=== PATIENT | male | born 1970 | race Caucasian/White ===

== ENCOUNTER 2019-06-04 05:04 | Emergency (ER) | payer BC ==
[2019-06-04] MEDS ORDERED: ONDANSETRON 4 MG/2 ML VIAL IVP STA (05:37)
[2019-06-04] MEDS ORDERED: KETOROLAC 30 MG/ML 1 ML VIAL IVP ONE (05:37)
[2019-06-04 05:50] LABS: Basophils # (A) 0.1 k/uL (0-0.2); Basophils % (A) 1 %; Eosinophils # (A) 0.2 k/uL (0-0.7); Eosinophils % (A) 3 %; HGB 16.4 gm/dL (13.0-17.5); Lymphocytes # (A) 1.3 k/uL (1.0-4.8); Lymphocytes % (A) 22 %; MCH 29.9 pg (25.0-35.0); MCHC 34.1 g/dL (31.0-37.0); MCV 87.7 fL (80.0-100.0); Mean Platelet Volume 7.3; Monocytes # (A) 0.3 k/uL (0-1.0); Monocytes % (A) 5 %; Neutrophils # (A) 4.1 k/uL (1.3-7.7); Neutrophils % (A) 67 %; Platelet Count 186 k/uL (150-450); RBC 5.47 m/uL (4.30-5.90); RDW 12.9 % (11.5-15.5); WBC 6.1 k/uL (3.8-10.6)
[2019-06-04 05:58] LABS: Albumin 4.4 g/dL (3.5-5.0); Calcium 9.3 mg/dL (8.4-10.2); Total Bilirubin 0.4 mg/dL (0.2-1.3); Total Protein 7.3 g/dL (6.3-8.2)
--- NOTE | 2019-06-04 06:06 | XR ---
EXAM: XR Abdomen, 2 Views CLINICAL HISTORY: ITS.REASON XR Reason: abdominal pain LLQ possible stone TECHNIQUE: Frontal view of the abdomen/pelvis with upright view of the abdomen. COMPARISON: None. FINDINGS: Intraperitoneal space: No free air. Gastrointestinal tract: Moderate colonic stool burden. No dilation. Bones/joints: Unremarkable. Other findings: No pathologic calcification identified. IMPRESSION: 1. No pathologic calcification identified. Consider evaluation with CT if there is clinical concern for renal or ureteral calculus. 2. Moderate colonic stool burden. Recommend correlation for constipation.
--- NOTE | 2019-06-04 06:37 | ED ---
Abdominal Pain HPI - General Chief Complaint: Abdominal Pain Stated Complaint: Abdominal Pain Time Seen by Provider: 06/04/19 05:37 Source: patient, family Mode of arrival: ambulatory Limitations: no limitations - History of Present Illness Initial Comments: Enrique is a 49-year-old gentleman with a history of kidney stones one time in the past who presents the emergency department today for evaluation of left- sided flank pain radiating to his groin since 1 AM. Patient was woken from the pain, reports is been persistent associated with nausea but no vomiting no change in bowel habits. Patient reports that since the pain began he's had an urge to urinate but is experiencing hesitancy he has not noted any gross hematuria. Patient reports he waited to come in because in the past when he had these symptoms they resolved upon arrival in the emergency department however today they persisted which prompted his arrival to the emergency department. - Related Data Previous Rx's Medication Instructions Recorded Ondansetron [Zofran ODT] 4 mg PO Q8HR #12 tab 06/04/19 Tamsulosin [Flomax] 0.4 mg PO DAILY #7 cap 06/04/19 Allergies Allergy/AdvReac Type Severity Reaction Status Date / Time No Known Allergies Allergy Verified 06/04/19 06:49 Review of Systems ROS Statement: Those systems with pertinent positive or pertinent negative responses have been documented in the HPI. ROS Other: All systems not noted in ROS Statement are negative. Past Medical History Additional Past Medical History / Comment(s): kidney stones History of Any Multi-Drug Resistant Organisms: None Reported Past Surgical History: No Surgical Hx Reported Past Psychological History: No Psychological Hx Reported Smoking Status: Current every day smoker Past Alcohol Use History: None Reported Past Drug Use History: None Reported General Exam - General Exam Comments Initial Comments: Physical Exam GENERAL: Patient is well-developed and well-nourished. Patient is nontoxic and well- hydrated and is in no distress. HENT: Normocephalic, Atraumatic. EYES: PERRL, EOMI PULMONARY: Unlabored respirations. No audible rales rhonchi or wheezing was noted. CARDIOVASCULAR: There is a regular rate and rhythm without any murmurs gallops or rubs. ABDOMEN: Soft and nontender with normal bowel sounds. No Pulsatile masses Tenderness to percussion to left flank SKIN: Skin is clear with no lesions or rashes and otherwise unremarkable. : Deferred NEUROLOGIC: Patient is alert and oriented x3. Moving all extremities spontaneously MUSCULOSKELETAL: Normal extremities with adequate strength and full range of motion. No lower extremity swelling or edema. No calf tenderness. PSYCHIATRIC: Normal psychiatric evaluation. Limitations: no limitations Course Vital Signs 06/04/19 06/04/19 06/04/19 05:17 06:46 07:45 Temperature 97.5 F L 98.0 F Pulse Rate 51 L 54 L 54 L Respiratory 20 16 16 Rate Blood Pressure 151/90 132/73 125/81 O2 Sat by Pulse 96 95 98 Oximetry Medical Decision Making - Medical Decision Making was seen and evaluated, history is obtained from the patient History and physical exam concerning for left-sided kidney stone as the patient has classic kidney stone pain which has resolved after Toradol CBC CMP unremarkable Urinalysis pending Urinalysis resulted with hematuria, we'll urinalysis was pending patient had worsening pain was given morphine. Upon reevaluation patient's pain has again resolved. At this time I do feel patient is likely suffering from a kidney stone too small to identify on KUB x-ray. Patient agreeable with plan for discharge home and outpatient management. - Lab Data Result diagrams: 06/04/19 05:30 06/04/19 05:30 Lab Results 06/04/19 06/04/19 06/04/19 Range/Units 05:30 05:30 07:17 WBC 6.1 (3.8-10.6) k/uL RBC 5.47 (4.30-5.90) m/uL Hgb 16.4 (13.0-17.5) gm/dL Hct 48.0 (39.0-53.0) % MCV 87.7 (80.0-100.0) fL MCH 29.9 (25.0-35.0) pg MCHC 34.1 (31.0-37.0) g/dL RDW 12.9 (11.5-15.5) % Plt Count 186 (150-450) k/uL Neutrophils % 67 % Lymphocytes % 22 % Monocytes % 5 % Eosinophils % 3 % Basophils % 1 % Neutrophils # 4.1 (1.3-7.7) k/uL Lymphocytes # 1.3 (1.0-4.8) k/uL Monocytes # 0.3 (0-1.0) k/uL Eosinophils # 0.2 (0-0.7) k/uL Basophils # 0.1 (0-0.2) k/uL Sodium 142 (137-145) mmol/L Potassium 4.0 (3.5-5.1) mmol/L Chloride 107 (98-107) mmol/L Carbon Dioxide 25 (22-30) mmol/L Anion Gap 10 mmol/L BUN 14 (9-20) mg/dL Creatinine 1.19 (0.66-1.25) mg/dL Est GFR (CKD-EPI)AfAm 84 (>60 ml/min/1.73 sqM) Est GFR (CKD-EPI)NonAf 72 (>60 ml/min/1.73 sqM) Glucose 146 H (74-99) mg/dL Calcium 9.3 (8.4-10.2) mg/dL Total Bilirubin 0.4 (0.2-1.3) mg/dL AST 22 (17-59) U/L ALT 34 (21-72) U/L Alkaline Phosphatase 114 (38-126) U/L Total Protein 7.3 (6.3-8.2) g/dL Albumin 4.4 (3.5-5.0) g/dL Urine Color Yellow Urine Appearance Turbid (Clear) Urine pH 5.0 (5.0-8.0) Ur Specific [place] 1.032 (1.001-1.035) Urine Protein 1+ H (Negative) Urine Glucose (UA) Negative (Negative) Urine Ketones Negative (Negative) Urine Blood Small H (Negative) Urine Nitrite Negative (Negative) Urine Bilirubin Negative (Negative) Urine Urobilinogen 2.0 (<2.0) mg/dL Ur Leukocyte Esterase Negative (Negative) Urine RBC 2 (0-5) /hpf Urine WBC 1 (0-5) /hpf Amorphous Sediment Moderate H (None) /hpf Urine Mucus Moderate H (None) /hpf Disposition Clinical Impression: Left flank pain Disposition: HOME SELF-CARE Condition: Stable Prescriptions: Tamsulosin [Flomax] 0.4 mg PO DAILY #7 cap Ondansetron [Zofran ODT] 4 mg PO Q8HR #12 tab Is patient prescribed a controlled substance at d/c from ED?: No Referrals: Yazan Mullen MD [Primary Care Provider] - 1-2 days
[2019-06-04 06:47] VITALS: PULSE 54; RESP 16
[2019-06-04] MEDS ORDERED: SODIUM CHLORIDE 0.9% 1,000 ML IV STA (06:47)
[2019-06-04] MEDS ORDERED: MORPHINE SULFATE 4 MG/ML SYRINGE IVP PRN (06:51)
[2019-06-04] MEDS ORDERED: ACET/COD 300 MG/30 MG STARTER PACK 6 TAB BTL PO STA (07:25)
[2019-06-04 07:31] LABS: Amorphous Sediment,Urine Moderate /hpf; Appearance,Urine Turbid (Clear); Bilirubin,Urine Negative (Negative); Blood,Urine Small (Negative); Color,Urine Yellow; Glucose,Urine (UA) Negative (Negative); Ketones,Urine Negative (Negative); Leukocyte Esterase,Urine Negative (Negative); Mucus,Urine Moderate /hpf; Nitrite,Urine Negative (Negative); Protein,Urine 1+ (Negative); RBC,Urine 2 /hpf (0-5); Specific Gravity,Urine 1.032 (1.001-1.035); WBC,Urine 1 /hpf (0-5)
[2019-06-04 07:47] VITALS: BP 125/81; TEMP 98
== END 2019-06-04 07:45 | disposition home or self-care (01) ==
LOC: EC 05:04
DX: R10.32 Left lower quadrant pain (principal); R31.9 Hematuria, unspecified; R11.0 Nausea; R39.11 Hesitancy of micturition; R39.15 Urgency of urination; F17.200 Nicotine dependence, unspecified, uncomplicated; Z87.442 Personal history of urinary calculi
CPT/HCPCS: 36415; 80053; 85025; 81001; 74018; 99284; 96374; 96375 ×2; 96361; J2270; J2405; J1885

== ENCOUNTER 2019-06-06 04:40 | Emergency (ER) | payer BC ==
[2019-06-06 04:44] VITALS: TEMP 98
[2019-06-06] MEDS ORDERED: KETOROLAC 30 MG/ML 1 ML VIAL IVP STA (04:46)
[2019-06-06] MEDS ORDERED: SODIUM CHLORIDE 0.9% 1,000 ML IV STA (04:46)
[2019-06-06 05:10] LABS: Basophils # (A) 0.1 k/uL (0-0.2); Basophils % (A) 1 %; Eosinophils # (A) 0.2 k/uL (0-0.7); Eosinophils % (A) 2 %; HCT 43.6 % (39.0-53.0); HGB 14.7 gm/dL (13.0-17.5); Lymphocytes # (A) 0.7 k/uL (1.0-4.8); Lymphocytes % (A) 9 %; MCHC 33.7 g/dL (31.0-37.0); MCV 86.2 fL (80.0-100.0); Mean Platelet Volume 7.4; Monocytes # (A) 0.9 k/uL (0-1.0); Monocytes % (A) 11 %; Neutrophils # (A) 6.5 k/uL (1.3-7.7); Neutrophils % (A) 78 %; Platelet Count 140 k/uL (150-450); RBC 5.06 m/uL (4.30-5.90); RDW 12.6 % (11.5-15.5); WBC 8.3 k/uL (3.8-10.6)
[2019-06-06 05:27] LABS: Albumin 4.2 g/dL (3.5-5.0); Potassium 4.1 mmol/L (3.5-5.1); Total Bilirubin 0.6 mg/dL (0.2-1.3)
[2019-06-06 05:39] LABS: Appearance,Urine Clear (Clear); Bilirubin,Urine Negative (Negative); Blood,Urine Moderate (Negative); Color,Urine Yellow; Glucose,Urine (UA) Negative (Negative); Hyaline Casts,Urine 110 /lpf (0-2); Ketones,Urine Negative (Negative); Leukocyte Esterase,Urine Negative (Negative); Mucus,Urine Rare /hpf; Nitrite,Urine Negative (Negative); PH, Urine 5.5 (5.0-8.0); Protein,Urine 1+ (Negative); RBC,Urine 8 /hpf (0-5); Specific Gravity,Urine 1.019 (1.001-1.035); Squamous Epithelial Cell,Urine <1 /hpf (0-4); Urobilinogen,Urine <2.0 mg/dL (<2.0); WBC,Urine 9 /hpf (0-5)
--- NOTE | 2019-06-06 05:49 | CT ---
EXAM: CT Abdomen and Pelvis Without Intravenous Contrast CLINICAL HISTORY: flank pain hx of stones TECHNIQUE: Axial computed tomography images of the abdomen and pelvis without intravenous contrast. CTDI is 17.0 mGy and DLP is 1065 mGy-cm. This CT exam was performed using one or more of the following dose reduction techniques: automated exposure control, adjustment of the mA and/or kV according to patient size, and/or use of iterative reconstruction technique. COMPARISON: No relevant prior studies available. FINDINGS: Lung bases: Unremarkable. No mass. No consolidation. ABDOMEN: Liver: Unremarkable. Gallbladder and bile ducts: Unremarkable. No calcified stones. No ductal dilation. Pancreas: Unremarkable. No ductal dilation. Spleen: Unremarkable. No splenomegaly. Adrenals: Unremarkable. No mass. Kidneys and ureters: Left-sided hydronephrosis and hydroureter with a 2. 8 mm ureterovesicular junction stone Stomach and bowel: Unremarkable. No obstruction. No mucosal thickening. PELVIS: Appendix: No findings to suggest acute appendicitis. Bladder: Unremarkable. No stones. Reproductive: Unremarkable as visualized. ABDOMEN and PELVIS: Intraperitoneal space: Unremarkable. No free air. No significant fluid collection. Bones/joints: No acute fracture. No dislocation. Soft tissues: Unremarkable. Vasculature: Unremarkable. No abdominal aortic aneurysm. Lymph nodes: Unremarkable. No enlarged lymph nodes. IMPRESSION: Left hydronephrosis and hydroureter with a 2.8 mm left ureterovesicular junction stone
--- NOTE | 2019-06-06 06:05 | ED ---
Abdominal Pain HPI - General Chief Complaint: Abdominal Pain Stated Complaint: Vomiting,kidney stones Time Seen by Provider: 06/06/19 04:46 Source: patient, family Mode of arrival: ambulatory Limitations: no limitations - History of Present Illness Initial Comments: Patient is a pleasant 49-year-old male who presents to the emergency department today for reevaluation of left-sided flank pain. Patient was seen and evaluated 2 days prior, x-ray revealed no acute findings labs are within normal limits he did have hematuria and it was presumed that he had a kidney stone. Patient reports he's had intermittent waxing and waning pain since that time. He reports when he has waves of pain he develops nausea and vomiting. This morning the pain again became unbearable so he came to ER for reevaluation. - Related Data Previous Rx's Medication Instructions Recorded Ondansetron [Zofran ODT] 4 mg PO Q8HR #12 tab 06/04/19 Tamsulosin [Flomax] 0.4 mg PO DAILY #7 cap 06/04/19 Allergies Allergy/AdvReac Type Severity Reaction Status Date / Time No Known Allergies Allergy Verified 06/06/19 04:43 Review of Systems ROS Statement: Those systems with pertinent positive or pertinent negative responses have been documented in the HPI. ROS Other: All systems not noted in ROS Statement are negative. Past Medical History Additional Past Medical History / Comment(s): kidney stones History of Any Multi-Drug Resistant Organisms: None Reported Past Surgical History: No Surgical Hx Reported Past Psychological History: No Psychological Hx Reported Smoking Status: Current every day smoker Past Alcohol Use History: None Reported Past Drug Use History: None Reported General Exam - General Exam Comments Initial Comments: Physical Exam GENERAL: Patient is well-developed and well-nourished. Patient is nontoxic and well- hydrated and is in no distress. HENT: Normocephalic, Atraumatic. EYES: PERRL, EOMI PULMONARY: Unlabored respirations. No audible rales rhonchi or wheezing was noted. CARDIOVASCULAR: There is a regular rate and rhythm without any murmurs gallops or rubs. ABDOMEN: Soft and nontender with normal bowel sounds. Obese SKIN: Skin is clear with no lesions or rashes and otherwise unremarkable. : Deferred NEUROLOGIC: Patient is alert and oriented x3. Moving all extremities spontaneously MUSCULOSKELETAL: Normal extremities with adequate strength and full range of motion. No lower extremity swelling or edema. No calf tenderness. PSYCHIATRIC: Normal psychiatric evaluation. Limitations: no limitations Course Vital Signs 06/06/19 06/06/19 04:41 06:07 Temperature 98 F 98 F Pulse Rate 71 62 Respiratory 20 18 Rate Blood Pressure 170/89 112/61 O2 Sat by Pulse 96 96 Oximetry Medical Decision Making - Medical Decision Making Patient was seen and evaluated, history is obtained from patient, review of medical record and recall of seen the patient 2 days prior Since patient is having recurrent pain we will now obtain a computed tomography scan since we did not do one prior and repeat labs Patient's pain was treated with Toradol and upon reevaluation he was pain-free Labs do reveal mildly worsening creatinine, computed tomography scan confirms a 2.8 mm stone at the UVJ with mild hydro- During the patient is now pain-free the stone is only 2.8 mm I do feel he is stable for discharge home and follow up with urology. Patient is agreeable to this plan. Again all questions pertaining care were answered return parameters were discussed patient was discharged home in stable condition - Lab Data Result diagrams: 06/06/19 05:02 06/06/19 05:02 Lab Results 06/06/19 06/06/19 06/06/19 Range/Units 05:02 05:02 05:04 WBC 8.3 (3.8-10.6) k/uL RBC 5.06 (4.30-5.90) m/uL Hgb 14.7 (13.0-17.5) gm/dL Hct 43.6 (39.0-53.0) % MCV 86.2 (80.0-100.0) fL MCH 29.0 (25.0-35.0) pg MCHC 33.7 (31.0-37.0) g/dL RDW 12.6 (11.5-15.5) % Plt Count 140 L (150-450) k/uL Neutrophils % 78 % Lymphocytes % 9 % Monocytes % 11 % Eosinophils % 2 % Basophils % 1 % Neutrophils # 6.5 (1.3-7.7) k/uL Lymphocytes # 0.7 L (1.0-4.8) k/uL Monocytes # 0.9 (0-1.0) k/uL Eosinophils # 0.2 (0-0.7) k/uL Basophils # 0.1 (0-0.2) k/uL Sodium 139 (137-145) mmol/L Potassium 4.1 (3.5-5.1) mmol/L Chloride 103 (98-107) mmol/L Carbon Dioxide 29 (22-30) mmol/L Anion Gap 7 mmol/L BUN 17 (9-20) mg/dL Creatinine 1.72 H (0.66-1.25) mg/dL Est GFR (CKD-EPI)AfAm 54 (>60 ml/min/1.73 sqM) Est GFR (CKD-EPI)NonAf 46 (>60 ml/min/1.73 sqM) Glucose 130 H (74-99) mg/dL Calcium 9.0 (8.4-10.2) mg/dL Total Bilirubin 0.6 (0.2-1.3) mg/dL AST 19 (17-59) U/L ALT 31 (21-72) U/L Alkaline Phosphatase 83 (38-126) U/L Total Protein 7.0 (6.3-8.2) g/dL Albumin 4.2 (3.5-5.0) g/dL Amylase 33 (30-110) U/L Lipase 16 L (23-300) U/L Urine Color Yellow Urine Appearance Clear (Clear) Urine pH 5.5 (5.0-8.0) Ur Specific [place] 1.019 (1.001-1.035) Urine Protein 1+ H (Negative) Urine Glucose (UA) Negative (Negative) Urine Ketones Negative (Negative) Urine Blood Moderate H (Negative) Urine Nitrite Negative (Negative) Urine Bilirubin Negative (Negative) Urine Urobilinogen <2.0 (<2.0) mg/dL Ur Leukocyte Esterase Negative (Negative) Urine RBC 8 H (0-5) /hpf Urine WBC 9 H (0-5) /hpf Ur Squamous Epith Cells <1 (0-4) /hpf Hyaline Casts 110 H (0-2) /lpf Urine Mucus Rare H (None) /hpf Disposition Clinical Impression: Left flank pain Disposition: HOME SELF-CARE Condition: Stable Instructions (If sedation given, give patient instructions): Kidney Stones (ED) Additional Instructions: You have a 2.8 mm kidney stone located at the junction between your ureter and your bladder. Is patient prescribed a controlled substance at d/c from ED?: No Referrals: Yazan Mullen MD [Primary Care Provider] - 1-2 days Shayan Alston MD [STAFF PHYSICIAN] - 1-2 days
[2019-06-06 06:08] VITALS: BP 112/61; PULSE 62; RESP 18
[2019-06-06] MEDS ORDERED: ACET/COD 300 MG/30 MG STARTER PACK 6 TAB BTL PO STA (06:21)
== END 2019-06-06 06:36 | disposition home or self-care (01) ==
LOC: EC 04:40
DX: R10.9 Unspecified abdominal pain (principal); N13.2 Hydronephrosis with renal and ureteral calculous obstruction; F17.200 Nicotine dependence, unspecified, uncomplicated
CPT/HCPCS: 36415; 80053; 82150; 83690; 85025; 81001; 74176; 99284; 96374; 96361; J1885

== ENCOUNTER → 2021-04-25 | Outpatient (CLI) | payer BC ==
--- NOTE | 2021-04-25 14:45 | ECHOS ---
STRESS ECHOCARDIOGRAM LUMASON: Vial INDICATIONS: Chest pain MEDICATIONS: BASELINE HEART RATE: 58 BASELINE BLOOD PRESSURE: 131/88 MAXIMUM HEART RATE: 151 MAXIMUM BLOOD PRESSURE: 253/76 85% MPHR: 145 100% MPHR: 172 METS: 12.1 MAXIMUM STAGE REACHED: 4 TOTAL EXERCISE TIME: 10:50 CLINICAL INFORMATION: Baseline EKG shows sinus rhythm, normal axis, normal intervals. Patient exercised on Jose protocol for a total of 10 minutes and 50 seconds achieving 12 METS, 88% of predicted maximal heart rate without chest pain or diagnostic ST-segment depression. Baseline echo shows normal left ventricular size wall motion systolic function. Post exercise there is normal hyperdynamic response of all segments of myocardium noted. Intravenous contrast was used to enhance endocardial visualization. CONCLUSION: 1. Excellent exercise tolerance. 2. Negative stress test by EKG criteria. 3. Negative stress echo. MMODL / IJN: [id number] /
== END | disposition home or self-care (01) ==
LOC: RADNMMAIN 09:44
PROVIDERS: ATTEND Family Medicine
DX: R07.89 Other chest pain (principal)
CPT/HCPCS: 93351

== ENCOUNTER → 2021-10-01 | Outpatient (CLI) | payer BC ==
--- NOTE | 2021-10-01 11:51 | CT ---
EXAMINATION TYPE: CT abdomen pelvis wo con DATE OF EXAM: 10/01/2021 COMPARISON: 06/06/2019 HISTORY: Right sided flank pain CT DLP: 1223 mGycm Examination of the solid and hollow viscera is limited given the lack of contrast. FINDINGS: LUNG BASES: No evidence for nodule. No evidence for infiltrate. LIVER/GB: The gallbladder is unremarkable. No space-occupying hepatic lesion. PANCREAS: No pancreatic mass identified. No inflammatory process seen. SPLEEN: No evidence for splenomegaly. No intrasplenic lesions seen. ADRENALS: No adrenal nodules identified. No evidence for thickening. KIDNEYS: No evidence for renal mass. Mild right sided hydronephrosis secondary to a 3 mm right UVJ ca lculus. BOWEL: Appendix has a normal appearance. No evidence of bowel obstruction. No inflammatory process. Lymph nodes: No evidence for adenopathy greater than 1 cm. Abdominal aorta: Atheromatous changes seen. No evidence for aneurysm. Genital organs: No significant abnormality. Other: No significant abnormality. IMPRESSION: Mild right sided hydronephrosis secondary to a 3 mm right UVJ calculus.
[2021-10-01 11:52] LABS: Basophils # (A) 0.1 k/uL (0-0.2); Basophils % (A) 1 %; Eosinophils # (A) 0.3 k/uL (0-0.7); Eosinophils % (A) 4 %; HCT 43.7 % (39.0-53.0); HGB 14.6 gm/dL (13.0-17.5); Lymphocytes # (A) 1.1 k/uL (1.0-4.8); Lymphocytes % (A) 16 %; MCH 29.6 pg (25.0-35.0); MCHC 33.4 g/dL (31.0-37.0); MCV 88.5 fL (80.0-100.0); Mean Platelet Volume 8.2; Monocytes # (A) 0.5 k/uL (0-1.0); Monocytes % (A) 8 %; Neutrophils # (A) 4.9 k/uL (1.3-7.7); Neutrophils % (A) 71 %; Platelet Count 170 k/uL (150-450); RBC 4.93 m/uL (4.30-5.90); RDW 12.5 % (11.5-15.5); WBC 6.9 k/uL (3.8-10.6)
[2021-10-01 12:12] LABS: Albumin 4.3 g/dL (3.5-5.0); Calcium 9.2 mg/dL (8.4-10.2); Total Bilirubin 0.6 mg/dL (0.2-1.3); Total Protein 7.4 g/dL (6.3-8.2)
== END | disposition home or self-care (01) ==
LOC: RADCTMAIN 11:16
PROVIDERS: ATTEND Nurse Practitioner Family
DX: N13.30 Unspecified hydronephrosis (principal)
CPT/HCPCS: 36415; 74176; 80053; 83970; 85025

== ENCOUNTER → 2022-01-03 | Outpatient (CLI) | payer BC ==
--- NOTE | 2022-01-03 13:00 | XR ---
KUB HISTORY: Bilateral kidney pain, posterior pain KUB submitted on 2 images and correlated to prior CT scan dated 10/01/2021 Distal right ureteral calcification seen on prior CT is not identified on current KUB. Bone mineraliz ation is normal. No evident bowel obstruction or pneumoperitoneum. IMPRESSION: No evident urinary calcification.
== END | disposition home or self-care (01) ==
LOC: RADXRMAIN 11:00
PROVIDERS: ATTEND Urology
DX: N20.1 Calculus of ureter (principal)
CPT/HCPCS: 74018

== ENCOUNTER 2022-07-11 11:17 | Inpatient (IN) | payer BC ==
[2022-07-11 13:28] LABS: ALT 21 U/L (4-49); AST 18 U/L (17-59); African American GFR (CKD) >90 (>60 ml/min/1.73 sqM); Albumin 3.8 g/dL (3.5-5.0); Alkaline Phosphatase 87 U/L (38-126); Amylase 39 U/L (30-110); Anion Gap 11 mmol/L; Blood Urea Nitrogen 15 mg/dL (9-20); Calcium 8.6 mg/dL (8.4-10.2); Carbon Dioxide 27 mmol/L (22-30); Chloride 98 mmol/L (98-107); Glucose 128 mg/dL (74-99); Lipase 43 U/L (23-300); Non-African American GFR(CKD) 80 (>60 ml/min/1.73 sqM); Potassium 4.1 mmol/L (3.5-5.1); Sodium 136 mmol/L (137-145); Total Bilirubin 0.8 mg/dL (0.2-1.3); Total Protein 6.3 g/dL (6.3-8.2)
[2022-07-11 13:31] LABS: Basophils % (A) 0 %; Eosinophils # (A) 0.2 k/uL (0-0.7); Eosinophils % (A) 2 %; HCT 38.1 % (39.0-53.0); HGB 13.2 gm/dL (13.0-17.5); Lymphocytes # (A) 0.5 k/uL (1.0-4.8); Lymphocytes % (A) 5 %; MCH 29.6 pg (25.0-35.0); MCHC 34.5 g/dL (31.0-37.0); MCV 85.7 fL (80.0-100.0); Mean Platelet Volume 8.2; Monocytes # (A) 0.5 k/uL (0-1.0); Monocytes % (A) 5 %; Neutrophils # (A) 8.1 k/uL (1.3-7.7); Neutrophils % (A) 87 %; Platelet Count 190 k/uL (150-450); RBC 4.45 m/uL (4.30-5.90); RDW 12.8 % (11.5-15.5); WBC 9.3 k/uL (3.8-10.6)
[2022-07-11] MEDS ORDERED: SODIUM CHLORIDE 0.9% 1,000 ML IV ONE (13:32)
[2022-07-11] MEDS ORDERED: MORPHINE SULFATE 4 MG/ML SYRINGE IVP STA (13:33)
[2022-07-11 14:00] LABS: RBC Morphology Normal; Toxic Granulation Present
--- NOTE | 2022-07-11 14:06 | ED ---
Abdominal Pain HPI - General Chief Complaint: Abdominal Pain Stated Complaint: Abd pain Time Seen by Provider: 07/11/22 12:41 Source: patient, RN notes reviewed Mode of arrival: ambulatory Limitations: no limitations - History of Present Illness Initial Comments: Patient is a 52-year-old male presents emergency room with complaints of abdominal pain nausea diarrhea and occasional blood in his stool. He reports that he has been battling these symptoms for approximately 6 weeks now with a course of tapered steroids over for one week which initially started to help her symptoms and the symptoms return and then he was placed on 40 mg of prednisone daily which again initially began to help his symptoms and then symptoms quickly surged. He reports that he contacted his GI provider but would not be able to be seen for several weeks. He states that the abdominal pain became too severe to tolerate at home despite his prednisone regimen. He does report some occasional chills but denies any fevers. He denies any chest pain, shortness of breath, altered mental status or lethargy. In addition to his history of ulcerative colitis he has a past medical history significant for kidney stones. - Related Data Home Medications Medication Instructions Recorded Confirmed predniSONE 40 mg PO DAILY 07/11/22 07/11/22 Allergies Allergy/AdvReac Type Severity Reaction Status Date / Time No Known Allergies Allergy Verified 07/11/22 13:27 Review of Systems ROS Statement: Those systems with pertinent positive or pertinent negative responses have been documented in the HPI. ROS Other: All systems not noted in ROS Statement are negative. Past Medical History Additional Past Medical History / Comment(s): kidney stones ULCERATIVE COLITIS History of Any Multi-Drug Resistant Organisms: None Reported Past Surgical History: No Surgical Hx Reported Past Psychological History: No Psychological Hx Reported Past Alcohol Use History: None Reported Past Drug Use History: None Reported General Exam Limitations: no limitations General appearance: alert, in no apparent distress Head exam: Present: atraumatic, normocephalic, normal inspection Eye exam: Present: normal appearance, PERRL, EOMI. Absent: scleral icterus, conjunctival injection, periorbital swelling ENT exam: Present: normal exam, mucous membranes moist Neck exam: Present: normal inspection, full ROM. Absent: lymphadenopathy Respiratory exam: Present: normal lung sounds bilaterally. Absent: respiratory distress, wheezes, rales, rhonchi, stridor Cardiovascular Exam: Present: regular rate, normal rhythm, normal heart sounds. Absent: systolic murmur, diastolic murmur, rubs, gallop, clicks GI/Abdominal exam: Present: soft, tenderness (Bilateral lower quadrant), normal bowel sounds. Absent: distended, guarding, rebound, rigid Rectal exam: Present: deferred Extremities exam: Present: normal inspection. Absent: pedal edema, joint swelling Back exam: Present: normal inspection Neurological exam: Present: alert, oriented X3, CN II-XII intact Psychiatric exam: Present: normal affect, normal mood Skin exam: Present: warm, dry, intact, normal color. Absent: rash Course Vital Signs 07/11/22 07/11/22 12:34 14:04 Temperature 100 F H Pulse Rate 90 71 Respiratory 16 18 Rate Blood Pressure 101/67 118/64 O2 Sat by Pulse 97 95 Oximetry Medical Decision Making - Medical Decision Making 52-year-old male presenting to the emergency room with abdominal pain being treated outpatient by his primary care provider for known ulcerative colitis exacerbation currently on 40 mg of prednisone. Will obtain laboratory studies including CBC, CMP, amylase and lipase along with CT of the abdomen. Will give IV fluids and pain medication. No nausea at this time. No indication for antibiotics. Pain improved with morphine and IV fluids. CBC stable, CMP without electrolyte derangement or elevated liver enzymes or pancreatic enzymes. CT of the abdomen reveals diffuse wall thickening and mild pericolonic inflammatory changes involving the rectum and sigmoid colon and extending into the distal left colon correlating for colitis ulcerative colitis cannot be excluded due to unable to identify mucosal lesions. Hepatic steatosis, splenomegaly along with intramuscular lipoma of the anterior right musculature noted. Lab stable however given CT findings and greater than 2 weeks of outpatient steroid treatment without improvement will plan for admission for IV treatment. Case discussed with Dr. Alberto SZYMANSKI who is covering for patient's provider Dr. Mullen who requested Solu-Medrol 60 mg IV along with a consult to GI. Admission orders placed. Will also continue IV pain medication and IV hydration. Case discussed with Dr. De Los Santos. - Lab Data Result diagrams: 07/11/22 13:08 07/11/22 13:08 Lab Results 07/11/22 07/11/22 07/11/22 Range/Units 13:08 13:08 13:08 WBC 9.3 (3.8-10.6) k/uL RBC 4.45 (4.30-5.90) m/uL Hgb 13.2 (13.0-17.5) gm/dL Hct 38.1 L (39.0-53.0) % MCV 85.7 (80.0-100.0) fL MCH 29.6 (25.0-35.0) pg MCHC 34.5 (31.0-37.0) g/dL RDW 12.8 (11.5-15.5) % Plt Count 190 (150-450) k/uL MPV 8.2 Neutrophils % 87 % Lymphocytes % 5 % Monocytes % 5 % Eosinophils % 2 % Basophils % 0 % Neutrophils # 8.1 H (1.3-7.7) k/uL Lymphocytes # 0.5 L (1.0-4.8) k/uL Monocytes # 0.5 (0-1.0) k/uL Eosinophils # 0.2 (0-0.7) k/uL Basophils # 0.0 (0-0.2) k/uL Manual Slide Review Performed Toxic Granulation Present RBC Morphology Normal Sodium 136 L (137-145) mmol/L Potassium 4.1 (3.5-5.1) mmol/L Chloride 98 (98-107) mmol/L Carbon Dioxide 27 (22-30) mmol/L Anion Gap 11 mmol/L BUN 15 (9-20) mg/dL Creatinine 1.08 (0.66-1.25) mg/dL Est GFR (CKD-EPI)AfAm >90 (>60 ml/min/1.73 sqM) Est GFR (CKD-EPI)NonAf 80 (>60 ml/min/1.73 sqM) Glucose 128 H (74-99) mg/dL Plasma Lactic Acid Andrés 0.8 (0.7-2.0) mmol/L Calcium 8.6 (8.4-10.2) mg/dL Total Bilirubin 0.8 (0.2-1.3) mg/dL AST 18 (17-59) U/L ALT 21 (4-49) U/L Alkaline Phosphatase 87 (38-126) U/L Total Protein 6.3 (6.3-8.2) g/dL Albumin 3.8 (3.5-5.0) g/dL Amylase 39 (30-110) U/L Lipase 43 (23-300) U/L - Radiology Data Radiology results: report reviewed, image reviewed CT abdomen pelvis with contrast shows 1. Diffuse wall thickening and mild pericolonic inflammatory changes involving the rectum and sigmoid colon extendin g into the distal left colon correlate for colitis. Ulcerative colitis as reported by the patient's history and within the cord of findings. A mucosal lesion is not excluded to correlate for hepatocellular disease or hepatic cyst DCIS 3. Splenomegaly. 4. 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 Disposition Clinical Impression: Colitis Disposition: ADMITTED IP TO THIS HOSP Condition: Stable Is patient prescribed a controlled substance at d/c from ED?: No Referrals: Yazan Mullen MD [Primary Care Provider] - 1-2 days Time of Disposition: 17:41
--- NOTE | 2022-07-11 15:07 | CT ---
EXAMINATION TYPE: CT abdomen pelvis w con DATE OF EXAM: 07/11/2022 COMPARISON: 10/01/2021 HISTORY: Abdominal pain. Hx ulcerative collitis CT DLP: 1132.9 mGycm Automated exposure control for dose reduction was used. CONTRAST: CT scan of the abdomen pelvis is performed with IV Contrast, patient injected with 100 mL of Isovue 3 70. FINDINGS- LUNG BASES-heart size is prominent. LIVER/GB-liver measures 20 cm and slightly heterogeneous correlate for hepatic steatosis or hepatocel lular disease.. PANCREAS- No gross abnormality is seen. SPLEEN-the spleen measures 16 cm compatible with splenomegaly.. ADRENALS- No gross abnormality is seen. KIDNEYS/BLADDER-there is no evidence of hydronephrosis or nephrolithiasis. BOWEL-there is diffuse colonic wall thickening extending from the rectum through the sigmoid colon an d pattern most typical of colitis. A mucosal lesion be difficult to exclude. No evidence of obstructi on.. LYMPH NODES- No greater than 1cm abdominal or pelvic lymph nodes areappreciated. OSSEOUS STRUCTURES-hypertrophic and degenerative changes. OTHER- within the anterior right hip musculature there is a 2.5 cm mass measuring of -100 Hounsfield units compatible with a intramuscular lipoma. IMPRESSION- 1. Diffuse wall thickening and mild pericolonic inflammatory change involving the rectum and sigmoid colon extending into the distal left colon correlate for colitis. Ulcerative colitis is reported by t he patient's history and within the cord findings. A mucosal lesion is not excluded. 2. Correlate for hepatocellular disease or hepatic steatosis. 3. Splenomegaly 4. 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
[2022-07-11] MEDS ORDERED: MORPHINE SULFATE 4 MG/ML SYRINGE IV PRN (17:17)
[2022-07-11] MEDS ORDERED: NALOXONE 0.4 MG/ML 1 ML VIAL IV PRN (17:17)
[2022-07-11] MEDS: methylPREDNISolone SOD SUCCI 125 MG/2 ML VIAL IV SCH (18:13)
[2022-07-11] MEDS: SODIUM CHLORIDE 0.9% 1,000 ML IV SCH (18:13)
[2022-07-12] MEDS: methylPREDNISolone SOD SUCCI 125 MG/2 ML VIAL IV SCH ×2 (01:52→07:26)
[2022-07-12] MEDS: SODIUM CHLORIDE 0.9% 1,000 ML IV SCH ×2 (07:26→20:44)
[2022-07-12 09:00] LABS: HCT 39.2 % (39.0-53.0); HGB 12.7 gm/dL (13.0-17.5); MCH 28.6 pg (25.0-35.0); MCHC 32.4 g/dL (31.0-37.0); MCV 88.3 fL (80.0-100.0); Mean Platelet Volume 8.1; Platelet Count 219 k/uL (150-450); RBC 4.44 m/uL (4.30-5.90); RDW 12.5 % (11.5-15.5); WBC 8.9 k/uL (3.8-10.6)
[2022-07-12 09:22] LABS: African American GFR (CKD) >90 (>60 ml/min/1.73 sqM); Anion Gap 12 mmol/L; Blood Urea Nitrogen 15 mg/dL (9-20); C Reactive Protein 8.6 mg/dL (<1.0); Calcium 8.9 mg/dL (8.4-10.2); Carbon Dioxide 27 mmol/L (22-30); Chloride 97 mmol/L (98-107); Glucose 204 mg/dL (74-99); Non-African American GFR(CKD) >90 (>60 ml/min/1.73 sqM); Potassium 4.3 mmol/L (3.5-5.1); Sodium 136 mmol/L (137-145)
[2022-07-12] MEDS ORDERED: HYDROcodone/APAP 5-325MG 1 EACH TAB PO PRN (10:28)
[2022-07-12 11:24] LABS: Erythrocyte Sedimentation Rate 63 mm/hr (0-15)
--- NOTE | 2022-07-12 12:41 | P.HPIM ---
History of Present Illness H&P Date: 07/12/22 Chief Complaint: Abdominal pain and diarrhea History of present illness; patient is a 52-year-old gentleman with past medical history significant for ulcerative who presented to the ER because of worsening abdominal pain and diarrhea. Patient had been having these symptom for the last 6 weeks. Patient was seen by his PCP and they started him on tapering dose of prednisone which initially worked but later on it continued to progress. Patient has been having generalized abdominal pain associated with diarrhea. Patient stated that there was blood mixed with stools. Patient tried to get into see his GI doctor but was unable to. Because his worsening abdominal pain and diarrhea patient came to the ER of [facility]. Patient was worked up in the ER, CT abdominal pelvis showed diffuse wall thickening and mild tisha-chronic inflammatory change involving the rectum and sigmoid colon extending into the distal left colon correlate for colitis. Initial lab work showed a white count of 9.3, hemoglobin of 13.2 sodium of 136, CRP was elevated at 8.6. Patient was started on IV steroids and was admitted to the medicine team with consult with GI REVIEW OF SYSTEMS: CONSTITUTIONAL: No fever, no malaise, no fatigue. HEENT: No recent visual problems or hearing problems. Denied any sore throat. CARDIOVASCULAR: No chest pain, orthopnea, PND, no palpitations, no syncope. PULMONARY: No shortness of breath, no cough, no hemoptysis. GASTROINTESTINAL: As mentioned in the HPI NEUROLOGICAL: No headaches, no weakness, no numbness. HEMATOLOGICAL: Denies any bleeding or petechiae. GENITOURINARY: Denies any burning micturition, frequency, or urgency. MUSCULOSKELETAL/RHEUMATOLOGICAL: Denies any joint pain, swelling, or any muscle pain. ENDOCRINE: Denies any polyuria or polydipsia. The rest of the 14-point review of systems is negative. PHYSICAL EXAMINATION: GENERAL: The patient is alert and oriented x3, not in any acute distress. Well developed, well nourished. HEENT: Pupils are round and equally reacting to light. EOMI. No scleral icterus. No conjunctival pallor. Normocephalic, atraumatic. No pharyngeal erythema. No thyromegaly. CARDIOVASCULAR: S1 and S2 present. No murmurs, rubs, or gallops. PULMONARY: Chest is clear to auscultation, no wheezing or crackles. ABDOMEN: Soft, nontender, nondistended, normoactive bowel sounds. No palpable organomegaly. MUSCULOSKELETAL: No joint swelling or deformity. EXTREMITIES: No cyanosis, clubbing, or pedal edema. NEUROLOGICAL: Gross neurological examination did not reveal any focal deficits. SKIN: No rashes. Assessment Abdominal pain Ulcerative colitis. Blood in stool Plan; Monitor CBC Monitor renal functions Blood cultures ordered Continue IV Zosyn Continue IV steroids Keep patient on clear liquid diet per GI Consult GI DVT prophylaxis: SCDs Past Medical History Additional Past Medical History / Comment(s): kidney stones ULCERATIVE COLITIS History of Any Multi-Drug Resistant Organisms: None Reported Past Surgical History: No Surgical Hx Reported Past Psychological History: No Psychological Hx Reported Smoking Status: Former smoker Past Alcohol Use History: None Reported Past Drug Use History: None Reported Medications and Allergies Home Medications Medication Instructions Recorded Confirmed Type predniSONE 40 mg PO DAILY 07/11/22 07/11/22 History Allergies Allergy/AdvReac Type Severity Reaction Status Date / Time No Known Allergies Allergy Verified 07/11/22 13:27 Physical Exam Vitals: Vital Signs Temp Pulse Pulse Resp BP BP Pulse Ox 07/12/22 07:00 98.3 F 70 18 112/70 95 07/12/22 01:53 97.9 F 62 16 127/75 98 07/11/22 19:11 98.8 F 75 16 106/63 93 L 07/11/22 19:08 18 07/11/22 17:41 75 18 105/77 98 07/11/22 14:04 71 18 118/64 95 07/11/22 12:34 100 F H 90 16 101/67 97 Intake and Output 07/11/22 07/12/22 07/12/22 22:59 06:59 14:59 Other: Voiding Method Toilet Toilet # Voids 1 2 Weight 104.326 kg Results CBC & Chem 7: 07/12/22 08:34 07/12/22 08:34 Labs: Abnormal Lab Results - Last 24 Hours (Table) 07/11/22 07/11/22 07/12/22 Range/Units 13:08 13:08 08:34 Hgb 12.7 L (13.0-17.5) gm/dL Hct 38.1 L (39.0-53.0) % Neutrophils # 8.1 H (1.3-7.7) k/uL Lymphocytes # 0.5 L (1.0-4.8) k/uL ESR 63 H (0-15) mm/hr Sodium 136 L (137-145) mmol/L Chloride (98-107) mmol/L Glucose 128 H (74-99) mg/dL C-Reactive Protein (<1.0) mg/dL 07/12/22 Range/Units 08:34 Hgb (13.0-17.5) gm/dL Hct (39.0-53.0) % Neutrophils # (1.3-7.7) k/uL Lymphocytes # (1.0-4.8) k/uL ESR (0-15) mm/hr Sodium 136 L (137-145) mmol/L Chloride 97 L (98-107) mmol/L Glucose 204 H (74-99) mg/dL C-Reactive Protein 8.6 H (<1.0) mg/dL
--- NOTE | 2022-07-12 12:55 | P.CONS ---
History of Present Illness - Reason for Consult Consult date: 07/12/22 colitis Requesting physician: Gena Rosales - Chief Complaint Abdominal pain, diarrhea - History of Present Illness This pleasant 52-year-old male who presented to the emergency department yesterday with complaints of abdominal pain and frequent bloody bowel movements. The patient denies any significant past medical history other than diagnosis of Ulcerative colitis which he states he was diagnosed about 2 years ago and had seen Dr. Aragon. He states he had colonoscopy about 2 years ago however no report is seen currently. Had seen Dr. Del Angel in the office and wanted to start him on Stelara but the patient states he read the side effects and decided not to start the medication and did not have any further follow-up. He states he's been feeling well for the last 2 years duration. However over the last month he has had increased abdominal pain and diarrhea. States diarrhea is every 1-2 hours, bloody. He states he has lost 30 pounds in the last 1 month's duration. He has seen his PCP who had started him on a Medrol dosepak for 1 week, when that was finished symptoms returned. He started him on a prednisone 40 mg daily and has been on that the last one week however states not much improvement. Came into the hospital for further evaluation. He states that Friday abdominal pain became very severe, had fever and chills, he called gastroenterology office and they told him to come to the emergency department. On admission he had a max temperature 100.0, he denies any nausea or vomiting. CT abdomen and pelvis with contrast reports diffuse wall thickening and mild. Colonic inflammatory change involving the rectum and sigmoid colon extending into the distal left colon correlate for colitis. Ulcerative colitis is reported by the patient's history and within the findings. Mucosal lesion not excluded. Correlate for hepatocellular disease or hepatic steatosis. Splenomegaly. 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 Labs: WBC 8.9 hemoglobin 12.7 hematocrit 39 platelet count 219,000 sed rate 63 sodium 136 potassium 4.3 BUN 15 creatinine 0.9 glucose 204 total bilirubin 0.8 AST 18 ALT 21 alkaline phosphatase 87 CRP 8.6 Review of Systems REVIEW OF SYSTEMS: CARDIOPULMONARY: No chest pain or shortness of breath. Gastrointestinal: Abdominal pain, bloody diarrhea. Weight loss 30 pounds in one month No nausea or vomiting. No hematemesis, coffee-ground emesis. No rectal bleeding, or melena. GENITOURINARY: No dysuria or hematuria. MUSCULOSKELETAL: Reports normal range of motion. SKIN: No rashes. No jaundice. ENDOCRINE: No chills, fevers. Weight loss. No polydipsia or polyuria. PSYCHIATRIC: Unremarkable. NEUROLOGY: No change in mental status. Denies dizziness, headache. ENT: Vision unremarkable. CONSTITUTIONAL: Weight loss 30 pounds in one month. Fever and chills 2 days. Past Medical History Additional Past Medical History / Comment(s): kidney stones ULCERATIVE COLITIS History of Any Multi-Drug Resistant Organisms: None Reported Past Surgical History: No Surgical Hx Reported Past Psychological History: No Psychological Hx Reported Smoking Status: Former smoker Past Alcohol Use History: None Reported Past Drug Use History: None Reported Medications and Allergies Home Medications Medication Instructions Recorded Confirmed Type predniSONE 40 mg PO DAILY 07/11/22 07/11/22 History Allergies Allergy/AdvReac Type Severity Reaction Status Date / Time No Known Allergies Allergy Verified 07/11/22 13:27 Physical Exam Vitals: Vital Signs Temp Pulse Pulse Resp BP BP Pulse Ox 07/12/22 07:00 98.3 F 70 18 112/70 95 07/12/22 01:53 97.9 F 62 16 127/75 98 07/11/22 19:11 98.8 F 75 16 106/63 93 L 07/11/22 19:08 18 07/11/22 17:41 75 18 105/77 98 07/11/22 14:04 71 18 118/64 95 07/11/22 12:34 100 F H 90 16 101/67 97 Intake and Output 07/11/22 07/12/22 07/12/22 22:59 06:59 14:59 Other: Voiding Method Toilet Toilet # Voids 1 2 Weight 104.326 kg General appearance: The patient is alert, oriented, appears in no acute distress. HET: Head is normocephalic and atraumatic. Conjunctiva pink. Sclera anicteric. Neck: Supple without lymphadenopathy. Trachea midline. Heart: S1 S2. Regular rate and rhythm. Lungs: Clear to auscultation. Abdomen: Soft, diffuse tenderness, nondistended with bowel sounds. No guarding or rigidity. Skin: No rashes. No jaundice. Extremities: Normal skin color and turgor. No pedal edema. Neurological: No focal deficits. Alert and oriented x3. Results CBC & Chem 7: 07/12/22 08:34 07/12/22 08:34 Labs: Abnormal Lab Results - Last 24 Hours (Table) 07/11/22 07/11/22 07/12/22 Range/Units 13:08 13:08 08:34 Hgb 12.7 L (13.0-17.5) gm/dL Hct 38.1 L (39.0-53.0) % Neutrophils # 8.1 H (1.3-7.7) k/uL Lymphocytes # 0.5 L (1.0-4.8) k/uL Sodium 136 L (137-145) mmol/L Chloride (98-107) mmol/L Glucose 128 H (74-99) mg/dL C-Reactive Protein (<1.0) mg/dL 07/12/22 Range/Units 08:34 Hgb (13.0-17.5) gm/dL Hct (39.0-53.0) % Neutrophils # (1.3-7.7) k/uL Lymphocytes # (1.0-4.8) k/uL Sodium 136 L (137-145) mmol/L Chloride 97 L (98-107) mmol/L Glucose 204 H (74-99) mg/dL C-Reactive Protein 8.6 H (<1.0) mg/dL CT scan - abdomen: report reviewed Assessment and Plan (1) Ulcerative colitis Narrative/Plan: a 52-year-old male came into the emergency department with complaints of abdominal pain and diarrhea over the last 1 month's duration with a 30 pound weight loss. Patient states on Friday femoral pain progressively gotten worse he had fevers and chills. He called gastroenterology's office and they directed him to come to the emergency department for further evaluation. Likely patient is having exacerbation of ulcerative colitis. Patient states he was diagnosed 2 years ago had seen Dr. Aragon in the past which he states he had a colonoscopy 2 years ago which is when he was diagnosed. He states they wanted to start him on stelara however the side effects that made him nervous and he had no further discomfort so he had not followed up with GI since. Patient had a temp of 100 on admission, with chills. Sed rate and CRP ordered and elevated. Patient had been on prednisone 40 mg which was started at the beginning of this week with little improvement in symptoms. Likely patient is having ulcerative colitis flare, we'll start him on Solu-Medrol 20 mg every 8 hours. IV antibiotics. C. diff ordered. Current Visit: Yes Status: Acute Code(s): K51.90 - ULCERATIVE COLITIS, UNSPECIFIED, WITHOUT COMPLICATIONS SNOMED Code(s): 51809554 (2) Abdominal pain Current Visit: Yes Status: Acute Code(s): R10.9 - UNSPECIFIED ABDOMINAL PAIN SNOMED Code(s): 85457160 Plan: 1. Continue symptomatic supportive care 2. Advance to low fiber diet 3. Start Solu-Medrol 20 mg IV every 8 hours and continue for 1-2 days 4. Start Balsalazide 2250 mg by mouth 3 times a day 5. Pain medication as needed 6. Will order a prednisone taper for discharge. Anticipate discharge in the next 24-48 hours. 7. Follow with Dr. Ocampo as scheduled on 07/15/2022 Thank you for allowing us to participate in the care of the patient, the GI service will sign off, gastroenterology will not be available at the hospital this weekend and through next week. If further evaluation by gastroenterology is required the patient will need transfer as per the primary team's discretion. Dr. Dragan Ocampo I agree with the dictator's note, documented as a scribe by Nancy Blake.
[2022-07-12] MEDS: methylPREDNISolone SOD SUCCI 40 MG/ML 1 ML VIAL IV SCH ×2 (15:23→23:21)
[2022-07-12] MEDS ORDERED: PIPERACILLIN-TAZOBACTAM 3.375 GM in SODIUM CHLORIDE 0.9% 100 ML IVPB SCH (16:00)
[2022-07-12] MEDS: BALSALAZIDE DISODIUM 750 MG CAPSULE PO SCH ×2 (17:27→20:43)
[2022-07-13] MEDS: SODIUM CHLORIDE 0.9% 1,000 ML IV SCH ×2 (07:01→21:17)
[2022-07-13] MEDS: BALSALAZIDE DISODIUM 750 MG CAPSULE PO SCH ×3 (07:01→21:17)
[2022-07-13] MEDS: methylPREDNISolone SOD SUCCI 40 MG/ML 1 ML VIAL IV SCH ×3 (07:01→23:59)
[2022-07-13 09:05] LABS: HCT 35.3 % (39.6-50.0); HGB 11.7 g/dL (13.0-17.0); MCHC 33.1 g/dL (32.0-37.0); MCV 87.4 fL (80.0-97.0); Mean Platelet Volume 10.1 fL (9.5-12.2); NRBC Per 100 WBC 0 /100 WBCS (0.0-0.0); Platelet Count 238 X 10*3/uL (140-440); RBC 4.04 X 10*6/uL (4.40-5.60); WBC 8.17 X 10*3/uL (4.50-10.00)
[2022-07-13] MEDS: PIPERACILLIN-TAZOBACTAM 3.375 GM in SODIUM CHLORIDE 0.9% 100 ML IVPB SCH ×2 (11:50→19:51)
[2022-07-13 11:57] LABS: African American GFR (CKD) 88.3 (60.0-200.0); Anion Gap 11.4 mmol/L (10.00-18.00); BUN/Creat Ratio 12.23 Ratio (12.00-20.00); Blood Urea Nitrogen 13.7 mg/dL (9.0-27.0); C Reactive Protein 7.3 mg/dL (0.00-0.80); Calcium 8.7 mg/dL (8.7-10.3); Carbon Dioxide 26.8 mmol/L (20.0-27.5); Non-African American GFR(CKD) 76.2 (60.0-200.0); Potassium 4.6 mmol/L (3.5-5.5)
--- NOTE | 2022-07-13 19:03 | P.PN ---
Subjective patient is a 52-year-old gentleman with past medical history significant for ulcerative who presented to the ER because of worsening abdominal pain and diarrhea. Patient had been having these symptom for the last 6 weeks. Patient was seen by his PCP and they started him on tapering dose of prednisone which initially worked but later on it continued to progress. Patient has been having generalized abdominal pain associated with diarrhea. Patient stated that there was blood mixed with stools. Patient tried to get into see his GI doctor but was unable to. Because his worsening abdominal pain and diarrhea patient came to the ER of [facility]. Patient was worked up in the ER, CT abdominal pelvis showed diffuse wall thickening and mild tisha-chronic inflammatory change involving the rectum and sigmoid colon extending into the distal left colon correlate for colitis. Initial lab work showed a white count of 9.3, hemoglobin of 13.2 sodium of 136, CRP was elevated at 8.6. Patient was started on IV steroids and was admitted to the medicine team with consult with GI Resume the care of the patient 07/13/2022 Patient does not look in distress but he looks anxious and concerned about his health. He is fully awake and oriented. The patient states that he has previously diagnosed with ulcerative colitis. And he says that he felt better when he was first placed on IV Solu-Medrol 60 mg every 6 hours, he felt so much better yesterday evening that they stopped his IV antibiotic after the first dose of Zosyn. However since then his IV Solu-Medrol dose lowered to 20 mg and patient reports continuous of loose diarrhea with some blood every 2-3 hours, however his blood pressure is stable and his hemoglobin 11.7. He had low-grade fever of 500 on admission, no more fever. Patient currently Solu-Medrol 20 Mg Every 8 Hours and Normal Saline 75 Mg. Also Going to Resume His Zosyn. C. diff Is Negative. CT of the Abdomen Showing Diffuse Wall Thickening and Mild Pericolonic Inflammation from the Rectum to the Distal Descending Colon with Some Splenomegaly. ProCalcitonin 0.12. Objective - Vital Signs Vital signs: Vital Signs Temp 98 F 07/13/22 07:00 Pulse 64 07/13/22 07:00 Resp 18 07/13/22 07:00 BP 128/82 07/13/22 07:00 Pulse Ox 94 L 07/13/22 07:00 FiO2 Intake & Output 07/12/22 07/13/22 07/13/22 18:59 06:59 18:59 Intake Total 120 240 Balance 120 240 Intake: Oral 120 240 Other: Voiding Method Toilet Toilet # Voids 1 2 # Bowel Movements 1 - Exam GENERAL: The patient is alert and oriented x3, not in any acute distress. Well d eveloped, well nourished. HEENT: Pupils are round and equally reacting to light. EOMI. No scleral icterus. No conjunctival pallor. Normocephalic, atraumatic. No pharyngeal erythema. No thyromegaly. CARDIOVASCULAR: S1 and S2 present. No murmurs, rubs, or gallops. PULMONARY: Chest is clear to auscultation, no wheezing or crackles. ABDOMEN: Soft, nontender, nondistended, normoactive bowel sounds. No palpable organomegaly. MUSCULOSKELETAL: No joint swelling or deformity. EXTREMITIES: No cyanosis, clubbing, or pedal edema. NEUROLOGICAL: Gross neurological examination did not reveal any focal deficits. SKIN: No rashes. no petechiae. - Labs CBC & Chem 7: 07/13/22 06:46 07/13/22 06:46 Labs: Abnormal Lab Results - Last 24 Hours (Table) 07/13/22 07/13/22 07/13/22 Range/Units 06:46 06:46 06:46 RBC 4.04 L (4.40-5.60) X 10*6/uL Hgb 11.7 L (13.0-17.0) g/dL Hct 35.3 L (39.6-50.0) % Glucose 121 H (70-110) mg/dL C-Reactive Protein 7.30 H (0.00-0.80) mg/dL Procalcitonin 0.12 H (0.02-0.09) ng/mL Microbiology - Last 24 Hours (Table) 07/11/22 13:08 Blood Culture - Preliminary Blood No Growth after 24 hours 07/11/22 13:08 Blood Culture - Preliminary Blood No Growth after 24 hours Assessment and Plan Assessment: Acute gastroenteritis, most likely exacerbation of ulcerative colitis, infectious colitis not entirely excluded Splenomegaly Increase inflammatory markers of ESR and CRP Obesity with BMI of 33 Plan: Continue with IV Solu-Medrol 20 mg Continue with gentle hydration And Zosyn Monitor bowel movements and clinically GI team evaluated the patient Labs and medication were reviewed.. Continue same treatment. Continue with symptomatic treatment. Resume home medication. Monitor lytes and vitals. DVT and GI prophylaxis. Further recommendations as per clinical course of the patient DVT prophylaxis: no heparin for positive blood per rectum GI Prophylaxis: Ppi Prognosis is guarded
[2022-07-13] MEDS: ONDANSETRON 4 MG/2 ML VIAL IVP PRN (19:55)
[2022-07-13] MEDS ORDERED: ALPRAZolam 0.5 MG TAB PO STA (20:17)
[2022-07-14] MEDS: PIPERACILLIN-TAZOBACTAM 3.375 GM in SODIUM CHLORIDE 0.9% 100 ML IVPB SCH ×3 (04:30→20:40)
[2022-07-14] MEDS: ONDANSETRON 4 MG/2 ML VIAL IVP PRN (07:37)
[2022-07-14] MEDS: BALSALAZIDE DISODIUM 750 MG CAPSULE PO SCH ×3 (07:37→20:40)
[2022-07-14] MEDS: methylPREDNISolone SOD SUCCI 40 MG/ML 1 ML VIAL IV SCH ×4 (07:37→23:09)
[2022-07-14 11:27] LABS: HCT 35.1 % (39.6-50.0); HGB 11.6 g/dL (13.0-17.0); RBC 3.94 X 10*6/uL (4.40-5.60); WBC 8.25 X 10*3/uL (4.50-10.00)
[2022-07-14 11:28] LABS: MCH 29.4 pg (27.0-32.0); MCV 89.1 fL (80.0-97.0); Mean Platelet Volume 10.3 fL (9.5-12.2); NRBC Per 100 WBC 0.2 /100 WBCS (0.0-0.0); Platelet Count 241 X 10*3/uL (140-440)
[2022-07-14 11:33] LABS: African American GFR (CKD) 82.9 (60.0-200.0); Anion Gap 10.2 mmol/L (10.00-18.00); BUN/Creat Ratio 13.05 Ratio (12.00-20.00); Blood Urea Nitrogen 15.4 mg/dL (9.0-27.0); Calcium 8.6 mg/dL (8.7-10.3); Carbon Dioxide 28.6 mmol/L (20.0-27.5); Non-African American GFR(CKD) 71.5 (60.0-200.0); Potassium 4.5 mmol/L (3.5-5.5)
[2022-07-14 11:34] LABS: Magnesium 2.4 mg/dL (1.5-2.4)
[2022-07-14] MEDS: SODIUM CHLORIDE 0.9% 1,000 ML IV SCH (11:44)
[2022-07-14 12:01] LABS: Basophils # (A) 0.04 X 10*3/uL (0.00-0.10); Basophils % (A) 0.5 %; Eosinophils # (A) 0.02 X 10*3/uL (0.04-0.35); Eosinophils % (A) 0.2 %; Immature Grans, Automated 1.5 %; Lymphocytes # (A) 0.74 X 10*3/uL (0.90-5.00); Monocytes # (A) 1.06 X 10*3/uL (0.20-1.00); Monocytes % (A) 12.8 %; Neutrophils # (A) 6.27 X 10*3/uL (1.80-7.70); RBC Morphology NORMAL
--- NOTE | 2022-07-14 15:23 | P.PN ---
Subjective patient is a 52-year-old gentleman with past medical history significant for ulcerative who presented to the ER because of worsening abdominal pain and diarrhea. Patient had been having these symptom for the last 6 weeks. Patient was seen by his PCP and they started him on tapering dose of prednisone which initially worked but later on it continued to progress. Patient has been having generalized abdominal pain associated with diarrhea. Patient stated that there was blood mixed with stools. Patient tried to get into see his GI doctor but was unable to. Because his worsening abdominal pain and diarrhea patient came to the ER of [facility]. Patient was worked up in the ER, CT abdominal pelvis showed diffuse wall thickening and mild tisha-chronic inflammatory change involving the rectum and sigmoid colon extending into the distal left colon correlate for colitis. Initial lab work showed a white count of 9.3, hemoglobin of 13.2 sodium of 136, CRP was elevated at 8.6. Patient was started on IV steroids and was admitted to the medicine team with consult with GI Resume the care of the patient 07/13/2022 Patient does not look in distress but he looks anxious and concerned about his health. He is fully awake and oriented. The patient states that he has previously diagnosed with ulcerative colitis. And he says that he felt better when he was first placed on IV Solu-Medrol 60 mg every 6 hours, he felt so much better yesterday evening that they stopped his IV antibiotic after the first dose of Zosyn. However since then his IV Solu-Medrol dose lowered to 20 mg and patient reports continuous of loose diarrhea with some blood every 2-3 hours, however his blood pressure is stable and his hemoglobin 11.7. He had low-grade fever of 500 on admission, no more fever. Patient currently Solu-Medrol 20 Mg Every 8 Hours and Normal Saline 75 Mg. Also Going to Resume His Zosyn. C. diff Is Negative. CT of the Abdomen Showing Diffuse Wall Thickening and Mild Pericolonic Inflammation from the Rectum to the Distal Descending Colon with Some Splenomegaly. ProCalcitonin 0.12. 07/24/2022 Patient feels his improving overall, last night he had formed bowel movement however this morning it is loose and bloody again started at the lipid concerned and he wants his used her some increased, patient is already improving partially on those of Solu-Medrol 20 mg every 8 hours, we going to increase the frequency to every 6 hours and patient is agreeable. Patient also continued on Zosyn. No more fever. Patient continued to improve. Also he is on normal saline 75 mL/h Patient is tolerating 100% of his diet. He remains on normal saline 40 mL per hour. Labs are stable. Repeat labs in the morning Objective - Vital Signs Vital signs: Vital Signs Temp 98.1 F 07/14/22 07:00 Pulse 62 07/14/22 07:00 Resp 18 07/14/22 07:00 BP 122/74 07/14/22 07:00 Pulse Ox 97 07/14/22 07:00 FiO2 Intake & Output 07/13/22 07/14/22 07/14/22 18:59 06:59 18:59 Intake Total 240 Output Total 860 Balance 240 -860 Intake: Oral 240 Output: Urine 860 Other: Voiding Method Toilet Toilet Toilet # Voids 2 # Bowel Movements 2 1 - Exam GENERAL: The patient is alert and oriented x3, not in any acute distress. Well developed, well nourished. HEENT: Pupils are round and equally reacting to light. EOMI. No scleral icterus. No conjunctival pallor. Normocephalic, atraumatic. No pharyngeal erythema. No thyromegaly. CARDIOVASCULAR: S1 and S2 present. No murmurs, rubs, or gallops. PULMONARY: Chest is clear to auscultation, no wheezing or crackles. ABDOMEN: Soft, nontender, nondistended, normoactive bowel sounds. No palpable organomegaly. MUSCULOSKELETAL: No joint swelling or deformity. EXTREMITIES: No cyanosis, clubbing, or pedal edema. NEUROLOGICAL: Gross neurological examination did not reveal any focal deficits. SKIN: No rashes. no petechiae. - Labs CBC & Chem 7: 07/14/22 07:52 07/14/22 07:52 Labs: Abnormal Lab Results - Last 24 Hours (Table) 07/13/22 07/13/22 Range/Units 06:46 06:46 Glucose 121 H (70-110) mg/dL C-Reactive Protein 7.30 H (0.00-0.80) mg/dL Procalcitonin 0.12 H (0.02-0.09) ng/mL Microbiology - Last 24 Hours (Table) 07/11/22 13:08 Blood Culture - Preliminary Blood No Growth after 48 hours 07/11/22 13:08 Blood Culture - Preliminary Blood No Growth after 48 hours Assessment and Plan Assessment: Acute gastroenteritis, most likely exacerbation of ulcerative colitis, infectious colitis not entirely excluded Splenomegaly Increase inflammatory markers of ESR and CRP Obesity with BMI of 33 Plan: Continue with IV Solu-Medrol 20 mg Continue with gentle hydration Continue with Zosyn Continue with encouraging oral intake Monitor bowel movements and clinically GI team evaluated the patient Labs and medication were reviewed.. Continue same treatment. Continue with symptomatic treatment. Resume home medication. Monitor lytes and vitals. DVT and GI prophylaxis. Further recommendations as per clinical course of the patient DVT prophylaxis: no heparin for positive blood per rectum GI Prophylaxis: Ppi Prognosis is guarded
[2022-07-15] MEDS: SODIUM CHLORIDE 0.9% 1,000 ML IV SCH ×2 (01:29→15:13)
[2022-07-15] MEDS: methylPREDNISolone SOD SUCCI 40 MG/ML 1 ML VIAL IV SCH ×3 (05:13→19:52)
[2022-07-15] MEDS: PIPERACILLIN-TAZOBACTAM 3.375 GM in SODIUM CHLORIDE 0.9% 100 ML IVPB SCH ×2 (05:13→14:08)
[2022-07-15] MEDS: ONDANSETRON 4 MG/2 ML VIAL IVP PRN (05:15)
[2022-07-15] MEDS: BALSALAZIDE DISODIUM 750 MG CAPSULE PO SCH ×3 (08:32→19:52)
[2022-07-15 09:02] LABS: African American GFR (CKD) 81.2 (60.0-200.0); Anion Gap 11.3 mmol/L (10.00-18.00); BUN/Creat Ratio 12.92 Ratio (12.00-20.00); Blood Urea Nitrogen 15.5 mg/dL (9.0-27.0); Calcium 8.9 mg/dL (8.7-10.3); Carbon Dioxide 27.7 mmol/L (20.0-27.5); Non-African American GFR(CKD) 70.1 (60.0-200.0); Potassium 4.6 mmol/L (3.5-5.5)
[2022-07-15 09:09] LABS: HCT 36.7 % (39.6-50.0); HGB 12.1 g/dL (13.0-17.0); MCH 28.9 pg (27.0-32.0); MCV 87.6 fL (80.0-97.0); Mean Platelet Volume 10.3 fL (9.5-12.2); NRBC Per 100 WBC 0.3 /100 WBCS (0.0-0.0); Platelet Count 267 X 10*3/uL (140-440); RBC 4.19 X 10*6/uL (4.40-5.60)
[2022-07-15 09:49] LABS: Basophils # (A) 0.05 X 10*3/uL (0.00-0.10); Basophils % (A) 0.5 %; Eosinophils # (A) 0.02 X 10*3/uL (0.04-0.35); Eosinophils % (A) 0.2 %; Immature Grans, Automated 2.2 %; Lymphocytes # (A) 0.87 X 10*3/uL (0.90-5.00); Lymphocytes % (A) 9.4 %; Monocytes # (A) 0.93 X 10*3/uL (0.20-1.00); Neutrophils # (A) 7.23 X 10*3/uL (1.80-7.70); Neutrophils % (A) 77.7 %
[2022-07-15] MEDS ORDERED: methylPREDNISolone SOD SUCCI 40 MG/ML 1 ML VIAL IV STA (10:56)
[2022-07-15] MEDS: metroNIDAZOLE-NS PMX 500 MG in SALINE 1 100ML.BAG IVPB SCH ×2 (16:37→23:23)
--- NOTE | 2022-07-15 17:21 | P.PN ---
Subjective Progress Note Date: 07/15/22 Patient 70-year-old male with a known history of atrial fibrillation on anticoagulation with Eliquis, hypertension, hyperlipidemia and history of metastatic esophageal cancer currently receiving systemic chemotherapy and recurrent magnet pleural effusion presents to ER with complaints of cough and worsening shortness of breath for the past 5 days. Patient had right-sided pleural effusion status postthoracentesis in November 2021. Patient otherwise denied any complaints of pruritus. No complaints of nausea vomiting abdominal pain or diarrhea. Denied any dysuria or hematuria. CT angiogram of the chest showed no evidence of PE. Predominantly left upper lobe new groundglass opacities correlate for infectious/inflammatory process. Right pleural effusion with associated atelectasis. Chest x-ray showed large chronic right pleural effusion without much change. EKG showed atrial flutter/tachycardia Laboratory data showed WBC 15.4 hemoglobin 13.6 and platelets 323 D-dimer level is 9.0 Sodium 137 potassium 4.0 chloride 100 bicarb is 25 BUN 13 and creatinine 0.73 proBNP 2230 procalcitonin level is 0.06 07/07/2022 Patient is currently lying in bed. Awake alert but seems to be lethargic and weak. No complaints of chest pain. No nausea vomiting or abdominal pain or diarrhea. Still having exertional dyspnea. Patient is being continued on antibiotics empirically for possible left lower lobe pneumonia. Pulmonary complaining pigtail catheter placement due to recurrent malignant pleural effusion. Patient is being continued on DuoNeb's and laboratory data showed WBC 12.4 hemoglobin 12.0 and platelets 307 Sodium 137 potassium 4.2 chloride 103 bicarb is 21.5 BUN 12.4 and creatinine 0.7 07/08/2022 Patient is currently lying in the bed. Awake alert and oriented. Currently on oxygen at 2 L via nasal cannula. Patient underwent right-sided pigtail chest tube placement today by interventional etiology. Approximate 1 mL of bloody fluid return., Likely migraine pleural effusion. Otherwise patient denies any complaints of chest pain. No nausea vomiting abdominal pain or diarrhea. Patient is being current on antibiotics and off Zosyn. Continued on DuoNebs and Pulmicort inhalation. Laboratory test showed WBC 7.3 hemoglobin 9.4 and platelets 244 Sodium 141 potassium 4.2 chloride 105 bicarb is 26.2 BUN 11.1 and creatinine 0.8 07/09/22. Patient seen and examined. Still has chest tubes in place. Currently on tube feeding. Denies any acute issues overnight. Vital signs stable 07/10/22. Patient seen and examined. Vitals and continue stable. Patient has been afebrile. Labs reviewed. Last chest x-ray showed small right-sided pleural effusion 07/11/22. Patient seen and examined. Patient laying comfortably in the bed. Labs reviewed hemoglobin this morning is 11.4, white count is 7.24. Still has chest tube in place. Case discussed with nursing staff 07/12/22. Seen and examined. Patient continues to be on tube feeding. Patient still has chest tube in. Family requested oncology to evaluate the patient. No acute issues overnight. Case discussed with nursing staff 07/13/2022 Patient remains very lethargic lying in bed, no respiratory distress. Pigtail catheter is in place with reported less drainage IR evaluated the pt and pulmonary team on the case oncology team are also involved per request of family pt continues on normal saline at 40 ml per hr 07/14/2022 Patient is clinically stable and improving. Patient is not easing but using his PEG tube as a bolus. He had it for the last 2 years. His oncologist is Dr. Jaquez as an outpatient and patient was instructed the need to follow up with him as an outpatient and he is agreeable Patient informed about the postoperative results of malignant cells in his pleural fluid. Patient's feels little depressed but no overt signs and symptoms of hopelessness and hopelessness, he denies any suicidal or homicidal ideation. Patient does not think he needs treatment for his sadness. Continue on normal saline 40 mm/h. 07/15/2022 Patient is seen and evaluated in follow-up this morning reporting significant nausea unable to tolerate diet and reports he noticed this when steroids have been titrated down. Patient is maintained on IV Zosyn and is afebrile and we'll transition to ceftriaxone along with Flagyl. Patient did have an appointment with GI in the outpatient setting this morning although given his symptoms and continued loose stools with blood we'll monitor the patient overnight on IV ster oids and transitioned antibiotics with gentle IV hydration and repeat labs. MARKO globin is stable at 12.1 white blood count remains normal at 9.3 and platelets are slightly decreased at 267. BMP within normal limits and creatinine slightly elevated at 1.2. Patient is afebrile and vital signs are stable. Physical Exam: GENERAL: The patient is alert and oriented x3,. Well developed, well nourished. HEENT: Pupils are round and equally reacting to light. EOMI. No scleral icterus. No conjunctival pallor. Normocephalic, atraumatic. No pharyngeal erythema. No thyromegaly. CARDIOVASCULAR: S1 and S2 present. No murmurs, rubs, or gallops. -PULMONARY: Chest is clear to auscultation, no wheezing or crackles. Pigtail tube in place. Mildly tachypneic ABDOMEN: Soft, tender, nondistended, normoactive bowel sounds. No palpable organomegaly. MUSCULOSKELETAL: No joint swelling or deformity. EXTREMITIES: No cyanosis, clubbing, or pedal edema. NEUROLOGICAL: Gross neurological examination did not reveal any focal deficits. SKIN: No rashes. no petechiae. Assessment: Acute gastroenteritis, most likely exacerbation of ulcerative colitis, infectious colitis not entirely excluded Splenomegaly Increase inflammatory markers of ESR and CRP Obesity with BMI of 33 GI prophylaxis DVT prophylaxis Full code Plan: Continue with IV Solu-Medrol 40 mg we'll transition to oral in a.m. Continue with gentle hydration Patient continues with loose stools which is mostly blood and nausea with increased abdominal distention and pain and we'll transition to ceftriaxone and Flagyl and discontinue Zosyn Continue with encouraging oral intake, patient reports nausea and significant abdominal pain and suggest titrating the diet back to clear liquids if not tolerating Monitor bowel movements closely and will reevaluate CBC in the a.m. as patient reports continues to have over 10 bowel movements daily that are all blood and no stool noted GI team has evaluated the patient and did have follow-up appointment today although not discharged and encouraged the at the bedside to call GI office to reschedule for as soon as possible Given patient's continued symptoms of nausea, abdominal pain and distention, and continued loose bloody stools recommend hospitalization more than 2 nights and close observation overnight with repeat labs in the a.m. and after transitioning steroids and antibiotics with follow-up in the a.m. and possible discharge in the next 24-48 hours. The impression and plan of care has been dictated by Mariana Turner, nurse practitioner as directed. Dr. Oliverio MD I have performed a history and examination and MDM of this patient, discussed the same with the dictator, and agree with the dictator's assessment and plan as written ,documented as a scribe. Based on total visit time, I have performed more than 50% of the visit. Any additional findings or plans will be noted. Objective - Vital Signs Vital signs: Vital Signs Temp 98.2 F 07/15/22 07:50 Pulse 72 07/15/22 07:50 Resp 18 07/15/22 07:50 BP 117/72 07/15/22 07:50 Pulse Ox 98 07/15/22 07:50 FiO2 Intake & Output 07/14/22 07/15/22 07/15/22 18:59 06:59 18:59 Intake Total 240 Balance 240 Intake: Oral 240 Other: Voiding Method Toilet Toilet # Voids 2 # Bowel Movements 3 1 - Labs CBC & Chem 7: 07/15/22 06:02 07/15/22 06:02 Labs: Abnormal Lab Results - Last 24 Hours (Table) 07/14/22 07/14/22 07/15/22 Range/Units 07:52 07:52 06:02 RBC 3.94 L 4.19 L (4.40-5.60) X 10*6/uL Hgb 11.6 L 12.1 L (13.0-17.0) g/dL Hct 35.1 L 36.7 L (39.6-50.0) % Plt Count Comment DECREASED A Absolute Nucleated RBC 0.02 H 0.03 H (0.00-0.00) X 10*3/uL Immature Gran # 0.12 H 0.20 H (0.00-0.04) X 10*3/uL Lymphocytes # 0.74 L 0.87 L (0.90-5.00) X 10*3/uL Monocytes # 1.06 H (0.20-1.00) X 10*3/uL Eosinophils # 0.02 L 0.02 L (0.04-0.35) X 10*3/uL NRBC/100 WBC Diff 0.2 H 0.3 H (0.0-0.0) /100 WBCS Carbon Dioxide 28.6 H (20.0-27.5) mmol/L Glucose 131 H (70-110) mg/dL Calcium 8.6 L (8.7-10.3) mg/dL 07/15/22 Range/Units 06:02 RBC (4.40-5.60) X 10*6/uL Hgb (13.0-17.0) g/dL Hct (39.6-50.0) % Plt Count Comment Absolute Nucleated RBC (0.00-0.00) X 10*3/uL Immature Gran # (0.00-0.04) X 10*3/uL Lymphocytes # (0.90-5.00) X 10*3/uL Monocytes # (0.20-1.00) X 10*3/uL Eosinophils # (0.04-0.35) X 10*3/uL NRBC/100 WBC Diff (0.0-0.0) /100 WBCS Carbon Dioxide 27.7 H (20.0-27.5) mmol/L Glucose 140 H (70-110) mg/dL Calcium (8.7-10.3) mg/dL Microbiology - Last 24 Hours (Table) 07/11/22 13:08 Blood Culture - Preliminary Blood No Growth after 72 hours 07/11/22 13:08 Blood Culture - Preliminary Blood No Growth after 72 hours
[2022-07-15] MEDS ORDERED: methylPREDNISolone SOD SUCCI 40 MG/ML 1 ML VIAL IV SCH (18:00)
[2022-07-15 22:30] VITALS: RESP 16
[2022-07-16] MEDS: methylPREDNISolone SOD SUCCI 40 MG/ML 1 ML VIAL IV SCH ×2 (03:40→08:47)
[2022-07-16] MEDS: SODIUM CHLORIDE 0.9% 1,000 ML IV SCH (04:18)
[2022-07-16 07:46] LABS: African American GFR (CKD) >90 (>60 ml/min/1.73 sqM); Anion Gap 9 mmol/L; Blood Urea Nitrogen 18 mg/dL (9-20); Calcium 8.4 mg/dL (8.4-10.2); Carbon Dioxide 29 mmol/L (22-30); Chloride 99 mmol/L (98-107); Glucose 116 mg/dL (74-99); Non-African American GFR(CKD) 87 (>60 ml/min/1.73 sqM); Potassium 4.3 mmol/L (3.5-5.1); Sodium 137 mmol/L (137-145)
[2022-07-16 07:47] LABS: HCT 35.4 % (39.0-53.0); HGB 11.9 gm/dL (13.0-17.5); MCH 29.8 pg (25.0-35.0); MCHC 33.5 g/dL (31.0-37.0); MCV 88.9 fL (80.0-100.0); Mean Platelet Volume 8.1; Platelet Count 222 k/uL (150-450); RBC 3.99 m/uL (4.30-5.90); RDW 12.7 % (11.5-15.5); WBC 6.7 k/uL (3.8-10.6)
[2022-07-16 08:42] LABS: Band Neutrophils % 4 %; Lymphocytes # (M) 0.94 k/uL (1.0-4.8); Monocytes # (M) 0.47 k/uL (0-1.0); Neutrophils % (M) 75 %; Nucleated Red Blood Cells 0 /100 WBC (0-0); Total Cells Counted 100
[2022-07-16] MEDS: metroNIDAZOLE-NS PMX 500 MG in SALINE 1 100ML.BAG IVPB SCH (08:48)
[2022-07-16] MEDS: ONDANSETRON 4 MG/2 ML VIAL IVP PRN (08:48)
[2022-07-16] MEDS: BALSALAZIDE DISODIUM 750 MG CAPSULE PO SCH (09:51)
[2022-07-16 12:28] VITALS: BMI 33.0
[2022-07-16 13:18] VITALS: BP 120/70; PULSE 58; TEMP 97.9
--- NOTE | 2022-07-17 16:35 | PN ---
07/15/2022 Patient is seen and evaluated in follow-up this morning reporting significant nausea unable to tolerate diet and reports he noticed this when steroids have been titrated down. Patient is maintained on IV Zosyn and is afebrile and we'll transition to ceftriaxone along with Flagyl. Patient did have an appointment with GI in the outpatient setting this morning although given his symptoms and continued loose stools with blood we'll monitor the patient overnight on IV steroids and transitioned antibiotics with gentle IV hydration and repeat labs. MARKO globin is stable at 12.1 white blood count remains normal at 9.3 and platelets are slightly decreased at 267. BMP within normal limits and creatinine slightly elevated at 1.2. Patient is afebrile and vital signs are stable. Physical Exam: GENERAL: The patient is alert and oriented x3,. Well developed, well nourished. HEENT: Pupils are round and equally reacting to light. EOMI. No scleral icterus. No conjunctival pallor. Normocephalic, atraumatic. No pharyngeal erythema. No thyromegaly. CARDIOVASCULAR: S1 and S2 present. No murmurs, rubs, or gallops. -PULMONARY: Chest is clear to auscultation, no wheezing or crackles. Pigtail tube in place. Mildly tachypneic ABDOMEN: Soft, tender, nondistended, normoactive bowel sounds. No palpable organomegaly. MUSCULOSKELETAL: No joint swelling or deformity. EXTREMITIES: No cyanosis, clubbing, or pedal edema. NEUROLOGICAL: Gross neurological examination did not reveal any focal deficits. SKIN: No rashes. no petechiae. Assessment: Acute gastroenteritis, most likely exacerbation of ulcerative colitis, infectious colitis not entirely excluded Splenomegaly Increase inflammatory markers of ESR and CRP Obesity with BMI of 33 GI prophylaxis DVT prophylaxis Full code Plan: Continue with IV Solu-Medrol 40 mg we'll transition to oral in a.m. Continue with gentle hydration Patient continues with loose stools which is mostly blood and nausea with increased abdominal distention and pain and we'll transition to ceftriaxone and Flagyl and discontinue Zosyn Continue with encouraging oral intake, patient reports nausea and significant abdominal pain and suggest titrating the diet back to clear liquids if not tolerating Monitor bowel movements closely and will reevaluate CBC in the a.m. as patient reports continues to have over 10 bowel movements daily that are all blood and no stool noted GI team has evaluated the patient and did have follow-up appointment today although not discharged and encouraged the at the bedside to call GI office to reschedule for as soon as possible Given patient's continued symptoms of nausea, abdominal pain and distention, and continued loose bloody stools recommend hospitalization more than 2 nights and close observation overnight with repeat labs in the a.m. and after transitioning steroids and antibiotics with follow-up in the a.m. and possible discharge in the next 24-48 hours. The impression and plan of care has been dictated by Mariana Turner, nurse practitioner as directed. Dr. Oliverio MD I have performed a history and examination and MDM of this patient, discussed the same with the dictator, and agree with the dictator's assessment and plan as written ,documented as a scribe. Based on total visit time, I have performed more than 50% of the visit. Any additional findings or plans will be noted. Objective - Vital Signs Vital signs: Vital Signs Temp 98.2 F 07/15/22 07:50 Pulse 72 07/15/22 07:50 Resp 18 07/15/22 07:50 BP 117/72 07/15/22 07:50 Pulse Ox 98 07/15/22 07:50 FiO2 Intake & Output 07/14/22 07/15/22 07/15/22 18:59 06:59 18:59 Intake Total 240 Balance 240 Intake: Oral 240 Other: Voiding Method Toilet Toilet # Voids 2 # Bowel Movements 3 1 - Labs CBC & Chem 7: 07/15/22 06:02 07/15/22 06:02 Labs: Abnormal Lab Results - Last 24 Hours (Table) 07/14/22 07/14/22 07/15/22 Range/Units 07:52 07:52 06:02 RBC 3.94 L 4.19 L (4.40-5.60) X 10*6/uL Hgb 11.6 L 12.1 L (13.0-17.0) g/dL Hct 35.1 L 36.7 L (39.6-50.0) % Plt Count Comment DECREASED A Absolute Nucleated RBC 0.02 H 0.03 H (0.00-0.00) X 10*3/uL Immature Gran # 0.12 H 0.20 H (0.00-0.04) X 10*3/uL Lymphocytes # 0.74 L 0.87 L (0.90-5.00) X 10*3/uL Monocytes # 1.06 H (0.20-1.00) X 10*3/uL Eosinophils # 0.02 L 0.02 L (0.04-0.35) X 10*3/uL NRBC/100 WBC Diff 0.2 H 0.3 H (0.0-0.0) /100 WBCS Carbon Dioxide 28.6 H (20.0-27.5) mmol/L Glucose 131 H (70-110) mg/dL Calcium 8.6 L (8.7-10.3) mg/dL 07/15/22 Range/Units 06:02 RBC (4.40-5.60) X 10*6/uL Hgb (13.0-17.0) g/dL Hct (39.6-50.0) % Plt Count Comment Absolute Nucleated RBC (0.00-0.00) X 10*3/uL Immature Gran # (0.00-0.04) X 10*3/uL Lymphocytes # (0.90-5.00) X 10*3/uL Monocytes # (0.20-1.00) X 10*3/uL Eosinophils # (0.04-0.35) X 10*3/uL NRBC/100 WBC Diff (0.0-0.0) /100 WBCS Carbon Dioxide 27.7 H (20.0-27.5) mmol/L Glucose 140 H (70-110) mg/dL Calcium (8.7-10.3) mg/dL Microbiology - Last 24 Hours (Table) 07/11/22 13:08 Blood Culture - Preliminary Blood No Growth after 72 hours 07/11/22 13:08 Blood Culture - Preliminary Blood No Growth after 72 hours MTDD
--- NOTE | 2022-07-19 10:40 | P.DS ---
Providers Date of admission: 07/15/22 16:09 Expected date of discharge: 07/16/22 Attending physician: Flavia Veloz Consults: 07/11/22 17:17 Consult Physician Routine Consulting Provider: Tanika Ocampo Consult Reason/Comments: colitis Do you want consulting provider notified?: Yes Primary care physician: Yazan Mullen Hospital Course: Final diagnosis Acute gastroenteritis, most likely exacerbation of ulcerative colitis, infectious colitis not entirely excluded Splenomegaly Increase inflammatory markers of ESR and CRP Obesity with BMI of 33 GI prophylaxis DVT prophylaxis Full code Discharge disposition Patient is being discharged in a stable condition with guarded prognosis to home. Patient will follow-up with Dr. Mullen in the outpatient setting upon discharge. Patient is to continue with prednisone taper and close outpatient follow-up with GI Dr. Ocampo. Total time taken is greater than 35 minutes. Hospital course This is a 52-year-old male who was recently admitted with and was being closely monitored. Currently no reports of chest pain, shortness of breath, or palpitations. Patient is afebrile. No reports of nausea or vomiting and patient is tolerating diet. Patient will be going to [facility] today. Physical exam: Gen: This is a 52-year-old male awake, alert and oriented 3, well-developed, well-nourished, obese HEENT: Head is atraumatic, normocephalic. Pupils equal, round. Sclerae is anicteric. NECK: Supple. No JVD. No lymphadenopathy. No thyromegaly. LUNGS: Clear to auscultation. No wheezes or rhonchi. No intercostal retractions. HEART: Regular rate and rhythm. No murmur. ABDOMEN: Soft. Mildly tender on palpation. Bowel sounds are present. No masses. No tenderness. EXTREMITIES: No pedal edema. No calf tenderness. NEUROLOGICAL: Patient is awake, alert and oriented x3. Cranial nerves 2 through 12 are grossly intact. Please refer to medication reconciliation sheet for a list of medications. The impression and plan of care has been dictated by Mariana Turner, Nurse Practitioner as directed. Dr. Oliverio MD I have performed a history and examination and MDM of this patient, discussed the same with the dictator, and agree with the dictator's assessment and plan as written ,documented as a scribe. Based on total visit time, I have performed more than 50% of the visit. Patient Condition at Discharge: Stable Plan - Discharge Summary New Discharge Prescriptions: New Balsalazide Disodium [Colazal] 2,250 mg PO TID 30 Days #270 cap metroNIDAZOLE [Flagyl] 500 mg PO TID 5 Days #15 tab Ondansetron Odt [Zofran Odt] 4 mg PO Q8HR PRN #30 tab PRN Reason: Nausea cefUROXime axetiL [Cefuroxime] 500 mg PO BID 5 Days #10 tab predniSONE 40 mg PO DAILY #56 tab Discontinued predniSONE 40 mg PO DAILY Discharge Medication List Balsalazide Disodium [Colazal] 2,250 mg PO TID 30 Days #270 cap 07/16/22 [Rx] Ondansetron Odt [Zofran Odt] 4 mg PO Q8HR PRN #30 tab 07/16/22 [Rx] cefUROXime axetiL [Cefuroxime] 500 mg PO BID 5 Days #10 tab 07/16/22 [Rx] metroNIDAZOLE [Flagyl] 500 mg PO TID 5 Days #15 tab 07/16/22 [Rx] predniSONE 40 mg PO DAILY #56 tab 07/16/22 [Rx] Follow up Appointment(s)/Referral(s): Yazan Mullen MD [Primary Care Provider] - 1-2 days Tanika Ocampo MD [STAFF PHYSICIAN] - 07/15/22 (Patient to call office tomorrow to get rescheduled) Ambulatory/Diagnostic Orders: Complete Blood Count w/diff [LAB.AMB] Time Frame: 3 Days, Location: None Selected Patient Instructions/Handouts: Ulcerative Colitis (DC), Colitis (ED) Activity/Diet/Wound Care/Special Instructions: Activity is limited until follow-up Follow-up with GI as discussed Continue current diet and slowly advanced and continue with low fiber as tolerated May use Zofran as needed for nausea Continue antibiotics until finished Recommend repeat labs today 3 days prior to follow-up appointments Discharge Disposition: HOME SELF-CARE
== END 2022-07-16 15:39 | disposition home or self-care (01) | DRG 386 ==
LOC: EC 11:17 → 6NMEDSUR 17:03 → OBSVTOIN 07-15 16:09
PROVIDERS: ADMIT Hospitalist; ATTEND Hospitalist
DX: K51.90 Ulcerative colitis, unspecified, without complications (principal); A09 Infectious gastroenteritis and colitis, unspecified; E66.9 Obesity, unspecified; E78.5 Hyperlipidemia, unspecified; R16.1 Splenomegaly, not elsewhere classified; Z28.310 Unvaccinated for COVID-19
CPT/HCPCS: 36415; 74177; 80048; 80053; 82150; 83605; 83690; 83735; 84145; 85025; 85027; 85652; 86140; 87040; 87324; 96361; 96374; 96375; 99285

== ENCOUNTER 2022-07-22 16:49 | Inpatient (IN) | payer BC ==
[2022-07-22 18:37] LABS: Basophils % (A) 0 %; Eosinophils % (A) 0 %; HCT 37.1 % (39.0-53.0); HGB 12.6 gm/dL (13.0-17.5); Lymphocytes # (A) 0.5 k/uL (1.0-4.8); Lymphocytes % (A) 6 %; MCH 29.4 pg (25.0-35.0); MCHC 34.1 g/dL (31.0-37.0); MCV 86.2 fL (80.0-100.0); Mean Platelet Volume 8.2; Monocytes # (A) 0.7 k/uL (0-1.0); Monocytes % (A) 8 %; Neutrophils % (A) 85 %; Platelet Count 333 k/uL (150-450); RDW 13.2 % (11.5-15.5); WBC 8.3 k/uL (3.8-10.6)
[2022-07-22 18:47] LABS: Erythrocyte Sedimentation Rate QNS mm/hr (0-15)
[2022-07-22 18:48] LABS: Albumin 3.4 g/dL (3.5-5.0); C Reactive Protein 5.6 mg/dL (<1.0); Calcium 8.3 mg/dL (8.4-10.2); Potassium 3.2 mmol/L (3.5-5.1); Total Bilirubin 0.6 mg/dL (0.2-1.3)
[2022-07-22] MEDS ORDERED: PANTOPRAZOLE 40 MG/10 ML VIAL IVP STA (20:54)
[2022-07-22] MEDS ORDERED: ONDANSETRON 4 MG/2 ML VIAL IVP STA (20:54)
[2022-07-22] MEDS ORDERED: SODIUM CHLORIDE 0.9% 1,000 ML IV STA ×2 (20:54→20:59)
[2022-07-22] MEDS ORDERED: MORPHINE SULFATE 4 MG/ML SYRINGE IVP STA (20:55)
[2022-07-22] MEDS ORDERED: POTASSIUM CHLORIDE ER 20 MEQ TAB.ER PO STA (20:55)
[2022-07-22] MEDS ORDERED: methylPREDNISolone SOD SUCCI 40 MG/ML 1 ML VIAL IV STA (20:57)
--- NOTE | 2022-07-22 21:11 | ED ---
General Adult HPI - General Chief complaint: GI Bleed Stated complaint: Ulcerative Colitis Time Seen by Provider: 07/22/22 21:20 Source: patient, RN notes reviewed, old records reviewed Mode of arrival: ambulatory Limitations: no limitations - History of Present Illness Initial comments: Patient is a 52-year-old male with past medical history remarkable for ulcerative colitis who presents emergency Department with ulcerative colitis flare. Was recently admitted last week for similar complaints and discharged home on Friday. However states that since is having continued symptoms. CT imaging on the last admission showed ulcerative colitis flare. States his symptoms never really improved, however Dr. Ocampo his GI doctor was not in house last week and therefore plan was for him to follow palpation. Patient saw Dr. Ocampo today, and I discussed that his symptoms are not improving is still having huber blood and diarrhea. States it is bright red blood. Therefore patient was sent to be admitted by Dr. Ocampo. Denies nausea. Denies vomiting. Nurse's lower abdominal pain which has not changed since last admission. Denies chest pain, shortness of breath. States he is able to tolerate some oral intake but is not feeling well and is mostly liquids. Denies any other acute complaints at this time. Is not on blood thinners. - Related Data Previous Rx's Medication Instructions Recorded Balsalazide Disodium [Colazal] 2,250 mg PO TID 30 Days #270 cap 07/16/22 Ondansetron Odt [Zofran Odt] 4 mg PO Q8HR PRN #30 tab 07/16/22 predniSONE 40 mg PO DAILY #56 tab 07/16/22 Allergies Allergy/AdvReac Type Severity Reaction Status Date / Time No Known Allergies Allergy Verified 07/11/22 13:27 Review of Systems ROS Statement: Those systems with pertinent positive or pertinent negative responses have been documented in the HPI. Review of Systems: CONST: Denies fever EYES: Denies blurry vision ENT: Denies nasal congestion C/V: Denies Chest pain RESP: Denies shortness of breath GI: Endorses abdominal pain, generalized and lower. : Denies dysuria SKIN: Denies rash. MSK: Denies joint pain. NEURO: Denies headache ROS Other: All systems not noted in ROS Statement are negative. Past Medical History Additional Past Medical History / Comment(s): kidney stones ULCERATIVE COLITIS History of Any Multi-Drug Resistant Organisms: None Reported Past Surgical History: No Surgical Hx Reported Past Psychological History: No Psychological Hx Reported Smoking Status: Former smoker Past Alcohol Use History: None Reported Past Drug Use History: None Reported General Exam - General Exam Comments Initial Comments: General: Appears in mild distress secondary to abdominal pain. HEAD: Normal with no signs of head trauma. EYES: EOMI. ENT: Hearing grossly intact, normal oropharynx. Mildly dry mucous membranes. RESPIRATORY: Clear breath sounds bilaterally. No wheezes, rales, or rhonchi. C/V: Regular rate and rhythm. S1 and S2 auscultated, no edema, peripheral pulses 2+ and intact throughout ABD: Abdomen is soft, nondistended. Tender to palpation generally, primarily in the lower quadrants. Unchanged per patient since discharge. No guarding. No rebound tenderness. No peritoneal signs. EXT: Normal range of motion, no obvious deformity SKIN: No rashes or lesions observed on exposed skin. NEURO: Alert and oriented 4. Limitations: no limitations Course Vital Signs 07/22/22 07/22/22 17:19 21:36 Temperature 97.8 F Pulse Rate 99 61 Respiratory 20 18 Rate Blood Pressure 101/67 111/73 O2 Sat by Pulse 95 93 L Oximetry Medical Decision Making - Medical Decision Making Based on the patient's presentation and physical exam, he is likely having another ulcerative colitis flare, and likely continuation from his prior flare. Was sent here to be admitted by his GI doctor Dr. Ocampo. She is precision crop manager this week. I evaluated the patient when he was placed in a room. Vital signs are within acceptable limits. Laboratory studies were obtained in triage showed a stable hemoglobin of 12.6. Patient is hypokalemic at 3.2. He has an acutely elevated creatinine of 1.31 which is likely secondary to dehydration. Remainder of the labs are relatively unremarkable except for a slightly elevated CRP which is likely secondary to his ulcerative colitis. I discussed results with the patient. We will add on coags as well as a repeat CBC at this time. He will be admitted. I did contact Dr. Ocampo over the phone and we discussed his labs as well as his recent imaging. She was in agreement to admit the patient. She'll be consulted. Recommended clear liquid diet as well as 20 mg Solu-Medrol every 8 hours. We will hold antibiotics at this time as the patient does not have a white blood cell count. Patient was in agreement this plan. Dr. Ocampo was in agreement this plan.Patient was symptomatically treated with IV fluids, IV analgesia. Was started on IV steroids. I spoke with the admitting team, PADMINI Lewis of [facility] who accepted the patient. They're admitting for Dr. Mullen. Patient was admitted in stable condition. Patient's repeat labs are remarkable for coags within normal limits, positive stool occult blood. Patient's hemoglobin is slightly decreased at 12.3, however patient has received IV fluids since earlier. We'll continue to monitor with morning labs. - Lab Data Result diagrams: 07/22/22 21:23 07/22/22 18:20 Lab Results 07/22/22 07/22/22 07/22/22 Range/Units 18:10 18:20 18:20 WBC 8.3 (3.8-10.6) k/uL RBC 4.30 (4.30-5.90) m/uL Hgb 12.6 L (13.0-17.5) gm/dL Hct 37.1 L (39.0-53.0) % MCV 86.2 (80.0-100.0) fL MCH 29.4 (25.0-35.0) pg MCHC 34.1 (31.0-37.0) g/dL RDW 13.2 (11.5-15.5) % Plt Count 333 (150-450) k/uL MPV 8.2 Neutrophils % 85 % Lymphocytes % 6 % Monocytes % 8 % Eosinophils % 0 % Basophils % 0 % Neutrophils # 7.0 (1.3-7.7) k/uL Lymphocytes # 0.5 L (1.0-4.8) k/uL Monocytes # 0.7 (0-1.0) k/uL Eosinophils # 0.0 (0-0.7) k/uL Basophils # 0.0 (0-0.2) k/uL ESR QNS PT (9.0-12.0) sec INR (<1.2) APTT (22.0-30.0) sec Sodium 135 L (137-145) mmol/L Potassium 3.2 L (3.5-5.1) mmol/L Chloride 91 L (98-107) mmol/L Carbon Dioxide 33 H (22-30) mmol/L Anion Gap 11 mmol/L BUN 11 (9-20) mg/dL Creatinine 1.31 H (0.66-1.25) mg/dL Est GFR (CKD-EPI)AfAm 73 (>60 ml/min/1.73 sqM) Est GFR (CKD-EPI)NonAf 63 (>60 ml/min/1.73 sqM) Glucose 141 H (74-99) mg/dL Calcium 8.3 L (8.4-10.2) mg/dL Total Bilirubin 0.6 (0.2-1.3) mg/dL AST 14 L (17-59) U/L ALT 16 (4-49) U/L Alkaline Phosphatase 69 (38-126) U/L C-Reactive Protein 5.6 H (<1.0) mg/dL Total Protein 6.0 L (6.3-8.2) g/dL Albumin 3.4 L (3.5-5.0) g/dL Stool Occult Blood (Negative) Blood Type O Positive Blood Type Confirm Blood Type Recheck No Previous Record Bld Type Recheck Status CABO Indicated Antibody Screen NEGATIVE Spec Expiration Date 07/25/2022 - 230907/22/22 07/22/22 07/22/22 Range/Units 18:43 21:23 21:23 WBC (3.8-10.6) k/uL RBC (4.30-5.90) m/uL Hgb (13.0-17.5) gm/dL Hct (39.0-53.0) % MCV (80.0-100.0) fL MCH (25.0-35.0) pg MCHC (31.0-37.0) g/dL RDW (11.5-15.5) % Plt Count (150-450) k/uL MPV Neutrophils % % Lymphocytes % % Monocytes % % Eosinophils % % Basophils % % Neutrophils # (1.3-7.7) k/uL Lymphocytes # (1.0-4.8) k/uL Monocytes # (0-1.0) k/uL Eosinophils # (0-0.7) k/uL Basophils # (0-0.2) k/uL ESR 92 H PT (9.0-12.0) sec INR (<1.2) APTT (22.0-30.0) sec Sodium (137-145) mmol/L Potassium (3.5-5.1) mmol/L Chloride (98-107) mmol/L Carbon Dioxide (22-30) mmol/L Anion Gap mmol/L BUN (9-20) mg/dL Creatinine (0.66-1.25) mg/dL Est GFR (CKD-EPI)AfAm (>60 ml/min/1.73 sqM) Est GFR (CKD-EPI)NonAf (>60 ml/min/1.73 sqM) Glucose (74-99) mg/dL Calcium (8.4-10.2) mg/dL Total Bilirubin (0.2-1.3) mg/dL AST (17-59) U/L ALT (4-49) U/L Alkaline Phosphatase (38-126) U/L C-Reactive Protein (<1.0) mg/dL Total Protein (6.3-8.2) g/dL Albumin (3.5-5.0) g/dL Stool Occult Blood Positive (Negative) Blood Type Blood Type Confirm O Positive Blood Type Recheck Bld Type Recheck Status Antibody Screen Spec Expiration Date 07/22/22 07/22/22 Range/Units 21:23 21:23 WBC 9.0 (3.8-10.6) k/uL RBC 4.19 L (4.30-5.90) m/uL Hgb 12.3 L (13.0-17.5) gm/dL Hct 36.9 L (39.0-53.0) % MCV 88.1 (80.0-100.0) fL MCH 29.3 (25.0-35.0) pg MCHC 33.2 (31.0-37.0) g/dL RDW 12.9 (11.5-15.5) % Plt Count 322 (150-450) k/uL MPV 8.5 Neutrophils % 82 % Lymphocytes % 7 % Monocytes % 9 % Eosinophils % 0 % Basophils % 0 % Neutrophils # 7.4 (1.3-7.7) k/uL Lymphocytes # 0.7 L (1.0-4.8) k/uL Monocytes # 0.8 (0-1.0) k/uL Eosinophils # 0.0 (0-0.7) k/uL Basophils # 0.0 (0-0.2) k/uL ESR PT 10.7 (9.0-12.0) sec INR 1.0 (<1.2) APTT 18.6 L (22.0-30.0) sec Sodium (137-145) mmol/L Potassium (3.5-5.1) mmol/L Chloride (98-107) mmol/L Carbon Dioxide (22-30) mmol/L Anion Gap mmol/L BUN (9-20) mg/dL Creatinine (0.66-1.25) mg/dL Est GFR (CKD-EPI)AfAm (>60 ml/min/1.73 sqM) Est GFR (CKD-EPI)NonAf (>60 ml/min/1.73 sqM) Glucose (74-99) mg/dL Calcium (8.4-10.2) mg/dL Total Bilirubin (0.2-1.3) mg/dL AST (17-59) U/L ALT (4-49) U/L Alkaline Phosphatase (38-126) U/L C-Reactive Protein (<1.0) mg/dL Total Protein (6.3-8.2) g/dL Albumin (3.5-5.0) g/dL Stool Occult Blood (Negative) Blood Type Blood Type Confirm Blood Type Recheck Bld Type Recheck Status Antibody Screen Spec Expiration Date Disposition Clinical Impression: Hematochezia, Ulcerative colitis Disposition: ADMITTED IP TO THIS [facility] Condition: Stable Time of Disposition: 22:00
[2022-07-22] MEDS ORDERED: NALOXONE 0.4 MG/ML 1 ML VIAL IV PRN (22:13)
[2022-07-22 23:09] LABS: Basophils % (A) 0 %; Eosinophils % (A) 0 %; HCT 36.9 % (39.0-53.0); HGB 12.3 gm/dL (13.0-17.5); Lymphocytes # (A) 0.7 k/uL (1.0-4.8); Lymphocytes % (A) 7 %; MCH 29.3 pg (25.0-35.0); MCHC 33.2 g/dL (31.0-37.0); MCV 88.1 fL (80.0-100.0); Mean Platelet Volume 8.5; Monocytes # (A) 0.8 k/uL (0-1.0); Monocytes % (A) 9 %; Neutrophils # (A) 7.4 k/uL (1.3-7.7); Neutrophils % (A) 82 %; Platelet Count 322 k/uL (150-450); RBC 4.19 m/uL (4.30-5.90); RDW 12.9 % (11.5-15.5)
[2022-07-22 23:38] LABS: Prothrombin Time 10.7 sec (9.0-12.0)
[2022-07-22 23:48] LABS: Partial Thromboplastin Time 18.6 sec (22.0-30.0)
[2022-07-23] MEDS: MORPHINE SULFATE 4 MG/ML SYRINGE IV PRN ×5 (01:21→20:24)
[2022-07-23 02:05] LABS: Hepatitis B Surface Antigen Nonreactive (Nonreactive); Hepatitis C IgG Antibody Nonreactive (Nonreactive)
[2022-07-23] MEDS: methylPREDNISolone SOD SUCCI 40 MG/ML 1 ML VIAL IV SCH ×3 (05:23→20:22)
[2022-07-23 05:38] LABS: Basophils % (A) 0 %; Eosinophils % (A) 0 %; HCT 27.5 % (39.0-53.0); Hypochromasia Slight; Lymphocytes # (A) 0.5 k/uL (1.0-4.8); Lymphocytes % (A) 11 %; MCH 30.6 pg (25.0-35.0); MCHC 34.4 g/dL (31.0-37.0); MCV 89.1 fL (80.0-100.0); Monocytes # (A) 0.4 k/uL (0-1.0); Monocytes % (A) 8 %; Neutrophils # (A) 3.8 k/uL (1.3-7.7); Neutrophils % (A) 79 %; Platelet Count 230 k/uL (150-450); RBC 3.09 m/uL (4.30-5.90); WBC 4.8 k/uL (3.8-10.6)
[2022-07-23 05:53] LABS: HGB 9.4 gm/dL (13.0-17.5)
[2022-07-23 05:59] LABS: African American GFR (CKD) >90 (>60 ml/min/1.73 sqM); Anion Gap 8 mmol/L; Blood Urea Nitrogen 12 mg/dL (9-20); Calcium 7.5 mg/dL (8.4-10.2); Carbon Dioxide 31 mmol/L (22-30); Chloride 94 mmol/L (98-107); Glucose 125 mg/dL (74-99); Non-African American GFR(CKD) 79 (>60 ml/min/1.73 sqM); Potassium 3.7 mmol/L (3.5-5.1); Sodium 133 mmol/L (137-145)
[2022-07-23] MEDS: SODIUM CHLORIDE 0.9% 1,000 ML IV SCH (13:49)
--- NOTE | 2022-07-23 14:55 | P.CONS ---
History of Present Illness - Reason for Consult Consult date: 07/23/22 Crohn's disease Requesting physician: Gaetano Maddox - Chief Complaint Bloody diarrhea - History of Present Illness This pleasant 52-year-old male who presented to the emergency department yesterday as directed by Dr. Ocampo. He was seen in her office yesterday with continued complaints of bloody diarrhea and abdominal pain. The patient was recently admitted and hospitalized for Crohn's exacerbation. He was diagnosed with ulcerative colitis about [address] Aragon. He states he had colonoscopy about 2 years ago and followed with Dr. Aragon in the office who wanted to start him on Stelara but the patient states he read the side effects and decided not to start the medication and did not have any further follow-up. He states he's been feeling well for the last 2 years duration. However over the last month he has had increased abdominal pain and diarrhea. During his last hospitalization he was started on IV steroids and sent home on a taper dose of 40 mg daily, with a taper by 5 mg weekly. Again he continued to have symptoms with no improvement. He was sent back to the emergency department for admission for IV steroids. He was started on IV Solu-Medrol 20 mg every 8 hours suggests a evening. Today he states abdominal pain somewhat improved with medication, diarrhea is improved. He states he only had one bloody of loose diarrhea yesterday and one today. 5.6. Dr. Ocampo is currently working on getting authorization to begin Remicade outpatient. Review of Systems REVIEW OF SYSTEMS: CARDIOPULMONARY: No chest pain or shortness of breath. Gastrointestinal: Abdominal pain and bloating. No nausea, no vomiting, decreased appetite.. No hematemesis, coffee-ground emesis. Multiple episodes of bloody diarrhea. GENITOURINARY: No dysuria or hematuria. MUSCULOSKELETAL: Reports normal range of motion. SKIN: No rashes. No jaundice. ENDOCRINE: No chills, fevers. No excessive weight gain or loss. No polydipsia or polyuria. PSYCHIATRIC: Unremarkable. NEUROLOGY: No change in mental status. Denies dizziness, headache. ENT: Vision unremarkable. CONSTITUTIONAL: 10-20 pound weight loss over last 1-2 months duration. No fever, chills, night sweats. Past Medical History Additional Past Medical History / Comment(s): kidney stones ULCERATIVE COLITIS History of Any Multi-Drug Resistant Organisms: None Reported Past Surgical History: No Surgical Hx Reported Past Psychological History: No Psychological Hx Reported Smoking Status: Former smoker Past Alcohol Use History: None Reported Past Drug Use History: None Reported Medications and Allergies Home Medications Medication Instructions Recorded Confirmed Type Balsalazide Disodium [Colazal] 2,250 mg PO TID 30 Days #270 cap 07/16/22 07/22/22 Rx Ondansetron Odt [Zofran Odt] 4 mg PO Q8HR PRN #30 tab 07/16/22 07/22/22 Rx predniSONE 40 mg PO DAILY #56 tab 07/16/22 07/22/22 Rx Allergies Allergy/AdvReac Type Severity Reaction Status Date / Time No Known Allergies Allergy Verified 07/11/22 13:27 Physical Exam Vitals: Vital Signs Temp Pulse Pulse Resp BP BP Pulse Ox 07/23/22 12:14 97.9 F 47 L 18 108/55 95 07/23/22 05:21 98 F 55 L 18 98/63 97 07/23/22 01:24 97.9 F 63 18 109/62 97 07/22/22 21:36 61 18 111/73 93 L 07/22/22 17:19 97.8 F 99 20 101/67 95 Intake and Output 07/22/22 07/23/22 07/23/22 22:59 06:59 14:59 Other: Weight 99.79 kg 99.79 kg General appearance: The patient is alert, oriented, appears in no acute distress. HET: Head is normocephalic and atraumatic. Conjunctiva pink. Sclera anicteric. Neck: Supple without lymphadenopathy. Trachea midline. Heart: S1 S2. Regular rate and rhythm. Lungs: Clear to auscultation. Abdomen: Soft, diffuse tenderness, nondistended with bowel sounds. No guarding or rigidity. Skin: No rashes. No jaundice. Extremities: Normal skin color and turgor. No pedal edema. Neurological: No focal deficits. Alert and oriented x3. Results CBC & Chem 7: 07/23/22 04:54 07/23/22 04:54 Labs: Abnormal Lab Results - Last 24 Hours (Table) 07/22/22 07/22/22 07/22/22 Range/Units 18:20 18:20 21:23 RBC (4.30-5.90) m/uL Hgb 12.6 L (13.0-17.5) gm/dL Hct 37.1 L (39.0-53.0) % Lymphocytes # 0.5 L (1.0-4.8) k/uL ESR 92 H (0-15) mm/hr APTT (22.0-30.0) sec Sodium 135 L (137-145) mmol/L Potassium 3.2 L (3.5-5.1) mmol/L Chloride 91 L (98-107) mmol/L Carbon Dioxide 33 H (22-30) mmol/L Creatinine 1.31 H (0.66-1.25) mg/dL Glucose 141 H (74-99) mg/dL Calcium 8.3 L (8.4-10.2) mg/dL AST 14 L (17-59) U/L C-Reactive Protein 5.6 H (<1.0) mg/dL Total Protein 6.0 L (6.3-8.2) g/dL Albumin 3.4 L (3.5-5.0) g/dL 07/22/22 07/22/22 07/23/22 Range/Units 21:23 21:23 04:54 RBC 4.19 L 3.09 L (4.30-5.90) m/uL Hgb 12.3 L 9.4 L D (13.0-17.5) gm/dL Hct 36.9 L 27.5 L (39.0-53.0) % Lymphocytes # 0.7 L 0.5 L (1.0-4.8) k/uL ESR (0-15) mm/hr APTT 18.6 L (22.0-30.0) sec Sodium (137-145) mmol/L Potassium (3.5-5.1) mmol/L Chloride (98-107) mmol/L Carbon Dioxide (22-30) mmol/L Creatinine (0.66-1.25) mg/dL Glucose (74-99) mg/dL Calcium (8.4-10.2) mg/dL AST (17-59) U/L C-Reactive Protein (<1.0) mg/dL Total Protein (6.3-8.2) g/dL Albumin (3.5-5.0) g/dL 07/23/22 Range/Units 04:54 RBC (4.30-5.90) m/uL Hgb (13.0-17.5) gm/dL Hct (39.0-53.0) % Lymphocytes # (1.0-4.8) k/uL ESR (0-15) mm/hr APTT (22.0-30.0) sec Sodium 133 L (137-145) mmol/L Potassium (3.5-5.1) mmol/L Chloride 94 L (98-107) mmol/L Carbon Dioxide 31 H (22-30) mmol/L Creatinine (0.66-1.25) mg/dL Glucose 125 H (74-99) mg/dL Calcium 7.5 L (8.4-10.2) mg/dL AST (17-59) U/L C-Reactive Protein (<1.0) mg/dL Total Protein (6.3-8.2) g/dL Albumin (3.5-5.0) g/dL Assessment and Plan (1) Ulcerative colitis Narrative/Plan: 52-year-old male with a known history of ulcerative colitis diagnosed approximately 2 years ago had a follow-up appointment with Dr. Ocampo following a recent admission for colitis flare. Patient was initially diagnosed about 2 years ago after seeing Dr. Aragon and have a colonoscopy. At that time he was recommended to start Biologics however declined. Over the last 2 years duration he's been asymptomatic up until the last 1-2 months. He was here for recent admission with multiple episodes of bloody diarrhea, abdominal pain. He was started on IV steroids and sent home on oral prednisone taper dose. However during his follow-up he continued to have abdominal pain and bloody diarrhea. He was recommended to come back to the hospital for readmission for IV steroids. He continues to have elevated CRP and sed rate. IV steroids will be initiated. In the meantime we are waiting [facility] testing, [facility] Current Visit: Yes Status: Acute Code(s): K51.90 - ULCERATIVE COLITIS, UNSPECIFIED, WITHOUT COMPLICATIONS SNOMED Code(s): 45314809 (2) Hematochezia Current Visit: Yes Status: Acute Code(s): K92.1 - MELENA SNOMED Code(s): 008059402 Plan: 1. Continue symptomatic supportive care 2. Continue pain medication as needed 3. Anti-emetics 4. Continue Solu-Medrol 20 mg IV every 8 hours 5. Clear liquid diet 6. Daily CBC, transfuse for hemoglobin less than 7 7. No plans at this time for endoscopic evaluation Thank you for this consultation, we will continue to follow. Dr. Dragan Ocampo I agree with the dictator's note, documented as a scribe by Nancy Blake.
--- NOTE | 2022-07-23 23:47 | HP ---
HISTORY AND PHYSICAL CHIEF COMPLAINT: GI bleed and dehydration. HISTORY OF PRESENT ILLNESS: This 52-year-old gentleman with a past medical history of ulcerative colitis and GI bleed, was recently admitted outpatient. The patient is trying to obtain for continued treatment, but however, the patient had significant bleeding 2 days ago, feeling extremely weak and tired. The patient came to [facility] and was admitted for further evaluation and treatment. His hemoglobin is 9.4. There is no history of any fever, rigors, or chills at this time. PAST MEDICAL HISTORY: History of ulcerative colitis. Other history reviewed. HOME MEDICATIONS: Again, reviewed and include prednisone, dose and rest of the medication noted. ALLERGIES: None. FAMILY HISTORY: No history of heart disease or strokes in the family. SOCIAL HISTORY: Previous history of smoking. REVIEW OF SYSTEMS: A 14-point review of systems is negative except as mentioned earlier. PHYSICAL EXAMINATION: VITAL SIGNS: Pulse is 55, blood pressure ntd_, respirations 18. HEENT: Conjunctivae pale. Oral mucosa dry. NECK: No JVD. CARDIOVASCULAR: S1, S2. RESPIRATION: Breath sounds diminished in the bases. No rhonchi. No crackles. ABDOMEN: Soft, obese. Mild diffuse discomfort. LEGS: No edema. NERVOUS SYSTEM: Nonfocal. LABORATORY DATA: Hemoglobin 9.4. Other labs are noted. ASSESSMENT: 1. Acute ulcerative colitis exacerbation with lower gastrointestinal bleeding. 2. Acute blood loss anemia. 3. History of nephrolithiasis. RECOMMENDATIONS: This 52-year-old gentleman, who presented with multiple complex medical issues. We will monitor the patient closely. We will hydrate the patient. Repeat hemoglobin. IV steroids. Gastroenterology consultation. Proton pump inhibitors. DVT prophylaxis. Prognosis guarded because of multiple complex medical issues. Further recommendations to follow. See orders for further details. Discussed with the patient, who understands and agrees. MMODL / IJN: [id number] / MTDMoses
[2022-07-24] MEDS: SODIUM CHLORIDE 0.9% 1,000 ML IV SCH ×3 (02:42→23:13)
[2022-07-24] MEDS: methylPREDNISolone SOD SUCCI 40 MG/ML 1 ML VIAL IV SCH ×3 (05:51→20:00)
[2022-07-24] MEDS: ONDANSETRON 4 MG/2 ML VIAL IVP PRN ×2 (05:56→20:00)
[2022-07-24] MEDS: MORPHINE SULFATE 4 MG/ML SYRINGE IV PRN ×3 (05:56→20:00)
--- NOTE | 2022-07-24 09:54 | P.PN ---
Subjective Progress Note Date: 07/24/22 Principal diagnosis: Ulcerative colitis This pleasant 52-year-old male who presented to the emergency department yesterday as directed by Dr. Ocampo. He was seen in her office yesterday with continued complaints of bloody diarrhea and abdominal pain. The patient was recently admitted and hospitalized for Crohn's exacerbation. He was diagnosed with ulcerative colitis about 2 years [address] had seen Dr[address] Aragon. He states he had colonoscopy about 2 years ago and followed with Dr. Aragon in the office who wanted to start him on Stelara but the patient states he read the side effects and decided not to start the medication and did not have any further follow-up. He states he's been feeling well for the last 2 years duration. However over the last month he has had increased abdominal pain and diarrhea. During his last hospitalization he was started on IV steroids and sent home on a taper dose of 40 mg daily, with a taper by 5 mg weekly. Again he continued to have symptoms with no improvement. He was sent back to the emergency department for admission for IV steroids. He was started on IV Solu-Medrol 20 mg every 8 hours suggests a evening. Today he states abdominal pain somewhat improved with medication, diarrhea is improved. He states he only had one bloody of loose diarrhea yesterday and one today. 5.6. Dr. Ocampo is currently working on getting authorization to begin Remicade outpatient. 07/24/2022: Patient is seen and reevaluated as a follow-up for bloody diarrhea. Patient has a history of ulcerative colitis, he failed outpatient treatment with oral prednisone. He is currently on Solu-Medrol 20 mg IV every 8 hours with some improvement in his symptoms. He states last night he spell. Nauseated, having abdominal pain. States though bowel movements have improved, he states he had 5 bowel movements between yesterday and this morning. Patient is currently being worked up for authorization for Remicade. Awaiting his tuberculosis screening. He is afebrile. He is tolerating a clear liquid diet. Objective - Vital Signs Vital signs: Vital Signs Temp 98.4 F 07/24/22 06:51 Pulse 54 L 07/24/22 06:51 Resp 16 07/24/22 06:51 BP 116/66 07/24/22 06:51 Pulse Ox 98 07/24/22 06:51 FiO2 Intake & Output 07/23/22 07/24/22 07/24/22 18:59 06:59 18:59 Intake Total 120 Balance 120 Weight 99.79 kg Intake: Oral 120 Other: # Voids 1 1 # Bowel Movements 1 - Exam General appearance: The patient is alert, oriented, appears in no acute distress. HET: Head is normocephalic and atraumatic. Conjunctiva pink. Sclera anicteric. Neck: Supple without lymphadenopathy. Abdomen: Soft, diffuse tenderness, nondistended with bowel sounds. No guarding or rigidity. Extremities: Normal skin color and turgor. No pedal edema Skin: No rashes, no jaundice Neurological: No focal deficits. Alert and oriented. - Labs CBC & Chem 7: 07/23/22 04:54 07/23/22 04:54 Assessment and Plan (1) Ulcerative colitis Narrative/Plan: 52-year-old male with a known history of ulcerative colitis diagnosed approximately 2 years ago had a follow-up appointment with Dr. Ocampo following a recent admission for colitis flare. Patient was initially diagnosed about 2 years ago after seeing Dr. Aragon and have a colonoscopy. At that time he was recommended to start Biologics however declined. Over the last 2 years duration he's been asymptomatic up until the last 1-2 months. He was here for recent admission with multiple episodes of bloody diarrhea, abdominal pain. He was started on IV steroids and sent home on oral prednisone taper dose. However during his follow-up he continued to have abdominal pain and bloody diarrhea. He was recommended to come back to the hospital for readmission for IV steroids. He continues to have elevated CRP and sed rate. IV steroids will be initiated. In the meantime we are waiting TB testing, for initiation of Remicade in the outpatient setting. Current Visit: Yes Status: Acute Code(s): K51.90 - ULCERATIVE COLITIS, UNSPECIFIED, WITHOUT COMPLICATIONS SNOMED Code(s): 03001929 (2) Hematochezia Current Visit: Yes Status: Acute Code(s): K92.1 - MELENA SNOMED Code(s): 646725933 Plan: 1. Continue symptomatic supportive care 2. Continue pain medication as needed 3. Anti-emetics as needed 4. Continue Solu-Medrol 20 mg IV every 8 hours 5. Clear liquid diet, advance as tolerated 6. Daily CBC, transfuse for hemoglobin less than 7 7. No plans at this time for endoscopic evaluation 8. Requesting and awaiting response from inpatient pharmacy for emergency authorization for inpatient Remicade Thank you for this consultation, we will continue to follow. Dr. Dragan Ocampo I agree with the dictator's note, documented as a scribe by Nancy Blake.
[2022-07-24 10:47] LABS: Basophils % (A) 0 %; Eosinophils % (A) 1 %; HCT 27.8 % (39.0-53.0); HGB 9.3 gm/dL (13.0-17.5); Hypochromasia Slight; Lymphocytes # (A) 0.3 k/uL (1.0-4.8); Lymphocytes % (A) 6 %; MCH 29.8 pg (25.0-35.0); MCHC 33.3 g/dL (31.0-37.0); MCV 89.5 fL (80.0-100.0); Mean Platelet Volume 8.6; Monocytes # (A) 0.4 k/uL (0-1.0); Monocytes % (A) 8 %; Neutrophils # (A) 3.9 k/uL (1.3-7.7); Neutrophils % (A) 84 %; Platelet Count 219 k/uL (150-450); RBC 3.11 m/uL (4.30-5.90); WBC 4.6 k/uL (3.8-10.6)
[2022-07-25] MEDS: MORPHINE SULFATE 4 MG/ML SYRINGE IV PRN ×3 (04:41→20:25)
[2022-07-25] MEDS: methylPREDNISolone SOD SUCCI 40 MG/ML 1 ML VIAL IV SCH ×3 (04:41→20:25)
[2022-07-25 09:08] LABS: HCT 26.9 % (39.6-50.0); HGB 8.5 g/dL (13.0-17.0); MCH 28.8 pg (27.0-32.0); MCHC 31.6 g/dL (32.0-37.0); MCV 91.2 fL (80.0-97.0); Mean Platelet Volume 10.2 fL (9.5-12.2); NRBC Per 100 WBC 0 /100 WBCS (0.0-0.0); Platelet Count 246 X 10*3/uL (140-440); RBC 2.95 X 10*6/uL (4.40-5.60); RDW 12.7 % (11.5-14.5); WBC 4.62 X 10*3/uL (4.50-10.00)
[2022-07-25 09:19] LABS: African American GFR (CKD) 101.3 (60.0-200.0); Anion Gap 8.1 mmol/L (10.00-18.00); BUN/Creat Ratio 12.1 Ratio (12.00-20.00); Blood Urea Nitrogen 12.1 mg/dL (9.0-27.0); Calcium 7.8 mg/dL (8.7-10.3); Carbon Dioxide 30.9 mmol/L (20.0-27.5); Non-African American GFR(CKD) 87.4 (60.0-200.0); Potassium 4.8 mmol/L (3.5-5.5)
[2022-07-25] MEDS ORDERED: ALPRAZolam 0.25 MG TAB PO STA (10:44)
[2022-07-25] MEDS: SODIUM CHLORIDE 0.9% 1,000 ML IV SCH ×2 (11:02→20:30)
[2022-07-25] MEDS ORDERED: ALPRAZolam 0.25 MG TAB PO PRN (11:35)
[2022-07-25 11:44] LABS: Basophils # (A) 0.01 X 10*3/uL (0.00-0.10); Basophils % (A) 0.2 %; Eosinophils # (A) 0.02 X 10*3/uL (0.04-0.35); Eosinophils % (A) 0.4 %; Immature Grans, Automated 0.6 %; Lymphocytes # (A) 0.58 X 10*3/uL (0.90-5.00); Lymphocytes % (A) 12.6 %; Monocytes # (A) 0.54 X 10*3/uL (0.20-1.00); Monocytes % (A) 11.7 %; Neutrophils # (A) 3.44 X 10*3/uL (1.80-7.70); Neutrophils % (A) 74.5 %; RBC Morphology NORMAL
--- NOTE | 2022-07-25 12:17 | P.PN ---
Subjective Progress Note Date: 07/25/22 Principal diagnosis: Ulcerative colitis This pleasant 52-year-old male who presented to the emergency department yesterday as directed by Dr. Ocampo. He was seen in her office yesterday with continued complaints of bloody diarrhea and abdominal pain. The patient was recently admitted and hospitalized for Crohn's exacerbation. He was diagnosed with ulcerative colitis about 2 [address] Aragon. He states he had colonoscopy about 2 years ago and followed with Dr. Aragon in the office who wanted to start him on Stelara but the patient states he read the side effects and decided not to start the medication and did not have any further follow-up. He states he's been feeling well for the last 2 years duration. However over the last month he has had increased abdominal pain and diarrhea. During his last hospitalization he was started on IV steroids and sent home on a taper dose of 40 mg daily, with a taper by 5 mg weekly. Again he continued to have symptoms with no improvement. He was sent back to the emergency department for admission for IV steroids. He was started on IV Solu-Medrol 20 mg every 8 hours suggests a evening. Today he states abdominal pain somewhat improved with medication, diarrhea is improved. He states he only had one bloody of loose diarrhea yesterday and one today. 5.6. Dr. Ocampo is currently working on getting authorization to begin Remicade outpatient. 07/24/2022: Patient is seen and reevaluated as a follow-up for bloody diarrhea. Patient has a history of ulcerative colitis, he failed outpatient treatment with oral prednisone. He is currently on Solu-Medrol 20 mg IV every 8 hours with some improvement in his symptoms. He states last night he spell. Nauseated, having abdominal pain. States though bowel movements have improved, he states he had 5 bowel movements between yesterday and this morning. Patient is currently being worked up for authorization for Remicade. Awaiting his tuberculosis screening. He is afebrile. He is tolerating a clear liquid diet. 07/25/2022: Patient seen and examined as a follow-up for ulcerative colitis exacerbation. Patient continues to have diarrhea however it's improving. He had 5 bowel movements between yesterday and today, still have blood. He states his abdominal pain has improved, he does have some cramping but overall it is better. Denies any nausea or vomiting. He has been afebrile. Repeat hemoglobin today 8.5. Objective - Vital Signs Vital signs: Vital Signs Temp 98.4 F 07/25/22 03:04 Pulse 55 L 07/25/22 03:04 Resp 18 07/25/22 03:04 BP 130/78 07/25/22 03:04 Pulse Ox 97 07/25/22 03:04 FiO2 Intake & Output 07/24/22 07/25/22 07/25/22 18:59 06:59 18:59 Intake Total 318 Balance 318 Intake: Oral 318 Other: # Voids 3 1 # Bowel Movements 2 1 - Exam General appearance: The patient is alert, oriented, appears in no acute distress. HET: Head is normocephalic and atraumatic. Conjunctiva pink. Sclera anicteric. Neck: Supple without lymphadenopathy. Abdomen: Soft, diffuse tenderness, but improving, nondistended with bowel sounds. No guarding or rigidity. Extremities: Normal skin color and turgor. No pedal edema Skin: No rashes, no jaundice Neurological: No focal deficits. Alert and oriented. - Labs CBC & Chem 7: 07/25/22 05:09 07/25/22 05:09 Labs: Abnormal Lab Results - Last 24 Hours (Table) 07/24/22 Range/Units 10:31 RBC 3.11 L (4.30-5.90) m/uL Hgb 9.3 L (13.0-17.5) gm/dL Hct 27.8 L (39.0-53.0) % Lymphocytes # 0.3 L (1.0-4.8) k/uL Assessment and Plan (1) Ulcerative colitis Narrative/Plan: 52-year-old male with a known history of ulcerative colitis diagnosed approximately 2 years ago had a follow-up appointment with Dr. Ocampo following a recent admission for colitis flare. Patient was initially diagnosed about 2 years ago after seeing Dr. Aragon and have a colonoscopy. At that time he was recommended to start Biologics however declined. Over the last 2 years duration he's been asymptomatic up until the last 1-2 months. He was here for recent admission with multiple episodes of bloody diarrhea, abdominal pain. He was started on IV steroids and sent home on oral prednisone taper dose. However during his follow-up he continued to have abdominal pain and bloody diarrhea. He was recommended to come back to the hospital for readmission for IV steroids. He continues to have elevated CRP and sed rate. IV steroids will be initiated. In the meantime we are waiting TB testing, for initiation of Remicade in the outpatient setting. Current Visit: Yes Status: Acute Code(s): K51.90 - ULCERATIVE COLITIS, UNSPECIFIED, WITHOUT COMPLICATIONS SNOMED Code(s): 09804902 (2) Hematochezia Current Visit: Yes Status: Acute Code(s): K92.1 - MELENA SNOMED Code(s): 518706521 Plan: 1. Continue symptomatic supportive care 2. Continue pain medication as needed 3. Anti-emetics as needed 4. Continue Solu-Medrol 20 mg IV every 8 hours 5. Advance to full liquid diet, advance as tolerated 6. Daily CBC, transfuse for hemoglobin less than 7 7. No plans at this time for endoscopic evaluation 8. Repeat sed rate and CRP ordered 9. Authorization in process for Remicade as outpatient, unfortunately pharmacy did not approve emergency inpatient use of Remicade. Thank you for this consultation, we will continue to follow. Dr. Dragan Ocampo I agree with the dictator's note, documented as a scribe by Nancy Blake.
--- NOTE | 2022-07-25 14:34 | PN ---
PROGRESS NOTE DATE OF SERVICE: 07/24/2022 SUBJECTIVE: This is a 52-year-old gentleman who was admitted with acute ulcerative colitis, also had some abdominal cramping, patient on intravenous steroids. No chest pain, no palpitation. Hemoglobin is 9.3 today. PHYSICAL EXAMINATION: VITAL SIGNS: Pulse is 62, blood pressure 120/67, respirations 18. CHEST: Clear to auscultation. CARDIOVASCULAR: S1, S2 muffled. ABDOMEN: Soft, mild diffuse tenderness. No guarding, no rigidity. Bowel sounds diminished. LABS: Reviewed. ASSESSMENT: 1. Acute ulcerative colitis exacerbation with acute lower gastrointestinal bleeding. 2. Acute blood loss anemia. 3. History of nephrolithiasis. RECOMMENDATIONS: Continue current medications, symptomatic treatment, otherwise continue steroids. Repeat labs. Closely follow with Gastroenterology. Prognosis guarded. Further recommendations to follow. MMVANDANAL / MARGARETN: [id number] /
[2022-07-26] MEDS: methylPREDNISolone SOD SUCCI 40 MG/ML 1 ML VIAL IV SCH ×3 (05:33→20:22)
[2022-07-26] MEDS: SODIUM CHLORIDE 0.9% 1,000 ML IV SCH ×2 (05:34→17:54)
[2022-07-26 09:22] LABS: HGB 8.6 g/dL (13.0-17.0); MCH 28.7 pg (27.0-32.0); MCHC 31.9 g/dL (32.0-37.0); Mean Platelet Volume 9.7 fL (9.5-12.2); NRBC Per 100 WBC 0 /100 WBCS (0.0-0.0); Platelet Count 238 X 10*3/uL (140-440); RDW 12.6 % (11.5-14.5); WBC 4.32 X 10*3/uL (4.50-10.00)
[2022-07-26 09:46] LABS: Albumin 2.9 g/dL (3.8-4.9); Albumin/Globulin Ratio 1.38 (1.60-3.17); Anion Gap 7.6 mmol/L (10.00-18.00); BUN/Creat Ratio 12.44 Ratio (12.00-20.00); Blood Urea Nitrogen 11.2 mg/dL (9.0-27.0); Calcium 8.1 mg/dL (8.7-10.3); Carbon Dioxide 29.4 mmol/L (20.0-27.5); Globulin 2.1 g/dL (1.6-3.3); Non-African American GFR(CKD) 99.2 (60.0-200.0); Potassium 4.4 mmol/L (3.5-5.5); Total Bilirubin 0.3 mg/dL (0.30-1.20)
[2022-07-26] MEDS: HYDROcodone/APAP 5-325MG 1 EACH TAB PO PRN (10:10)
[2022-07-26 10:22] LABS: Basophils # (A) 0 X 10*3/uL (0.00-0.10); Basophils % (A) 0 %; Eosinophils # (A) 0.01 X 10*3/uL (0.04-0.35); Eosinophils % (A) 0.2 %; Immature Grans, Automated 0.9 %; Lymphocytes # (A) 0.48 X 10*3/uL (0.90-5.00); Lymphocytes % (A) 11.1 %; Monocytes # (A) 0.43 X 10*3/uL (0.20-1.00); Neutrophils # (A) 3.36 X 10*3/uL (1.80-7.70); Neutrophils % (A) 77.8 %
--- NOTE | 2022-07-26 13:17 | P.PN ---
Subjective Progress Note Date: 07/26/22 Principal diagnosis: Ulcerative colitis This pleasant 52-year-old male who presented to the emergency department yesterday as directed by Dr. Ocampo. He was seen in her office yesterday with continued complaints of bloody diarrhea and abdominal pain. The patient was recently admitted and hospitalized for Crohn's exacerbation. He was diagnosed with ulcerative colitis about 2 years [address] had [address] Aragon. He states he had colonoscopy about 2 years ago and followed with Dr. Aragon in the office who wanted to start him on Stelara but the patient states he read the side effects and decided not to start the medication and did not have any further follow-up. He states he's been feeling well for the last 2 years duration. However over the last month he has had increased abdominal pain and diarrhea. During his last hospitalization he was started on IV steroids and sent home on a taper dose of 40 mg daily, with a taper by 5 mg weekly. Again he continued to have symptoms with no improvement. He was sent back to the emergency department for admission for IV steroids. He was started on IV Solu-Medrol 20 mg every 8 hours suggests a evening. Today he states abdominal pain somewhat improved with medication, diarrhea is improved. He states he only had one bloody of loose diarrhea yesterday and one today. 5.6. Dr. Ocampo is currently working on getting authorization to begin Remicade outpatient. 07/24/2022: Patient is seen and reevaluated as a follow-up for bloody diarrhea. Patient has a history of ulcerative colitis, he failed outpatient treatment with oral prednisone. He is currently on Solu-Medrol 20 mg IV every 8 hours with some improvement in his symptoms. He states last night he spell. Nauseated, having abdominal pain. States though bowel movements have improved, he states he had 5 bowel movements between yesterday and this morning. Patient is currently being worked up for authorization for Remicade. Awaiting his tuberculosis screening. He is afebrile. He is tolerating a clear liquid diet. 07/25/2022: Patient seen and examined as a follow-up for ulcerative colitis exacerbation. Patient continues to have diarrhea however it's improving. He had 5 bowel movements between yesterday and today, still have blood. He states his abdominal pain has improved, he does have some cramping but overall it is better. Denies any nausea or vomiting. He has been afebrile. Repeat hemoglobin today 8.5. 07/26/2022: Patient seen and examined in his follow-up. He states abdominal pain is much better today. He did have 3 bowel movements through the night. Last time he took any morphine was around midnight. Tuberculosis testing is b ack and is negative. Office has started authorization process in order in process for Remicade. Sed rate improving from 92 on admission to 29. C reactive protein 3.6 down from 5.6 on admission. Objective - Vital Signs Vital signs: Vital Signs Temp 98.2 F 07/26/22 03:15 Pulse 58 L 07/26/22 03:15 Resp 18 07/26/22 03:15 BP 102/58 07/26/22 03:15 Pulse Ox 96 07/26/22 03:15 FiO2 Intake & Output 07/25/22 07/25/22 07/26/22 06:59 18:59 06:59 Other: Voiding Method Toilet # Voids 1 1 2 # Bowel Movements 1 4 - Exam General appearance: The patient is alert, oriented, appears in no acute distress. HET: Head is normocephalic and atraumatic. Conjunctiva pink. Sclera anicteric. Neck: Supple without lymphadenopathy. Abdomen: Soft, nontender, nondistended with bowel sounds. No guarding or rigidity. Extremities: Normal skin color and turgor. No pedal edema Skin: No rashes, no jaundice Neurological: No focal deficits. Alert and oriented. - Labs CBC & Chem 7: 07/26/22 05:50 07/26/22 05:50 Labs: Abnormal Lab Results - Last 24 Hours (Table) 07/25/22 07/25/22 07/25/22 Range/Units 05:09 05:09 05:09 RBC 2.95 L (4.40-5.60) X 10*6/uL Hgb 8.5 L (13.0-17.0) g/dL Hct 26.9 L (39.6-50.0) % MCHC 31.6 L (32.0-37.0) g/dL Lymphocytes # 0.58 L (0.90-5.00) X 10*3/uL Eosinophils # 0.02 L (0.04-0.35) X 10*3/uL ESR 29 H (0-15) mm/Hr Carbon Dioxide 30.9 H (20.0-27.5) mmol/L Anion Gap 8.10 L (10.00-18.00) mmol/L Calcium 7.8 L (8.7-10.3) mg/dL C-Reactive Protein (0.00-0.80) mg/dL 07/25/22 Range/Units 05:09 RBC (4.40-5.60) X 10*6/uL Hgb (13.0-17.0) g/dL Hct (39.6-50.0) % MCHC (32.0-37.0) g/dL Lymphocytes # (0.90-5.00) X 10*3/uL Eosinophils # (0.04-0.35) X 10*3/uL ESR (0-15) mm/Hr Carbon Dioxide (20.0-27.5) mmol/L Anion Gap (10.00-18.00) mmol/L Calcium (8.7-10.3) mg/dL C-Reactive Protein 3.60 H (0.00-0.80) mg/dL Assessment and Plan (1) Ulcerative colitis Narrative/Plan: 52-year-old male with a known history of ulcerative colitis diagnosed approximately 2 years ago had a follow-up appointment with Dr. Ocampo following a recent admission for colitis flare. Patient was initially diagnosed about 2 years ago after seeing Dr. Aragon and have a colonoscopy. At that time he was recommended to start Biologics however declined. Over the last 2 years duration he's been asymptomatic up until the last 1-2 months. He was here for recent admission with multiple episodes of bloody diarrhea, abdominal pain. He was started on IV steroids and sent home on oral prednisone taper dose. However during his follow-up he continued to have abdominal pain and bloody diarrhea. He was recommended to come back to the hospital for readmission for IV steroids. He continues to have elevated CRP and sed rate. IV steroids will be initiated. In the meantime we are waiting TB testing, for initiation of Remicade in the outpatient setting. TB testing completed, negative. Gastroenterology office has started authorization and ordering of Remicade. Likely will be ready next week Current Visit: Yes Status: Acute Code(s): K51.90 - ULCERATIVE COLITIS, UNSPECIFIED, WITHOUT COMPLICATIONS SNOMED Code(s): 35496039 (2) Hematochezia Narrative/Plan: Discussed both with patient and his who was at the bedside that rectal ble eding and bloody stools is normal during a flare and continue for several weeks until Remicade is started and begins to work. Current Visit: Yes Status: Acute Code(s): K92.1 - MELENA SNOMED Code(s): 485179120 Plan: 1. Continue symptomatic supportive care 2. Continue pain medication as needed 3. Anti-emetics as needed 4. Continue Solu-Medrol 20 mg IV every 8 hours through the weekend 5. Advance to low fiber diet 6. Daily CBC, transfuse for hemoglobin less than 7 7. No plans at this time for endoscopic evaluation 8. Authorization in process for Remicade as outpatient 9. Recommend continued hospitalization inpatient at least through the weekend for IV steroids 10. Recommend discharge on prednisone 60 mg daily taper by 5 mg weekly 11. Patient to follow-up with Dr. Ocampo next week Thank you for this consultation, we will sign off at this time as gastroenterology will not be available in house through the next week. Dr. Dragan Ocampo I agree with the dictator's note, documented as a scribe by Nancy Blake.
--- NOTE | 2022-07-26 14:56 | P.PN ---
Subjective Progress Note Date: 07/26/22 This is a pleasant 52-year-old male who was recently admitted with acute ulcerative colitis also with some abdominal cramping and being closely followed by GI. Patient is maintained on IV steroids and will continue GI recommends to continue throughout the weekend with possible discharge Friday on high-dose oral steroids. Patient's hemoglobin has dropped although stable at 8.6 and other labs reviewed and within normal limits. Patient continues with some abdominal pain although reports her [place] is are helping. Diet being advanced to low fiber per GI and recommend continue to slowly advance as tolerated. If abdominal pain increases recommend decreasing the diet back to clear liquids for some bowel rest. Patient continues to report bloody bowel movements multiple times throughout the day. Will follow-up with repeat labs in the a.m. to monitor hemoglobin closely. Vital signs are stable and patient is afebrile. Patient denies nausea or vomiting and tolerating diet. Patient denies any s hortness of breath or chest pains. Review of systems: Constitutional: No reports of fatigue, fever, or chills Cardiovascular: No reports of chest pain or palpitations Respiratory: No reports of shortness of breath or cough GI: No reports of nausea, no reports of of vomiting, reports continued bloody bowel movements multiple times daily with some abdominal discomfort although improved from admission : No reports of dysuria or retention Neurovascular: No reports of generalized weakness All medications have been reviewed PHYSICAL EXAMINATION: GENERAL: The patient is alert and oriented x4, Well developed, well nourished. Obese. HEENT: Pupils are round and equally reacting to light. EOMI. no scleral icterus. No conjunctival pallor. Normocephalic, atraumatic. No pharyngeal erythema. No thyromegaly. CARDIOVASCULAR: S1 and S2 muffled PULMONARY: diminished breath sounds bilaterally with no wheezing or rhonchi noted. ABDOMEN: soft. Mildly tender of the lower left and right quadrant on exam. obese. non-distended, normoactive bowel sounds. No palpable organomegaly. MUSCULOSKELETAL: No joint swelling or deformity. EXTREMITIES: No cyanosis, clubbing, or pedal edema. NEUROLOGICAL: Gross neurological examination did not reveal any focal deficits. SKIN: No rashes. Assessment: Acute ulcerative colitis exacerbation with acute lower gastrointestinal bleeding Acute blood loss anemia secondary to above History of nephrolithiasis Obesity Anxiety GI prophylaxis DVT prophylaxis, early ambulation Full code Plan: Recommend to continue with current medications and management with GI services following. GI will no longer be available after today and recommends to hold the patient over the weekend on IV steroids and monitor hemoglobin closely and continue with low fiber diet with possible discharge on Friday on high-dose oral steroids. Patient is being closely followed in the outpatient setting by Dr. Ocampo and has ongoing testing done with pending labs. Encouraged increased activity as tolerated and limiting the use of IV pain medications. Patient reports [place] is helping and also using as needed Xanax. Will follow-up with repeat labs in the a.m. and continue to monitor closely. Prognosis is guarded. The impression and plan of care has been dictated by Mariana Turner, nurse practitioner as directed. Dr. Magdiel MD I have performed a history and examination and MDM of this patient, discussed the same with the dictator, and agree with the dictator's assessment and plan as written ,documented as a scribe. Based on total visit time, I have performed more than 50% of the visit. Any additional findings or plans will be noted. Objective - Vital Signs Vital signs: Vital Signs Temp 98.1 F 07/26/22 07:38 Pulse 65 07/26/22 07:38 Resp 18 07/26/22 07:38 BP 132/76 07/26/22 07:38 Pulse Ox 99 07/26/22 07:38 FiO2 Intake & Output 07/25/22 07/26/22 07/26/22 18:59 06:59 18:59 Intake Total 591 Balance 591 Intake: Oral 591 Other: Voiding Method Toilet Toilet # Voids 1 2 # Bowel Movements 4 - Labs CBC & Chem 7: 07/26/22 05:50 07/26/22 05:50 Labs: Abnormal Lab Results - Last 24 Hours (Table) 07/25/22 07/25/22 07/26/22 Range/Units 05:09 05:09 05:50 WBC 4.32 L (4.50-10.00) X 10*3/uL RBC 3.00 L (4.40-5.60) X 10*6/uL Hgb 8.6 L (13.0-17.0) g/dL Hct 27.0 L (39.6-50.0) % MCHC 31.9 L (32.0-37.0) g/dL Lymphocytes # 0.48 L (0.90-5.00) X 10*3/uL Eosinophils # 0.01 L (0.04-0.35) X 10*3/uL ESR 29 H (0-15) mm/Hr Carbon Dioxide (20.0-27.5) mmol/L Anion Gap (10.00-18.00) mmol/L Glucose (70-110) mg/dL Calcium (8.7-10.3) mg/dL C-Reactive Protein 3.60 H (0.00-0.80) mg/dL Total Protein (6.2-8.2) g/dL Albumin (3.8-4.9) g/dL Albumin/Globulin Ratio (1.60-3.17) g/dL 07/26/22 Range/Units 05:50 WBC (4.50-10.00) X 10*3/uL RBC (4.40-5.60) X 10*6/uL Hgb (13.0-17.0) g/dL Hct (39.6-50.0) % MCHC (32.0-37.0) g/dL Lymphocytes # (0.90-5.00) X 10*3/uL Eosinophils # (0.04-0.35) X 10*3/uL ESR (0-15) mm/Hr Carbon Dioxide 29.4 H (20.0-27.5) mmol/L Anion Gap 7.60 L (10.00-18.00) mmol/L Glucose 114 H (70-110) mg/dL Calcium 8.1 L (8.7-10.3) mg/dL C-Reactive Protein (0.00-0.80) mg/dL Total Protein 5.0 L (6.2-8.2) g/dL Albumin 2.9 L (3.8-4.9) g/dL Albumin/Globulin Ratio 1.38 L (1.60-3.17) g/dL
[2022-07-26] MEDS: MORPHINE SULFATE 4 MG/ML SYRINGE IV PRN ×2 (15:00→20:23)
--- NOTE | 2022-07-26 20:59 | PN ---
PROGRESS NOTE DATE OF SERVICE: 07/25/2022 SUBJECTIVE: This is a 52-year-old gentleman who was admitted with acute ulcerative colitis acute exacerbation as well as some GI bleed. Hemoglobin is rather stable. No chest pain. No palpitations. No fever. The patient is on IV steroids. OBJECTIVE: VITAL SIGNS: Pulse is 62, blood pressure 130/67, respirations 16. CHEST: Clear to auscultation. CARDIOVASCULAR: S1, S2. ABDOMEN: Soft. Mild diffuse discomfort. No guarding. No rigidity. LABS: Hemoglobin 8.5. The rest of the labs reviewed. TB test QuantiFERON Gold Plus is negative. ASSESSMENT: 1. Acute ulcerative colitis exacerbation with acute lower gastrointestinal bleeding. 2. Acute blood loss anemia. 3. History of nephrolithiasis. RECOMMENDATIONS: Recommend to continue current management and symptomatic treatment. Continue with IV steroids. Repeat labs in the morning. Closely follow. Further recommendations to follow. MMODL / IJN: [id number] /
[2022-07-27] MEDS: SODIUM CHLORIDE 0.9% 1,000 ML IV SCH ×2 (02:16→13:01)
[2022-07-27] MEDS: methylPREDNISolone SOD SUCCI 40 MG/ML 1 ML VIAL IV SCH ×3 (05:22→19:40)
[2022-07-27] MEDS: MORPHINE SULFATE 4 MG/ML SYRINGE IV PRN ×3 (05:24→19:40)
[2022-07-27 09:25] LABS: Basophils % (A) 0 %; Eosinophils % (A) 1 %; HGB 9.5 gm/dL (13.0-17.5); Hypochromasia Slight; Lymphocytes # (A) 0.4 k/uL (1.0-4.8); Lymphocytes % (A) 9 %; MCH 29.1 pg (25.0-35.0); MCHC 32.8 g/dL (31.0-37.0); MCV 88.7 fL (80.0-100.0); Mean Platelet Volume 7.9; Monocytes # (A) 0.2 k/uL (0-1.0); Monocytes % (A) 5 %; Neutrophils # (A) 3.6 k/uL (1.3-7.7); Neutrophils % (A) 84 %; Platelet Count 235 k/uL (150-450); Poikilocytosis Slight; RBC 3.27 m/uL (4.30-5.90); RDW 13.3 % (11.5-15.5); WBC 4.3 k/uL (3.8-10.6)
[2022-07-27 09:39] LABS: African American GFR (CKD) >90 (>60 ml/min/1.73 sqM); Anion Gap 8 mmol/L; Blood Urea Nitrogen 11 mg/dL (9-20); Calcium 7.8 mg/dL (8.4-10.2); Carbon Dioxide 28 mmol/L (22-30); Chloride 99 mmol/L (98-107); Glucose 148 mg/dL (74-99); Non-African American GFR(CKD) >90 (>60 ml/min/1.73 sqM); Potassium 3.8 mmol/L (3.5-5.1); Sodium 135 mmol/L (137-145)
[2022-07-27] MEDS: HYDROcodone/APAP 5-325MG 1 EACH TAB PO PRN ×2 (16:12→22:46)
--- NOTE | 2022-07-27 17:44 | P.PN ---
Subjective Progress Note Date: 07/27/22 This is a pleasant 52-year-old male who was recently admitted with acute ulcerative colitis also with some abdominal cramping and being closely followed by GI. Patient is maintained on IV steroids and will continue GI recommends to continue throughout the weekend with possible discharge Friday on high-dose oral steroids. Patient's hemoglobin has dropped although stable at 8.6 and other labs reviewed and within normal limits. Patient continues with some abdominal pain although reports her [place] is are helping. Diet being advanced to low fiber per GI and recommend continue to slowly advance as tolerated. If abdominal pain increases recommend decreasing the diet back to clear liquids for some bowel rest. Patient continues to report bloody bowel movements multiple times throughout the day. Will follow-up with repeat labs in the a.m. to monitor hemoglobin closely. Vital signs are stable and patient is afebrile. Patient denies nausea or vomiting and tolerating diet. Patient denies any s hortness of breath or chest pains. 07/27/2022 Patient is seen today and hemoglobin is stable at 9.5. Less frequent bowel movements. Tolerating low fiber diet. Continues on IV steroids for ulcerative colitis. Encouraged limiting the use of IV pain medications and encouraged increased activity as tolerated. Afebrile and denies chest pain or shortness of breath. Recommend repeat labs to monitor hemoglobin. Review of systems: Constitutional: No reports of fatigue, fever, or chills Cardiovascular: No reports of chest pain or palpitations Respiratory: No reports of shortness of breath or cough GI: No reports of nausea, no reports of of vomiting, reports continued bloody bowel movements multiple times daily with some abdominal discomfort although improved from admission : No reports of dysuria or retention Neurovascular: No reports of generalized weakness All medications have been reviewed PHYSICAL EXAMINATION: GENERAL: The patient is alert and oriented x4, Well developed, well nourished. Obese. HEENT: Pupils are round and equally reacting to light. EOMI. no scleral icterus. No conjunctival pallor. Normocephalic, atraumatic. No pharyngeal erythema. No thyromegaly. CARDIOVASCULAR: S1 and S2 muffled PULMONARY: diminished breath sounds bilaterally with no wheezing or rhonchi noted. ABDOMEN: soft. Mildly tender on exam. obese. non-distended, normoactive bowel sounds. No palpable organomegaly. MUSCULOSKELETAL: No joint swelling or deformity. EXTREMITIES: No cyanosis, clubbing, or pedal edema. NEUROLOGICAL: Gross neurological examination did not reveal any focal deficits. SKIN: No rashes. Assessment: Acute ulcerative colitis exacerbation with acute lower gastrointestinal bleeding Acute blood loss anemia secondary to above History of nephrolithiasis Obesity Anxiety GI prophylaxis DVT prophylaxis, early ambulation Full code Plan: Recommend to continue with current medications and management. GI will no longer be available and recommends to hold the patient over the weekend on IV steroids and monitor hemoglobin closely and continue with low fiber diet with possible discharge on Friday on high-dose oral steroids. Patient is being closely followed in the outpatient setting by Dr. Ocampo and has ongoing testing done with pending labs. Encouraged increased activity as tolerated. Continue pain management. Hemoglobin is stable today at 9.5. Will follow-up with repeat labs in the a.m. and continue to monitor closely. Prognosis is guarded. The impression and plan of care has been dictated as a scribe by Mariana Turner, nurse practitioner as directed. Dr. Magdiel MD I have performed a history and examination and MDM of this patient, discussed the same with the dictator, and has been documented as a scribe. Based on total visit time, I have performed more than 50% of the visit. Any additional findings or plans will be noted. Objective - Vital Signs Vital signs: Vital Signs Temp 98.1 F 07/27/22 02:43 Pulse 58 L 07/27/22 02:43 Resp 16 07/27/22 02:43 BP 106/50 07/27/22 02:43 Pulse Ox 95 07/27/22 02:43 FiO2 Intake & Output 07/26/22 07/26/22 07/27/22 06:59 18:59 06:59 Intake Total 591 Balance 591 Intake: Oral 591 Other: Voiding Method Toilet Toilet Toilet # Voids 2 3 3 # Bowel Movements 1 - Labs CBC & Chem 7: 07/27/22 08:58 07/27/22 08:58 Labs: Abnormal Lab Results - Last 24 Hours (Table) 07/26/22 07/26/22 Range/Units 05:50 05:50 WBC 4.32 L (4.50-10.00) X 10*3/uL RBC 3.00 L (4.40-5.60) X 10*6/uL Hgb 8.6 L (13.0-17.0) g/dL Hct 27.0 L (39.6-50.0) % MCHC 31.9 L (32.0-37.0) g/dL Lymphocytes # 0.48 L (0.90-5.00) X 10*3/uL Eosinophils # 0.01 L (0.04-0.35) X 10*3/uL Carbon Dioxide 29.4 H (20.0-27.5) mmol/L Anion Gap 7.60 L (10.00-18.00) mmol/L Glucose 114 H (70-110) mg/dL Calcium 8.1 L (8.7-10.3) mg/dL Total Protein 5.0 L (6.2-8.2) g/dL Albumin 2.9 L (3.8-4.9) g/dL Albumin/Globulin Ratio 1.38 L (1.60-3.17) g/dL
[2022-07-28] MEDS: methylPREDNISolone SOD SUCCI 40 MG/ML 1 ML VIAL IV SCH ×3 (05:29→20:29)
[2022-07-28] MEDS: MORPHINE SULFATE 4 MG/ML SYRINGE IV PRN ×3 (05:30→20:29)
[2022-07-28] MEDS: SODIUM CHLORIDE 0.9% 1,000 ML IV SCH ×2 (05:32→11:44)
[2022-07-28] MEDS: HYDROcodone/APAP 5-325MG 1 EACH TAB PO PRN ×3 (08:03→23:47)
[2022-07-28 09:56] LABS: HCT 26.1 % (39.6-50.0); HGB 8.2 g/dL (13.0-17.0); MCH 28.9 pg (27.0-32.0); MCHC 31.4 g/dL (32.0-37.0); MCV 91.9 fL (80.0-97.0); NRBC Per 100 WBC 0.4 /100 WBCS (0.0-0.0); Platelet Count 221 X 10*3/uL (140-440); RBC 2.84 X 10*6/uL (4.40-5.60); RDW 12.8 % (11.5-14.5); WBC 4.47 X 10*3/uL (4.50-10.00)
[2022-07-28 10:58] LABS: Basophils # (A) 0.01 X 10*3/uL (0.00-0.10); Basophils % (A) 0.2 %; Eosinophils # (A) 0.06 X 10*3/uL (0.04-0.35); Eosinophils % (A) 1.3 %; Immature Grans, Automated 1.1 %; Lymphocytes # (A) 0.72 X 10*3/uL (0.90-5.00); Lymphocytes % (A) 16.1 %; Monocytes # (A) 0.47 X 10*3/uL (0.20-1.00); Monocytes % (A) 10.5 %; Neutrophils # (A) 3.16 X 10*3/uL (1.80-7.70); Neutrophils % (A) 70.8 %
--- NOTE | 2022-07-29 03:15 | P.PN ---
Subjective Progress Note Date: 07/28/22 This is a pleasant 52-year-old male who was recently admitted with acute ulcerative colitis also with some abdominal cramping and being closely followed by GI. Patient is maintained on IV steroids and will continue GI recommends to continue throughout the weekend with possible discharge Friday on high-dose oral steroids. Patient's hemoglobin has dropped although stable at 8.6 and other labs reviewed and within normal limits. Patient continues with some abdominal pain although reports her [place] is are helping. Diet being advanced to low fiber per GI and recommend continue to slowly advance as tolerated. If abdominal pain increases recommend decreasing the diet back to clear liquids for some bowel rest. Patient continues to report bloody bowel movements multiple times throughout the day. Will follow-up with repeat labs in the a.m. to monitor hemoglobin closely. Vital signs are stable and patient is afebrile. Patient denies nausea or vomiting and tolerating diet. Patient denies any s hortness of breath or chest pains. 07/27/2022 Patient is seen today and hemoglobin is stable at 9.5. Less frequent bowel movements. Tolerating low fiber diet. Continues on IV steroids for ulcerative colitis. Encouraged limiting the use of IV pain medications and encouraged increased activity as tolerated. Afebrile and denies chest pain or shortness of breath. Recommend repeat labs to monitor hemoglobin. 07/28/2022 Patient is seen this morning and reports to having bloody bowel movements alt sly have slightly decreased. Hemoglobin dropped to 8.2 today and will follow closely. Continue IV steroids for now and low fiber diet. Encouraged increased activity as tolerated. Vital signs stable and reports pain is currently controlled on pain medications. Oral intake is fair. Review of systems: Constitutional: No reports of fatigue, fever, or chills Cardiovascular: No reports of chest pain or palpitations Respiratory: No reports of shortness of breath or cough GI: No reports of nausea, no reports of of vomiting, reports continued bloody bowel movements although less frequent : No reports of dysuria or retention Neurovascular: No reports of generalized weakness All medications have been reviewed PHYSICAL EXAMINATION: GENERAL: The patient is alert and oriented x4, Well developed, well nourished. Obese. HEENT: Pupils are round and equally reacting to light. EOMI. no scleral icterus. No conjunctival pallor. Normocephalic, atraumatic. No pharyngeal erythema. No thyromegaly. CARDIOVASCULAR: S1 and S2 muffled PULMONARY: diminished breath sounds bilaterally with no wheezing or rhonchi noted. ABDOMEN: soft. Mildly tender on exam. obese. non-distended, normoactive bowel sounds. No palpable organomegaly. MUSCULOSKELETAL: No joint swelling or deformity. EXTREMITIES: No cyanosis, clubbing, or pedal edema. NEUROLOGICAL: Gross neurological examination did not reveal any focal deficits. SKIN: No rashes. Assessment: Acute ulcerative colitis exacerbation with acute lower gastrointestinal bleeding Acute blood loss anemia secondary to above History of nephrolithiasis Obesity Anxiety GI prophylaxis DVT prophylaxis, early ambulation Full code Plan: Recommend to continue with current medications and management. GI will no longer be available. Continue IV steroids and monitor hemoglobin closely and continue with low fiber diet with possible discharge on Friday on high-dose oral steroids. Hemoglobin dropped to 8.2. Patient is being closely followed in the outpatient setting by Dr. Ocampo and has ongoing testing done with pending labs. Encouraged increased activity as tolerated. Continue pain management. Will follow-up with repeat labs in the a.m. and continue to monitor closely. Prognosis is guarded. Possible discharge in 24-48 hours The impression and plan of care has been dictated as a scribe by Mariana Turner, nurse practitioner as directed. Dr. Magdiel MD I have performed a history and examination and MDM of this patient, discussed the same with the dictator, and has been documented as a scribe. Based on total visit time, I have performed more than 50% of the visit. Any additional findings or plans will be noted. Objective - Vital Signs Vital signs: Vital Signs Temp 98.3 F 07/28/22 08:00 Pulse 67 07/28/22 08:00 Resp 14 07/28/22 08:00 BP 116/75 07/28/22 08:00 Pulse Ox 97 07/28/22 08:00 FiO2 Intake & Output 07/27/22 07/28/22 07/28/22 18:59 06:59 18:59 Intake Total 354 Balance 354 Intake: Oral 354 Other: Voiding Method Toilet Toilet # Voids 3 2 - Labs CBC & Chem 7: 07/28/22 05:16 07/27/22 08:58 Labs: Abnormal Lab Results - Last 24 Hours (Table) 10/22/22 10/22/22 Range/Units 08:58 08:58 RBC 3.27 L (4.30-5.90) m/uL Hgb 9.5 L (13.0-17.5) gm/dL Hct 29.0 L (39.0-53.0) % Lymphocytes # 0.4 L (1.0-4.8) k/uL Sodium 135 L (137-145) mmol/L Glucose 148 H (74-99) mg/dL Calcium 7.8 L (8.4-10.2) mg/dL
[2022-07-29] MEDS: SODIUM CHLORIDE 0.9% 1,000 ML IV SCH ×2 (04:35→12:34)
[2022-07-29] MEDS: MORPHINE SULFATE 4 MG/ML SYRINGE IV PRN ×2 (05:38→17:31)
[2022-07-29] MEDS: methylPREDNISolone SOD SUCCI 40 MG/ML 1 ML VIAL IV SCH (05:39)
[2022-07-29] MEDS: HYDROcodone/APAP 5-325MG 1 EACH TAB PO PRN (09:01)
[2022-07-29 09:16] LABS: HCT 29.5 % (39.6-50.0); HGB 9.2 g/dL (13.0-17.0); MCH 28.4 pg (27.0-32.0); MCHC 31.2 g/dL (32.0-37.0); Mean Platelet Volume 9.7 fL (9.5-12.2); NRBC Per 100 WBC 0.3 /100 WBCS (0.0-0.0); Platelet Count 265 X 10*3/uL (140-440); RBC 3.24 X 10*6/uL (4.40-5.60); RDW 12.8 % (11.5-14.5)
[2022-07-29 10:36] LABS: Basophils # (A) 0.02 X 10*3/uL (0.00-0.10); Basophils % (A) 0.3 %; Eosinophils # (A) 0.03 X 10*3/uL (0.04-0.35); Eosinophils % (A) 0.5 %; Immature Grans, Automated 1.2 %; Lymphocytes # (A) 0.81 X 10*3/uL (0.90-5.00); Lymphocytes % (A) 13.7 %; Monocytes # (A) 0.45 X 10*3/uL (0.20-1.00); Monocytes % (A) 7.6 %; Neutrophils # (A) 4.52 X 10*3/uL (1.80-7.70); Neutrophils % (A) 76.7 %
[2022-07-29 10:37] LABS: Rouleaux PRESENT
[2022-07-29] MEDS: methylPREDNISolone SOD SUCCI 125 MG/2 ML VIAL IV SCH ×2 (11:17→17:25)
[2022-07-29 13:27] VITALS: BMI 31.5
[2022-07-30] MEDS: methylPREDNISolone SOD SUCCI 125 MG/2 ML VIAL IV SCH ×3 (00:38→12:46)
[2022-07-30] MEDS: MORPHINE SULFATE 4 MG/ML SYRINGE IV PRN ×2 (00:48→08:44)
[2022-07-30] MEDS: HYDROcodone/APAP 5-325MG 1 EACH TAB PO PRN ×2 (04:11→13:57)
[2022-07-30] MEDS: SODIUM CHLORIDE 0.9% 1,000 ML IV SCH (06:02)
--- NOTE | 2022-07-30 06:44 | P.PN ---
Subjective Progress Note Date: 07/29/22 This is a pleasant 52-year-old male who was recently admitted with acute ulcerative colitis also with some abdominal cramping and being closely followed by GI. Patient is maintained on IV steroids and will continue GI recommends to continue throughout the weekend with possible discharge Friday on high-dose oral steroids. Patient's hemoglobin has dropped although stable at 8.6 and other labs reviewed and within normal limits. Patient continues with some abdominal pain although reports her [place] is are helping. Diet being advanced to low fiber per GI and recommend continue to slowly advance as tolerated. If abdominal pain increases recommend decreasing the diet back to clear liquids for some bowel rest. Patient continues to report bloody bowel movements multiple times throughout the day. Will follow-up with repeat labs in the a.m. to monitor hemoglobin closely. Vital signs are stable and patient is afebrile. Patient denies nausea or vomiting and tolerating diet. Patient denies any s hortness of breath or chest pains. 07/27/2022 Patient is seen today and hemoglobin is stable at 9.5. Less frequent bowel movements. Tolerating low fiber diet. Continues on IV steroids for ulcerative colitis. Encouraged limiting the use of IV pain medications and encouraged increased activity as tolerated. Afebrile and denies chest pain or shortness of breath. Recommend repeat labs to monitor hemoglobin. 07/28/2022 Patient is seen this morning and reports to having bloody bowel movements alt sly have slightly decreased. Hemoglobin dropped to 8.2 today and will follow closely. Continue IV steroids for now and low fiber diet. Encouraged increased activity as tolerated. Vital signs stable and reports pain is currently controlled on pain medications. Oral intake is fair. 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 Maintained on protonix and iv steroids which are being increased. Encouraged oral intake and will continue with pain management. Avoid iv narcotics if possible to wean off to oral pain medications. Repeat hemoglobin in am. Review of systems: Constitutional: No reports of fatigue, fever, or chills Cardiovascular: No reports of chest pain or palpitations Respiratory: No reports of shortness of breath or cough GI: No reports of nausea, no reports of of vomiting, reports continued bloody bowel movements although less frequent, but continued cramping at times : No reports of dysuria or retention Neurovascular: No reports of generalized weakness All medications have been reviewed PHYSICAL EXAMINATION: GENERAL: The patient is alert and oriented x4, Well developed, well nourished. Obese. HEENT: Pupils are round and equally reacting to light. EOMI. no scleral icterus. No conjunctival pallor. Normocephalic, atraumatic. No pharyngeal erythema. No thyromegaly. CARDIOVASCULAR: S1 and S2 muffled PULMONARY: diminished breath sounds bilaterally with no wheezing or rhonchi noted. ABDOMEN: soft. Mildly tender on exam. obese. non-distended, normoactive bowel sounds. No palpable organomegaly. MUSCULOSKELETAL: No joint swelling or deformity. EXTREMITIES: No cyanosis, clubbing, or pedal edema. NEUROLOGICAL: Gross neurological examination did not reveal any focal deficits. SKIN: No rashes. Assessment: Acute ulcerative colitis exacerbation with acute lower gastrointestinal bleeding Acute blood loss anemia secondary to above History of nephrolithiasis Obesity Anxiety GI prophylaxis DVT prophylaxis, early ambulation Full code Plan: Recommend to continue with current medications and management. Continue IV steroids and monitor hemoglobin closely and continue with low fiber diet with possible discharge in 24 hours on high-dose oral steroids. Hemoglobin 9.2. Patient is being closely followed in the outpatient setting by Dr. Ocampo and has ongoing testing done with pending labs. Encouraged increased activity as tolerated. Continue pain management. Will follow-up with repeat labs in the a.m. and continue to monitor closely. Prognosis is guarded. Possible discharge in 24-48 hours The impression and plan of care has been dictated as a scribe by Mariana Turner, nurse practitioner as directed. Dr. Magdiel MD I have performed a history and examination and MDM of this patient, discussed the same with the dictator, and has been documented as a scribe. Based on total visit time, I have performed more than 50% of the visit. Any additional findings or plans will be noted. Objective - Vital Signs Vital signs: Vital Signs Temp 98.0 F 07/30/22 01:35 Pulse 53 L 07/30/22 01:35 Resp 16 07/30/22 01:35 BP 117/74 07/30/22 01:35 Pulse Ox 97 07/30/22 01:35 FiO2 Intake & Output 07/29/22 07/29/22 07/30/22 06:59 18:59 06:59 Intake Total 118 Balance 118 Weight 99.79 kg Intake: Oral 118 Other: Voiding Method Toilet Toilet # Voids 1 1 3 - Labs CBC & Chem 7: 07/29/22 05:39 07/27/22 08:58 Labs: Abnormal Lab Results - Last 24 Hours (Table) 07/29/22 Range/Units 05:39 RBC 3.24 L (4.40-5.60) X 10*6/uL Hgb 9.2 L (13.0-17.0) g/dL Hct 29.5 L (39.6-50.0) % MCHC 31.2 L (32.0-37.0) g/dL Absolute Nucleated RBC 0.02 H (0.00-0.00) X 10*3/uL Immature Gran # 0.07 H (0.00-0.04) X 10*3/uL Lymphocytes # 0.81 L (0.90-5.00) X 10*3/uL Eosinophils # 0.03 L (0.04-0.35) X 10*3/uL NRBC/100 WBC Diff 0.3 H (0.0-0.0) /100 WBCS
[2022-07-30 08:30] VITALS: BP 122/68; PULSE 57; RESP 18; TEMP 98.1
[2022-07-30 09:15] LABS: Basophils % (A) 0 %; Eosinophils % (A) 0 %; HCT 29.3 % (39.0-53.0); HGB 9.6 gm/dL (13.0-17.5); Hypochromasia Moderate; Lymphocytes # (A) 0.3 k/uL (1.0-4.8); Lymphocytes % (A) 6 %; MCH 29.5 pg (25.0-35.0); MCHC 32.7 g/dL (31.0-37.0); MCV 90.2 fL (80.0-100.0); Mean Platelet Volume 8.1; Monocytes # (A) 0.2 k/uL (0-1.0); Monocytes % (A) 3 %; Neutrophils # (A) 5.1 k/uL (1.3-7.7); Neutrophils % (A) 91 %; Platelet Count 249 k/uL (150-450); RBC 3.25 m/uL (4.30-5.90); WBC 5.6 k/uL (3.8-10.6)
--- NOTE | 2022-07-31 15:40 | P.DS ---
Providers Date of admission: 07/24/22 10:00 Expected date of discharge: 07/30/22 Attending physician: Flavia Veloz Consults: 07/22/22 22:13 Consult Physician Routine Consulting Provider: Tanika Ocampo Consult Reason/Comments: ulcerative colitis Do you want consulting provider notified?: Already Contacted Primary care physician: Yazan Mullen Hospital Course: Final diagnosis cute ulcerative colitis exacerbation with acute lower gastrointestinal bleeding Acute blood loss anemia secondary to above History of nephrolithiasis Obesity Anxiety GI prophylaxis DVT prophylaxis, early ambulation Full code Discharge disposition Patient is being discharged in a stable condition with guarded prognosis to home. Patient will follow-up with Dr. Mullen in the outpatient setting upon discharge. Patient is to follow-up with GI as scheduled. Patient is to continue on a long prednisone taper starting at 60 mg for the next one week. Patient is to follow with Dr. Ocampo patient for possible initiation of Remicade. Total time taken is greater than 35 minutes. Hospital course This is a 52-year-old male who was recently admitted with increased abdominal pain ulcerative colitis flareup along with acute GI bleed and was being closely monitored. Patient was initially evaluated by GI and started on IV steroids along with pain medication and instructed to continue with a prolonged taper starting at 60 mg of prednisone and close outpatient follow-up to initiate the treatment of Remicade. Patient continued with bloody stools and pain in the abdomen and maintained on low fiber diet. Recommend continue low fiber diet and patient does have a scheduled appointment next week Friday with GI. Hemoglobin is stable at 9.6\. Currently no reports of chest pain, shortness of breath, or palpitations. Patient is afebrile. No reports of nausea or vomiting and patient is tolerating diet. Patient will be discharged home today. Guarded prognosis. Physical exam: Gen: This is a 52-year-old male awake, alert and oriented 3, well-developed, well-nourished, obese HEENT: Head is atraumatic, normocephalic. Pupils equal, round. Sclerae is anicteric. NECK: Supple. No JVD. No lymphadenopathy. No thyromegaly. LUNGS: Clear to auscultation. No wheezes or rhonchi. No intercostal retractions. HEART: Regular rate and rhythm. No murmur. ABDOMEN: Soft. Bowel sounds are present. No masses. No tenderness. EXTREMITIES: No pedal edema. No calf tenderness. NEUROLOGICAL: Patient is awake, alert and oriented x3. Cranial nerves 2 through 12 are grossly intact. Please refer to medication reconciliation sheet for a list of medications. The impression and plan of care has been dictated by Mariana Turner, Nurse Practitioner as directed. Dr. Oliverio MD I have performed a history and examination and MDM of this patient, discussed the same with the dictator, and agree with the dictator's assessment and plan as written ,documented as a scribe. Based on total visit time, I have performed more than 50% of the visit. Patient Condition at Discharge: Stable Plan - Discharge Summary Discharge Rx Participant: No New Discharge Prescriptions: New Dicyclomine [Bentyl] 10 mg PO TID PRN #30 capsule PRN Reason: Pain HYDROcodone/APAP 5-325MG [[place] 5-325] 1 each PO Q6HR PRN #12 tab PRN Reason: Pain Continue Balsalazide Disodium [Colazal] 2,250 mg PO TID 30 Days #270 cap Ondansetron Odt [Zofran ODT] 4 mg PO Q8HR PRN #30 tab PRN Reason: Nausea Changed predniSONE 60 mg PO DAILY #77 tab Discharge Medication List Balsalazide Disodium [Colazal] 2,250 mg PO TID 30 Days #270 cap 07/16/22 [Rx] Dicyclomine [Bentyl] 10 mg PO TID PRN #30 capsule 07/30/22 [Rx] HYDROcodone/APAP 5-325MG [[place] 5-325] 1 each PO Q6HR PRN #12 tab 07/30/22 [Rx] Ondansetron Odt [Zofran ODT] 4 mg PO Q8HR PRN #30 tab 07/30/22 [Rx] predniSONE 60 mg PO DAILY #77 tab 07/30/22 [Rx] Follow up Appointment(s)/Referral(s): Yazan Mullen MD [Primary Care Provider] - 1-2 days Tanika Ocampo MD [STAFF PHYSICIAN] - 08/05/22 2:00 pm Activity/Diet/Wound Care/Special Instructions: Activity Limited until follow-up Follow-up with primary care provider on discharge Continue taking medications as prescribed Continue with prednisone 60 mg daily for the next 1 week and then titrate down 5 mg each week thereafter Continue low fiber diet Follow-up with Dr. Ocampo at scheduled appointment 08/05/2022 at [address] Ocampo patient to discuss Remicade treatment at follow-up appointment and continue on high-dose steroids Discharge Disposition: HOME SELF-CARE Care Plan Goals (MU): Activity Limited until follow-up Follow-up with primary care provider discharge Continue taking medications as prescribed Continue prednisone steroids 60 mg daily for the next 1 week and then titrate down 5 mg each week thereafter Follow-up with Dr. cOampo's office 08/05/2022 at 2 PM and discuss Remicade Per Dr. Ocampo patient is to continue on prednisone until follow-up Continue current diet
== END 2022-07-30 14:18 | disposition home or self-care (01) | DRG 386 ==
LOC: EC 16:49 → 6NMEDSUR 22:15 → OBSVTOIN 07-24 10:00
PROVIDERS: ADMIT Hospitalist; ATTEND Hospitalist
DX: K51.911 Ulcerative colitis, unspecified with rectal bleeding (principal); D62 Acute posthemorrhagic anemia; E66.9 Obesity, unspecified; E86.0 Dehydration; E87.6 Hypokalemia; F41.9 Anxiety disorder, unspecified; Z79.52 Long term (current) use of systemic steroids; Z87.442 Personal history of urinary calculi; Z87.891 Personal history of nicotine dependence; Z68.31 Body mass index [BMI] 31.0-31.9, adult; Z28.21 Immunization not carried out because of patient refusal; Z79.899 Other long term (current) drug therapy
CPT/HCPCS: 36415; 80048; 80053; 82272; 85025; 85610; 85652; 85730; 86140; 86480; 86803; 86850; 86900; 86901; 87324; 87340

== ENCOUNTER 2022-08-08 12:26 | Inpatient (IN) | payer BC ==
[2022-08-08] MEDS ORDERED: SODIUM CHLORIDE 0.9% 500 ML 500 ML IV STA ×2 (12:37→13:45)
[2022-08-08] MEDS ORDERED: SODIUM CHLORIDE 0.9% 1,000 ML IV STA (12:37)
--- NOTE | 2022-08-08 12:47 | ED ---
Abdominal Pain HPI - General Stated Complaint: Abd Pain Time Seen by Provider: 08/08/22 12:26 Source: patient, EMS, RN notes reviewed, old records reviewed Mode of arrival: EMS - History of Present Illness Initial Comments: 52-year-old male with a history of ulcerative colitis who is had 2 recent hospitalizations for the same who started developing sharp and later crampy abdominal pain with nausea some dizziness. He's also had bright red blood per rectum which she has had before he does state he is getting somewhat better than previous times he also had a fever this morning however of 103 at home. He was brought in by EMS. He was given Zofran as well as IV Toradol his pain went from 04/14-01/13. He currently does not require or want any further medication at this time. He states that today he's been eating and drinking well. He states it does feel similar to his previous 2 episodes which again was this previous week. He also states he had an IV antibiotic at the infusion center 7 days ago. The current complains modifying factors MD Complaint: abdominal pain - Related Data Previous Rx's Medication Instructions Recorded Balsalazide Disodium [Colazal] 2,250 mg PO TID 30 Days #270 cap 07/16/22 Dicyclomine [Bentyl] 10 mg PO TID PRN #30 capsule 07/30/22 HYDROcodone/APAP 5-325MG [[place] 1 each PO Q6HR PRN #12 tab 07/30/22 5-325] Ondansetron Odt [Zofran ODT] 4 mg PO Q8HR PRN #30 tab 07/30/22 predniSONE 60 mg PO DAILY #77 tab 07/30/22 Allergies Allergy/AdvReac Type Severity Reaction Status Date / Time No Known Allergies Allergy Verified 07/11/22 13:27 Review of Systems ROS Statement: Those systems with pertinent positive or pertinent negative responses have been documented in the HPI. ROS Other: All systems not noted in ROS Statement are negative. Past Medical History Additional Past Medical History / Comment(s): kidney stones ULCERATIVE COLITIS History of Any Multi-Drug Resistant Organisms: None Reported Past Surgical History: No Surgical Hx Reported Past Psychological History: No Psychological Hx Reported Smoking Status: Former smoker Past Alcohol Use History: None Reported Past Drug Use History: None Reported General Exam - General Exam Comments Initial Comments: This is a well-developed well-nourished awake alert oriented 4 male General appearance: alert, anxious Head exam: Present: atraumatic, normocephalic, normal inspection Eye exam: Present: normal appearance, PERRL, EOMI. Absent: scleral icterus, conjunctival injection, periorbital swelling ENT exam: Present: normal exam, mucous membranes moist Neck exam: Present: normal inspection, full ROM, other (Stridor JVD or bruits). Absent: tenderness, meningismus, lymphadenopathy Respiratory exam: Present: normal lung sounds bilaterally. Absent: respiratory distress, wheezes, rales, rhonchi, stridor Cardiovascular Exam: Present: regular rate, normal rhythm, normal heart sounds. Absent: systolic murmur, diastolic murmur, rubs, gallop, clicks GI/Abdominal exam: Present: soft, tenderness (Mild nonspecific pain to palpation no guarding rebound masses or bruits), normal bowel sounds. Absent: distended, guarding, rebound, rigid Rectal exam: Present: deferred Extremities exam: Present: normal inspection, full ROM, normal capillary refill. Absent: tenderness, pedal edema, joint swelling, calf tenderness Back exam: Present: normal inspection Neurological exam: Present: alert, oriented X3, CN II-XII intact Psychiatric exam: Present: normal affect, normal mood Skin exam: Present: warm, dry, intact, normal color. Absent: rash Course Vital Signs 08/08/22 12:37 Temperature 102.3 F H Pulse Rate 100 Respiratory 18 Rate Blood Pressure 91/55 O2 Sat by Pulse 97 Oximetry - Reevaluation(s) Reevaluation #1: 08/08/22 12:50 I did review the admissions for the through 16 of July as well as through 30 of July. Patient the first admission was discharged on Flagyl. He did demonstrate anemia both admissions. Additionally second admission and discharge she was placed on oral steroids. Reevaluation #2: 08/08/22 15:09 Reevaluation patient finds it he is having increased abdominal pain with some nausea pain is about 6/10 severity more pain medication will be given as well as antinausea medication Medical Decision Making - Medical Decision Making I did discuss findings with the patient and his as well as with Dr. Duron. Patient will be admitted with consultation by Dr. Ocampo - Lab Data Result diagrams: 08/08/22 12:44 08/08/22 12:44 Lab Results 08/08/22 08/08/22 08/08/22 Range/Units 12:44 12:44 12:44 WBC 6.2 (3.8-10.6) k/uL RBC 3.08 L (4.30-5.90) m/uL Hgb 8.9 L (13.0-17.5) gm/dL Hct 27.0 L (39.0-53.0) % MCV 87.7 (80.0-100.0) fL MCH 28.9 (25.0-35.0) pg MCHC 32.9 (31.0-37.0) g/dL RDW 12.4 (11.5-15.5) % Plt Count 244 (150-450) k/uL MPV 7.3 Neutrophils % (Manual) 74 % Band Neuts % (Manual) 10 % Lymphocytes % (Manual) 6 % Monocytes % (Manual) 10 % Myelocytes % 1 % Neutrophils # (Manual) 5.20 (1.3-7.7) k/uL Lymphocytes # (Manual) 0.37 L (1.0-4.8) k/uL Monocytes # (Manual) 0.62 (0-1.0) k/uL Myelocytes # (Manual) 0.06 H (0) k/uL Nucleated RBCs 0 (0-0) /100 WBC Manual Slide Review Performed Hypochromasia Slight Sodium 129 L (137-145) mmol/L Potassium 3.8 (3.5-5.1) mmol/L Chloride 95 L (98-107) mmol/L Carbon Dioxide 24 (22-30) mmol/L Anion Gap 10 mmol/L BUN 14 (9-20) mg/dL Creatinine 0.91 (0.66-1.25) mg/dL Est GFR (CKD-EPI)AfAm >90 (>60 ml/min/1.73 sqM) Est GFR (CKD-EPI)NonAf >90 (>60 ml/min/1.73 sqM) Glucose 126 H (74-99) mg/dL Lactic Ac Sepsis Rflx Plasma Lactic Acid Andrés 2.4 H* (0.7-2.0) mmol/L Calcium 7.3 L (8.4-10.2) mg/dL Total Bilirubin 0.7 (0.2-1.3) mg/dL AST 47 (17-59) U/L ALT 167 H (4-49) U/L Alkaline Phosphatase 122 (38-126) U/L Troponin I (0.000-0.034) ng/mL Total Protein 4.8 L (6.3-8.2) g/dL Albumin 2.5 L (3.5-5.0) g/dL Amylase <30 L (30-110) U/L Lipase <10 L (23-300) U/L Stool Occult Blood (Negative) C. difficile (EIA) Intrp (Negative) Blood Type Blood Type Recheck Bld Type Recheck Status Antibody Screen Spec Expiration Date 08/08/22 08/08/22 08/08/22 Range/Units 12:44 12:44 12:44 WBC (3.8-10.6) k/uL RBC (4.30-5.90) m/uL Hgb (13.0-17.5) gm/dL Hct (39.0-53.0) % MCV (80.0-100.0) fL MCH (25.0-35.0) pg MCHC (31.0-37.0) g/dL RDW (11.5-15.5) % Plt Count (150-450) k/uL MPV Neutrophils % (Manual) % Band Neuts % (Manual) % Lymphocytes % (Manual) % Monocytes % (Manual) % Myelocytes % % Neutrophils # (Manual) (1.3-7.7) k/uL Lymphocytes # (Manual) (1.0-4.8) k/uL Monocytes # (Manual) (0-1.0) k/uL Myelocytes # (Manual) (0) k/uL Nucleated RBCs (0-0) /100 WBC Manual Slide Review Hypochromasia Sodium (137-145) mmol/L Potassium (3.5-5.1) mmol/L Chloride (98-107) mmol/L Carbon Dioxide (22-30) mmol/L Anion Gap mmol/L BUN (9-20) mg/dL Creatinine (0.66-1.25) mg/dL Est GFR (CKD-EPI)AfAm (>60 ml/min/1.73 sqM) Est GFR (CKD-EPI)NonAf (>60 ml/min/1.73 sqM) Glucose (74-99) mg/dL Lactic Ac Sepsis Rflx Plasma Lactic Acid Andrés (0.7-2.0) mmol/L Calcium (8.4-10.2) mg/dL Total Bilirubin (0.2-1.3) mg/dL AST (17-59) U/L ALT (4-49) U/L Alkaline Phosphatase (38-126) U/L Troponin I <0.012 (0.000-0.034) ng/mL Total Protein (6.3-8.2) g/dL Albumin (3.5-5.0) g/dL Amylase (30-110) U/L Lipase (23-300) U/L Stool Occult Blood (Negative) C. difficile (EIA) Intrp Negative (Negative) Blood Type O Positive Blood Type Recheck O Pos Bld Type Recheck Status No Antibody Screen NEGATIVE Spec Expiration Date 08/11/2022 - 234308/08/22 08/08/22 Range/Units 13:20 14:25 WBC (3.8-10.6) k/uL RBC (4.30-5.90) m/uL Hgb (13.0-17.5) gm/dL Hct (39.0-53.0) % MCV (80.0-100.0) fL MCH (25.0-35.0) pg MCHC (31.0-37.0) g/dL RDW (11.5-15.5) % Plt Count (150-450) k/uL MPV Neutrophils % (Manual) % Band Neuts % (Manual) % Lymphocytes % (Manual) % Monocytes % (Manual) % Myelocytes % % Neutrophils # (Manual) (1.3-7.7) k/uL Lymphocytes # (Manual) (1.0-4.8) k/uL Monocytes # (Manual) (0-1.0) k/uL Myelocytes # (Manual) (0) k/uL Nucleated RBCs (0-0) /100 WBC Manual Slide Review Hypochromasia Sodium (137-145) mmol/L Potassium (3.5-5.1) mmol/L Chloride (98-107) mmol/L Carbon Dioxide (22-30) mmol/L Anion Gap mmol/L BUN (9-20) mg/dL Creatinine (0.66-1.25) mg/dL Est GFR (CKD-EPI)AfAm (>60 ml/min/1.73 sqM) Est GFR (CKD-EPI)NonAf (>60 ml/min/1.73 sqM) Glucose (74-99) mg/dL Lactic Ac Sepsis Rflx Y Plasma Lactic Acid Andrés (0.7-2.0) mmol/L Calcium (8.4-10.2) mg/dL Total Bilirubin (0.2-1.3) mg/dL AST (17-59) U/L ALT (4-49) U/L Alkaline Phosphatase (38-126) U/L Troponin I (0.000-0.034) ng/mL Total Protein (6.3-8.2) g/dL Albumin (3.5-5.0) g/dL Amylase (30-110) U/L Lipase (23-300) U/L Stool Occult Blood Positive (Negative) C. difficile (EIA) Intrp (Negative) Blood Type Blood Type Recheck Bld Type Recheck Status Antibody Screen Spec Expiration Date - Radiology Data Radiology results: report reviewed (By me as well as report patient does have evidence of a large stool burden nonspecific bowel gas pattern I did review the x-ray.q), image reviewed Disposition Clinical Impression: Ulcerative colitis, Abdominal pain, Anemia, Lactic acidosis, Febrile illness, acute, Dehydration, Failure of outpatient treatment Disposition: ADMITTED IP TO THIS [facility] Condition: Fair Referrals: Yazan Mullen MD [Primary Care Provider] - 1-2 days Decision Date: 08/08/22 Decision Time: 15:00
[2022-08-08 13:06] LABS: HGB 8.9 gm/dL (13.0-17.5); Hypochromasia Slight; MCH 28.9 pg (25.0-35.0); MCHC 32.9 g/dL (31.0-37.0); MCV 87.7 fL (80.0-100.0); Mean Platelet Volume 7.3; Platelet Count 244 k/uL (150-450); RBC 3.08 m/uL (4.30-5.90); RDW 12.4 % (11.5-15.5); WBC 6.2 k/uL (3.8-10.6)
--- NOTE | 2022-08-08 13:09 | XR ---
EXAMINATION TYPE: XR abdomen 2V DATE OF EXAM: 08/08/2022 CLINICAL HISTORY: Lower abdominal pain, history of ulcerative colitis TECHNIQUE: Supine and upright views of the abdomen are obtained. COMPARISON: CT abdomen and pelvis July 11, 2022 FINDINGS: Gas seen in nondistended stomach. Gas seen and slightly prominent small bowel loops with f ew air-fluid levels in the left upper to midabdomen. Gas and fecal material is seen in non-distended colon. Moderate fecal prominence in the right colon noted on current study. There is loss of haustr ation involving left colon appears more prominent from prior. No free air or suspicious calcification s. The lung bases are clear and the osseous structures are intact. IMPRESSION: Overall nonspecific strongly favor nonobstructive bowel gas pattern. Wall thickening lef t colon suspected, correlate for acute colitis at this level.
[2022-08-08 13:17] LABS: ALT 167 U/L (4-49); AST 47 U/L (17-59); African American GFR (CKD) >90 (>60 ml/min/1.73 sqM); Albumin 2.5 g/dL (3.5-5.0); Alkaline Phosphatase 122 U/L (38-126); Amylase <30 U/L (30-110); Anion Gap 10 mmol/L; Blood Urea Nitrogen 14 mg/dL (9-20); Calcium 7.3 mg/dL (8.4-10.2); Carbon Dioxide 24 mmol/L (22-30); Chloride 95 mmol/L (98-107); Glucose 126 mg/dL (74-99); Lipase <10 U/L (23-300); Non-African American GFR(CKD) >90 (>60 ml/min/1.73 sqM); Potassium 3.8 mmol/L (3.5-5.1); Sodium 129 mmol/L (137-145); Total Bilirubin 0.7 mg/dL (0.2-1.3); Total Protein 4.8 g/dL (6.3-8.2)
[2022-08-08 13:50] LABS: Nucleated Red Blood Cells 0 /100 WBC (0-0)
[2022-08-08 13:55] LABS: Band Neutrophils % 10 %; Lymphocytes # (M) 0.37 k/uL (1.0-4.8); Monocytes # (M) 0.62 k/uL (0-1.0); Myelocytes # (M) 0.06 k/uL (0); Myelocytes % 1 %; Neutrophils % (M) 74 %; Total Cells Counted 200
[2022-08-08] MEDS ORDERED: HYDROmorphone 1 MG/ML 1 ML SYRINGE IVP STA (15:02)
[2022-08-08] MEDS ORDERED: PROCHLORPERAZINE INJ 10 MG/2 ML VIAL IVP STA (15:02)
[2022-08-08] MEDS ORDERED: NALOXONE 0.4 MG/ML 1 ML VIAL IV PRN (15:33)
[2022-08-08] MEDS ORDERED: ONDANSETRON 4 MG/2 ML VIAL IVP PRN (15:33)
[2022-08-08] MEDS ORDERED: ACETAMINOPHEN TAB 325 MG TAB PO PRN (15:35)
[2022-08-08] MEDS ORDERED: metroNIDAZOLE-NS PMX 500 MG in SALINE 1 100ML.BAG IVPB STA (15:36)
[2022-08-08] MEDS: SODIUM CHLORIDE 0.9% 1,000 ML IV SCH (16:23)
[2022-08-08 20:24] LABS: Appearance,Urine Cloudy (Clear); Bilirubin,Urine Negative (Negative); Blood,Urine Negative (Negative); Color,Urine Yellow; Glucose,Urine (UA) Negative (Negative); Ketones,Urine Negative (Negative); Leukocyte Esterase,Urine Negative (Negative); Mucus,Urine Many /hpf; Nitrite,Urine Negative (Negative); PH, Urine 5.5 (5.0-8.0); Protein,Urine 1+ (Negative); Specific Gravity,Urine 1.018 (1.001-1.035); Squamous Epithelial Cell,Urine 1 /hpf (0-4); Urobilinogen,Urine <2.0 mg/dL (<2.0); WBC,Urine 33 /hpf (0-5)
[2022-08-08] MEDS: HYDROmorphone 0.5 MG/0.5 ML SYRINGE IVP PRN (21:14)
--- NOTE | 2022-08-08 21:59 | P.HPIM ---
History of Present Illness H&P Date: 08/08/22 Chief Complaint: Abdominal pain and fever Patient is a 52-year-old male with a known history of ulcerative colitis and recent admissions due to exacerbation, patient was initiated on immunotherapy on 08/01/2022, history of renal stones, prior history of smoking and history of Covid 19 infection presents to ER with the complaints of abdominal pain. Patient states that he started having abdominal pain sharp diffuse and cramping pain is with nausea and dizziness. Patient also noticed to have bright red red per rectum this morning also became febrile with T-max of 10 3F at home. Patient was brought to the ER by EMS. On admission T-max was 102.3F, heart rate 100 and pulse ox 97% on room air. [place] B x-ray showed overall nonspecific strongly favored nonobstructive bowel gas pattern. Wall thickening left quadrant but did correlate for acute colitis. Laboratory data showed WBC 6.2 hemoglobin 8.9 and platelets 244 Sodium 129 potassium 3.8 chloride 95 bicarb is 24 BUN 14 and creatinine 0.91 and a sugar is 126, albumin 2.5 Urinalysis is negative for infection Stool for occult blood is positive. C. diff negative. Review of Systems Constitutional: Patient denies any fever or chills . No generalized weakness or weight loss. Abdomen: Patient does have cramping abdominal pain associated with nausea and no vomiting and also 1 episode of bright red blood per rectum.. Cardiovascular: Patient denies any chest pain or short of breath no palpitations. Respiratory: patient denied any cough is from production. No shortness of breath Neurologic: Patient denied any numbness or tingling headache. Musculoskeletal: Patient denies any complaints of joint swelling or deformity. Skin: Negative Psychiatric: Negative Endocrine: No heat or cold intolerance. No recent weight gain. Genitourinary: No dysuria or hematuria. All other 14 point ROS negative except the above Past Medical History Additional Past Medical History / Comment(s): kidney stones ULCERATIVE COLITIS History of Any Multi-Drug Resistant Organisms: None Reported Past Surgical History: No Surgical Hx Reported Past Psychological History: No Psychological Hx Reported Smoking Status: Former smoker Past Alcohol Use History: None Reported Past Drug Use History: None Reported Medications and Allergies Home Medications Medication Instructions Recorded Confirmed Type Balsalazide Disodium [Colazal] 2,250 mg PO TID 30 Days #270 cap 07/16/22 08/08/22 Rx Ondansetron Odt [Zofran ODT] 4 mg PO Q8HR PRN #30 tab 07/30/22 08/08/22 Rx Dicyclomine [Bentyl] 10 mg PO TID PRN 08/08/22 08/08/22 History HYDROcodone/APAP 5-325MG [[place] 1 tab PO Q6HR PRN 08/08/22 08/08/22 History 5-325] predniSONE See Taper PO DIRECTED 08/08/22 08/08/22 History Allergies Allergy/AdvReac Type Severity Reaction Status Date / Time No Known Allergies Allergy Verified 08/08/22 16:07 Physical Exam Vitals: Vital Signs Temp Pulse Resp BP Pulse Ox 08/08/22 18:00 62 18 86/54 98 08/08/22 17:00 88 18 88/54 96 08/08/22 15:15 99.5 F 71 20 85/58 93 L 08/08/22 12:37 102.3 F H 100 18 91/55 97 Intake and Output 08/08/22 08/08/22 08/08/22 06:59 14:59 22:59 Other: Weight 90.718 kg PHYSICAL EXAMINATION: Patient is lying in the bed comfortably, no acute distress, awake alert and oriented.. HEENT: Normocephalic. Neck is supple. Pupils reactive. Nostrils clear. Oral cavity is moist. Neck reveals no JVD, carotid bruits, or thyromegaly. CHEST EXAMINATION: Trachea is central. Symmetrical expansion. Lung rao clear to auscultation and percussion. CARDIAC: Normal S1, S2 with no gallops. No murmurs ABDOMEN: Soft. Bowel sounds normal. Lower abdominal tenderness mild. No guarding or rigidity. No organomegaly. No abdominal bruits. Extremities: reveal no edema. No clubbing or cyanosis Neurologically awake, alert, oriented x3 with well-coordinated movements. No focal deficits noted Skin: No rash or skin lesions. Psychiatric: Coperative. Nonsuicidal Musculoskeletal: No joint swelling or deformity. Normal range of motion. Results CBC & Chem 7: 08/09/22 05:47 08/09/22 05:47 Labs: Abnormal Lab Results - Last 24 Hours (Table) 08/08/22 08/08/22 08/08/22 Range/Units 12:44 12:44 12:44 RBC 3.08 L (4.30-5.90) m/uL Hgb 8.9 L (13.0-17.5) gm/dL Hct 27.0 L (39.0-53.0) % Lymphocytes # (Manual) 0.37 L (1.0-4.8) k/uL Myelocytes # (Manual) 0.06 H (0) k/uL Sodium 129 L (137-145) mmol/L Chloride 95 L (98-107) mmol/L Glucose 126 H (74-99) mg/dL Plasma Lactic Acid Andrés 2.4 H* (0.7-2.0) mmol/L Calcium 7.3 L (8.4-10.2) mg/dL ALT 167 H (4-49) U/L Total Protein 4.8 L (6.3-8.2) g/dL Albumin 2.5 L (3.5-5.0) g/dL Amylase <30 L (30-110) U/L Lipase <10 L (23-300) U/L Urine Protein (Negative) Urine WBC (0-5) /hpf Urine Mucus (None) /hpf 08/08/22 Range/Units 18:00 RBC (4.30-5.90) m/uL Hgb (13.0-17.5) gm/dL Hct (39.0-53.0) % Lymphocytes # (Manual) (1.0-4.8) k/uL Myelocytes # (Manual) (0) k/uL Sodium (137-145) mmol/L Chloride (98-107) mmol/L Glucose (74-99) mg/dL Plasma Lactic Acid Andrés (0.7-2.0) mmol/L Calcium (8.4-10.2) mg/dL ALT (4-49) U/L Total Protein (6.3-8.2) g/dL Albumin (3.5-5.0) g/dL Amylase (30-110) U/L Lipase (23-300) U/L Urine Protein 1+ H (Negative) Urine WBC 33 H (0-5) /hpf Urine Mucus Many H (None) /hpf Thrombosis Risk Factor Assmnt - DVT/VTE Prophylaxis DVT/VTE Prophylaxis: Mechanical Prophylaxis ordered Assessment and Plan Assessment: Acute abdominal pain likely secondary to colitis. No hematemesis infectious. Patient was febrile and tachycardic on admission. X-ray showed bowel wall thickening possible colitis Bright red blood per rectum. Hypovolemic hyponatremia History of ulcerative colitis. Initiated on chemotherapy on 08/01/2022 History of renal stones GI and DVT prophylaxis Plan: Patient be continued on IV hydration with normal saline and continue with antibiotics as an Flagyl. monitor H&H. Symptomatic management for pain and antibiotics. . Gastrology service was consulted. Continue to follow closely. Follow-up CBC and BMP tomorrow. Time with Patient: Greater than 30
[2022-08-09] MEDS: SODIUM CHLORIDE 0.9% 1,000 ML IV SCH ×4 (00:11→21:49)
[2022-08-09] MEDS: HYDROmorphone 0.5 MG/0.5 ML SYRINGE IVP PRN ×2 (01:01→06:49)
[2022-08-09] MEDS: metroNIDAZOLE-NS PMX 500 MG in SALINE 1 100ML.BAG IVPB SCH ×4 (01:02→23:34)
[2022-08-09] MEDS: IOPAMIDOL CONTRAST (ORAL USE) VIAL PO PRN ×2 (08:25→09:17)
[2022-08-09] MEDS: methylPREDNISolone SOD SUCCI 40 MG/ML 1 ML VIAL IV SCH ×3 (08:26→23:34)
[2022-08-09] MEDS: PANTOPRAZOLE 40 MG/10 ML VIAL IV SCH (08:26)
[2022-08-09 09:14] LABS: HCT 24.4 % (39.6-50.0); HGB 7.5 g/dL (13.0-17.0); MCH 27.4 pg (27.0-32.0); MCHC 30.7 g/dL (32.0-37.0); MCV 89.1 fL (80.0-97.0); Mean Platelet Volume 9.3 fL (9.5-12.2); NRBC Per 100 WBC 0 /100 WBCS (0.0-0.0); Platelet Count 202 X 10*3/uL (140-440); RBC 2.74 X 10*6/uL (4.40-5.60); RDW 12.8 % (11.5-14.5); WBC 4.86 X 10*3/uL (4.50-10.00)
[2022-08-09 09:22] LABS: African American GFR (CKD) 120.7 (60.0-200.0); Albumin 2.5 g/dL (3.8-4.9); Albumin/Globulin Ratio 1.25 (1.60-3.17); BUN/Creat Ratio 16.25 Ratio (12.00-20.00); Calcium 7.9 mg/dL (8.7-10.3); Non-African American GFR(CKD) 104.2 (60.0-200.0); Potassium 4.1 mmol/L (3.5-5.5); Total Bilirubin 0.2 mg/dL (0.30-1.20); Total Protein 4.5 g/dL (6.2-8.2)
[2022-08-09 10:21] LABS: Basophils # (A) 0.01 X 10*3/uL (0.00-0.10); Basophils % (A) 0.2 %; Eosinophils # (A) 0.01 X 10*3/uL (0.04-0.35); Eosinophils % (A) 0.2 %; Immature Grans, Automated 0.8 %; Lymphocytes # (A) 0.59 X 10*3/uL (0.90-5.00); Lymphocytes % (A) 12.1 %; Monocytes # (A) 0.58 X 10*3/uL (0.20-1.00); Monocytes % (A) 11.9 %; Neutrophils # (A) 3.63 X 10*3/uL (1.80-7.70); Neutrophils % (A) 74.8 %
--- NOTE | 2022-08-09 10:21 | CT ---
EXAMINATION TYPE: CT abdomen pelvis w con DATE OF EXAM: 08/09/2022 COMPARISON: 07/11/22 HISTORY: Abdominal pain and fever. CT DLP: 1451.7 mGycm CONTRAST: CT scan of the abdomen and pelvis is performed with Oral Contrast and with IV Contrast, patient injec elizabeth with 100ml mL of Isovue 300. FINDINGS: LUNG BASES-: No visible nodule. No infiltrate. LIVER/GB: No calcified gallstones. Mild hepatic steatosis noted. No space occupying hepatic lesion . Biliary tree is of normal caliber. PANCREAS: No inflammation. No distinct mass. SPLEEN: Mild splenomegaly measuring 14.2 cm craniocaudal dimension. No lesion seen. ADRENALS: No nodule. No thickening. KIDNEYS/BLADDER: No hydronephrosis. No nephrolithiasis. No distinct renal mass. Urinary bladder g rossly unremarkable. BOWEL: Normal appendix. Persistent rectosigmoid wall thickening extending to the descending colonic/s igmoid colonic junction. No evidence of perforation or abscess. The remainder of the colon and small bowel appear to be of normal caliber. There is a reported history of ulcerative colitis. GENITAL ORGANS: No gross abnormality. LYMPH NODES: No greater than 1cm abdominal or pelvic lymph nodes are appreciated. AORTA: No significant abnormality. OSSEOUS STRUCTURES: No significant abnormality is seen. OTHER: Lipoma anterior right thigh musculature. IMPRESSION: 1. Essentially stable and nonspecific rectosigmoid colitis. Correlate for ulcerative colitis. 2. Hepatic steatosis versus underlying hepatocellular disease. 3. Splenomegaly.
--- NOTE | 2022-08-09 10:35 | P.CONS ---
History of Present Illness - Reason for Consult Consult date: 08/09/22 Ulcerative colitis exacerbation, blood per rectum Requesting physician: Zack Núñez - Chief Complaint Abdominal pain - History of Present Illness This pleasant 52-year-old male who presented to the emergency department yesterday afternoon for abdominal pain and cramping. The patient was recently admitted and hospitalized for ulcerative colitis exacerbation. He was di scharged on 07/30/2022. He was diagnosed with ulcerative colitis about 2 years ago had [address] Dr[address] Aragon. He states he had colonoscopy about 2 years ago and followed with Dr. Aragon. During his last 2 hospitalizations he was started on IV Solu-Medrol with some improvement in his symptoms. He was discharged and had followed up with Dr. Ocampo was started on Remicade. Currently on oral prednisone 60 mg in the outpatient setting. He also complains of temporal 103 at home. On admission he had a temp of 102.3. He was started on Flagyl and Rocephin. And a lactic acid of 2.4. Continues to have abdominal pain and cramping with bloody stools. However he does state that the diarrhea and not bloody stools are improving some. Denies any nausea or vomiting. Patient had an abdominal x-ray on admission reported overall nonspecific strongly favor nonobstructive bowel gas pattern. Wall thickening left colon suspected. Correlate for acute colitis at this level. Labs WBC 4.8 hemoglobin 7.5 hematocrit 24 platelet count 202,000 sodium 136 potassium 4.1 BUN 13 creatinine 0.8 total bilirubin 0.2 AST 11 ALT 125 alk phos 97 Review of Systems REVIEW OF SYSTEMS: CARDIOPULMONARY: No chest pain or shortness of breath. Gastrointestinal: Abdominal pain and cramping. No nausea or vomiting. No hematemesis, coffee-ground emesis. Diarrhea with bloody stools. GENITOURINARY: No dysuria or hematuria. MUSCULOSKELETAL: Reports normal range of motion. SKIN: No rashes. No jaundice. ENDOCRINE: No chills, fevers. No excessive weight gain or loss. No polydipsia or polyuria. PSYCHIATRIC: Unremarkable. NEUROLOGY: No change in mental status. Denies dizziness, headache. ENT: Vision unremarkable. CONSTITUTIONAL: No recent weight loss. No fever, chills, night sweats. Past Medical History Additional Past Medical History / Comment(s): kidney stones ULCERATIVE COLITIS History of Any Multi-Drug Resistant Organisms: None Reported Past Surgical History: No Surgical Hx Reported Past Psychological History: No Psychological Hx Reported Smoking Status: Former smoker Past Alcohol Use History: None Reported Past Drug Use History: None Reported Medications and Allergies Home Medications Medication Instructions Recorded Confirmed Type Balsalazide Disodium [Colazal] 2,250 mg PO TID 30 Days #270 cap 07/16/22 08/08/22 Rx Ondansetron Odt [Zofran ODT] 4 mg PO Q8HR PRN #30 tab 07/30/22 08/08/22 Rx Dicyclomine [Bentyl] 10 mg PO TID PRN 08/08/22 08/08/22 History HYDROcodone/APAP 5-325MG [Zapata 1 tab PO Q6HR PRN 08/08/22 08/08/22 History 5-325] predniSONE See Taper PO DIRECTED 08/08/22 08/08/22 History Allergies Allergy/AdvReac Type Severity Reaction Status Date / Time No Known Allergies Allergy Verified 08/08/22 16:07 Physical Exam Vitals: Vital Signs Temp Pulse Pulse Resp BP BP Pulse Ox 08/09/22 05:16 99.4 F 71 16 111/65 98 08/08/22 21:00 98.1 F 59 L 16 98/52 98 08/08/22 18:00 62 18 86/54 98 08/08/22 17:00 88 18 88/54 96 08/08/22 15:15 99.5 F 71 20 85/58 93 L 08/08/22 12:37 102.3 F H 100 18 91/55 97 Intake and Output 08/08/22 08/08/22 08/09/22 14:59 22:59 06:59 Other: Weight 90.718 kg 90.718 kg General appearance: The patient is alert, oriented, appears in no acute distress. HET: Head is normocephalic and atraumatic. Conjunctiva pink. Sclera anicteric. Neck: Supple without lymphadenopathy. Trachea midline. Heart: S1 S2. Regular rate and rhythm. Lungs: Clear to auscultation. Abdomen: Soft, lower abdominal tenderness, nondistended with bowel sounds. No guarding or rigidity. Skin: No rashes. No jaundice. Extremities: Normal skin color and turgor. No pedal edema. Neurological: No focal deficits. Alert and oriented x3. Results CBC & Chem 7: 08/09/22 05:47 08/09/22 05:47 Labs: Abnormal Lab Results - Last 24 Hours (Table) 08/08/22 08/08/22 08/08/22 Range/Units 12:44 12:44 12:44 RBC 3.08 L (4.30-5.90) m/uL Hgb 8.9 L (13.0-17.5) gm/dL Hct 27.0 L (39.0-53.0) % Lymphocytes # (Manual) 0.37 L (1.0-4.8) k/uL Myelocytes # (Manual) 0.06 H (0) k/uL Sodium 129 L (137-145) mmol/L Chloride 95 L (98-107) mmol/L Glucose 126 H (74-99) mg/dL Plasma Lactic Acid Andrés 2.4 H* (0.7-2.0) mmol/L Calcium 7.3 L (8.4-10.2) mg/dL ALT 167 H (4-49) U/L Total Protein 4.8 L (6.3-8.2) g/dL Albumin 2.5 L (3.5-5.0) g/dL Amylase <30 L (30-110) U/L Lipase <10 L (23-300) U/L Urine Protein (Negative) Urine WBC (0-5) /hpf Urine Mucus (None) /hpf 08/08/22 Range/Units 18:00 RBC (4.30-5.90) m/uL Hgb (13.0-17.5) gm/dL Hct (39.0-53.0) % Lymphocytes # (Manual) (1.0-4.8) k/uL Myelocytes # (Manual) (0) k/uL Sodium (137-145) mmol/L Chloride (98-107) mmol/L Glucose (74-99) mg/dL Plasma Lactic Acid Andrés (0.7-2.0) mmol/L Calcium (8.4-10.2) mg/dL ALT (4-49) U/L Total Protein (6.3-8.2) g/dL Albumin (3.5-5.0) g/dL Amylase (30-110) U/L Lipase (23-300) U/L Urine Protein 1+ H (Negative) Urine WBC 33 H (0-5) /hpf Urine Mucus Many H (None) /hpf Abdominal x-ray: report reviewed (Overall nonspecific strongly favor nonobstructive bowel gas pattern. Wall thickening left colon suspected, correlate for acute colitis at this level.) Assessment and Plan (1) Abdominal pain Narrative/Plan: 52-year-old with ulcerative colitis recently hospitalized twice over the last couple months return to the hospital for increased abdominal pain and fever as high as 103 at home. Patient diagnosed approximately 2 years ago with ulcerative colitis however was not treated as patient states he was not symptomatic and concern for side effects related to medications. Patient was discharged to week ago and started on Remicade and continues on prednisone 60 mg daily. He states of amount of diarrhea and bleeding has improved however still does have bloody bowel movements. X-ray showed nonobstructive bowel gas pattern with inflammation. We will proceed with abdominal pelvis CT with contrast. 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 Current Visit: Yes Status: Acute Code(s): R10.9 - UNSPECIFIED ABDOMINAL PAIN SNOMED Code(s): 62854990 (2) Ulcerative colitis Current Visit: Yes Status: Acute Code(s): K51.90 - ULCERATIVE COLITIS, UNSPECIFIED, WITHOUT COMPLICATIONS SNOMED Code(s): 00063622 Plan: 1. Continue symptomatic and supportive care 2. Continue with pain medication as needed 3. Solu-Medrol 40 mg IV every 8 hours ordered 4. Daily CBC, transfuse for hemoglobin less than 7 5. Agree with IV antibiotics 6. CRP, sed rate ordered 7. CT abdomen and pelvis ordered continue with treatment with IV steroids at this time and recommend he be watched over the weekend. If any acute changes would recommend possible transfer to [facility] for further management by gastroenterology and general surgical services. Thank you for allowing us to participate in the care of the patient, the GI service will sign off, gastroenterology will not be available at the hospital th is weekend and through next week. If further evaluation by gastroenterology is required the patient will need transfer as per the primary team's discretion. Dr. Dragan Ocampo I agree with the dictator's note, documented as a scribe by Nancy Blake.
[2022-08-09] MEDS: MORPHINE SULFATE 4 MG/ML SYRINGE IVP PRN ×2 (14:23→19:36)
[2022-08-10] MEDS: MORPHINE SULFATE 4 MG/ML SYRINGE IVP PRN ×3 (01:37→23:58)
[2022-08-10] MEDS: methylPREDNISolone SOD SUCCI 40 MG/ML 1 ML VIAL IV SCH ×3 (10:21→23:54)
[2022-08-10] MEDS: SODIUM CHLORIDE 0.9% 1,000 ML IV SCH ×3 (10:21→23:59)
[2022-08-10] MEDS: metroNIDAZOLE-NS PMX 500 MG in SALINE 1 100ML.BAG IVPB SCH ×3 (10:21→23:55)
[2022-08-10] MEDS: PANTOPRAZOLE 40 MG/10 ML VIAL IV SCH (10:22)
[2022-08-10 12:26] LABS: Basophils % (A) 0 %; Eosinophils % (A) 0 %; HCT 24.9 % (39.0-53.0); HGB 8.1 gm/dL (13.0-17.5); Hypochromasia Marked; Lymphocytes # (A) 0.3 k/uL (1.0-4.8); Lymphocytes % (A) 7 %; MCH 28.7 pg (25.0-35.0); MCHC 32.4 g/dL (31.0-37.0); MCV 88.6 fL (80.0-100.0); Mean Platelet Volume 7.8; Monocytes # (A) 0.3 k/uL (0-1.0); Monocytes % (A) 6 %; Neutrophils # (A) 3.7 k/uL (1.3-7.7); Neutrophils % (A) 85 %; Platelet Count 201 k/uL (150-450); RBC 2.81 m/uL (4.30-5.90); RDW 12.7 % (11.5-15.5); WBC 4.3 k/uL (3.8-10.6)
--- NOTE | 2022-08-10 18:39 | P.PN ---
Subjective Progress Note Date: 08/09/22 Patient is a 52-year-old male with a known history of ulcerative colitis and recent admissions due to exacerbation, patient was initiated on immunotherapy on 08/01/2022, history of renal stones, prior history of smoking and history of Covid 19 infection presents to ER with the complaints of abdominal pain. Patient states that he started having abdominal pain sharp diffuse and cramping pain is with nausea and dizziness. Patient also noticed to have bright red red per rectum this morning also became febrile with T-max of 10 3F at home. Patient was brought to the ER by EMS. On admission T-max was 102.3F, heart rate 100 and pulse ox 97% on room air. [place] [facility] x-ray showed overall nonspecific strongly favored nonobstructive bowel gas pattern. Wall thickening left quadrant but did correlate for acute colitis. Laboratory data showed WBC 6.2 hemoglobin 8.9 and platelets 244 Sodium 129 potassium 3.8 chloride 95 bicarb is 24 BUN 14 and creatinine 0.91 and a sugar is 126, albumin 2.5 Urinalysis is negative for infection Stool for occult blood is positive. C. diff negative. 08/09/2022 Patient is seen and evaluated and follow-up with GI following. Patient is currently on clear liquids requesting an advancing diet although continues with abdominal pain and cramping recommend to continue with current diet for now. GI also recommending increase in steroids and continued pain management over the weekend. Patient's hemoglobin today is 7.5 and recommend to closely monitor. Afebrile and denies chest pain or shortness of breath. Continues to report bloody stools. Review of systems: Constitutional: No reports of fatigue, fever, or chills Cardiovascular: No reports of chest pain or palpitations Respiratory: No reports of shortness of breath or cough GI: No reports of nausea, vomiting, reports loose bloody stools : No reports of dysuria or retention Neurovascular: No reports of weakness or numbness All medications have been reviewed PHYSICAL EXAMINATION: Patient is lying in the bed comfortably, no acute distress, awake alert and oriented.. HEENT: Normocephalic. Neck is supple. Pupils reactive. Nostrils clear. Oral cavity is moist. Neck reveals no JVD, carotid bruits, or thyromegaly. CHEST EXAMINATION: Trachea is central. Symmetrical expansion. Lung rao clear to auscultation and percussion. CARDIAC: Normal S1, S2 with no gallops. No murmurs ABDOMEN: Soft. Bowel sounds normal. Lower abdominal tenderness mild. No guarding or rigidity. No organomegaly. No abdominal bruits. Extremities: reveal no edema. No clubbing or cyanosis Neurologically awake, alert, oriented x3 with well-coordinated movements. No focal deficits noted Skin: No rash or skin lesions. Psychiatric: Cooperative. Non-suicidal Musculoskeletal: No joint swelling or deformity. Normal range of motion. Assessment: Acute abdominal pain likely secondary to colitis. Patient was febrile and tachycardic on admission. X-ray showed bowel wall thickening possible colitis Bright red blood per rectum. Started on IV antibiotics along with IV steroids per GI. Recommend increased dose over the weekend and to monitor for improvement in abdominal pain. Hemoglobin is 7.5 and will follow closely Patient did receive first infusion of remicaid and next dose is this upcoming . Hypovolemic hyponatremia, improved History of ulcerative colitis. Initiated on remicaid on 08/01/2022 History of renal stones GI and DVT prophylaxis Plan: Patient be continued on IV hydration with normal saline and continue with antibiotics and clear liquid diet . monitor H&H as hemoglobin is 7.5. Symptomatic management for pain and antibiotics. Gastrology evaluated and has started patient on high dose IV steroids and recommend close monitoring inpatient due to patient being symptomatic and febrile and concern for infectious process. Follow-up CBC tomorrow. Transfuse if less than 7. The impression and plan of care has been dictated by Mariana Turner, Nurse Practitioner as directed. Dr. Oliverio MD I have performed a history and examination and MDM of this patient, discussed the same with the dictator, and agree with the dictator's assessment and plan as written ,documented as a scribe. Based on total visit time, I have performed more than 50% of the visit. Objective - Vital Signs Vital signs: Vital Signs Temp 99.4 F 08/09/22 05:16 Pulse 71 08/09/22 05:16 Resp 16 08/09/22 05:16 BP 111/65 08/09/22 05:16 Pulse Ox 98 08/09/22 05:16 FiO2 Intake & Output 08/08/22 08/09/22 08/09/22 18:59 06:59 18:59 Weight 90.718 kg Other: # Voids 2 - Labs CBC & Chem 7: 08/10/22 11:49 08/09/22 05:47 Labs: Abnormal Lab Results - Last 24 Hours (Table) 08/08/22 08/08/22 08/08/22 Range/Units 12:44 12:44 12:44 RBC 3.08 L (4.30-5.90) m/uL Hgb 8.9 L (13.0-17.5) gm/dL Hct 27.0 L (39.0-53.0) % Lymphocytes # (Manual) 0.37 L (1.0-4.8) k/uL Myelocytes # (Manual) 0.06 H (0) k/uL Sodium 129 L (137-145) mmol/L Chloride 95 L (98-107) mmol/L Glucose 126 H (74-99) mg/dL Plasma Lactic Acid Andrés 2.4 H* (0.7-2.0) mmol/L Calcium 7.3 L (8.4-10.2) mg/dL ALT 167 H (4-49) U/L Total Protein 4.8 L (6.3-8.2) g/dL Albumin 2.5 L (3.5-5.0) g/dL Amylase <30 L (30-110) U/L Lipase <10 L (23-300) U/L Urine Protein (Negative) Urine WBC (0-5) /hpf Urine Mucus (None) /hpf 08/08/22 Range/Units 18:00 RBC (4.30-5.90) m/uL Hgb (13.0-17.5) gm/dL Hct (39.0-53.0) % Lymphocytes # (Manual) (1.0-4.8) k/uL Myelocytes # (Manual) (0) k/uL Sodium (137-145) mmol/L Chloride (98-107) mmol/L Glucose (74-99) mg/dL Plasma Lactic Acid Andrés (0.7-2.0) mmol/L Calcium (8.4-10.2) mg/dL ALT (4-49) U/L Total Protein (6.3-8.2) g/dL Albumin (3.5-5.0) g/dL Amylase (30-110) U/L Lipase (23-300) U/L Urine Protein 1+ H (Negative) Urine WBC 33 H (0-5) /hpf Urine Mucus Many H (None) /hpf
[2022-08-11] MEDS: MORPHINE SULFATE 4 MG/ML SYRINGE IVP PRN ×4 (04:56→23:29)
[2022-08-11] MEDS: methylPREDNISolone SOD SUCCI 40 MG/ML 1 ML VIAL IV SCH ×3 (08:34→23:29)
[2022-08-11] MEDS: metroNIDAZOLE-NS PMX 500 MG in SALINE 1 100ML.BAG IVPB SCH ×3 (08:34→23:30)
[2022-08-11] MEDS: PANTOPRAZOLE 40 MG/10 ML VIAL IV SCH (08:34)
[2022-08-11] MEDS: SODIUM CHLORIDE 0.9% 1,000 ML IV SCH ×2 (10:40→21:09)
--- NOTE | 2022-08-11 23:43 | P.PN ---
Subjective Progress Note Date: 08/10/22 Patient is a 52-year-old male with a known history of ulcerative colitis and recent admissions due to exacerbation, patient was initiated on immunotherapy on 08/01/2022, history of renal stones, prior history of smoking and history of Covid 19 infection presents to ER with the complaints of abdominal pain. Patient states that he started having abdominal pain sharp diffuse and cramping pain is with nausea and dizziness. Patient also noticed to have bright red red per rectum this morning also became febrile with T-max of 10 3F at home. Patient was brought to the ER by EMS. On admission T-max was 102.3F, heart rate 100 and pulse ox 97% on room air. [place] B x-ray showed overall nonspecific strongly favored nonobstructive bowel gas pattern. Wall thickening left quadrant but did correlate for acute colitis. Laboratory data showed WBC 6.2 hemoglobin 8.9 and platelets 244 Sodium 129 potassium 3.8 chloride 95 bicarb is 24 BUN 14 and creatinine 0.91 and a sugar is 126, albumin 2.5 Urinalysis is negative for infection Stool for occult blood is positive. C. diff negative. 08/09/2022 Patient is seen and evaluated and follow-up with GI following. Patient is currently on clear liquids requesting an advancing diet although continues with abdominal pain and cramping recommend to continue with current diet for now. GI also recommending increase in steroids and continued pain management over the weekend. Patient's hemoglobin today is 7.5 and recommend to closely monitor. Afebrile and denies chest pain or shortness of breath. Continues to report bloody stools. 08/10/2022 Patient is currently resting in bed. Awake alert and oriented to himself. Still having cramping abdominal pain and occasional blood in the stool. Patient is on IV steroids. Afebrile. No nausea or vomiting. No diarrhea. No cough or sputum production. No chest pain or shortness of breath. Laboratory showed WBC 4.3 hemoglobin 8.1 and platelets 201 AST 70 ALT 125 and alk phos 97. CRP 17.4. Current medications reviewed. Review of systems: Constitutional: No reports of fatigue, fever, or chills Cardiovascular: No reports of chest pain or palpitations Respiratory: No reports of shortness of breath or cough GI: No reports of nausea, vomiting, reports loose bloody stools : No reports of dysuria or retention Neurovascular: No reports of weakness or numbness All medications have been reviewed PHYSICAL EXAMINATION: Patient is lying in the bed comfortably, no acute distress, awake alert and oriented.. HEENT: Normocephalic. Neck is supple. Pupils reactive. Nostrils clear. Oral cavity is moist. Neck reveals no JVD, carotid bruits, or thyromegaly. CHEST EXAMINATION: Trachea is central. Symmetrical expansion. Lung rao clear to auscultation and percussion. CARDIAC: Normal S1, S2 with no gallops. No murmurs ABDOMEN: Soft. Bowel sounds normal. Lower abdominal tenderness mild. No guarding or rigidity. No organomegaly. No abdominal bruits. Extremities: reveal no edema. No clubbing or cyanosis Neurologically awake, alert, oriented x3 with well-coordinated movements. No focal deficits noted Skin: No rash or skin lesions. Psychiatric: Cooperative. Non-suicidal Musculoskeletal: No joint swelling or deformity. Normal range of motion. Assessment: Acute abdominal pain likely secondary to colitis. Patient was febrile and tachycardic on admission. X-ray showed bowel wall thickening possible colitis Bright red blood per rectum. Started on IV antibiotics along with IV steroids p er GI. Recommend increased dose over the weekend and to monitor for improvement in abdominal pain. Hemoglobin is 7.5 and will follow closely Patient did receive first infusion of remicaid and next dose is this upcoming . Hypovolemic hyponatremia, improved History of ulcerative colitis. Initiated on remicaid on 08/01/2022 History of renal stones GI and DVT prophylaxis Plan: Patient be continued on IV hydration with normal saline and continue with antibiotics and clear liquid diet . monitor H&H as hemoglobin is 7.5. Symptomatic management for pain and antibiotics. Gastrology evaluated and has started patient on high dose IV steroids and recommend close monitoring inpatient due to patient being symptomatic and febrile and concern for infectious process. Follow-up CBC tomorrow. Transfuse if less than 7. Objective - Vital Signs Vital signs: Vital Signs Temp 98.2 F 08/10/22 11:00 Pulse 82 08/10/22 11:00 Resp 16 08/10/22 11:00 BP 109/67 08/10/22 11:00 Pulse Ox 92 L 08/09/22 21:00 FiO2 Intake & Output 08/10/22 08/10/22 08/11/22 06:59 18:59 05:59 Other: Voiding Method Toilet Urinal # Voids 2 - Labs CBC & Chem 7: 08/10/22 11:49 08/09/22 05:47 Labs: Abnormal Lab Results - Last 24 Hours (Table) 08/10/22 Range/Units 11:49 RBC 2.81 L (4.30-5.90) m/uL Hgb 8.1 L (13.0-17.5) gm/dL Hct 24.9 L (39.0-53.0) % Lymphocytes # 0.3 L (1.0-4.8) k/uL Microbiology - Last 24 Hours (Table) 08/08/22 12:44 Blood Culture - Preliminary Blood No Growth after 48 hours 08/08/22 12:44 Blood Culture - Preliminary Blood No Growth after 48 hours
--- NOTE | 2022-08-11 23:44 | P.PN ---
Subjective Progress Note Date: 08/11/22 Patient is a 52-year-old male with a known history of ulcerative colitis and recent admissions due to exacerbation, patient was initiated on immunotherapy on 08/01/2022, history of renal stones, prior history of smoking and history of Covid 19 infection presents to ER with the complaints of abdominal pain. Patient states that he started having abdominal pain sharp diffuse and cramping pain is with nausea and dizziness. Patient also noticed to have bright red red per rectum this morning also became febrile with T-max of 10 3F at home. Patient was brought to the ER by EMS. On admission T-max was 102.3F, heart rate 100 and pulse ox 97% on room air. [place] [facility] x-ray showed overall nonspecific strongly favored nonobstructive bowel gas pattern. Wall thickening left quadrant but did correlate for acute colitis. Laboratory data showed WBC 6.2 hemoglobin 8.9 and platelets 244 Sodium 129 potassium 3.8 chloride 95 bicarb is 24 BUN 14 and creatinine 0.91 and a sugar is 126, albumin 2.5 Urinalysis is negative for infection Stool for occult blood is positive. C. diff negative. 08/09/2022 Patient is seen and evaluated and follow-up with GI following. Patient is currently on clear liquids requesting an advancing diet although continues with abdominal pain and cramping recommend to continue with current diet for now. GI also recommending increase in steroids and continued pain management over the weekend. Patient's hemoglobin today is 7.5 and recommend to closely monitor. Afebrile and denies chest pain or shortness of breath. Continues to report bloody stools. 08/10/2022 Patient is currently resting in bed. Awake alert and oriented to himself. Still having cramping abdominal pain and occasional blood in the stool. Patient is on IV steroids. Afebrile. No nausea or vomiting. No diarrhea. No cough or sputum production. No chest pain or shortness of breath. Laboratory showed WBC 4.3 hemoglobin 8.1 and platelets 201 AST 70 ALT 125 and alk phos 97. CRP 17.4. 08/11/2022 Patient is awake alert and oriented. No complaints of chest pain or shortness of breath. Patient states that he noticed blood in the stool again this morning. Also complains of cramping abdominal pain and tenesmus. No fever no chills. Feels better compared to yesterday. No nausea or vomiting. Tolerating low-fat diet. Taking only minimal amount. Patient is being current on IV antibiotics and IV steroids. Current medications reviewed. Review of systems: Constitutional: No reports of fatigue, fever, or chills Cardiovascular: No reports of chest pain or palpitations Respiratory: No reports of shortness of breath or cough GI: No reports of nausea, vomiting, reports loose bloody stools : No reports of dysuria or retention Neurovascular: No reports of weakness or numbness All medications have been reviewed PHYSICAL EXAMINATION: Patient is lying in the bed comfortably, no acute distress, awake alert and oriented.. HEENT: Normocephalic. Neck is supple. Pupils reactive. Nostrils clear. Oral cavity is moist. Neck reveals no JVD, carotid bruits, or thyromegaly. CHEST EXAMINATION: Trachea is central. Symmetrical expansion. Lung rao clear to auscultation and percussion. CARDIAC: Normal S1, S2 with no gallops. No murmurs ABDOMEN: Soft. Bowel sounds normal. Lower abdominal tenderness mild. No guarding or rigidity. No organomegaly. No abdominal bruits. Extremities: reveal no edema. No clubbing or cyanosis Neurologically awake, alert, oriented x3 with well-coordinated movements. No focal deficits noted Skin: No rash or skin lesions. Psychiatric: Cooperative. Non-suicidal Musculoskeletal: No joint swelling or deformity. Normal range of motion. Assessment: Acute abdominal pain likely secondary to colitis. Patient was febrile and tachycardic on admission. X-ray showed bowel wall thickening possible colitis Bright red blood per rectum. Started on IV antibiotics along with IV steroids per GI. Recommend increased dose over the weekend and to monitor for improvement in abdominal pain. Hemoglobin is 7.5 and will follow closely Patient did receive first infusion of remicaid and next dose is this upcoming . Hypovolemic hyponatremia, improved History of ulcerative colitis. Initiated on remicaid on 08/01/2022 History of renal stones GI and DVT prophylaxis Plan: Patient be continued on IV hydration with normal saline and continue with antibiotics and clear liquid diet . monitor H&H as hemoglobin is 7.5. Symptomatic management for pain and antibiotics. Gastrology evaluated and has started patient on high dose IV steroids and recommend close monitoring inpatient due to patient being symptomatic and febrile and concern for infectious process. Follow-up CBC tomorrow. Transfuse if less than 7. Objective - Vital Signs Vital signs: Vital Signs Temp 98 F 08/11/22 11:55 Pulse 57 L 08/11/22 11:55 Resp 20 08/11/22 11:55 BP 106/65 08/11/22 11:55 Pulse Ox 94 L 08/11/22 11:55 FiO2 Intake & Output 08/10/22 08/11/22 08/11/22 19:59 06:59 18:59 Intake Total Balance Intake: Intake, IV Titration Amount Sodium Chloride 0.9% 1, 000 ml @ 100 mls/hr IV . Q10H [facility] Rx#:[id number] cefTRIAXone 1 gm In Sodium Chloride 0.9% 50 ml @ 100 mls/hr IVPB Q24H [facility] Rx#:[id number] metroNIDAZOLE-NS PMX 500 mg In Saline 1 100ml.bag @ 100 mls/hr IVPB Q8HR [facility] Rx#:[id number] Oral Other: Voiding Method # Voids 2 # Bowel Movements - Labs CBC & Chem 7: 08/10/22 11:49 08/09/22 05:47 Labs: Microbiology - Last 24 Hours (Table) 08/08/22 12:44 Blood Culture - Preliminary Blood No Growth after 72 hours 08/08/22 12:44 Blood Culture - Preliminary Blood No Growth after 72 hours
[2022-08-12] MEDS: MORPHINE SULFATE 4 MG/ML SYRINGE IVP PRN (04:33)
[2022-08-12] MEDS: SODIUM CHLORIDE 0.9% 1,000 ML IV SCH ×2 (06:12→16:57)
[2022-08-12] MEDS ORDERED: ALPRAZolam 0.25 MG TAB PO PRN (08:58)
[2022-08-12] MEDS: methylPREDNISolone SOD SUCCI 40 MG/ML 1 ML VIAL IV SCH ×3 (09:07→23:32)
[2022-08-12] MEDS: PANTOPRAZOLE 40 MG/10 ML VIAL IV SCH (09:07)
[2022-08-12] MEDS: metroNIDAZOLE-NS PMX 500 MG in SALINE 1 100ML.BAG IVPB SCH ×3 (09:07→23:32)
[2022-08-12 10:36] LABS: Basophils # (A) 0 X 10*3/uL (0.00-0.10); Basophils % (A) 0 %; Eosinophils # (A) 0 X 10*3/uL (0.04-0.35); Eosinophils % (A) 0 %; HCT 24.6 % (39.6-50.0); HGB 7.6 g/dL (13.0-17.0); Immature Grans, Automated 1.8 %; Lymphocytes # (A) 0.34 X 10*3/uL (0.90-5.00); Lymphocytes % (A) 8.7 %; MCH 27.6 pg (27.0-32.0); MCHC 30.9 g/dL (32.0-37.0); MCV 89.5 fL (80.0-97.0); Mean Platelet Volume 9.6 fL (9.5-12.2); Monocytes # (A) 0.27 X 10*3/uL (0.20-1.00); Monocytes % (A) 6.9 %; NRBC Per 100 WBC 0.5 /100 WBCS (0.0-0.0); Neutrophils # (A) 3.21 X 10*3/uL (1.80-7.70); Neutrophils % (A) 82.6 %; Platelet Count 176 X 10*3/uL (140-440); RBC 2.75 X 10*6/uL (4.40-5.60); RDW 12.8 % (11.5-14.5); WBC 3.89 X 10*3/uL (4.50-10.00)
[2022-08-12 10:50] LABS: African American GFR (CKD) 120.7 (60.0-200.0); Anion Gap 6.1 mmol/L (10.00-18.00); BUN/Creat Ratio 19.63 Ratio (12.00-20.00); Blood Urea Nitrogen 15.7 mg/dL (9.0-27.0); Calcium 7.8 mg/dL (8.7-10.3); Carbon Dioxide 27.9 mmol/L (20.0-27.5); Non-African American GFR(CKD) 104.2 (60.0-200.0); Potassium 4.2 mmol/L (3.5-5.5)
[2022-08-12] MEDS: HYDROcodone/APAP 5-325MG 1 EACH TAB PO PRN ×2 (14:43→21:25)
--- NOTE | 2022-08-12 14:51 | P.PN ---
Subjective Progress Note Date: 08/12/22 Patient is a 52-year-old male with a known history of ulcerative colitis and recent admissions due to exacerbation, patient was initiated on immunotherapy on 08/01/2022, history of renal stones, prior history of smoking and history of Covid 19 infection presents to ER with the complaints of abdominal pain. Patient states that he started having abdominal pain sharp diffuse and cramping pain is with nausea and dizziness. Patient also noticed to have bright red red per rectum this morning also became febrile with T-max of 10 3F at home. Patient was brought to the ER by EMS. On admission T-max was 102.3F, heart rate 100 and pulse ox 97% on room air. [place] [facility] x-ray showed overall nonspecific strongly favored nonobstructive bowel gas pattern. Wall thickening left quadrant but did correlate for acute colitis. Laboratory data showed WBC 6.2 hemoglobin 8.9 and platelets 244 Sodium 129 potassium 3.8 chloride 95 bicarb is 24 BUN 14 and creatinine 0.91 and a sugar is 126, albumin 2.5 Urinalysis is negative for infection Stool for occult blood is positive. C. diff negative. 08/09/2022 Patient is seen and evaluated and follow-up with GI following. Patient is currently on clear liquids requesting an advancing diet although continues with abdominal pain and cramping recommend to continue with current diet for now. GI also recommending increase in steroids and continued pain management over the weekend. Patient's hemoglobin today is 7.5 and recommend to closely monitor. Afebrile and denies chest pain or shortness of breath. Continues to report bloody stools. 08/10/2022 Patient is currently resting in bed. Awake alert and oriented to himself. Still having cramping abdominal pain and occasional blood in the stool. Patient is on IV steroids. Afebrile. No nausea or vomiting. No diarrhea. No cough or sputum production. No chest pain or shortness of breath. Laboratory showed WBC 4.3 hemoglobin 8.1 and platelets 201 AST 70 ALT 125 and alk phos 97. CRP 17.4. 08/11/2022 Patient is awake alert and oriented. No complaints of chest pain or shortness of breath. Patient states that he noticed blood in the stool again this morning. Also complains of cramping abdominal pain and tenesmus. No fever no chills. Feels better compared to yesterday. No nausea or vomiting. Tolerating low-fat diet. Taking only minimal amount. Patient is being current on IV antibiotics and IV steroids. 08/12/2022 Patient is seen in follow-up today continues on IV Solu-Medrol and dose being titrated down. Patient also reports he has not had a bloody bowel movement or bowel movement for that matter since last night at 10 PM and has slowed down. Patient reports some abdominal cramping and discussed with the patient about avoiding IV pain medications and resuming [place]. Plan is to have Remicade treatment this and current CBC is pending for today. Patient denies chest pain or shortness of breath and is tolerating a low fiber diet with no reports of nausea or vomiting noted. Encouraged increase activity as tolerated and will await lab reports. Patient will have close outpatient follow-up with GI Dr. Ocampo early next week. Patient will be continued on antibiotics and will have discharge oral antibiotics per GI recommendations once stabilized and discharged. Review of systems: Constitutional: No reports of fatigue, fever, or chills Cardiovascular: No reports of chest pain or palpitations Respiratory: No reports of shortness of breath or cough GI: No reports of nausea, vomiting, reports loose bloody stools although none since last night at 10 PM : No reports of dysuria or retention Neurovascular: No reports of weakness or numbness All medications have been reviewed PHYSICAL EXAMINATION: Patient is lying in the bed comfortably, no acute distress, awake alert and oriented.. HEENT: Normocephalic. Neck is supple. Pupils reactive. Nostrils clear. Oral cavity is moist. Neck reveals no JVD, carotid bruits, or thyromegaly. CHEST EXAMINATION: Trachea is central. Symmetrical expansion. Lung rao clear to auscultation and percussion. CARDIAC: Normal S1, S2 with no gallops. No murmurs ABDOMEN: Soft. Bowel sounds normal. Lower abdominal tenderness mild. No guarding or rigidity. No organomegaly. No abdominal bruits. Extremities: reveal no edema. No clubbing or cyanosis Neurologically awake, alert, oriented x3 with well-coordinated movements. No focal deficits noted Skin: No rash or skin lesions. Psychiatric: Cooperative. Non-suicidal Musculoskeletal: No joint swelling or deformity. Normal range of motion. Assessment: Acute abdominal pain likely secondary to colitis. Patient was febrile and tachycardic on admission. X-ray showed bowel wall thickening possible colitis Bright red blood per rectum. Secondary to colitis post Remicade treatment and next dose is this upcoming . Hypovolemic hyponatremia, improved History of ulcerative colitis. Initiated on remicaid on 08/01/2022 History of renal stones GI and DVT prophylaxis Full code Plan: Patient be continued on IV hydration with normal saline and continue with antibiotics an low fiber diet monitor H&H as hemoglobin is 7.6. Will follow- up with a.m. labs and transfuse if less than 7. Symptomatic management for pain and antibiotics. Patient will go home on oral antibiotics per GI recommendations and follow-up with GI early next week along with Remicade infusion this . Gastrology evaluated the patient last week andis continued on high dose IV steroids and recommend close monitoring inpatient due to patient being symptomatic and febrile and concern for infectious process. Will titrate down the steroid dose and continue current taper of oral prednisone once discharged possible discharge in the next 24 hours The impression and plan of care has been dictated by Mariana Turner, Nurse Practitioner as directed. Dr. Oliverio MD I have performed a history and examination and MDM of this patient, discussed the same with the dictator, and agree with the dictator's assessment and plan as written ,documented as a scribe. Based on total visit time, I have performed more than 50% of the visit. Objective - Vital Signs Vital signs: Vital Signs Temp 98.5 F 08/12/22 12:39 Pulse 55 L 08/12/22 12:39 Resp 20 08/12/22 12:39 BP 113/70 08/12/22 12:39 Pulse Ox 95 08/12/22 12:39 FiO2 Intake & Output 08/11/22 08/12/22 08/12/22 18:59 06:59 18:59 Intake Total 1600 Balance 1600 Intake: Intake, IV Titration 1200 Amount Sodium Chloride 0.9% 1, 1200 000 ml @ 100 mls/hr IV . Q10H [facility] Rx#:[id number] Oral 400 Other: Voiding Method Toilet Urinal # Voids 2 2 # Bowel Movements 1 - Labs CBC & Chem 7: 08/12/22 07:04 08/12/22 07:04 Labs: Abnormal Lab Results - Last 24 Hours (Table) 08/12/22 08/12/22 Range/Units 07:04 07:04 WBC 3.89 L (4.50-10.00) X 10*3/uL RBC 2.75 L (4.40-5.60) X 10*6/uL Hgb 7.6 L (13.0-17.0) g/dL Hct 24.6 L (39.6-50.0) % MCHC 30.9 L (32.0-37.0) g/dL Absolute Nucleated RBC 0.02 H (0.00-0.00) X 10*3/uL Immature Gran # 0.07 H (0.00-0.04) X 10*3/uL Lymphocytes # 0.34 L (0.90-5.00) X 10*3/uL Eosinophils # 0 L (0.04-0.35) X 10*3/uL NRBC/100 WBC Diff 0.5 H (0.0-0.0) /100 WBCS Sodium 134 L (135-145) mmol/L Carbon Dioxide 27.9 H (20.0-27.5) mmol/L Anion Gap 6.10 L (10.00-18.00) mmol/L Glucose 133 H (70-110) mg/dL Calcium 7.8 L (8.7-10.3) mg/dL Microbiology - Last 24 Hours (Table) 08/08/22 12:44 Blood Culture - Preliminary Blood No Growth after 72 hours 08/08/22 12:44 Blood Culture - Preliminary Blood No Growth after 72 hours
[2022-08-13] MEDS: HYDROcodone/APAP 5-325MG 1 EACH TAB PO PRN ×2 (04:10→09:51)
[2022-08-13] MEDS: SODIUM CHLORIDE 0.9% 1,000 ML IV SCH ×2 (04:11→14:58)
[2022-08-13] MEDS: metroNIDAZOLE-NS PMX 500 MG in SALINE 1 100ML.BAG IVPB SCH ×2 (09:46→16:54)
[2022-08-13] MEDS: methylPREDNISolone SOD SUCCI 40 MG/ML 1 ML VIAL IV SCH ×2 (09:47→16:54)
[2022-08-13] MEDS: PANTOPRAZOLE 40 MG/10 ML VIAL IV SCH (09:47)
[2022-08-13 10:59] LABS: Basophils # (A) 0.01 X 10*3/uL (0.00-0.10); Basophils % (A) 0.2 %; Eosinophils # (A) 0 X 10*3/uL (0.04-0.35); Eosinophils % (A) 0 %; HGB 8.3 g/dL (13.0-17.0); Immature Grans, Automated 4.2 %; Lymphocytes # (A) 0.47 X 10*3/uL (0.90-5.00); Lymphocytes % (A) 10.4 %; MCH 27.3 pg (27.0-32.0); MCHC 30.7 g/dL (32.0-37.0); MCV 88.8 fL (80.0-97.0); Mean Platelet Volume 9.8 fL (9.5-12.2); Monocytes # (A) 0.33 X 10*3/uL (0.20-1.00); Monocytes % (A) 7.3 %; NRBC Per 100 WBC 0.7 /100 WBCS (0.0-0.0); Neutrophils # (A) 3.53 X 10*3/uL (1.80-7.70); Neutrophils % (A) 77.9 %; Platelet Count 189 X 10*3/uL (140-440); RBC 3.04 X 10*6/uL (4.40-5.60); RDW 12.8 % (11.5-14.5); WBC 4.53 X 10*3/uL (4.50-10.00)
[2022-08-13] MEDS: MORPHINE SULFATE 4 MG/ML SYRINGE IVP PRN (14:01)
[2022-08-13] MEDS ORDERED: DICYCLOMINE 10 MG CAP PO PRN (14:37)
--- NOTE | 2022-08-13 19:53 | P.PN ---
Subjective Progress Note Date: 08/13/22 Patient is a 52-year-old male with a known history of ulcerative colitis and recent admissions due to exacerbation, patient was initiated on immunotherapy on 08/01/2022, history of renal stones, prior history of smoking and history of Covid 19 infection presents to ER with the complaints of abdominal pain. Patient states that he started having abdominal pain sharp diffuse and cramping pain is with nausea and dizziness. Patient also noticed to have bright red red per rectum this morning also became febrile with T-max of 10 3F at home. Patient was brought to the ER by EMS. On admission T-max was 102.3F, heart rate 100 and pulse ox 97% on room air. [place] [facility] x-ray showed overall nonspecific strongly favored nonobstructive bowel gas pattern. Wall thickening left quadrant but did correlate for acute colitis. Laboratory data showed WBC 6.2 hemoglobin 8.9 and platelets 244 Sodium 129 potassium 3.8 chloride 95 bicarb is 24 BUN 14 and creatinine 0.91 and a sugar is 126, albumin 2.5 Urinalysis is negative for infection Stool for occult blood is positive. C. diff negative. 08/09/2022 Patient is seen and evaluated and follow-up with GI following. Patient is currently on clear liquids requesting an advancing diet although continues with abdominal pain and cramping recommend to continue with current diet for now. GI also recommending increase in steroids and continued pain management over the weekend. Patient's hemoglobin today is 7.5 and recommend to closely monitor. Afebrile and denies chest pain or shortness of breath. Continues to report bloody stools. 08/10/2022 Patient is currently resting in bed. Awake alert and oriented to himself. Still having cramping abdominal pain and occasional blood in the stool. Patient is on IV steroids. Afebrile. No nausea or vomiting. No diarrhea. No cough or sputum production. No chest pain or shortness of breath. Laboratory showed WBC 4.3 hemoglobin 8.1 and platelets 201 AST 70 ALT 125 and alk phos 97. CRP 17.4. 08/11/2022 Patient is awake alert and oriented. No complaints of chest pain or shortness of breath. Patient states that he noticed blood in the stool again this morning. Also complains of cramping abdominal pain and tenesmus. No fever no chills. Feels better compared to yesterday. No nausea or vomiting. Tolerating low-fat diet. Taking only minimal amount. Patient is being current on IV antibiotics and IV steroids. 08/12/2022 Patient is seen in follow-up today continues on IV Solu-Medrol and dose being titrated down. Patient also reports he has not had a bloody bowel movement or bowel movement for that matter since last night at 10 PM and has slowed down. Patient reports some abdominal cramping and discussed with the patient about avoiding IV pain medications and resuming [place]. Plan is to have Remicade treatment this and current CBC is pending for today. Patient denies chest pain or shortness of breath and is tolerating a low fiber diet with no reports of nausea or vomiting noted. Encouraged increase activity as tolerated and will await lab reports. Patient will have close outpatient follow-up with GI Dr. Ocampo early next week. Patient will be continued on antibiotics and will have discharge oral antibiotics per GI recommendations once stabilized and discharged. 08/13/2022 Patient is seen this morning and having severe cramping and pain and has been having increased loose stools mixed with blood and reports he is not tolerating diet nor eating today. Patient is continued on IV hydration along with IV steroids and antibiotics. IV steroids titrated down and patient reports he feels the difference of worsening abdominal pain. Patient is to receive his remicaid infusion this and will continue to monitor closely and attempt to control the pain. Patient is afebrile and appears pale and lethargic. Becoming more weak each day. Hemoglobin is improved and above 8 today. Will repeat am labs. Patient denies chest pain or shortness of breath. Review of systems: Constitutional: reports of fatigue, no fever, or chills Cardiovascular: No reports of chest pain or palpitations Respiratory: No reports of shortness of breath or cough GI: No reports of nausea, vomiting, reports loose bloody stools that have worsened today and more frequent : No reports of dysuria or retention Neurovascular: No reports of weakness or numbness All medications have been reviewed PHYSICAL EXAMINATION: Patient is lying in the bed with abdominal cramping, awake alert and oriented.. HEENT: Normocephalic. Neck is supple. Pupils reactive. Nostrils clear. Oral cavity is moist. Neck reveals no JVD, carotid bruits, or thyromegaly. CHEST EXAMINATION: Trachea is central. Symmetrical expansion. Lung rao clear to auscultation and percussion. CARDIAC: Normal S1, S2 with no gallops. No murmurs ABDOMEN: Soft. Bowel sounds normal. Lower abdominal tenderness worsened today. No guarding or rigidity. No organomegaly. No abdominal bruits. Extremities: reveal no edema. No clubbing or cyanosis Neurologically awake, alert, oriented x3 with well-coordinated movements. No focal deficits noted Skin: No rash or skin lesions. Psychiatric: Cooperative. Non-suicidal Musculoskeletal: No joint swelling or deformity. Normal range of motion. Assessment: Acute abdominal pain likely secondary to colitis. Patient was febrile and tachycardic on admission. X-ray showed bowel wall thickening possible colitis Bright red blood per rectum. Secondary to colitis post Remicade treatment and next dose is this upcoming . Hypovolemic hyponatremia, improved History of ulcerative colitis. Initiated on remicaid on 08/01/2022 History of renal stones GI and DVT prophylaxis Full code Plan: Patient be continued on IV hydration with normal saline and continue with antibiotics and low fiber diet monitor H&H as hemoglobin is above 8 today. Patient reports to having increased stools with abdominal cramping today and not tolerating any oral diet. . Will follow-up with a.m. labs and transfuse if less than 7. Symptomatic management for pain and antibiotics. Patient will go home on oral antibiotics per GI recommendations and follow-up with GI early next week along with Remicade infusion this . Steroids have been titrated down and patient reports to worsening symptoms since. GI is aware. Will follow up with repeat labs Continue with pain management and have added bentyl. possible discharge in the next 24-48 hours if symptoms are managed. The impression and plan of care has been dictated by Mariana Turner, Nurse Practitioner as directed. Dr. Oliverio MD I have performed a history and examination and MDM of this patient, discussed the same with the dictator, and agree with the dictator's assessment and plan as written ,documented as a scribe. Based on total visit time, I have performed more than 50% of the visit. Objective - Vital Signs Vital signs: Vital Signs Temp 98.4 F 08/13/22 04:06 Pulse 54 L 08/13/22 04:06 Resp 18 11/08/22 04:06 BP 116/68 08/13/22 04:06 Pulse Ox 99 08/13/22 04:06 FiO2 Intake & Output 08/12/22 08/13/22 08/13/22 18:59 06:59 18:59 Intake Total 1950 Balance 1949 Intake: Intake, IV Titration 1350 Amount Sodium Chloride 0.9% 1, 1200 000 ml @ 100 mls/hr IV . Q10H [facility] Rx#:[id number] cefTRIAXone 1 gm In 50 Sodium Chloride 0.9% 50 ml @ 100 mls/hr IVPB Q24H [facility] Rx#:[id number] metroNIDAZOLE-NS PMX 500 100 mg In Saline 1 100ml.bag @ 100 mls/hr IVPB Q8HR [facility] Rx#:[id number] Oral 600 Other: Voiding Method Toilet Urinal # Voids 2 5 # Bowel Movements 2 - Labs CBC & Chem 7: 08/13/22 06:23 08/12/22 07:04 Labs: Abnormal Lab Results - Last 24 Hours (Table) 08/12/22 08/12/22 Range/Units 07:04 07:04 WBC 3.89 L (4.50-10.00) X 10*3/uL RBC 2.75 L (4.40-5.60) X 10*6/uL Hgb 7.6 L (13.0-17.0) g/dL Hct 24.6 L (39.6-50.0) % MCHC 30.9 L (32.0-37.0) g/dL Absolute Nucleated RBC 0.02 H (0.00-0.00) X 10*3/uL Immature Gran # 0.07 H (0.00-0.04) X 10*3/uL Lymphocytes # 0.34 L (0.90-5.00) X 10*3/uL Eosinophils # 0 L (0.04-0.35) X 10*3/uL NRBC/100 WBC Diff 0.5 H (0.0-0.0) /100 WBCS Sodium 134 L (135-145) mmol/L Carbon Dioxide 27.9 H (20.0-27.5) mmol/L Anion Gap 6.10 L (10.00-18.00) mmol/L Glucose 133 H (70-110) mg/dL Calcium 7.8 L (8.7-10.3) mg/dL Microbiology - Last 24 Hours (Table) 08/08/22 12:44 Blood Culture - Preliminary Blood No Growth after 96 hours 08/08/22 12:44 Blood Culture - Preliminary Blood No Growth after 96 hours
[2022-08-14] MEDS: MORPHINE SULFATE 4 MG/ML SYRINGE IVP PRN ×3 (00:44→18:10)
[2022-08-14] MEDS: methylPREDNISolone SOD SUCCI 40 MG/ML 1 ML VIAL IV SCH ×2 (00:46→09:03)
[2022-08-14] MEDS: metroNIDAZOLE-NS PMX 500 MG in SALINE 1 100ML.BAG IVPB SCH ×2 (00:48→09:02)
[2022-08-14] MEDS: HYDROcodone/APAP 5-325MG 1 EACH TAB PO PRN (06:03)
[2022-08-14] MEDS: SODIUM CHLORIDE 0.9% 1,000 ML IV SCH (06:39)
[2022-08-14] MEDS: PANTOPRAZOLE 40 MG/10 ML VIAL IV SCH (09:03)
[2022-08-14 11:30] LABS: HGB 8.4 g/dL (13.0-17.0); MCH 27.6 pg (27.0-32.0); MCHC 31.1 g/dL (32.0-37.0); MCV 88.8 fL (80.0-97.0); Mean Platelet Volume 9.7 fL (9.5-12.2); NRBC Per 100 WBC 0.5 /100 WBCS (0.0-0.0); Platelet Count 185 X 10*3/uL (140-440); RBC 3.04 X 10*6/uL (4.40-5.60); RDW 13.1 % (11.5-14.5); WBC 3.91 X 10*3/uL (4.50-10.00)
[2022-08-14 11:31] LABS: Acanthocytes 2+; Basophils # (A) 0.01 X 10*3/uL (0.00-0.10); Basophils % (A) 0.3 %; Eosinophils # (A) 0 X 10*3/uL (0.04-0.35); Eosinophils % (A) 0 %; Immature Grans, Automated 3.8 %; Lymphocytes # (A) 0.28 X 10*3/uL (0.90-5.00); Lymphocytes % (A) 7.2 %; Monocytes # (A) 0.22 X 10*3/uL (0.20-1.00); Monocytes % (A) 5.6 %; Neutrophils # (A) 3.25 X 10*3/uL (1.80-7.70); Neutrophils % (A) 83.1 %
[2022-08-14 12:08] VITALS: BP 105/69; PULSE 91; RESP 16; TEMP 98.3
--- NOTE | 2022-08-15 09:57 | P.DS ---
Providers Date of admission: 08/08/22 15:37 Expected date of discharge: 08/14/22 Attending physician: Aditi Duron Consults: 08/08/22 15:33 Consult Physician Urgent Consulting Provider: Tanika Ocampo Consult Reason/Comments: Ulcerative colitis exacerbation, blood per rectum Do you want consulting provider notified?: Yes Primary care physician: Yazan Mullen Hospital Course: Final diagnosis Acute abdominal pain likely secondary to colitis. Patient was febrile and tachycardic on admission. X-ray showed bowel wall thickening possible colitis Bright red blood per rectum. Secondary to colitis post Remicade treatment and next dose is this upcoming . Hypovolemic hyponatremia, improved History of ulcerative colitis. Initiated on remicaid on 08/01/2022 History of renal stones GI and DVT prophylaxis Full code Discharge disposition Patient is being discharged in a stable condition with guarded prognosis to home. Patient will follow-up with Dr. Mullen in the outpatient setting upon discharge. Patient is to follow-up with GI Dr. Ocampo as scheduled next week. Patient is to continue on his prednisone taper 50 mg and titrating down along with antibiotics per GI recommendations and patient is also to go to his Remicade infusion tomorrow. Total time taken is greater than 35 minutes. Hospital course This is a 52-year-old male who was recently admitted with bleeding per rectum and ulcerative colitis and was being closely monitored. Patient was evaluated by GI initially started on IV steroids and also with fevers and tachycardia on admission started on antibiotics. GI recommending to continue with antibiotics along with steroid taper and currently is on 50 mg daily. Patient also currently receiving Remicade infusions and is scheduled for his second dose tomorrow at the infusion center. Patient does have an early next week appointment with JOSE sanchez scheduled. Patient continues with some abdominal discomfort and cramping and have resumed his Bentyl. Encouraged increased activity as tolerated and hemoglobin is stable. Patient is being discharged home today. Currently no reports of chest pain, shortness of breath, or palpitations. Patient is afebrile. No reports of nausea or vomiting and patient is tolerating diet. Guarded prognosis. Physical exam: Gen: This is a 52-year-old male awake, alert and oriented 3, well-developed, well-nourished HEENT: Head is atraumatic, normocephalic. Pupils equal, round. Sclerae is anicteric. NECK: Supple. No JVD. No lymphadenopathy. No thyromegaly. LUNGS: Clear to auscultation. No wheezes or rhonchi. No intercostal retractions. HEART: Regular rate and rhythm. No murmur. ABDOMEN: Soft. Somewhat tender to palpation. Bowel sounds are present. No masses. EXTREMITIES: No pedal edema. No calf tenderness. NEUROLOGICAL: Patient is awake, alert and oriented x3. Cranial nerves 2 through 12 are grossly intact. Please refer to medication reconciliation sheet for a list of medications. The impression and plan of care has been dictated by Mariana Turner, Nurse Practitioner as directed. Dr. Oliverio MD I have performed a history and examination and MDM of this patient, discussed the same with the dictator, and agree with the dictator's assessment and plan as written ,documented as a scribe. Based on total visit time, I have performed more than 50% of the visit. Patient Condition at Discharge: Fair Plan - Discharge Summary New Discharge Prescriptions: New metroNIDAZOLE [Flagyl] 500 mg PO TID 5 Days #15 tab Levofloxacin [Levaquin] 500 mg PO DAILY 5 Days #5 tab Acetaminophen Tab [Tylenol] 650 mg PO Q6HR PRN tab PRN Reason: Fever Continue Balsalazide Disodium [Colazal] 2,250 mg PO TID 30 Days #270 cap predniSONE See Taper PO DIRECTED Ondansetron Odt [Zofran ODT] 4 mg PO Q8HR PRN #30 tab PRN Reason: Nausea Dicyclomine [Bentyl] 10 mg PO TID PRN #30 tab PRN Reason: Pain HYDROcodone/APAP 5-325MG [[place] 5-325] 1 tab PO Q6HR PRN #9 tab PRN Reason: Pain Discharge Medication List Balsalazide Disodium [Colazal] 2,250 mg PO TID 30 Days #270 cap 07/16/22 [Rx] Ondansetron Odt [Zofran ODT] 4 mg PO Q8HR PRN #30 tab 07/30/22 [Rx] predniSONE See Taper PO DIRECTED 08/08/22 [History] Acetaminophen Tab [Tylenol] 650 mg PO Q6HR PRN tab 08/14/22 [Rx] Dicyclomine [Bentyl] 10 mg PO TID PRN #30 tab 08/14/22 [Rx] HYDROcodone/APAP 5-325MG [[place] 5-325] 1 tab PO Q6HR PRN #9 tab 08/14/22 [Rx] Levofloxacin [Levaquin] 500 mg PO DAILY 5 Days #5 tab 08/14/22 [Rx] metroNIDAZOLE [Flagyl] 500 mg PO TID 5 Days #15 tab 08/14/22 [Rx] Follow up Appointment(s)/Referral(s): Yazan Mullen MD [Primary Care Provider] - 1-2 days Tanika Ocampo MD [STAFF PHYSICIAN] - 08/19/22 2:00 pm () Patient Instructions/Handouts: Dicyclomine (By mouth), Hydrocodone/Ac etaminophen (By mouth), Metronidazole (By mouth), Levofloxacin (By mouth) Activity/Diet/Wound Care/Special Instructions: Activity limited until follow up follow up tomorrow with Remicaid infusion follow up GI as scheduled continue low fiber diet continue with prednisone 50 mg and continue to taper per GI continue antibiotics until finished Discharge Disposition: HOME SELF-CARE
== END 2022-08-14 18:35 | disposition home or self-care (01) | DRG 386 ==
LOC: EC 12:26 → 5NMEDONC 15:37
PROVIDERS: ADMIT Internal Medicine; ATTEND Internal Medicine
DX: K51.90 Ulcerative colitis, unspecified, without complications (principal); E87.1 Hypo-osmolality and hyponatremia; E87.20 Acidosis, unspecified; D64.9 Anemia, unspecified; E86.1 Hypovolemia; E86.0 Dehydration; R00.0 Tachycardia, unspecified; Z87.891 Personal history of nicotine dependence; Z87.442 Personal history of urinary calculi; Z79.899 Other long term (current) drug therapy; Z86.16 Personal history of COVID-19
CPT/HCPCS: 36415; 74019; 74177; 80048; 80053; 81001; 82150; 82272; 83605; 83690; 84484; 85025; 85652; 86140; 86850; 86900; 86901; 87040; 87324; 96361; 96365; 96374; 96375; 99285

== ENCOUNTER 2022-08-27 14:05 | Observation (INO) | payer BC ==
[2022-08-27] MEDS ORDERED: HYDROmorphone 1 MG/ML 1 ML SYRINGE IVP STA (14:37)
[2022-08-27] MEDS ORDERED: SODIUM CHLORIDE 0.9% 1,000 ML IV STA (14:38)
[2022-08-27] MEDS ORDERED: METOCLOPRAMIDE 5 MG/ML 2 ML VIAL IVP STA (14:38)
[2022-08-27 14:58] LABS: Basophils % (A) 0 %; Eosinophils % (A) 0 %; HCT 34.3 % (39.0-53.0); Hypochromasia Moderate; Lymphocytes # (A) 0.2 k/uL (1.0-4.8); Lymphocytes % (A) 5 %; MCH 27.3 pg (25.0-35.0); MCHC 32.1 g/dL (31.0-37.0); Monocytes # (A) 0.3 k/uL (0-1.0); Monocytes % (A) 5 %; Neutrophils # (A) 4.2 k/uL (1.3-7.7); Neutrophils % (A) 89 %; Platelet Count 234 k/uL (150-450); RBC 4.04 m/uL (4.30-5.90); RDW 13.5 % (11.5-15.5); WBC 4.8 k/uL (3.8-10.6)
--- NOTE | 2022-08-27 15:22 | ED ---
Abdominal Pain HPI - General Chief Complaint: Abdominal Pain Stated Complaint: Abd Pain Time Seen by Provider: 08/27/22 14:32 Source: patient, family, RN notes reviewed Mode of arrival: ambulatory Limitations: no limitations - History of Present Illness Initial Comments: This is a 52-year-old male who presents to the emergency department for abdominal pain. States that this is located in the LLQ and occurred suddenly earlier today and he took his [place] and Zofran without any relief. He is currently being treated for ulcerative colitis and is a patient of Dr. Ocampo. States that this feels much worse than a typical flareup. He does have associated nausea. Also reports both diarrhea and constipation. Believes that he did have a fever earlier today. Concerned about bowel rupture, which he states is a risk for him. He was admitted here earlier this month and last month for ulcerative colitis flareups. He responded well to IV steroids and opiates. Denies any fevers, chills, sore throat, cough, dyspnea, chest pain, palpitations , vomiting, back pain, or headaches. MD Complaint: abdominal pain Location: LLQ Associated Symptoms: nausea, diarrhea, constipation - Related Data Home Medications Medication Instructions Recorded Confirmed predniSONE 50 mg PO DAILY 08/08/22 08/27/22 Simethicone [Gas-X] 125 mg PO QID PRN 08/27/22 08/27/22 Tamsulosin [Flomax] 0.4 mg PO DAILY 08/27/22 08/27/22 Previous Rx's Medication Instructions Recorded Ondansetron Odt [Zofran ODT] 4 mg PO Q8HR PRN #30 tab 07/30/22 Acetaminophen Tab [Tylenol] 650 mg PO Q6HR PRN tab 08/14/22 Dicyclomine [Bentyl] 10 mg PO TID PRN #30 tab 08/14/22 HYDROcodone/APAP 5-325MG [[place] 1 tab PO Q6HR PRN #9 tab 08/14/22 5-325] Allergies Allergy/AdvReac Type Severity Reaction Status Date / Time No Known Allergies Allergy Verified 08/27/22 14:11 Review of Systems ROS Statement: Those systems with pertinent positive or pertinent negative responses have been documented in the HPI. ROS Other: All systems not noted in ROS Statement are negative. Past Medical History Additional Past Medical History / Comment(s): kidney stones ULCERATIVE COLITIS History of Any Multi-Drug Resistant Organisms: None Reported Past Surgical History: No Surgical Hx Reported Past Psychological History: No Psychological Hx Reported Smoking Status: Former smoker Past Alcohol Use History: None Reported Past Drug Use History: None Reported General Exam Limitations: no limitations General appearance: alert, in no apparent distress Head exam: Present: atraumatic, normocephalic, normal inspection Respiratory exam: Present: normal lung sounds bilaterally. Absent: respiratory distress, wheezes, rales, rhonchi, stridor Cardiovascular Exam: Present: regular rate, normal rhythm, normal heart sounds. Absent: systolic murmur, diastolic murmur, rubs, gallop, clicks GI/Abdominal exam: Present: soft, tenderness (LLQ), hypoactive bowel sounds. Absent: distended, guarding, rebound, rigid Neurological exam: Present: alert, oriented X3, CN II-XII intact Psychiatric exam: Present: normal affect, normal mood Skin exam: Present: warm, dry, intact, normal color. Absent: rash Course Vital Signs 08/27/22 08/27/22 08/27/22 14:08 16:00 17:00 Temperature 98.1 F Pulse Rate 92 73 Respiratory 18 16 16 Rate Blood Pressure 103/85 96/68 102/67 O2 Sat by Pulse 95 95 96 Oximetry 08/27/22 19:43 Temperature Pulse Rate 63 Respiratory 16 Rate Blood Pressure 102/67 O2 Sat by Pulse 95 Oximetry Medical Decision Making - Medical Decision Making This is a 52 year old male who presents to the emergency department for abdominal pain. Lab work reveals a slightly decreased hemoglobin, however it is much improved from prior values. ESR and CRP continue to be elevated, similar to prior values. Computed tomography scan of the abdomen and pelvis obtained, and on my interpretation I'm able to identify wall thickening of the rectosigmoid region, there is also noted be gas and dilation of the transverse colon. The radiologist makes note that this may be related to an ileus. I spoke with [facility], who is willing to admit the patient. We discussed that there is not GI available this week, however in the past the patient has been treated with IV steroids and opiates with good response. His hemoglobin is also much better than prior visits and there are no acute complications on his computed tomography scan that warrant emergent intervention. Patient admitted to medicine and started on IV Solu-Medrol 20 mg every 6 hours, as similar to prior regimens. This case was discussed in detail with the attending ED physician. Presentation, findings, and treatment plan discussed in detail as well. - Lab Data Result diagrams: 08/27/22 14:33 08/27/22 14:33 Lab Results 08/27/22 08/27/22 Range/Units 14:33 14:33 WBC 4.8 (3.8-10.6) k/uL RBC 4.04 L (4.30-5.90) m/uL Hgb 11.0 L (13.0-17.5) gm/dL Hct 34.3 L (39.0-53.0) % MCV 85.0 (80.0-100.0) fL MCH 27.3 (25.0-35.0) pg MCHC 32.1 (31.0-37.0) g/dL RDW 13.5 (11.5-15.5) % Plt Count 234 (150-450) k/uL MPV 8.0 Neutrophils % 89 % Lymphocytes % 5 % Monocytes % 5 % Eosinophils % 0 % Basophils % 0 % Neutrophils # 4.2 (1.3-7.7) k/uL Lymphocytes # 0.2 L (1.0-4.8) k/uL Monocytes # 0.3 (0-1.0) k/uL Eosinophils # 0.0 (0-0.7) k/uL Basophils # 0.0 (0-0.2) k/uL Hypochromasia Moderate ESR 82 H (0-15) mm/hr Sodium 130 L (137-145) mmol/L Potassium 4.3 (3.5-5.1) mmol/L Chloride 94 L (98-107) mmol/L Carbon Dioxide 30 (22-30) mmol/L Anion Gap 6 mmol/L BUN 15 (9-20) mg/dL Creatinine 0.87 (0.66-1.25) mg/dL Est GFR (CKD-EPI)AfAm >90 (>60 ml/min/1.73 sqM) Est GFR (CKD-EPI)NonAf >90 (>60 ml/min/1.73 sqM) Glucose 146 H (74-99) mg/dL Calcium 8.3 L (8.4-10.2) mg/dL Total Bilirubin 0.4 (0.2-1.3) mg/dL AST 36 (17-59) U/L ALT 84 H (4-49) U/L Alkaline Phosphatase 129 H (38-126) U/L C-Reactive Protein 7.3 H (<1.0) mg/dL Total Protein 5.7 L (6.3-8.2) g/dL Albumin 3.0 L (3.5-5.0) g/dL Amylase <30 L (30-110) U/L Lipase 14 L (23-300) U/L - Radiology Data Radiology results: report reviewed, image reviewed Disposition Clinical Impression: Acute left-sided ulcerative colitis, Ileus Disposition: ADMITTED IP TO THIS HOSP
[2022-08-27 15:30] LABS: ALT 84 U/L (4-49); AST 36 U/L (17-59); African American GFR (CKD) >90 (>60 ml/min/1.73 sqM); Alkaline Phosphatase 129 U/L (38-126); Anion Gap 6 mmol/L; Blood Urea Nitrogen 15 mg/dL (9-20); C Reactive Protein 7.3 mg/dL (<1.0); Calcium 8.3 mg/dL (8.4-10.2); Carbon Dioxide 30 mmol/L (22-30); Chloride 94 mmol/L (98-107); Glucose 146 mg/dL (74-99); Lipase 14 U/L (23-300); Non-African American GFR(CKD) >90 (>60 ml/min/1.73 sqM); Potassium 4.3 mmol/L (3.5-5.1); Sodium 130 mmol/L (137-145); Total Bilirubin 0.4 mg/dL (0.2-1.3); Total Protein 5.7 g/dL (6.3-8.2)
[2022-08-27 15:56] LABS: Amylase <30 U/L (30-110)
--- NOTE | 2022-08-27 16:00 | CT ---
EXAMINATION TYPE: CT abdomen pelvis w con CT DLP: 969.2 mGycm, Automated exposure control for dose reduction was used. DATE OF EXAM: 08/27/2022 3:50 PM COMPARISON: CT abdomen pelvis most recent from 08/09/2022. CLINICAL INDICATION:Male, 52 years old with history of LLQ pain, hx of ulcerative colitis; LLQ pain, hx of ulcerative colitis and kidney stones. TECHNIQUE: Standard CT of the abdomen and pelvis following the administration of 100 cc of Isovue 3 00 IV contrast material. Coronal and sagittal reformats were performed. FINDINGS: LOWER CHEST: Posterior dependent subsegmental atelectasis is noted. ABDOMEN LIVER: Unremarkable GALLBLADDER AND BILE DUCTS: Unremarkable. PANCREAS: Unremarkable. SPLEEN: Mild splenomegaly measuring 14.6 cm significant caudal dimension. ADRENAL GLANDS: Unremarkable. KIDNEYS AND URETERS: No evidence of hydronephrosis or renal calculus. The kidneys enhance symmetrical ly without suspicious focal lesion. Contrast is demonstrated within both collecting systems on the de layed phase. PELVIS BLADDER: Incompletely distended but grossly unremarkable. REPRODUCTIVE: Unremarkable. ABDOMEN & PELVIS STOMACH AND BOWEL: Stomach and duodenum are unremarkable. Moderate amount of stool is present within the ascending colon. Persistent circumferential rectosigmoid wall thickening extending to the descend ing colon. There is gas-filled mild dilation of the transverse colon. No focal transition point. No e vidence for perforation or pneumatosis. No surrounding inflammatory changes. The appendix is within n ormal limits. PERITONEUM: No evidence of pneumoperitoneum or free fluid. VASCULATURE: No evidence of aortic aneurysm. MUSCULOSKELETAL: No acute osseous abnormalities. Lipoma anterior right thigh musculature. LYMPH NODES: No gross evidence for lymphadenopathy. SOFT TISSUE/ABDOMINAL WALL: Unremarkable IMPRESSION: 1. Similar wall thickening of the rectosigmoid colon related to known ulcerative colitis with increa sed gaseous distention of the transverse colon likely related to an ileus. No focal transition point. Moderate amount of stool is present within the ascending colon. 2. Mild splenomegaly redemonstrated.
[2022-08-27 16:17] LABS: Erythrocyte Sedimentation Rate 82 mm/hr (0-15)
[2022-08-27] MEDS ORDERED: IBUPROFEN 400 MG TAB PO PRN (17:25)
[2022-08-27] MEDS ORDERED: NALOXONE 0.4 MG/ML 1 ML VIAL IV PRN (17:25)
[2022-08-27] MEDS ORDERED: ONDANSETRON 4 MG/2 ML VIAL IVP PRN (17:25)
[2022-08-27] MEDS ORDERED: KETOROLAC 15 MG/ML 1 ML VIAL IVP PRN (17:25)
[2022-08-27] MEDS ORDERED: ACETAMINOPHEN TAB 325 MG TAB PO PRN (17:25)
[2022-08-27] MEDS ORDERED: MORPHINE SULFATE 2 MG/ML SYRINGE IVP PRN (17:27)
[2022-08-27] MEDS: methylPREDNISolone SOD SUCCI 40 MG/ML 1 ML VIAL IV SCH ×2 (18:35→23:14)
[2022-08-27] MEDS: MORPHINE SULFATE 4 MG/ML SYRINGE IV PRN (19:42)
[2022-08-27] MEDS ORDERED: SIMETHICONE 80 MG CHEWABLE PO PRN (19:57)
[2022-08-27] MEDS ORDERED: DICYCLOMINE 20 MG TAB PO PRN (19:57)
[2022-08-28] MEDS: methylPREDNISolone SOD SUCCI 40 MG/ML 1 ML VIAL IV SCH ×3 (05:57→17:55)
[2022-08-28 07:05] LABS: Appearance,Urine Clear (Clear); Bilirubin,Urine Negative (Negative); Blood,Urine Negative (Negative); Color,Urine Yellow; Glucose,Urine (UA) Negative (Negative); Ketones,Urine 1+ (Negative); Leukocyte Esterase,Urine Negative (Negative); Mucus,Urine Many /hpf; Nitrite,Urine Negative (Negative); Protein,Urine 1+ (Negative); RBC,Urine 3 /hpf (0-5); Urobilinogen,Urine <2.0 mg/dL (<2.0); WBC,Urine 1 /hpf (0-5)
[2022-08-28 07:26] LABS: Specific Gravity,Urine >1.050 (1.001-1.035)
[2022-08-28] MEDS: TAMSULOSIN 0.4 MG CAP.ER.24H PO SCH (08:31)
[2022-08-28] MEDS: SODIUM CHLORIDE 0.9% 1,000 ML IV SCH (09:57)
[2022-08-28 11:25] LABS: Basophils % (A) 0 %; Eosinophils % (A) 0 %; HCT 30.5 % (39.0-53.0); Hypochromasia Marked; Lymphocytes # (A) 0.3 k/uL (1.0-4.8); Lymphocytes % (A) 7 %; MCH 26.9 pg (25.0-35.0); MCHC 31.2 g/dL (31.0-37.0); MCV 86.2 fL (80.0-100.0); Mean Platelet Volume 7.8; Monocytes # (A) 0.2 k/uL (0-1.0); Monocytes % (A) 6 %; Neutrophils # (A) 3.7 k/uL (1.3-7.7); Neutrophils % (A) 86 %; Platelet Count 249 k/uL (150-450); RBC 3.54 m/uL (4.30-5.90); RDW 13.4 % (11.5-15.5); WBC 4.3 k/uL (3.8-10.6)
[2022-08-28 11:33] LABS: HGB 9.5 gm/dL (13.0-17.5)
--- NOTE | 2022-08-28 11:34 | P.HPIM ---
History of Present Illness H&P Date: 08/28/22 History of present illness; Patient is a 52-year-old male with past medical history significant for ulcerative colitis , patient was initiated on immunotherapy on 08/01/2022, history of renal stones, prior history of smoking and history of Covid 19 infection present to the ER because of abdominal pain . Pain was located in the left lower quadrant, was sharp in nature, 10 x 10 in intensity, nonradiating. This pain was very similar to his previous episodes of ulcerative colitis flareup. Patient was worked up in the ER, CT abdomen and pelvis showed similar wall thickening of the rectosigmoid colon related to known ulcerative colitis with increased gaseous distention of the transverse colon likely related to Ileus. No focal transition point. Moderate amount of stool present within the ascending colon. Initial blood work showed white count of 4.8, hemoglobin of 11, platelet count of 234, sodium of 130, potassium 4.3,. Patient was started on IV steroids and was admitted to hospitalist service REVIEW OF SYSTEMS: CONSTITUTIONAL: No fever, no malaise, no fatigue. HEENT: No recent visual problems or hearing problems. Denied any sore throat. CARDIOVASCULAR: No chest pain, orthopnea, PND, no palpitations, no syncope. PULMONARY: No shortness of breath, no cough, no hemoptysis. GASTROINTESTINAL: Complaining of some blood in the stools. Currently having 3-4 bowel movements NEUROLOGICAL: No headaches, no weakness, no numbness. HEMATOLOGICAL: Denies any bleeding or petechiae. GENITOURINARY: Denies any burning micturition, frequency, or urgency. MUSCULOSKELETAL/RHEUMATOLOGICAL: Denies any joint pain, swelling, or any muscle pain. ENDOCRINE: Denies any polyuria or polydipsia. The rest of the 14-point review of systems is negative. PHYSICAL EXAMINATION: GENERAL: The patient is alert and oriented x3, not in any acute distress. Well developed, well nourished. HEENT: Pupils are round and equally reacting to light. EOMI. No scleral icterus. No conjunctival pallor. Normocephalic, atraumatic. No pharyngeal erythema. No thyromegaly. CARDIOVASCULAR: S1 and S2 present. No murmurs, rubs, or gallops. PULMONARY: Chest is clear to auscultation, no wheezing or crackles. ABDOMEN: Soft, nontender, nondistended, normoactive bowel sounds. No palpable organomegaly. MUSCULOSKELETAL: No joint swelling or deformity. EXTREMITIES: No cyanosis, clubbing, or pedal edema. NEUROLOGICAL: Gross neurological examination did not reveal any focal deficits. SKIN: No rashes. Assessment and plan Acute abdominal pain Acute exacerbation of ulcerative colitis Hyponatremia History of renal stones Plan: Monitor vital signs Monitor CBC Patient currently on clear liquid diet, advance as tolerated Continue pain management continue IV steroids. Resume home meds Continue IV fluids CODE STATUS discussed with patient, he wants to be full code Past Medical History Additional Past Medical History / Comment(s): kidney stones ULCERATIVE COLITIS History of Any Multi-Drug Resistant Organisms: None Reported Past Surgical History: No Surgical Hx Reported Past Anesthesia/Blood Transfusion Reactions: No Reported Reaction Past Psychological History: No Psychological Hx Reported Smoking Status: Former smoker Past Alcohol Use History: None Reported Past Drug Use History: None Reported - Past Family History Mother Family Medical History: No Reported History Medications and Allergies Home Medications Medication Instructions Recorded Confirmed Type Ondansetron Odt [Zofran ODT] 4 mg PO Q8HR PRN #30 tab 07/30/22 08/27/22 Rx predniSONE 50 mg PO DAILY 08/08/22 08/27/22 History Acetaminophen Tab [Tylenol] 650 mg PO Q6HR PRN tab 08/14/22 08/27/22 Rx Dicyclomine [Bentyl] 10 mg PO TID PRN #30 tab 08/14/22 08/27/22 Rx HYDROcodone/APAP 5-325MG [[place] 1 tab PO Q6HR PRN #9 tab 08/14/22 08/27/22 Rx 5-325] Simethicone [Gas-X] 125 mg PO QID PRN 08/27/22 08/27/22 History Tamsulosin [Flomax] 0.4 mg PO DAILY 08/27/22 08/27/22 History Allergies Allergy/AdvReac Type Severity Reaction Status Date / Time No Known Allergies Allergy Verified 08/27/22 14:11 Physical Exam Vitals: Vital Signs Temp Pulse Pulse Resp BP BP Pulse Ox 08/28/22 07:00 98.1 F 74 16 110/77 99 08/28/22 02:21 98.1 F 108 H 17 108/71 100 08/27/22 21:09 98.4 F 93 18 107/73 95 08/27/22 19:43 63 16 102/67 95 08/27/22 17:00 73 16 102/67 96 08/27/22 16:00 16 96/68 95 08/27/22 14:08 98.1 F 92 18 103/85 95 Intake and Output 08/27/22 08/28/22 08/28/22 22:59 06:59 14:59 Intake Total 540 Balance 540 Intake: Oral 540 Other: Voiding Method Toilet Toilet # Voids 1 # Bowel Movements 1 Weight 83.915 kg Results CBC & Chem 7: 08/27/22 14:33 08/27/22 14:33 Labs: Abnormal Lab Results - Last 24 Hours (Table) 08/27/22 08/27/22 08/28/22 Range/Units 14:33 14:33 06:30 RBC 4.04 L (4.30-5.90) m/uL Hgb 11.0 L (13.0-17.5) gm/dL Hct 34.3 L (39.0-53.0) % Lymphocytes # 0.2 L (1.0-4.8) k/uL ESR 82 H (0-15) mm/hr Sodium 130 L (137-145) mmol/L Chloride 94 L (98-107) mmol/L Glucose 146 H (74-99) mg/dL Calcium 8.3 L (8.4-10.2) mg/dL ALT 84 H (4-49) U/L Alkaline Phosphatase 129 H (38-126) U/L C-Reactive Protein 7.3 H (<1.0) mg/dL Total Protein 5.7 L (6.3-8.2) g/dL Albumin 3.0 L (3.5-5.0) g/dL Amylase <30 L (30-110) U/L Lipase 14 L (23-300) U/L Ur Specific [place] >1.050 H (1.001-1.035) Urine Protein 1+ H (Negative) Urine Ketones 1+ H (Negative) Urine Mucus Many H (None) /hpf Thrombosis Risk Factor Assmnt - Choose All That Apply Any of the Below Risk Factors Present?: Yes Each Factor Represents 1 point: Age 41-60 years, Obesity (BMI >25) Other Risk Factors: No Other congenital or acquired thrombophilia - If yes, enter type in comment: No Thrombosis Risk Factor Assessment Total Risk Factor Score: 2 Thrombosis Risk Factor Assessment Level: Low Risk
[2022-08-28 12:01] LABS: ALT 59 U/L (4-49); AST 13 U/L (17-59); African American GFR (CKD) >90 (>60 ml/min/1.73 sqM); Albumin 2.6 g/dL (3.5-5.0); Alkaline Phosphatase 94 U/L (38-126); Anion Gap 3 mmol/L; Blood Urea Nitrogen 18 mg/dL (9-20); Carbon Dioxide 31 mmol/L (22-30); Chloride 96 mmol/L (98-107); Globulin 2.5 g/dL; Glucose 154 mg/dL (74-99); Non-African American GFR(CKD) >90 (>60 ml/min/1.73 sqM); Potassium 4.5 mmol/L (3.5-5.1); Sodium 130 mmol/L (137-145); Total Bilirubin 0.5 mg/dL (0.2-1.3); Total Protein 5.1 g/dL (6.3-8.2)
[2022-08-28 13:25] VITALS: BMI 26.5
[2022-08-28 16:46] LABS: Glucose,Whole Blood 143 mg/dL (70-110)
[2022-08-28] MEDS: HYDROcodone/APAP 5-325MG 1 EACH TAB PO PRN (20:53)
[2022-08-29] MEDS: methylPREDNISolone SOD SUCCI 40 MG/ML 1 ML VIAL IV SCH ×2 (00:57→06:37)
[2022-08-29] MEDS: SODIUM CHLORIDE 0.9% 1,000 ML IV SCH ×2 (01:00→06:38)
[2022-08-29] MEDS: HYDROcodone/APAP 5-325MG 1 EACH TAB PO PRN ×2 (03:36→11:17)
[2022-08-29] MEDS: MORPHINE SULFATE 4 MG/ML SYRINGE IV PRN (06:43)
[2022-08-29 07:20] LABS: Basophils % (A) 0 %; Eosinophils % (A) 0 %; HCT 30.9 % (39.0-53.0); HGB 9.9 gm/dL (13.0-17.5); Hypochromasia Marked; Lymphocytes # (A) 0.3 k/uL (1.0-4.8); Lymphocytes % (A) 7 %; MCH 27.8 pg (25.0-35.0); Mean Platelet Volume 7.4; Monocytes # (A) 0.2 k/uL (0-1.0); Monocytes % (A) 6 %; Neutrophils # (A) 3.3 k/uL (1.3-7.7); Neutrophils % (A) 85 %; Platelet Count 198 k/uL (150-450); RBC 3.55 m/uL (4.30-5.90); RDW 13.2 % (11.5-15.5); WBC 3.9 k/uL (3.8-10.6)
[2022-08-29 08:04] LABS: African American GFR (CKD) >90 (>60 ml/min/1.73 sqM); Anion Gap 3 mmol/L; Blood Urea Nitrogen 17 mg/dL (9-20); Calcium 7.9 mg/dL (8.4-10.2); Carbon Dioxide 29 mmol/L (22-30); Chloride 100 mmol/L (98-107); Glucose 127 mg/dL (74-99); Non-African American GFR(CKD) >90 (>60 ml/min/1.73 sqM); Potassium 4.5 mmol/L (3.5-5.1); Sodium 132 mmol/L (137-145)
[2022-08-29] MEDS: TAMSULOSIN 0.4 MG CAP.ER.24H PO SCH (08:38)
[2022-08-29 08:40] VITALS: BP 119/73; PULSE 58; RESP 16; TEMP 98.2
--- NOTE | 2022-08-29 11:50 | P.DS ---
Providers Date of admission: 08/27/22 17:26 Expected date of discharge: 08/29/22 Attending physician: Flavia Veloz Primary care physician: Yazan Mullen Hospital Course: Discharge diagnoses; Acute abdominal pain resolved Hyponatremia Acute exacerbation of ulcerative colitis Hyponatremia History of renal stones Hospital course; Patient is a 52-year-old male with past medical history significant for ulcerative colitis , patient was initiated on immunotherapy on 08/01/2022, history of renal stones, prior history of smoking and history of Covid 19 infection present to the ER because of abdominal pain . Pain was located in the left lower quadrant, was sharp in nature, 10 x 10 in intensity, nonradiating. This pain was very similar to his previous episodes of ulcerative colitis flareup. Patient was worked up in the ER, CT abdomen and pelvis showed similar wall thickening of the rectosigmoid colon related to known ulcerative colitis with increased gaseous distention of the transverse colon likely related to [place]. No focal transition point. Moderate amount of stool present within the ascending colon. Initial blood work showed white count of 4.8, hemoglobin of 11, platelet count of 234, sodium of 130, potassium 4.3,. Patient was started on IV steroids and was admitted to hospitalist service 08/29/22. Patient seen and examined. States abdominal pain has resolved. No further episodes of blood in the stools. Diarrhea is also improving. Since hemoglobin is stable and patient has an outpatient follow-up with his own GI doctor. Counseled patient to keep taking his home dose of prednisone and pain medications and to follow up with his GI doctor. PHYSICAL EXAMINATION: GENERAL: The patient is alert and oriented x3, not in any acute distress. Well developed, well nourished. HEENT: Pupils are round and equally reacting to light. EOMI. No scleral icterus. No conjunctival pallor. Normocephalic, atraumatic. No pharyngeal erythema. No thyromegaly. CARDIOVASCULAR: S1 and S2 present. No murmurs, rubs, or gallops. PULMONARY: Chest is clear to auscultation, no wheezing or crackles. ABDOMEN: Soft, nontender, nondistended, normoactive bowel sounds. No palpable organomegaly. MUSCULOSKELETAL: No joint swelling or deformity. EXTREMITIES: No cyanosis, clubbing, or pedal edema. NEUROLOGICAL: Gross neurological examination did not reveal any focal deficits. SKIN: No rashes. Patient Condition at Discharge: Good Plan - Discharge Summary New Discharge Prescriptions: Continue predniSONE 50 mg PO DAILY Simethicone [Gas-X] 125 mg PO QID PRN PRN Reason: gas Ondansetron Odt [Zofran ODT] 4 mg PO Q8HR PRN #30 tab PRN Reason: Nausea Acetaminophen Tab [Tylenol] 650 mg PO Q6HR PRN tab PRN Reason: Fever Dicyclomine [Bentyl] 10 mg PO TID PRN #30 tab PRN Reason: Pain HYDROcodone/APAP 5-325MG [[place] 5-325] 1 tab PO Q6HR PRN #9 tab PRN Reason: Pain Tamsulosin [Flomax] 0.4 mg PO DAILY Discharge Medication List Ondansetron Odt [Zofran ODT] 4 mg PO Q8HR PRN #30 tab 07/30/22 [Rx] predniSONE 50 mg PO DAILY 08/08/22 [History] Acetaminophen Tab [Tylenol] 650 mg PO Q6HR PRN tab 08/14/22 [Rx] Dicyclomine [Bentyl] 10 mg PO TID PRN #30 tab 08/14/22 [Rx] HYDROcodone/APAP 5-325MG [[place] 5-325] 1 tab PO Q6HR PRN #9 tab 08/14/22 [Rx] Simethicone [Gas-X] 125 mg PO QID PRN 08/27/22 [History] Tamsulosin [Flomax] 0.4 mg PO DAILY 08/27/22 [History] Follow up Appointment(s)/Referral(s): Yazan Mlulen MD [Primary Care Provider] - 1-2 days Tanika Ocampo MD [STAFF PHYSICIAN] - 1 Week Discharge Disposition: HOME SELF-CARE
== END 2022-08-29 12:22 | disposition home or self-care (01) ==
LOC: EC 14:05 → INTOOBSV 17:26 → 6NMEDSUR 17:26 → UNDODISIN 08-29 12:22
PROVIDERS: ADMIT Hospitalist; ATTEND Hospitalist
DX: K51.50 Left sided colitis without complications (principal); K56.7 Ileus, unspecified; E87.1 Hypo-osmolality and hyponatremia; E66.9 Obesity, unspecified; Z68.26 Body mass index [BMI] 26.0-26.9, adult; Z79.52 Long term (current) use of systemic steroids; Z79.899 Other long term (current) drug therapy; Z87.442 Personal history of urinary calculi; Z87.891 Personal history of nicotine dependence; Z86.16 Personal history of COVID-19
CPT/HCPCS: 96376 ×3; 96374; 96375; 99285; 36415; 80053 ×2; 80048; 85652; 82150; 83690; 85025 ×3; 86140; 81001; 74177; G0378 ×3; J2270 ×2; J2765; J2920 ×3; J1170; J1885; Q9967; 96361

== ENCOUNTER 2022-09-03 15:15 | Inpatient (IN) | payer BC ==
--- NOTE | 2022-09-03 16:21 | ED ---
Abdominal Pain HPI - General Chief Complaint: Abdominal Pain Stated Complaint: Terrence CROW sent Time Seen by Provider: 09/03/22 16:11 Source: patient Mode of arrival: ambulatory Limitations: no limitations - History of Present Illness Initial Comments: This patient is a 52-year-old man with history of ulcerative colitis who presents here with complaint that he is continued to have a flare of his symptoms. The patient states he has been having flareups going back about a month give or take. He is been admitted in the hospital a couple of times, being discharged 5 days ago. Patient had gone to his last model department supervisor's clinic today and she sent him here with the goal of having him transferred to [facility] but they did not think that he would be able to get there by private vehicle as he was very lightheaded and feeling like he would pass out. Patient states he has not had fevers associated with this since about 2 weeks ago. He is continuing to have intermittent diarrhea sometimes with some blood associated. Currently no vomiting. MD Complaint: abdominal pain -: week(s) Location: diffuse Radiation: none Migration to: no migration Severity: severe Quality: cramping, aching Consistency: constant Improves With: nothing Worsens With: nothing Associated Symptoms: nausea, diarrhea - Related Data Home Medications Medication Instructions Recorded Confirmed predniSONE 40 mg PO DAILY 08/08/22 09/03/22 Simethicone [Gas-X] 125 mg PO QID PRN 08/27/22 09/03/22 Tamsulosin [Flomax] 0.4 mg PO DAILY 08/27/22 09/03/22 Previous Rx's Medication Instructions Recorded Ondansetron Odt [Zofran ODT] 4 mg PO Q8HR PRN #30 tab 07/30/22 Acetaminophen Tab [Tylenol] 650 mg PO Q6HR PRN tab 08/14/22 Dicyclomine [Bentyl] 10 mg PO TID PRN #30 tab 08/14/22 HYDROcodone/APAP 5-325MG [[place] 1 tab PO Q6HR PRN #9 tab 08/14/22 5-325] Allergies Allergy/AdvReac Type Severity Reaction Status Date / Time No Known Allergies Allergy Verified 09/03/22 17:24 Review of Systems ROS Statement: Those systems with pertinent positive or pertinent negative responses have been documented in the HPI. ROS Other: All systems not noted in ROS Statement are negative. Constitutional: Denies: fever, chills Respiratory: Denies: cough, dyspnea Cardiovascular: Reports: palpitations, syncope (Near syncope). Denies: chest pain, edema Gastrointestinal: Reports: abdominal pain, nausea, diarrhea, hematochezia. Denies: vomiting, constipation, hematemesis, melena Genitourinary: Denies: dysuria, frequency, hematuria Musculoskeletal: Denies: back pain Skin: Denies: rash Neurological: Denies: headache, weakness Past Medical History Additional Past Medical History / Comment(s): kidney stones ULCERATIVE COLITIS History of Any Multi-Drug Resistant Organisms: None Reported Past Surgical History: No Surgical Hx Reported Past Anesthesia/Blood Transfusion Reactions: No Reported Reaction Past Psychological History: No Psychological Hx Reported Smoking Status: Former smoker Past Alcohol Use History: None Reported Past Drug Use History: None Reported - Past Family History Mother Family Medical History: No Reported History General Exam Limitations: no limitations General appearance: alert, in no apparent distress Head exam: Present: atraumatic, normocephalic Eye exam: Present: normal appearance. Absent: scleral icterus, conjunctival injection ENT exam: Present: mucous membranes dry Neck exam: Present: normal inspection Respiratory exam: Present: normal lung sounds bilaterally. Absent: respiratory distress, wheezes, rales, rhonchi, stridor Cardiovascular Exam: Present: normal rhythm, tachycardia, normal heart sounds. Absent: systolic murmur, diastolic murmur, rubs, gallop GI/Abdominal exam: Present: soft, tenderness (Mild diffuse tenderness no rebound or guarding). Absent: distended, guarding, rebound, rigid, mass Extremities exam: Present: normal inspection, normal capillary refill. Absent: pedal edema, calf tenderness Back exam: Present: normal inspection. Absent: CVA tenderness (R), CVA tenderness (L) Neurological exam: Present: alert Skin exam: Present: warm, dry, intact, normal color. Absent: rash Course Vital Signs 09/03/22 09/03/22 09/03/22 16:00 17:16 18:10 Temperature 97 F L Pulse Rate 130 H 82 74 Respiratory 20 18 18 Rate Blood Pressure 65/58 114/72 111/76 O2 Sat by Pulse 98 94 L 95 Oximetry Medical Decision Making - Medical Decision Making Patient is 52-year-old man with abdominal pain and ulcerative colitis flare. The patient is also markedly dehydrated leading to his tachycardia and hypotension. The patient did respond immediately to fluid bolus. Computed tomography scan and labs are not showing anything else acute. Case is discussed with Dr. Ocampo who does recommend that the patient be transferred to [facility] and that is also the patient's request. Discussed the case with the transfer team at [facility], will accept the patient for transfer there but they do anticipate a weight of 4- 10 days for bed availability. This is discussed with the patient who understands. I discussed the case with Dr. rivera who will accept admission pending the transfer and also discussed with Dr. Ocampo. - Lab Data Result diagrams: 09/03/22 16:23 09/03/22 16:23 Lab Results 09/03/22 09/03/22 09/03/22 Range/Units 16:23 16:23 16:23 WBC 7.1 (3.8-10.6) k/uL RBC 4.16 L (4.30-5.90) m/uL Hgb 11.2 L (13.0-17.5) gm/dL Hct 35.6 L (39.0-53.0) % MCV 85.5 (80.0-100.0) fL MCH 27.0 (25.0-35.0) pg MCHC 31.5 (31.0-37.0) g/dL RDW 13.2 (11.5-15.5) % Plt Count 359 (150-450) k/uL MPV 7.3 Neutrophils % 87 % Lymphocytes % 7 % Monocytes % 5 % Eosinophils % 1 % Basophils % 0 % Neutrophils # 6.1 (1.3-7.7) k/uL Lymphocytes # 0.5 L (1.0-4.8) k/uL Monocytes # 0.4 (0-1.0) k/uL Eosinophils # 0.0 (0-0.7) k/uL Basophils # 0.0 (0-0.2) k/uL Hypochromasia Marked ESR 72 H (0-15) mm/hr Sodium 129 L (137-145) mmol/L Potassium 4.4 (3.5-5.1) mmol/L Chloride 94 L (98-107) mmol/L Carbon Dioxide 25 (22-30) mmol/L Anion Gap 10 mmol/L BUN 19 (9-20) mg/dL Creatinine 1.13 (0.66-1.25) mg/dL Est GFR (CKD-EPI)AfAm 88 (>60 ml/min/1.73 sqM) Est GFR (CKD-EPI)NonAf 76 (>60 ml/min/1.73 sqM) Glucose 159 H (74-99) mg/dL Lactic Ac Sepsis Rflx Plasma Lactic Acid Andrés 3.1 H* (0.7-2.0) mmol/L Calcium 8.3 L (8.4-10.2) mg/dL Total Bilirubin 0.5 (0.2-1.3) mg/dL AST 14 L (17-59) U/L ALT 27 (4-49) U/L Alkaline Phosphatase 118 (38-126) U/L C-Reactive Protein 13.2 H (<1.0) mg/dL Total Protein 5.8 L (6.3-8.2) g/dL Albumin 3.1 L (3.5-5.0) g/dL Amylase <30 L (30-110) U/L Lipase <10 L (23-300) U/L 09/03/22 Range/Units 17:00 WBC (3.8-10.6) k/uL RBC (4.30-5.90) m/uL Hgb (13.0-17.5) gm/dL Hct (39.0-53.0) % MCV (80.0-100.0) fL MCH (25.0-35.0) pg MCHC (31.0-37.0) g/dL RDW (11.5-15.5) % Plt Count (150-450) k/uL MPV Neutrophils % % Lymphocytes % % Monocytes % % Eosinophils % % Basophils % % Neutrophils # (1.3-7.7) k/uL Lymphocytes # (1.0-4.8) k/uL Monocytes # (0-1.0) k/uL Eosinophils # (0-0.7) k/uL Basophils # (0-0.2) k/uL Hypochromasia ESR (0-15) mm/hr Sodium (137-145) mmol/L Potassium (3.5-5.1) mmol/L Chloride (98-107) mmol/L Carbon Dioxide (22-30) mmol/L Anion Gap mmol/L BUN (9-20) mg/dL Creatinine (0.66-1.25) mg/dL Est GFR (CKD-EPI)AfAm (>60 ml/min/1.73 sqM) Est GFR (CKD-EPI)NonAf (>60 ml/min/1.73 sqM) Glucose (74-99) mg/dL Lactic Ac Sepsis Rflx Y Plasma Lactic Acid Andrés (0.7-2.0) mmol/L Calcium (8.4-10.2) mg/dL Total Bilirubin (0.2-1.3) mg/dL AST (17-59) U/L ALT (4-49) U/L Alkaline Phosphatase (38-126) U/L C-Reactive Protein (<1.0) mg/dL Total Protein (6.3-8.2) g/dL Albumin (3.5-5.0) g/dL Amylase (30-110) U/L Lipase (23-300) U/L - EKG Data -: EKG Interpreted by Ak EKG shows normal: sinus rhythm, intervals (Normal), QRS complexes (Possible LVH) Rate: tachycardia (Rate 106 bpm) Interpretation: LVH (Voltage criteria) Disposition Clinical Impression: Abdominal pain, Dehydration, Ileus, Failure of outpatient treatment, Anemia, Lactic acidosis Disposition: ADMITTED IP TO THIS HOSP Condition: Fair Is patient prescribed a controlled substance at d/c from ED?: No Referrals: Yazan Mullen MD [Primary Care Provider] - 1-2 days
[2022-09-03] MEDS ORDERED: SODIUM CHLORIDE 0.9% 1,000 ML IV ONE (16:27)
[2022-09-03] MEDS ORDERED: SODIUM CHLORIDE 0.9% 1,000 ML IV STA (16:27)
[2022-09-03] MEDS ORDERED: MORPHINE SULFATE 4 MG/ML SYRINGE IV STA (16:27)
[2022-09-03 16:40] LABS: Basophils % (A) 0 %; Eosinophils % (A) 1 %; HCT 35.6 % (39.0-53.0); HGB 11.2 gm/dL (13.0-17.5); Hypochromasia Marked; Lymphocytes # (A) 0.5 k/uL (1.0-4.8); Lymphocytes % (A) 7 %; MCHC 31.5 g/dL (31.0-37.0); MCV 85.5 fL (80.0-100.0); Mean Platelet Volume 7.3; Monocytes # (A) 0.4 k/uL (0-1.0); Monocytes % (A) 5 %; Neutrophils # (A) 6.1 k/uL (1.3-7.7); Neutrophils % (A) 87 %; Platelet Count 359 k/uL (150-450); RBC 4.16 m/uL (4.30-5.90); RDW 13.2 % (11.5-15.5); WBC 7.1 k/uL (3.8-10.6)
[2022-09-03 16:51] LABS: ALT 27 U/L (4-49); AST 14 U/L (17-59); African American GFR (CKD) 88 (>60 ml/min/1.73 sqM); Albumin 3.1 g/dL (3.5-5.0); Alkaline Phosphatase 118 U/L (38-126); Anion Gap 10 mmol/L; Blood Urea Nitrogen 19 mg/dL (9-20); Calcium 8.3 mg/dL (8.4-10.2); Carbon Dioxide 25 mmol/L (22-30); Chloride 94 mmol/L (98-107); Glucose 159 mg/dL (74-99); Lipase <10 U/L (23-300); Non-African American GFR(CKD) 76 (>60 ml/min/1.73 sqM); Potassium 4.4 mmol/L (3.5-5.1); Sodium 129 mmol/L (137-145); Total Bilirubin 0.5 mg/dL (0.2-1.3); Total Protein 5.8 g/dL (6.3-8.2)
[2022-09-03 17:15] LABS: Amylase <30 U/L (30-110); C Reactive Protein 13.2 mg/dL (<1.0)
[2022-09-03 18:12] LABS: Erythrocyte Sedimentation Rate 72 mm/hr (0-15)
--- NOTE | 2022-09-03 18:25 | CT ---
EXAMINATION TYPE: CT abdomen pelvis w con CT DLP: 1038.3 mGycm, Automated exposure control for dose reduction was used. DATE OF EXAM: 09/03/2022 5:46 PM COMPARISON: CT abdomen pelvis most recent from 08/25/2022. CLINICAL INDICATION:Male, 52 years old with history of diffuse abdominal pain; abdominal pain, hx of ulcerative colitis. TECHNIQUE: Axial CT of the abdomen and pelvis. Sagittal and coronal reformats were created on a [employer] workstation. Contrast used:100 mL of Isovue 300 with IV Contrast, Oral contrast used: without Oral Contrast FINDINGS: LOWER CHEST: Unremarkable ABDOMEN LIVER: Unremarkable GALLBLADDER AND BILE DUCTS: Unremarkable. PANCREAS: Unremarkable. SPLEEN: Spleen measures up to 13 cm in greatest dimension slightly decreased in size from prior. ADRENAL GLANDS: Unremarkable. KIDNEYS AND URETERS: No evidence of hydronephrosis or renal calculus. The ureters are unremarkable. Subcentimeter probable right renal cyst. PELVIS BLADDER: Unremarkable REPRODUCTIVE: Unremarkable. ABDOMEN & PELVIS STOMACH AND BOWEL: No evidence of bowel obstruction. There is somewhat nodular mucosa of the rectum a nd sigmoid colon mata. Interval development of gaseous dilation throughout the colon and somewhat sm all bowel.. Appendix is normal. PERITONEUM: No evidence of pneumoperitoneum or free fluid. VASCULATURE: No evidence of aortic aneurysm. MUSCULOSKELETAL: No acute osseous abnormalities. 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 LYMPH NODES: No gross evidence for lymphadenopathy. SOFT TISSUE/ABDOMINAL WALL: Unremarkable IMPRESSION: 1. Interval development of gaseous dilation of the colon and small bowel with similar nodular appear ance of the mucosa in the sigmoid colon and rectum. Findings likely represent ileus. 2. Interval decrease in size of the spleen, now within normal limits.
[2022-09-03] MEDS ORDERED: NALOXONE 0.4 MG/ML 1 ML VIAL IV PRN (21:11)
[2022-09-03] MEDS ORDERED: ONDANSETRON 4 MG/2 ML VIAL IVP PRN (21:17)
[2022-09-03] MEDS ORDERED: ACETAMINOPHEN TAB 325 MG TAB PO PRN (21:17)
[2022-09-03] MEDS ORDERED: SIMETHICONE 80 MG CHEWABLE PO PRN (21:19)
[2022-09-03] MEDS ORDERED: DICYCLOMINE 10 MG CAP PO PRN (21:19)
[2022-09-03] MEDS: SODIUM CHLORIDE 0.9% 1,000 ML IV SCH (22:00)
[2022-09-04] MEDS: HYDROmorphone 0.5 MG/0.5 ML SYRINGE IVP PRN ×3 (00:43→09:38)
[2022-09-04] MEDS ORDERED: predniSONE 20 MG TAB PO SCH (09:00)
[2022-09-04] MEDS ORDERED: methylPREDNISolone SOD SUCCI 40 MG/ML 1 ML VIAL IV SCH (09:15)
[2022-09-04] MEDS: FAMOTIDINE 20 MG TAB PO SCH ×2 (09:32→20:26)
[2022-09-04] MEDS: TAMSULOSIN 0.4 MG CAP.ER.24H PO SCH (09:32)
--- NOTE | 2022-09-04 13:19 | P.CONS ---
History of Present Illness - Reason for Consult Consult date: 09/04/22 abdominal pain, ulcerative colitis Requesting physician: Last De Los Santos - Chief Complaint Ulcerative colitis - History of Present Illness This pleasant 52-year-old male who presented to the emergency department yesterday afternoon as directed by Dr. Ocampo for abdominal pain, diarrhea and dizziness. The patient is but admitted to the hospital several times for ulcerative colitis exacerbation. He was discharged on 08/29/2022. At that time he was on steroids, he is discharged home and currently on 40 mg of prednisone daily. He has been started on Inflectra last dose was about 3 weeks ago he is due next week. He was diagnosed with ulcerative colitis about 2 years ago had seen Dr. Aragon. He states he had colonoscopy about 2 years ago and followed with Dr. Aragon. On admission patient was noted to be dehydrated and hypotensive. He has been fluid resuscitated. States his last bowel movement was yesterday 1 which was bloody. He complaints of abdominal bloating and cramping. He has no nausea or vomiting. Recommendation is for transfer to a [facility] which has been initiated and patient has been accepted however it will likely be several days before admission due to a full capacity at their hospital. He currently is lying in bed, does not look like he's in any acute distress. He states his pain is manageable with medication. He's been afebrile. No fevers or chills. He had a CT of the abdomen and pelvis with contrast reporting interval development of gaseous dilation of the colon and small bowel with similar nodular appearance of the mucosa in the sigmoid colon and rectum. Findings likely represent ileus. Interval decrease in size of the spleen, now within normal limits. Labs WBC is 7 hemoglobin 11 hematocrit 35 platelet count 359,000 sed rate 72 sodium 129 potassium 4.4 BUN 19 creatinine 1.13 glucose 159 total bilirubin 0.5 AST 14 ALT 27 alkaline phosphatase 118 C-reactive protein 13.2 small lactic acid 3.1 now 0.8 Review of Systems REVIEW OF SYSTEMS: CARDIOPULMONARY: No chest pain or shortness of breath. Gastrointestinal: Aston cramping, bloating. No nausea or vomiting. No hem atemesis, coffee-ground emesis. For blood per rectum. GENITOURINARY: No dysuria or hematuria. MUSCULOSKELETAL: Reports normal range of motion. SKIN: No rashes. No jaundice. ENDOCRINE: No chills, fevers. No excessive weight gain or loss. No polydipsia or polyuria. PSYCHIATRIC: Unremarkable. NEUROLOGY: No change in mental status. Denies dizziness, headache. ENT: Vision unremarkable. CONSTITUTIONAL: Weight loss over the last couple months. Decreased appetite and oral intake. No fever, chills, night sweats. Past Medical History Additional Past Medical History / Comment(s): kidney stones ULCERATIVE COLITIS History of Any Multi-Drug Resistant Organisms: None Reported Past Surgical History: No Surgical Hx Reported Past Anesthesia/Blood Transfusion Reactions: No Reported Reaction Past Psychological History: No Psychological Hx Reported Smoking Status: Former smoker Past Alcohol Use History: None Reported Past Drug Use History: None Reported - Past Family History Mother Family Medical History: No Reported History Medications and Allergies Home Medications Medication Instructions Recorded Confirmed Type Ondansetron Odt [Zofran ODT] 4 mg PO Q8HR PRN #30 tab 07/30/22 09/03/22 Rx predniSONE 40 mg PO DAILY 08/08/22 09/03/22 History Acetaminophen Tab [Tylenol] 650 mg PO Q6HR PRN tab 08/14/22 09/03/22 Rx Dicyclomine [Bentyl] 10 mg PO TID PRN #30 tab 08/14/22 09/03/22 Rx HYDROcodone/APAP 5-325MG [[place] 1 tab PO Q6HR PRN #9 tab 08/14/22 09/03/22 Rx 5-325] Simethicone [Gas-X] 125 mg PO QID PRN 08/27/22 09/03/22 History Tamsulosin [Flomax] 0.4 mg PO DAILY 08/27/22 09/03/22 History Allergies Allergy/AdvReac Type Severity Reaction Status Date / Time No Known Allergies Allergy Verified 09/03/22 17:24 Physical Exam Vitals: Vital Signs Temp Pulse Resp BP Pulse Ox 09/04/22 06:31 80 16 103/63 96 09/04/22 03:06 66 18 94 L 09/04/22 00:40 70 16 112/63 09/04/22 00:28 70 14 96/68 98 09/03/22 18:10 74 18 111/76 95 09/03/22 17:16 82 18 114/72 94 L 09/03/22 16:00 97 F L 130 H 20 65/58 98 Intake and Output 09/03/22 09/04/22 09/04/22 22:59 06:59 14:59 Other: Weight 81.647 kg General appearance: The patient is alert, oriented, appears in no acute distress. HET: Head is normocephalic and atraumatic. Conjunctiva pink. Sclera anicteric. Neck: Supple without lymphadenopathy. Trachea midline. Heart: S1 S2. Regular rate and rhythm. Lungs: Clear to auscultation. Abdomen: Soft, diffuse tenderness, mostly in left lower quadrant, nondistended with bowel sounds. No guarding or rigidity. Skin: No rashes. No jaundice. Extremities: Normal skin color and turgor. No pedal edema. Neurological: No focal deficits. Alert and oriented x3. Results CBC & Chem 7: 09/03/22 16:23 09/03/22 16:23 Labs: Abnormal Lab Results - Last 24 Hours (Table) 09/03/22 09/03/22 09/03/22 Range/Units 16:23 16:23 16:23 RBC 4.16 L (4.30-5.90) m/uL Hgb 11.2 L (13.0-17.5) gm/dL Hct 35.6 L (39.0-53.0) % Lymphocytes # 0.5 L (1.0-4.8) k/uL ESR 72 H (0-15) mm/hr Sodium 129 L (137-145) mmol/L Chloride 94 L (98-107) mmol/L Glucose 159 H (74-99) mg/dL Plasma Lactic Acid Andrés 3.1 H* (0.7-2.0) mmol/L Calcium 8.3 L (8.4-10.2) mg/dL AST 14 L (17-59) U/L C-Reactive Protein 13.2 H (<1.0) mg/dL Total Protein 5.8 L (6.3-8.2) g/dL Albumin 3.1 L (3.5-5.0) g/dL Amylase <30 L (30-110) U/L Lipase <10 L (23-300) U/L Comments: CT of the abdomen and pelvis with contrast reporting interval development of gaseous dilation of the colon and small bowel with similar nodular appearance of the mucosa in the sigmoid colon and rectum. Findings likely represent ileus. Interval decrease in size of the spleen, now within normal limits. Assessment and Plan (1) Ulcerative colitis Narrative/Plan: 52-year-old male with history of ulcerative colitis admitted several times to the hospital for the last 1-2 months duration. Each time patient is discharged home on oral prednisone however patient states that pain is intolerable he continues to have abdominal pain and bloating, and rectal bleeding. He was started on Infectra and has had 3 treatments, last one 3 weeks ago he is due next week. He was sent over from Dr. Cervantes office with continued failed outpatient treatment. He was dehydrated and hypotensive on admission. He was resuscitated with fluids. Recommendation is transfer to tertiary [place] of her advanced online marketing specialist, colorecta specialist for further evaluation and treatment. For now recommend IV Solu-Medrol, Protonix 40 mg daily, clear liquid diet and symptomatic treatment. Current Visit: No Status: Acute Code(s): K51.90 - ULCERATIVE COLITIS, UNSPECIFIED, WITHOUT COMPLICATIONS SNOMED Code(s): 26384758 (2) Abdominal pain Current Visit: Yes Status: Acute Code(s): R10.9 - UNSPECIFIED ABDOMINAL PAIN SNOMED Code(s): 11529524 (3) Failure of outpatient treatment Current Visit: Yes Status: Acute Code(s): Z78.9 - OTHER SPECIFIED HEALTH STATUS SNOMED Code(s): 842022469 (4) Dehydration Current Visit: Yes Status: Acute Code(s): E86.0 - DEHYDRATION SNOMED Code(s): 89369277 (5) Ileus Current Visit: Yes Status: Acute Code(s): K56.7 - ILEUS, UNSPECIFIED SNOMED Code(s): 517705213 Plan: 1. Continue symptomatic and supportive care 2. Clear liquid diet 3. Solu-Medrol 40 mg every 8 hours for 3-4 days then transition to 20 mg every 8 hours 4. Protonix 40 mg daily GI prophylaxis 5. Recommend transfer to [facility] for evaluation and treatment with advanced online marketing specialist, colorectal specialist. He has been accepted patient however awaiting bed. 6. PICC line ordered 7. Dietitian consulted for TPN Thank you for this consultation, we will continue to follow. Dr. Dragan Ocampo I agree with the dictator's note, documented as a scribe by Nancy Blake.
--- NOTE | 2022-09-04 13:51 | P.HPIM ---
History of Present Illness H&P Date: 09/04/22 This 52-year-old male who presented to the emergency department with feeling of dizziness and lightheadedness with hypotension during office visit with GI Dr. Ocampo who sent him here to the emergency department for evaluation and symptomatic treatment recommending transfer to [facility] for further GI specialist and evaluation. Family and patient felt they were not stable enough to go by private vehicle. ER initiated the transfer process although there is await for 4-10 days for a bed to be available at [facility] and they have accepted the patient recommending inpatient admission here for symptomatic treatment and pain management. Patient was agreeable with this and started on IV dose steroids and his home medications have been resumed. Patient also with pain management in the form of morphine. Will also add Wheaton. Patient with very little oral intake and decreased appetite due to his abdominal pain and cramping. Recommend clear liquids and IV hydration. Patient is also currently active and receiving Remicade treatments and has received 3 thus far with no real significant improvement of symptoms. Dr. Ocampo GI consulted and following. Patient with repeat abdomen CT showing interval development of gaseous dilatation of the colon and small bowel with similar nodular appearance of the mucosa in the sigmoid colon and rectum with findings likely representing ileus and also interval decrease in the size of the spleen now within normal limits from previous imaging. Patient was admitted with ulcerative colitis and symptomatic treatment with possible transfer to [facility] for further GI services. Patient was accepted by Dr. Garcia and currently awaiting a bed assignment at [facility]. Reviewed with no white count and hemoglobin is stable at 11.2. Sodium slightly low at 129 most likely poor solute intake with some dehydration and also some elevated kidney functions. Lactic acid was elevated on admission and improved with IV hydration. Will continue IV hydration. Review Of Systems: Constitutional: No fever, no chills, no night sweats. No weight change. Reports of weakness, fatigue and lethargy. No daytime sleepiness. EENT: No headache. No blurred vision or double vision, no loss of vision. No loss of Hearing, no ringing in the ears, no dizziness. No nasal drainage or congestion. No epistaxis. No sore throat. Lungs: No shortness of breath, cough, no sputum production. No wheezing. Cardiovascular: No chest pain, no lower extremity edema. No palpitations. No paroxysmal nocturnal dyspnea. No orthopnea. No lightheadedness or dizziness. No syncopal episodes. Abdominal: Reports abdominal pain and cramping. Reports occasional nausea, no reports of vomiting. rePorts continued bloody diarrhea. No constipation. Re ports loss of appetite. Genitourinary: No dysuria, increased frequency, urgency. No urinary retention. Musculoskeletal: rePorts general myalgias. No muscle weakness, no gait dysfunction, no frequent falls. No back pain. No neck pain. Integumentary: No wounds, no lesions. No rash or pruritus. No unusual bruising. No change in hair or nails. Neurologic: No aphasia. No facial droop. No change in mentation. No head injury. No headache. No paralysis. No paresthesia. Psychiatric: No depression. No anxiety. No mood swings. Endocrine: No abnormal blood sugars. No weight change. No excessive sweating or thirst. No cold intolerance. PHYSICAL EXAMINATION: GENERAL: The patient is alert and oriented x4, Well developed, well nourished. HEENT: Pupils are round and equally reacting to light. EOMI. no scleral icterus. No conjunctival pallor. Normocephalic, atraumatic. No pharyngeal erythema. No thyromegaly. CARDIOVASCULAR: S1 and S2 muffled PULMONARY: diminished breath sounds bilaterally with no wheezing or rhonchi noted. ABDOMEN: soft. tenderness in palpation of the left mid quadrant on exam. non- distended, normoactive bowel sounds. No palpable organomegaly. MUSCULOSKELETAL: No joint swelling or deformity. EXTREMITIES: No cyanosis, clubbing, or pedal edema. NEUROLOGICAL: Gross neurological examination did not reveal any focal deficits. SKIN: No rashes. Assessment: Ulcerative colitis failure of outpatient treatment Abdominal pain most likely secondary to above Dehydration secondary to poor oral intake and continued diarrhea Ileus as noted on CT Acute kidney injury, likely prerenal secondary to dehydration and tachycardia along with hypotension Lactic acidosis, secondary to dehydration, sepsis ruled out Anxiety GI prophylaxis DVT prophylaxis Full code Plan: Recommend to continue with current medications and management with GI following. Transfer to Tert[facility] Christiansen was initiated in the ER for advanced GI evaluation along with colorectal specialist as patient has had multiple hospitalizations for ulcerative colitis and has been started on outpatient therapy treatments with no significant improvement and continues to be hospitalized over 5 times in the last 2 months. Patient does follow with Dr. Tumma outpatient and was sent here for further evaluation as patient had some hypotension, dizziness, lightheadedness and dehydration with tachycardia. Patient was hydrated and lactic acid is improved and patient has been started on clear liquids. Recommend pain management along with IV steroids per GI and continued symptomatic treatment. Patient has been accepted by [facility] although no bed available at this time and could be possibly 4-10 days before a bed is available. Recommend follow-up labs and monitor hemoglobin closely and will transfuse as needed if less than 7 as patient continues to have loose bloody bowel movements multiple times throughout the day. Hemoglobin is currently stable at this time. The impression and plan of care has been dictated by nurse Maury prac titioner as directed. Dr. Norman MD I have performed a history and examination and MDM of this patient, discussed the same with the dictator, and agree with the dictator's assessment and plan as written ,documented as a scribe. Based on total visit time, I have performed more than 50% of the visit. Any additional findings or plans will be noted. Past Medical History Additional Past Medical History / Comment(s): kidney stones ULCERATIVE COLITIS History of Any Multi-Drug Resistant Organisms: None Reported Past Surgical History: No Surgical Hx Reported Past Anesthesia/Blood Transfusion Reactions: No Reported Reaction Past Psychological History: No Psychological Hx Reported Smoking Status: Former smoker Past Alcohol Use History: None Reported Past Drug Use History: None Reported - Past Family History Mother Family Medical History: No Reported History Medications and Allergies Home Medications Medication Instructions Recorded Confirmed Type Ondansetron Odt [Zofran ODT] 4 mg PO Q8HR PRN #30 tab 07/30/22 09/03/22 Rx predniSONE 40 mg PO DAILY 08/08/22 09/03/22 History Acetaminophen Tab [Tylenol] 650 mg PO Q6HR PRN tab 08/14/22 09/03/22 Rx Dicyclomine [Bentyl] 10 mg PO TID PRN #30 tab 08/14/22 09/03/22 Rx HYDROcodone/APAP 5-325MG [Wheaton 1 tab PO Q6HR PRN #9 tab 08/14/22 09/03/22 Rx 5-325] Simethicone [Gas-X] 125 mg PO QID PRN 08/27/22 09/03/22 History Tamsulosin [Flomax] 0.4 mg PO DAILY 08/27/22 09/03/22 History Allergies Allergy/AdvReac Type Severity Reaction Status Date / Time No Known Allergies Allergy Verified 09/03/22 17:24 Physical Exam Vitals: Vital Signs Temp Pulse Resp BP Pulse Ox 09/04/22 09:37 99.6 F 73 16 107/59 95 09/04/22 06:31 80 16 103/63 96 09/04/22 03:06 66 18 94 L 09/04/22 00:40 70 16 112/63 09/04/22 00:28 70 14 96/68 98 09/03/22 18:10 74 18 111/76 95 09/03/22 17:16 82 18 114/72 94 L 09/03/22 16:00 97 F L 130 H 20 65/58 98 Intake and Output 09/03/22 09/04/22 09/04/22 22:59 06:59 14:59 Other: Weight 81.647 kg Results CBC & Chem 7: 09/03/22 16:23 09/03/22 16:23 Labs: Abnormal Lab Results - Last 24 Hours (Table) 09/03/22 09/03/22 09/03/22 Range/Units 16:23 16:23 16:23 RBC 4.16 L (4.30-5.90) m/uL Hgb 11.2 L (13.0-17.5) gm/dL Hct 35.6 L (39.0-53.0) % Lymphocytes # 0.5 L (1.0-4.8) k/uL ESR 72 H (0-15) mm/hr Sodium 129 L (137-145) mmol/L Chloride 94 L (98-107) mmol/L Glucose 159 H (74-99) mg/dL Plasma Lactic Acid Andrés 3.1 H* (0.7-2.0) mmol/L Calcium 8.3 L (8.4-10.2) mg/dL AST 14 L (17-59) U/L C-Reactive Protein 13.2 H (<1.0) mg/dL Total Protein 5.8 L (6.3-8.2) g/dL Albumin 3.1 L (3.5-5.0) g/dL Amylase <30 L (30-110) U/L Lipase <10 L (23-300) U/L Thrombosis Risk Factor Assmnt - DVT/VTE Prophylaxis DVT/VTE Prophylaxis: Low risk, early ambulation encouraged Assessment and Plan Time with Patient: Greater than 30
[2022-09-04] MEDS: MORPHINE SULFATE 4 MG/ML SYRINGE IV PRN ×3 (14:04→23:03)
[2022-09-04] MEDS: methylPREDNISolone SOD SUCCI 40 MG/ML 1 ML VIAL IV SCH ×2 (16:58→23:03)
[2022-09-04] MEDS: SODIUM CHLORIDE 0.9% 1,000 ML IV SCH ×2 (18:02→18:13)
[2022-09-04] MEDS: ONDANSETRON ODT 4 MG TAB PO PRN (20:26)
[2022-09-04] MEDS: HYDROcodone/APAP 5-325MG 1 EACH TAB PO PRN (20:26)
[2022-09-05] MEDS: HYDROcodone/APAP 5-325MG 1 EACH TAB PO PRN ×2 (01:05→19:57)
[2022-09-05] MEDS: MORPHINE SULFATE 4 MG/ML SYRINGE IV PRN ×5 (02:00→19:57)
[2022-09-05] MEDS: SODIUM CHLORIDE 0.9% 1,000 ML IV SCH ×3 (02:01→21:31)
[2022-09-05] MEDS: TAMSULOSIN 0.4 MG CAP.ER.24H PO SCH (09:40)
[2022-09-05] MEDS: FAMOTIDINE 20 MG TAB PO SCH ×2 (09:41→19:57)
[2022-09-05] MEDS ORDERED: LIDOCAINE 1% INJ 10MG/ML (5 ML VIAL-PF) SQ ONE (10:10)
[2022-09-05] MEDS: methylPREDNISolone SOD SUCCI 40 MG/ML 1 ML VIAL IV SCH ×3 (10:27→22:43)
--- NOTE | 2022-09-05 11:04 | IR ---
EXAM NAME: IR FLUORO GUIDANCE FOR VEIN ACC DEVICE. PROCEDURE: Image-guided placement of left upper extremity, dual lumen PICC. DATE OF PROCEDURE: 09/05/2022 10:25 AM INDICATION: 52-year-old male with malnutrition and needs TPN. RADIOLOGIST: Dr. Regalado SKI MOLDER: Geraldine ANESTHESIA: Local lidocaine FLUORO TIME: 0.1 minutes. RADIATION DOSE:Ka,r = 1.0 mGy CATHETER: 5-Khmer dual lumen PICC TECHNIQUE: I verify that I have discussed the potential benefits, risks, and side effects regarding this treatme nt/procedure, the likelihood of the patient achieving his or her goals, and the potential problems th at might occur during recuperation. I verify that I have explained the alternatives to the patient including the risks, benefits, and side effects related to the alternatives and the risks related to not receiving the operation/procedure/treatment. The patient/surrogate decision maker has had an opp ortunity to ask and have questions answered. I have secured the patient's or the surrogate decision maker's consent prior to the operation/procedure/treatment. The patient was placed supine on the angiography table and the left upper extremity prepped and drape d, (All elements of Maximal Sterile Barrier Technique including a cap, mask, sterile gown and sterile gloves, with a large sterile sheet and hand hygiene, plus 2% chlorhexidine for cutaneous antisepsis (or acceptable alternative antiseptics per current guideline), as well as sterile ultrasound gel and probe covers), in the usual sterile fashion. After infiltration of local anesthetic, the basilic vei n was punctured using ultrasound guidance with a 21-gauge needle. Under fluoroscopic guidance, with automated exposure control, via Seldinger technique, a 0.018 wire and a dilator/peel-away sheath wer e placed. The wire was removed and the catheter cut to appropriate length. The tailored catheter wa s advanced through the peel-away and positioned using fluoroscopic guidance. The sheath was removed and hemostasis achieved. The catheter was flushed, and secured to the arm with a fixation device. A sterile dressing was applied. The procedure was well-tolerated and the patient discharged from the procedure room in stable condition. Dr. Regalado was present for and actively participated in the pro cedure. FINDINGS: Ultrasound guidance with image documentation of antegrade blood flow was utilized for venous access. A limited documentation radiograph shows the catheter tip to be in the region of the superior atrioc aval junction. IMPRESSION: 1. Successful, uncomplicated image-guided placement of left upper extremity, 5 F, dual lumen, periph erally inserted central venous catheter. 2. The catheter is approved for immediate use.
[2022-09-05 12:02] LABS: African American GFR (CKD) >90 (>60 ml/min/1.73 sqM); Anion Gap 3 mmol/L; Blood Urea Nitrogen 16 mg/dL (9-20); Calcium 7.5 mg/dL (8.4-10.2); Carbon Dioxide 27 mmol/L (22-30); Chloride 102 mmol/L (98-107); Glucose 100 mg/dL (74-99); Non-African American GFR(CKD) >90 (>60 ml/min/1.73 sqM); Potassium 4.6 mmol/L (3.5-5.1); Sodium 132 mmol/L (137-145)
[2022-09-05 12:03] LABS: Basophils % (A) 1 %; Eosinophils % (A) 0 %; HCT 25.7 % (39.0-53.0); Hypochromasia Moderate; Lymphocytes # (A) 0.4 k/uL (1.0-4.8); Lymphocytes % (A) 9 %; MCH 26.8 pg (25.0-35.0); MCHC 32.1 g/dL (31.0-37.0); MCV 83.4 fL (80.0-100.0); Mean Platelet Volume 9.3; Monocytes # (A) 0.4 k/uL (0-1.0); Monocytes % (A) 8 %; Neutrophils # (A) 3.5 k/uL (1.3-7.7); Neutrophils % (A) 81 %; Platelet Count 215 k/uL (150-450); RBC 3.08 m/uL (4.30-5.90); RDW 13.3 % (11.5-15.5); WBC 4.3 k/uL (3.8-10.6)
[2022-09-05 12:51] LABS: HGB 8.3 gm/dL (13.0-17.5)
--- NOTE | 2022-09-05 12:58 | P.PN ---
Subjective Progress Note Date: 09/05/22 Principal diagnosis: Ulcerative colitis This pleasant 52-year-old male who presented to the emergency department yesterday afternoon as directed by Dr. Ocampo for abdominal pain, diarrhea and dizziness. The patient is but admitted to the hospital several times for ulcerative colitis exacerbation. He was discharged on 08/29/2022. At that time he was on steroids, he is discharged home and currently on 40 mg of prednisone daily. He has been started on Inflectra last dose was about 3 weeks ago he is due next week. He was diagnosed with ulcerative colitis about 2 years ago had seen Dr. Aragon. He states he had colonoscopy about 2 years ago and followed with Dr. Aragon. On admission patient was noted to be dehydrated and hypotensive. He has been fluid resuscitated. States his last bowel movement was yesterday 1 which was bloody. He complaints of abdominal bloating and cramping. He has no nausea or vomiting. Recommendation is for transfer to a [facility] which has been initiated and patient has been accepted however it will likely be several days before admission due to a full capacity at their hospital. He currently is lying in bed, does not look like he's in any acute distress. He states his pain is manageable with medication. He's been a febrile. No fevers or chills. He had a CT of the abdomen and pelvis with contrast reporting interval development of gaseous dilation of the colon and small bowel with similar nodular appearance of the mucosa in the sigmoid colon and rectum. Findings likely represent ileus. Interval decrease in size of the spleen, now within normal limits. 09/05/2022. Patient seen and examined as a follow-up for ulcerative colitis. He went down to have PICC line placed for TPN therapy. No acute changes through the night. Patient had no bloody movements. He is passing gas, having sharp pains. He did have a drop in his hemoglobin 8.3. Pain is being managed taking morphine every 4 hours. Nausea but no vomiting. Objective - Vital Signs Vital signs: Vital Signs Temp 97.8 F 09/05/22 08:00 Pulse 76 09/05/22 08:00 Resp 17 09/05/22 08:00 BP 120/80 09/05/22 08:00 Pulse Ox 100 09/05/22 08:00 FiO2 Intake & Output 09/04/22 09/05/22 09/05/22 18:59 06:59 18:59 Intake Total 25 Balance 25 Weight 81.647 kg Intake: Oral 25 Other: Voiding Method Toilet # Voids 5 1 - Exam General appearance: The patient is alert, oriented, appears in no acute distress. HET: Head is normocephalic and atraumatic. Conjunctiva pink. Sclera anicteric. Neck: Supple without lymphadenopathy. Abdomen: Soft, left lower quadrant tenderness,, nondistended with bowel sounds. No guarding or rigidity. Extremities: Normal skin color and turgor. No pedal edema Skin: No rashes, no jaundice Neurological: No focal deficits. Alert and oriented. - Labs CBC & Chem 7: 09/05/22 10:53 09/05/22 10:53 Labs: Abnormal Lab Results - Last 24 Hours (Table) 09/05/22 09/05/22 Range/Units 10:53 10:53 RBC 3.08 L (4.30-5.90) m/uL Hgb 8.3 L D (13.0-17.5) gm/dL Hct 25.7 L (39.0-53.0) % Sodium 132 L (137-145) mmol/L Glucose 100 H (74-99) mg/dL Calcium 7.5 L (8.4-10.2) mg/dL Assessment and Plan (1) Ulcerative colitis Narrative/Plan: 52-year-old male with history of ulcerative colitis admitted several times to the hospital for the last 1-2 months duration. Each time patient is discharged home on oral prednisone however patient states that pain is intolerable he continues to have abdominal pain and bloating, and rectal bleeding. He was started on Infectra and has had 3 treatments, last one 3 weeks ago he is due next week. He was sent over from Dr. Cervantes office with continued failed outpatient treatment. He was dehydrated and hypotensive on admission. He was resuscitated with fluids. Recommendation is transfer to tertiary center of her advanced fire prevention engineer, colorecta specialist for further evaluation and treatment. For now recommend IV Solu-Medrol, Protonix 40 mg daily, clear liquid diet and symptomatic treatment. Current Visit: No Status: Acute Code(s): K51.90 - ULCERATIVE COLITIS, UNSPECIFIED, WITHOUT COMPLICATIONS SNOMED Code(s): 14295272 (2) Abdominal pain Current Visit: Yes Status: Acute Code(s): R10.9 - UNSPECIFIED ABDOMINAL PAIN SNOMED Code(s): 60641917 (3) Failure of outpatient treatment Current Visit: Yes Status: Acute Code(s): Z78.9 - OTHER SPECIFIED HEALTH STATUS SNOMED Code(s): 790729654 (4) Dehydration Current Visit: Yes Status: Acute Code(s): E86.0 - DEHYDRATION SNOMED Co de(s): 96664082 (5) Ileus Current Visit: Yes Status: Acute Code(s): K56.7 - ILEUS, UNSPECIFIED SNOMED Code(s): 993729558 Plan: 1. Continue symptomatic and supportive care 2. Clear liquid diet, advance as tolerated 3. Solu-Medrol 40 mg every 8 hours for 3-4 days then transition to 20 mg every 8 hours 4. Protonix 40 mg daily GI prophylaxis 5. Recommend transfer to [facility], [facility] for evaluation and treatment with advanced fire prevention engineer, colorectal specialist. He has been accepted patient however awaiting bed. 6. PICC line ordered 7. Dietitian consulted for TPN 8. Daily CBC, repeat sed rate and CRP. 9. Consult to Gen. surgery Dr. Epps to follow patient for ulcerative colitis, failed outpatient treatment Thank you for this consultation, we will continue to follow. Dr. Dragan Ocampo I agree with the dictator's note, documented as a scribe by Nancy Blake.
--- NOTE | 2022-09-05 14:51 | P.PN ---
Subjective Progress Note Date: 09/05/22 This 52-year-old male who presented to the emergency department with feeling of dizziness and lightheadedness with hypotension during office visit with GI Dr. Ocampo who sent him here to the emergency department for evaluation and symptomatic treatment recommending transfer to [facility] for further GI specialist and evaluation. Family and patient felt they were not stable enough to go by private vehicle. ER initiated the transfer process although there is await for 4-10 days for a bed to be available at [facility] and they have accepted the patient recommending inpatient admission here for symptomatic treatment and pain management. Patient was agreeable with this and started on IV dose steroids and his home medications have been resumed. Patient also with pain management in the form of morphine. Will also add Thorp. Patient with very little oral intake and decreased appetite due to his abdominal pain and cramping. Recommend clear liquids and IV hydration. Patient is also currently active and receiving Remicade treatments and has received 3 thus far with no real significant improvement of symptoms. Dr. Ocampo GI consulted and following. Patient with repeat abdomen CT showing interval development of gaseous dilatation of the colon and small bowel with similar nodular appearance of the mucosa in the sigmoid colon and rectum with findings likely representing ileus and also interval decrease in the size of the spleen now within normal limits from previous imaging. Patient was admitted with ulcerative colitis and symptomatic treatment with possible transfer to [facility] for further GI services. Patient was accepted by Dr. Garcia and currently awaiting a bed assignment at [facility]. Reviewed with no white count and hemoglobin is stable at 11.2. Sodium slightly low at 129 most likely poor solute intake with some dehydration and also some elevated kidney functions. Lactic acid was elevated on admission and improved with IV hydration. Will continue IV hydration. 09/05/2022 Patient is seen in follow-up this morning continued on IV steroids with GI following. Continue gentle IV hydration along with pain management. Patient is continued on clear liquids and will continue and also continue with symptomatic treatment. Patient is also continued on IV steroids and have been increased to 40 mg every 8 and will continue. Continue with pain management and symptomatic treatment. Patient did have a drop in hemoglobin from 11.2-8.3 and will continue to monitor closely. Sodium is improved. A PICC line is being scheduled as patient is given the be started on TPN per GI for bowel rest. General surgery services also consulted as patient is a hold for transfer to [facility] for gastroenterology and colorectal specialist although no beds available as we will have no GI services after tomorrow. Patient is afebrile and continues with sharp abdominal pains especially in the left lower quadrant. Patient denies bloody bowel movements today although had many episodes last night. Patient denies chest pain or shortness of breath. Review of systems: Constitutional: No reports of fatigue, fever, or chills Cardiovascular: No reports of chest pain or palpitations Respiratory: No reports of shortness of breath or cough GI: reports of intermittent nausea, with no vomiting, or diarrhea today : No reports of dysuria or retention Neurovascular: No reports of weakness or numbness All medications have been reviewed PHYSICAL EXAMINATION: GENERAL: The patient is alert and oriented x4, Well developed, well nourished. HEENT: Pupils are round and equally reacting to light. EOMI. no scleral icterus. No conjunctival pallor. Normocephalic, atraumatic. No pharyngeal erythema. No thyromegaly. CARDIOVASCULAR: S1 and S2 muffled PULMONARY: diminished breath sounds bilaterally with no wheezing or rhonchi noted. ABDOMEN: soft. tenderness in palpation of the left mid quadrant on exam. non- distended, normoactive bowel sounds. No palpable organomegaly. MUSCULOSKELETAL: No joint swelling or deformity. EXTREMITIES: No cyanosis, clubbing, or pedal edema. NEUROLOGICAL: Gross neurological examination did not reveal any focal deficits. SKIN: No rashes. Assessment: Ulcerative colitis failure of outpatient treatment Abdominal pain most likely secondary to above Dehydration secondary to poor oral intake and continued diarrhea Ileus as noted on CT Acute kidney injury, likely prerenal secondary to dehydration and tachycardia along with hypotension Lactic acidosis, secondary to dehydration, sepsis ruled out Anxiety GI prophylaxis DVT prophylaxis Full code Plan: Recommend to continue with current medications and management with GI following. Transfer to Tertiary Treatment [facility] was initiated in the ER for advanced GI evaluation along with colorectal specialist as patient has had multiple hospitalizations for ulcerative colitis and has been started on outpatient therapy treatments with no significant improvement and continues to be hospitalized over 5 times in the last 2 months. Patient does follow with Dr. Ocampo outpatient and was sent here for further evaluation as patient had some hypotension, dizziness, lightheadedness and dehydration with tachycardia. Patient was hydrated and lactic acid is improved and patient has been started on clear liquids. PICC line is being ordered for TPN per GI. Gen. surgery also consulted as we will no longer have GI services available after tomorrow. Continuing to wait for an update on a bed assignment at [facility]. Case management is following and checking on bed placement daily. Recommend pain management along with IV steroids per GI and continued symptomatic treatment. IV steroids have been increased to 40 mg every 8 hours per GI. Patient has been accepted by [facility] although no bed available at this time and could be possibly 4-10 days before a bed is available. Recommend follow-up labs and monitor hemoglobin closely and will transfuse as needed if less than 7. Due to multiple complex medical issues, prognosis is guarded. The impression and plan of care has been dictated by Mariana Turner nurse pract itioner as directed. Dr. Magdiel MD I have performed a history and examination and MDM of this patient, discussed the same with the dictator, and agree with the dictator's assessment and plan as written ,documented as a scribe. Based on total visit time, I have performed more than 50% of the visit. Any additional findings or plans will be noted. Objective - Vital Signs Vital signs: Vital Signs Temp 97.8 F 09/05/22 08:00 Pulse 76 09/05/22 08:00 Resp 17 09/05/22 08:00 BP 120/80 09/05/22 08:00 Pulse Ox 100 09/05/22 08:00 FiO2 Intake & Output 09/04/22 09/05/22 09/05/22 18:59 06:59 18:59 Intake Total 25 Balance 25 Weight 81.647 kg Intake: Oral 25 Other: Voiding Method Toilet # Voids 5 - Labs CBC & Chem 7: 09/05/22 10:53 09/05/22 10:53
--- NOTE | 2022-09-05 15:15 | P.GSCN ---
History of Present Illness Consult date: 09/05/22 History of present illness: CHIEF COMPLAINT: Abdominal pain HISTORY OF PRESENT ILLNESS: This is a 52-year-old male who has a known history of ulcerative colitis. His ulcerative colitis was diagnosed in April 2021. Patient resented to the hospital on 09/03/2022 with abdominal pain and diarrhea. Patient reports that most of his pain is in the left lower quadrant. He was initially having blood in his stools. He is noted to the hospital with an ulcerative colitis exacerbation. Patient has had 5 hospitalizations this year with ulcerative colitis exacerbations. He is currently on IV steroids and is being followed by GI service. Patient does report some decrease in his abdominal pain. He has had no blood in his stools today. Yesterday he had a small amount of blood. The pain is fluctuant and located mostly in the left lower quadrant. Initially on admission he was tachycardic and hypotensive this has improved. Hemoglobin is 11.2 on admission down to 8.3. Patient's is currently on a waiting list to be transferred to [facility] to be seen by a colorectal specialist. He did get a PICC line today with TPN. Patient reports that his poor oral intake due to food increasing his abdominal pain. He denies any fever chills or sweats. Denies any prior abdominal surgeries. Surgical service consulted in regards to patient's ulcerative colitis and failed outpatient treatment and ileus. PAST MEDICAL HISTORY: See below PAST SURGICAL HISTORY: See below MEDICATIONS: See below ALLERGIES: See below SOCIAL HISTORY: No illicit drug use. REVIEW OF SYSTEMS: CONSTITUTIONAL: Denies fever or chills. HEENT: Denies blurred vision, vision changes, or eye pain. Denies hemoptysis CARDIOVASCULAR: Denies chest pain or pressure. RESPIRATORY: No shortness of breath. GASTROINTESTINAL: See HPI for pertinent findings HEMATOLOGIC: Denies bleeding disorders. GENITOURINARY: Denies any blood in urine or increased urinary frequency. SKIN: Denies pruitis. Denies rash. PHYSICAL EXAM: VITAL SIGNS: Reviewed GENERAL: Well-developed in no acute distress. HEENT: No sclera icterus. Extraocular movements grossly intact. Moist buccal mucosa. Head is atraumatic, normocephalic. No nasal drainage. ABDOMEN: Soft. Nondistended. Tenderness left lower quadrant NEUROLOGIC: Alert and oriented. Cranial nerves II through XII grossly intact. LABORATORY DATA: WBC 4.3 Hgb 11.2 down to 8.3 platelets 215 Sodium is 132 potassium 4.6 creatinine 0.67 Lactic acid 3.1 down to 0.8 Total bilirubin 0.5 AST 14 ALT 17 alk phos 118 CRP 13.2 sed rate 72 IMAGING: Computed tomography scan abdomen and pelvis interval development of gastritis dilation of the colon and small bowel with similar nodular appearance of the mucosa in the sigmoid colon and rectum. Findings likely represent ileus. Interval decrease in size of spleen now within normal limits ASSESSMENT: 1. Ulcerative colitis exacerbation 2. Ileus 3. Abdominal pain PLAN: -Continue supportive care -Continue IV steroids per GI service -Patient awaiting transfer to [facility] when bed available -Continue monitor CBC -Continue IV fluids -Continue TPN for nutrition support -Further recommendations forthcoming per surgeon Physician Graphotype Operator note has been reviewed by physician. Signing provider agrees with the documented findings, assessment, and plan of care. I have personally seen and examined the patient, reviewed the FILTER TENDER /PAs history, exam and MDM and agree with the assessment and plan as written. Based on total visit time, I have performed more than 50% of the visit. As above: Patient with ongoing abdominal discomfort and ulcerative colitis exacerbation. CAT scan from 2 days ago reviewed. Colonic distention appreciated up to 8 cm it cecum. Patient says his pain comes and goes but overall seems to be improving slowly at this time. We'll follow with you. Agree with plans for colorectal surgery and advanced GI evaluation at [facility]. Past Medical History Additional Past Medical History / Comment(s): kidney stones, covid February 2021, ULCERATIVE COLITIS History of Any Multi-Drug Resistant Organisms: None Reported Past Surgical History: No Surgical Hx Reported Past Anesthesia/Blood Transfusion Reactions: No Reported Reaction Past Psychological History: No Psychological Hx Reported Smoking Status: Former smoker Past Alcohol Use History: None Reported Additional Past Alcohol Use History / Comment(s): pt and both quit smoking in January of 2021 Past Drug Use History: None Reported - Past Family History Mother Family Medical History: No Reported History Medications and Allergies Home Medications Medication Instructions Recorded Confirmed Type Ondansetron Odt [Zofran ODT] 4 mg PO Q8HR PRN #30 tab 07/30/22 09/03/22 Rx predniSONE 40 mg PO DAILY 08/08/22 09/03/22 History Acetaminophen Tab [Tylenol] 650 mg PO Q6HR PRN tab 08/14/22 09/03/22 Rx Dicyclomine [Bentyl] 10 mg PO TID PRN #30 tab 08/14/22 09/03/22 Rx HYDROcodone/APAP 5-325MG [Ralston 1 tab PO Q6HR PRN #9 tab 08/14/22 09/03/22 Rx 5-325] Simethicone [Gas-X] 125 mg PO QID PRN 08/27/22 09/03/22 History Tamsulosin [Flomax] 0.4 mg PO DAILY 08/27/22 09/03/22 History Allergies Allergy/AdvReac Type Severity Reaction Status Date / Time No Known Allergies Allergy Verified 09/03/22 17:24 Surgical - Exam Vital Signs Temp Pulse Resp BP Pulse Ox 97 F L 130 H 20 65/58 98 09/03/22 16:00 09/03/22 16:00 09/03/22 16:00 09/03/22 16:00 09/03/22 16:00 Results - Labs 09/05/22 10:53 09/05/22 10:53 Abnormal Lab Results - Last 24 Hours (Table) 09/05/22 09/05/22 Range/Units 10:53 10:53 RBC 3.08 L (4.30-5.90) m/uL Hgb 8.3 L D (13.0-17.5) gm/dL Hct 25.7 L (39.0-53.0) % Lymphocytes # 0.4 L (1.0-4.8) k/uL Sodium 132 L (137-145) mmol/L Glucose 100 H (74-99) mg/dL Calcium 7.5 L (8.4-10.2) mg/dL Diabetes panel 09/05/22 Range/Units 10:53 Sodium 132 L (137-145) mmol/L Potassium 4.6 (3.5-5.1) mmol/L Chloride 102 (98-107) mmol/L Carbon Dioxide 27 (22-30) mmol/L BUN 16 (9-20) mg/dL Creatinine 0.67 (0.66-1.25) mg/dL Glucose 100 H (74-99) mg/dL Calcium 7.5 L (8.4-10.2) mg/dL Calcium panel 09/05/22 Range/Units 10:53 Calcium 7.5 L (8.4-10.2) mg/dL Pituitary panel 09/05/22 Range/Units 10:53 Sodium 132 L (137-145) mmol/L Potassium 4.6 (3.5-5.1) mmol/L Chloride 102 (98-107) mmol/L Carbon Dioxide 27 (22-30) mmol/L BUN 16 (9-20) mg/dL Creatinine 0.67 (0.66-1.25) mg/dL Glucose 100 H (74-99) mg/dL Calcium 7.5 L (8.4-10.2) mg/dL Adrenal panel 09/05/22 Range/Units 10:53 Sodium 132 L (137-145) mmol/L Potassium 4.6 (3.5-5.1) mmol/L Chloride 102 (98-107) mmol/L Carbon Dioxide 27 (22-30) mmol/L BUN 16 (9-20) mg/dL Creatinine 0.67 (0.66-1.25) mg/dL Glucose 100 H (74-99) mg/dL Calcium 7.5 L (8.4-10.2) mg/dL
[2022-09-05 20:27] LABS: ALT 17 U/L (4-49); AST 13 U/L (17-59); African American GFR (CKD) >90 (>60 ml/min/1.73 sqM); Albumin 2.3 g/dL (3.5-5.0); Alkaline Phosphatase 75 U/L (38-126); Anion Gap 2 mmol/L; Blood Urea Nitrogen 16 mg/dL (9-20); Calcium 7.4 mg/dL (8.4-10.2); Carbon Dioxide 28 mmol/L (22-30); Chloride 101 mmol/L (98-107); Globulin 2.2 g/dL; Glucose 158 mg/dL (74-99); Magnesium 2.2 mg/dL (1.6-2.3); Non-African American GFR(CKD) >90 (>60 ml/min/1.73 sqM); Phosphorus 3.8 mg/dL (2.5-4.5); Sodium 131 mmol/L (137-145); Total Bilirubin 0.4 mg/dL (0.2-1.3); Total Protein 4.5 g/dL (6.3-8.2)
[2022-09-05] MEDS ORDERED: MVI, ADULT NO.4 WITH VIT K 10 ML, TRACE (CONC-1ML/DOSE) 1 ML in AMINO ACID 5%-D20W+LYTE... IV SCH ×3 (22:00)
[2022-09-06 00:37] LABS: Glucose,Whole Blood 159 mg/dL (70-110)
[2022-09-06] MEDS: HYDROcodone/APAP 5-325MG 1 EACH TAB PO PRN ×3 (01:50→19:59)
[2022-09-06] MEDS: MORPHINE SULFATE 4 MG/ML SYRINGE IV PRN ×3 (04:55→19:59)
[2022-09-06 06:02] LABS: African American GFR (CKD) >90 (>60 ml/min/1.73 sqM); Anion Gap 1 mmol/L; Blood Urea Nitrogen 15 mg/dL (9-20); C Reactive Protein 4.8 mg/dL (<1.0); Calcium 7.4 mg/dL (8.4-10.2); Carbon Dioxide 27 mmol/L (22-30); Chloride 101 mmol/L (98-107); Glucose 133 mg/dL (74-99); Magnesium 2.2 mg/dL (1.6-2.3); Non-African American GFR(CKD) >90 (>60 ml/min/1.73 sqM); Phosphorus 3.3 mg/dL (2.5-4.5); Potassium 3.9 mmol/L (3.5-5.1); Sodium 129 mmol/L (137-145)
[2022-09-06 06:13] LABS: Ionized Calcium 4.8 mg/dL (4.5-5.3)
[2022-09-06] MEDS: FAMOTIDINE 20 MG TAB PO SCH ×2 (08:00→19:59)
[2022-09-06] MEDS: methylPREDNISolone SOD SUCCI 40 MG/ML 1 ML VIAL IV SCH ×3 (08:00→23:34)
[2022-09-06] MEDS: TAMSULOSIN 0.4 MG CAP.ER.24H PO SCH (08:00)
[2022-09-06 09:23] LABS: HCT 26.1 % (39.6-50.0); HGB 7.9 g/dL (13.0-17.0); MCH 26.1 pg (27.0-32.0); MCHC 30.3 g/dL (32.0-37.0); MCV 86.1 fL (80.0-97.0); NRBC Per 100 WBC 0 /100 WBCS (0.0-0.0); Platelet Count 220 X 10*3/uL (140-440); RBC 3.03 X 10*6/uL (4.40-5.60); RDW 13.3 % (11.5-14.5); WBC 3.44 X 10*3/uL (4.50-10.00)
[2022-09-06 10:08] LABS: Erythrocyte Sedimentation Rate 32 mm/Hr (0-15)
--- NOTE | 2022-09-06 11:05 | P.PN ---
Subjective Progress Note Date: 09/06/22 CHIEF COMPLAINT: Ulcerative colitis exacerbation HISTORY OF PRESENT ILLNESS: Patient continues to have left lower quadrant abdominal pain. He denies any nausea or vomiting. He reports having diarrhea. Reports no blood in his stools. Patient reports his pain is about the same but has not worsened. Afebrile. WBC 3.4 for Hgb trending down to 7.9 platelets 220 sodium 129 potassium 3.9 creatinine 0.70 PHYSICAL EXAM: VITAL SIGNS: Reviewed. GENERAL: Well-developed in no acute distress. HEENT: No sclera icterus. Extraocular movements grossly intact. Moist buccal mucosa. Head is atraumatic, normocephalic. ABDOMEN: Soft. Nondistended. Tender left lower quadrant NEUROLOGIC: Alert and oriented. Cranial nerves II through XII grossly intact. ASSESSMENT: 1. Ulcerative colitis exacerbation 2. Ileus 3. Abdominal pain PLAN: -Continue supportive care -Continue IV steroids per GI service -Patient awaiting transfer to [facility] when bed available to be evaluated by colorectal surgery and advanced GI evaluation -Continue monitor CBC -Continue IV fluids -Continue TPN for nutrition support -Continue clear liquids -Will continue to follow Physician Snaker note has been reviewed by physician. Signing provider agrees with the documented findings, assessment, and plan of care. I have personally seen and examined the patient, reviewed the COMMISSARY CLERK /PAs history, exam and MDM and agree with the assessment and plan as written. Based on total visit time, I have performed more than 50% of the visit. As above: Patient feels better than yesterday. No abdominal pain or tenderness currently. Tolerating liquid diet. He did have increased stool with flatus today. On exam there is no tenderness and he is minimally bloated at this time. Continue supportive care. Await transfer. We'll follow. Objective - Vital Signs Vital signs: Vital Signs Temp 98.2 F 09/06/22 08:00 Pulse 57 L 09/06/22 08:00 Resp 16 09/06/22 08:00 BP 115/71 09/06/22 08:00 Pulse Ox 97 09/06/22 08:00 FiO2 Intake & Output 09/05/22 09/06/22 09/06/22 18:59 06:59 18:59 Intake Total 1380 Balance 1380 Weight 81.647 kg 84 kg Intake: Intake, IV Titration 1140 Amount Mvi, Adult No.4 with Vit 240 K 10 ml Trace (Conc-1Ml/ Dose) 1 ml In Amino Acid 5%-D20w+Lytes*E* 1,000 ml @ 30 mls/hr IV .Q24H CLAUDY Rx#:[id number] Sodium Chloride 0.9% 1, 900 000 ml @ 75 mls/hr IV . [id number] CLAUDY Rx#:[id number] Oral 240 Other: # Voids 1 3 # Bowel Movements 1 - Labs CBC & Chem 7: 09/06/22 05:09 09/06/22 05:09 Labs: Abnormal Lab Results - Last 24 Hours (Table) 09/05/22 09/05/22 09/05/22 Range/Units 10:53 10:53 15:34 WBC (4.50-10.00) X 10*3/uL RBC 3.08 L (4.30-5.90) m/uL Hgb 8.3 L D (13.0-17.5) gm/dL Hct 25.7 L (39.0-53.0) % MCH (27.0-32.0) pg MCHC (32.0-37.0) g/dL MPV (9.5-12.2) fL Lymphocytes # 0.4 L (1.0-4.8) k/uL ESR (0-15) mm/Hr Sodium 132 L 131 L (137-145) mmol/L Glucose 100 H 158 H (74-99) mg/dL POC Glucose (mg/dL) (70-110) mg/dL Calcium 7.5 L 7.4 L (8.4-10.2) mg/dL AST 13 L (17-59) U/L C-Reactive Protein (<1.0) mg/dL Total Protein 4.5 L (6.3-8.2) g/dL Albumin 2.3 L (3.5-5.0) g/dL 09/06/22 09/06/22 09/06/22 Range/Units 00:36 05:09 05:09 WBC 3.44 L (4.50-10.00) X 10*3/uL RBC 3.03 L (4.30-5.90) m/uL Hgb 7.9 L (13.0-17.5) gm/dL Hct 26.1 L (39.0-53.0) % MCH 26.1 L (27.0-32.0) pg MCHC 30.3 L (32.0-37.0) g/dL MPV 9.0 L (9.5-12.2) fL Lymphocytes # (1.0-4.8) k/uL ESR 32 H (0-15) mm/Hr Sodium 129 L (137-145) mmol/L Glucose 133 H (74-99) mg/dL POC Glucose (mg/dL) 159 H (70-110) mg/dL Calcium 7.4 L (8.4-10.2) mg/dL AST (17-59) U/L C-Reactive Protein 4.8 H (<1.0) mg/dL Total Protein (6.3-8.2) g/dL Albumin (3.5-5.0) g/dL
[2022-09-06] MEDS: SODIUM CHLORIDE 0.9% 1,000 ML IV SCH ×2 (12:35→19:58)
[2022-09-06] MEDS ORDERED: POTASSIUM CHLORIDE 20 MEQ in WATER FOR INJECTION 1 100ML.BAG IVPB ONE (13:30)
[2022-09-06] MEDS ORDERED: POTASSIUM CHLORIDE 20 MEQ in SODIUM CHLORIDE 0.9% 100 ML IVPB ONE (13:30)
--- NOTE | 2022-09-06 13:59 | XR ---
EXAMINATION TYPE: XR chest 1V portable DATE OF EXAM: 09/06/2022 CLINICAL HISTORY: Shortness of breath. TECHNIQUE: Single portable frontal upright view of the chest is obtained. COMPARISON: None FINDINGS: There is left-sided PICC line terminating at the caval atrial junction. Low lung volumes w ith left basilar linear scarring and/or atelectasis is seen. Right lung is clear. The cardiac silhou ette size is within normal limits. Degenerative change left glenohumeral joint noted. IMPRESSION: As above.
[2022-09-06 14:36] LABS: Prothrombin Time 10.7 sec (9.0-12.0)
--- NOTE | 2022-09-06 14:52 | P.PN ---
Subjective Progress Note Date: 09/06/22 Principal diagnosis: Ulcerative colitis This pleasant 52-year-old male who presented to the emergency department yesterday afternoon as directed by Dr. Ocampo for abdominal pain, diarrhea and dizziness. The patient is but admitted to the hospital several times for ulcerative colitis exacerbation. He was discharged on 08/29/2022. At that time he was on steroids, he is discharged home and currently on 40 mg of prednisone daily. He has been started on Inflectra last dose was about 3 weeks ago he is due next week. He was diagnosed with ulcerative colitis about 2 years ago had seen Dr. Aragon. He states he had colonoscopy about 2 years ago and followed with Dr. Aragon. On admission patient was noted to be dehydrated and hypotensive. He has been fluid resuscitated. States his last bowel movement was yesterday 1 which was bloody. He complaints of abdominal bloating and cramping. He has no nausea or vomiting. Recommendation is for transfer to a [facility] which has been initiated and patient has been accepted however it will likely be several days before admission due to a full capacity at their hospital. He currently is lying in bed, does not look like he's in any acute distress. He states his pain is manageable with medication. He's been a febrile. No fevers or chills. He had a CT of the abdomen and pelvis with contrast reporting interval development of gaseous dilation of the colon and small bowel with similar nodular appearance of the mucosa in the sigmoid colon and rectum. Findings likely represent ileus. Interval decrease in size of the spleen, now within normal limits. 09/05/2022. Patient seen and examined as a follow-up for ulcerative colitis. He went down to have PICC line placed for TPN therapy. No acute changes through the night. Patient had no bloody movements. He is passing gas, having sharp pains. He did have a drop in his hemoglobin 8.3. Pain is being managed taking morphine every 4 hours. Nausea but no vomiting. 09-26. Patient seen and reexamined is a follow-up for ulcerative colitis, abdominal pain. States he had a small little movement. Abdominal pain improved some. Only had to use IV pain medication once through the night. Repeat labs today WBC 3. for hemoglobin 7.9 platelet count 220,000 sed rate 32 down from 70 2C reactive protein 4.8 down from 13.2. Patient denies any nausea or vomiting. He is currently getting TPN. He's been afebrile, no complaints of body aches or chills. Awaiting transfer to [facility], patient currently waiting for bed availability. Updated from case management that could be as early as today or tomorrow. Objective - Vital Signs Vital signs: Vital Signs Temp 98.2 F 09/06/22 01:51 Pulse 54 L 09/06/22 01:51 Resp 17 09/06/22 01:51 BP 124/72 09/06/22 01:51 Pulse Ox 97 09/06/22 01:51 FiO2 Intake & Output 09/05/22 09/05/22 09/06/22 06:59 18:59 06:59 Intake Total 1380 Balance 1380 Weight 81.647 kg 84 kg Intake: Intake, IV Titration 1140 Amount Mvi, Adult No.4 with Vit 240 K 10 ml Trace (Conc-1Ml/ Dose) 1 ml In Amino Acid 5%-D20w+Lytes*E* 1,000 ml @ 30 mls/hr IV .Q24H CLAUDY Rx#:[id number] Sodium Chloride 0.9% 1, 900 000 ml @ 75 mls/hr IV . [id number] CLAUDY Rx#:[id number] Oral 240 Other: # Voids 5 1 3 # Bowel Movements 1 - Exam General appearance: The patient is alert, oriented, appears in no acute distress. HET: Head is normocephalic and atraumatic. Conjunctiva pink. Sclera anicteric. Neck: Supple without lymphadenopathy. Abdomen: Soft, left lower quadrant tenderness, nondistended with bowel sounds. No guarding or rigidity. Extremities: Normal skin color and turgor. No pedal edema Skin: No rashes, no jaundice Neurological: No focal deficits. Alert and oriented. - Labs CBC & Chem 7: 09/06/22 05:09 09/06/22 05:09 Labs: Abnormal Lab Results - Last 24 Hours (Table) 09/05/22 09/05/22 09/05/22 Range/Units 10:53 10:53 15:34 RBC 3.08 L (4.30-5.90) m/uL Hgb 8.3 L D (13.0-17.5) gm/dL Hct 25.7 L (39.0-53.0) % Lymphocytes # 0.4 L (1.0-4.8) k/uL Sodium 132 L 131 L (137-145) mmol/L Glucose 100 H 158 H (74-99) mg/dL POC Glucose (mg/dL) (70-110) mg/dL Calcium 7.5 L 7.4 L (8.4-10.2) mg/dL AST 13 L (17-59) U/L C-Reactive Protein (<1.0) mg/dL Total Protein 4.5 L (6.3-8.2) g/dL Albumin 2.3 L (3.5-5.0) g/dL 09/06/22 09/06/22 Range/Units 00:36 05:09 RBC (4.30-5.90) m/uL Hgb (13.0-17.5) gm/dL Hct (39.0-53.0) % Lymphocytes # (1.0-4.8) k/uL Sodium 129 L (137-145) mmol/L Glucose 133 H (74-99) mg/dL POC Glucose (mg/dL) 159 H (70-110) mg/dL Calcium 7.4 L (8.4-10.2) mg/dL AST (17-59) U/L C-Reactive Protein 4.8 H (<1.0) mg/dL Total Protein (6.3-8.2) g/dL Albumin (3.5-5.0) g/dL Assessment and Plan (1) Ulcerative colitis Narrative/Plan: 52-year-old male with history of ulcerative colitis admitted several times to the hospital for the last 1-2 months duration. Each time patient is discharged home on oral prednisone however patient states that pain is intolerable he continues to have abdominal pain and bloating, and rectal bleeding. He was started on Infectra and has had 3 treatments, last one 3 weeks ago he is due next week. He was sent over from Dr. Cervantes office with continued failed outpatient treatment. He was dehydrated and hypotensive on admission. He was resuscitated with fluids. Recommendation is transfer to tertiary center of her advanced k 9 handler/ deputy, colorecta specialist for further evaluation and treatment. For now recommend IV Solu-Medrol, Protonix 40 mg daily, clear liquid diet and symptomatic treatment. Current Visit: No Status: Acute Code(s): K51.90 - ULCERATIVE COLITIS, UNSPECIFIED, WITHOUT COMPLICATIONS SNOMED Code(s): 27762530 (2) Abdominal pain Current Visit: Yes Status: Acute Code(s): R10.9 - UNSPECIFIED ABDOMINAL PAIN SNOMED Code(s): 25028089 (3) Failure of outpatient treatment Current Visit: Yes Status: Acute Code(s): Z78.9 - OTHER SPECIFIED HEALTH STATUS SNOMED Code(s): 914212771 (4) Dehydration Current Visit: Yes Status: Acute Code(s): E86.0 - DEHYDRATION SNOMED Code(s): 85649034 (5) Ileus Current Visit: Yes Status: Acute Code(s): K56.7 - ILEUS, UNSPECIFIED SNOMED Code(s): 241489649 Plan: 1. Continue symptomatic and supportive care 2. Clear liquid diet, advance as full liquid diet, advance as tolerated 3. Solu-Medrol 40 mg every 8 hours for 2 more days then then transition to 20 mg every 8 hours 4. Protonix 40 mg daily GI prophylaxis 5. Recommend transfer to Tertiary center, [facility] for evaluation and treatment with advanced k 9 handler/ deputy, colorectal specialist. He has been accepted patient however awaiting bed. 6. PICC line ordered 7. Dietitian on consult for TPN 8. Consult to Gen. surgery Dr. Epps to follow patient for ulcerative colitis, failed outpatient treatment Thank you for allowing us to participate in the care of the patient, the GI service will sign off, gastroenterology will not be available at the hospital this weekend and through next week. Dr. Dragan Ocampo I agree with the dictator's note, documented as a scribe by Nancy Blake. excuse me
[2022-09-06 16:49] LABS: Glucose,Whole Blood 161 mg/dL (70-110)
[2022-09-06 19:22] LABS: Glucose,Whole Blood 218 mg/dL (70-110)
[2022-09-06] MEDS: HEPARIN SODIUM,PORCINE/PF 5,000 UNIT/0.5 ML SYRINGE SQ SCH (19:59)
[2022-09-06] MEDS: 1: AMINO ACID 5%-D20W+LYTES*E* 1,000 ML 2: MVI, ADULT NO.4 WITH VIT K 10 ML, TRACE (CON IV SCH ×3 (23:23)
[2022-09-06 23:34] LABS: Glucose,Whole Blood 163 mg/dL (70-110)
[2022-09-07] MEDS: MORPHINE SULFATE 4 MG/ML SYRINGE IV PRN ×3 (02:00→17:35)
[2022-09-07] MEDS: HYDROcodone/APAP 5-325MG 1 EACH TAB PO PRN (02:01)
--- NOTE | 2022-09-07 02:04 | P.PN ---
Subjective Progress Note Date: 09/06/22 This 52-year-old male who presented to the emergency department with feeling of dizziness and lightheadedness with hypotension during office visit with GI Dr. Ocampo who sent him here to the emergency department for evaluation and symptomatic treatment recommending transfer to [facility] for further GI specialist and evaluation. Family and patient felt they were not stable enough to go by private vehicle. ER initiated the transfer process although there is await for 4-10 days for a bed to be available at [facility] and they have accepted the patient recommending inpatient admission here for symptomatic treatment and pain management. Patient was agreeable with this and started on IV dose steroids and his home medications have been resumed. Patient also with pain management in the form of morphine. Will also add [place]. Patient with very little oral intake and decreased appetite due to his abdominal pain and cramping. Recommend clear liquids and IV hydration. Patient is also currently active and receiving Remicade treatments and has received 3 thus far with no real significant improvement of symptoms. Dr. Ocampo GI consulted and following. Patient with repeat abdomen CT showing interval development of gaseous dilatation of the colon and small bowel with similar nodular appearance of the mucosa in the sigmoid colon and rectum with findings likely representing ileus and also interval decrease in the size of the spleen now within normal limits from previous imaging. Patient was admitted with ulcerative colitis and symptomatic treatment with possible transfer to [facility] for further GI services. Patient was accepted by Dr. Garcia and currently awaiting a bed assignment at [facility]. Reviewed with no white count and hemoglobin is stable at 11.2. Sodium slightly low at 129 most likely poor solute intake with some dehydration and also some elevated kidney functions. Lactic acid was elevated on admission and improved with IV hydration. Will continue IV hydration. 09/05/2022 Patient is seen in follow-up this morning continued on IV steroids with GI following. Continue gentle IV hydration along with pain management. Patient is continued on clear liquids and will continue and also continue with symptomatic treatment. Patient is also continued on IV steroids and have been increased to 40 mg every 8 and will continue. Continue with pain management and symptomatic treatment. Patient did have a drop in hemoglobin from 11.2-8.3 and will continue to monitor closely. Sodium is improved. A PICC line is being scheduled as patient is given the be started on TPN per GI for bowel rest. General surgery services also consulted as patient is a hold for transfer to [facility] for gastroenterology and colorectal specialist although no beds available as we will have no GI services after tomorrow. Patient is afebrile and continues with sharp abdominal pains especially in the left lower quadrant. Patient denies bloody bowel movements today although had many episodes last night. Patient denies chest pain or shortness of breath. 09/06/2022 Patient is seen in follow-up today hemoglobin is currently 7.9. Will transfuse if 7 or less. Patient reports he has not had a bowel movement since previous day. Patient is continued on clear liquids per GI and surgery and is receiving TPN. Sodium is slightly low and will monitor closely. Patient is afebrile and denies chest pain or shortness of breath. Patient with weakness and will have PT evaluate the patient. Encouraged increased activity as tolerated. Will obtain chest xray as well. Recommend monitoring cbc daily. Review of systems: Constitutional: No reports of fatigue, fever, or chills Cardiovascular: No reports of chest pain or palpitations Respiratory: No reports of shortness of breath or cough GI: reports of intermittent nausea, with no vomiting, or diarrhea today : No reports of dysuria or retention Neurovascular: reports of generalized weakness All medications have been reviewed PHYSICAL EXAMINATION: GENERAL: The patient is alert and oriented x4, Well developed, well nourished. HEENT: Pupils are round and equally reacting to light. EOMI. no scleral icterus. No conjunctival pallor. Normocephalic, atraumatic. No pharyngeal erythema. No thyromegaly. CARDIOVASCULAR: S1 and S2 muffled PULMONARY: diminished breath sounds bilaterally with no wheezing or rhonchi noted. ABDOMEN: soft. tenderness in palpation of the left mid quadrant on exam. non- distended, normoactive bowel sounds. No palpable organomegaly. MUSCULOSKELETAL: No joint swelling or deformity. EXTREMITIES: No cyanosis, clubbing, or pedal edema. NEUROLOGICAL: Gross neurological examination did not reveal any focal deficits. SKIN: No rashes. Assessment: Ulcerative colitis failure of outpatient treatment Abdominal pain most likely secondary to above Dehydration secondary to poor oral intake and continued diarrhea Ileus as noted on CT Acute kidney injury, likely prerenal secondary to dehydration and tachycardia along with hypotension Lactic acidosis, secondary to dehydration, sepsis ruled out Anxiety GI prophylaxis DVT prophylaxis Full code Plan: Recommend to continue with current medications and management with GI following. Awaiting transfer to tertiary [facility] and has been accepted with no bed available at this time. Needs advanced GI evaluation along with colorectal specialist as patient has had multiple hospitalizations for ulcerativ e colitis and has been started on outpatient therapy treatments with no significant improvement and continues to be hospitalized over 5 times in the last 2 months. Patient does follow with Dr. Ocampo outpatient. Patient has a picc line and receiving TPN per GI. Gen. surgery following as needed as we will no longer have GI services available after today. Continuing to wait for an update on a bed assignment at [facility]. Case management is following and checking on bed placement daily. Recommend pain management along with IV steroids per GI and continued symptomatic treatment. IV steroids have been increased to 40 mg every 8 hours per GI. Patient has been accepted by [facility] although no bed available at this time and could be possibly 4-10 days before a bed is available. Recommend follow-up labs and monitor hemoglobin closely and will transfuse as needed if less than 7. Hemoglobin is 7.9 today. Due to multiple complex medical issues, prognosis is guarded. The impression and plan of care has been dictated by Mariana Turner, nurse practitioner as directed. Dr. Magdiel MD I have performed a history and examination and MDM of this patient, discussed t he same with the dictator, and agree with the dictator's assessment and plan as written ,documented as a scribe. Based on total visit time, I have performed more than 50% of the visit. Any additional findings or plans will be noted. Objective - Vital Signs Vital signs: Vital Signs Temp 98.2 F 09/06/22 01:51 Pulse 54 L 09/06/22 01:51 Resp 17 09/06/22 01:51 BP 124/72 09/06/22 01:51 Pulse Ox 97 09/06/22 01:51 FiO2 Intake & Output 09/05/22 09/06/22 09/06/22 18:59 06:59 18:59 Intake Total 1380 Balance 1380 Weight 81.647 kg 84 kg Intake: Intake, IV Titration 1140 Amount Mvi, Adult No.4 with Vit 240 K 10 ml Trace (Conc-1Ml/ Dose) 1 ml In Amino Acid 5%-D20w+Lytes*E* 1,000 ml @ 30 mls/hr IV .Q24H [facility] Rx#:[id number] Sodium Chloride 0.9% 1, 900 000 ml @ 75 mls/hr IV . [id number] [facility] Rx#:[id number] Oral 240 Other: # Voids 1 3 # Bowel Movements 1 - Labs CBC & Chem 7: 09/06/22 05:09 09/06/22 05:09 Labs: Abnormal Lab Results - Last 24 Hours (Table) 09/05/22 09/05/22 09/05/22 Range/Units 10:53 10:53 15:34 WBC (4.50-10.00) X 10*3/uL RBC 3.08 L (4.30-5.90) m/uL Hgb 8.3 L D (13.0-17.5) gm/dL Hct 25.7 L (39.0-53.0) % MCH (27.0-32.0) pg MCHC (32.0-37.0) g/dL MPV (9.5-12.2) fL Lymphocytes # 0.4 L (1.0-4.8) k/uL Sodium 132 L 131 L (137-145) mmol/L Glucose 100 H 158 H (74-99) mg/dL POC Glucose (mg/dL) (70-110) mg/dL Calcium 7.5 L 7.4 L (8.4-10.2) mg/dL AST 13 L (17-59) U/L C-Reactive Protein (<1.0) mg/dL Total Protein 4.5 L (6.3-8.2) g/dL Albumin 2.3 L (3.5-5.0) g/dL 09/06/22 09/06/22 09/06/22 Range/Units 00:36 05:09 05:09 WBC 3.44 L (4.50-10.00) X 10*3/uL RBC 3.03 L (4.30-5.90) m/uL Hgb 7.9 L (13.0-17.5) gm/dL Hct 26.1 L (39.0-53.0) % MCH 26.1 L (27.0-32.0) pg MCHC 30.3 L (32.0-37.0) g/dL MPV 9.0 L (9.5-12.2) fL Lymphocytes # (1.0-4.8) k/uL Sodium 129 L (137-145) mmol/L Glucose 133 H (74-99) mg/dL POC Glucose (mg/dL) 159 H (70-110) mg/dL Calcium 7.4 L (8.4-10.2) mg/dL AST (17-59) U/L C-Reactive Protein 4.8 H (<1.0) mg/dL Total Protein (6.3-8.2) g/dL Albumin (3.5-5.0) g/dL
[2022-09-07 06:13] LABS: Glucose,Whole Blood 182 mg/dL (70-110)
[2022-09-07] MEDS: ONDANSETRON ODT 4 MG TAB PO PRN (06:33)
[2022-09-07 07:52] LABS: African American GFR (CKD) >90 (>60 ml/min/1.73 sqM); Anion Gap 3 mmol/L; Blood Urea Nitrogen 12 mg/dL (9-20); Calcium 7.4 mg/dL (8.4-10.2); Carbon Dioxide 29 mmol/L (22-30); Chloride 100 mmol/L (98-107); Glucose 149 mg/dL (74-99); Magnesium 2.2 mg/dL (1.6-2.3); Non-African American GFR(CKD) >90 (>60 ml/min/1.73 sqM); Phosphorus 3.3 mg/dL (2.5-4.5); Potassium 4.1 mmol/L (3.5-5.1); Sodium 132 mmol/L (137-145)
[2022-09-07] MEDS ORDERED: FAT EMULSION 20% 250 ML IV SCH (09:00)
[2022-09-07] MEDS: methylPREDNISolone SOD SUCCI 40 MG/ML 1 ML VIAL IV SCH ×2 (09:42→15:01)
[2022-09-07] MEDS: HEPARIN SODIUM,PORCINE/PF 5,000 UNIT/0.5 ML SYRINGE SQ SCH ×2 (10:24→21:11)
[2022-09-07] MEDS: FAMOTIDINE 20 MG TAB PO SCH ×2 (10:24→21:11)
[2022-09-07] MEDS: TAMSULOSIN 0.4 MG CAP.ER.24H PO SCH (10:24)
[2022-09-07 11:20] LABS: HCT 25.1 % (39.6-50.0); HGB 7.6 g/dL (13.0-17.0); MCH 25.8 pg (27.0-32.0); MCHC 30.3 g/dL (32.0-37.0); MCV 85.1 fL (80.0-97.0); Mean Platelet Volume 8.9 fL (9.5-12.2); NRBC Per 100 WBC 0.6 /100 WBCS (0.0-0.0); Platelet Count 214 X 10*3/uL (140-440); RBC 2.95 X 10*6/uL (4.40-5.60); RDW 13.2 % (11.5-14.5); WBC 3.53 X 10*3/uL (4.50-10.00)
[2022-09-07] MEDS ORDERED: DEXTROSE 50% SYRINGE 50 ML IVP PRN ×2 (11:39)
[2022-09-07] MEDS: INSULIN ASPART (NovoLOG) 100 UNIT/ML VIAL SQ SCH ×3 (11:58→21:11)
[2022-09-07 12:08] LABS: Glucose,Whole Blood 178 mg/dL (70-110)
--- NOTE | 2022-09-07 12:48 | P.PN ---
Subjective Progress Note Date: 09/07/22 Family bedside. Pain present but stable compared to yesterday. Pending transfer to [facility]. Medications adjusted to scheduled Bentyl and simethicone and colonic spasm Objective - Vital Signs Vital signs: Vital Signs Temp 98.4 F 09/07/22 08:00 Pulse 62 09/07/22 09:39 Resp 18 09/07/22 09:39 BP 128/77 09/07/22 08:00 Pulse Ox 98 09/07/22 08:00 FiO2 Intake & Output 09/06/22 09/07/22 09/07/22 18:59 06:59 18:59 Intake Total 1130 Balance 1130 Weight 84 kg 84.5 kg Intake: Intake, IV Titration 410 Amount Amino Acid 5%-D20w+Lytes* 320 E* 1,000 ml @ 40 mls/hr IV .BY [facility] Rx#: [id number] Mvi, Adult No.4 with Vit 90 K 10 ml Trace (Conc-1Ml/ Dose) 1 ml In Amino Acid 5%-D20w+Lytes*E* 1,000 ml @ 30 mls/hr IV .Q24H [facility] Rx#:[id number] Oral 720 Other: Voiding Method Toilet # Voids 2 # Bowel Movements 1 - Labs CBC & Chem 7: 09/07/22 06:57 09/07/22 06:57 Labs: Abnormal Lab Results - Last 24 Hours (Table) 09/06/22 09/06/22 09/06/22 Range/Units 16:47 19:20 23:33 WBC (4.50-10.00) X 10*3/uL RBC (4.40-5.60) X 10*6/uL Hgb (13.0-17.0) g/dL Hct (39.6-50.0) % MCH (27.0-32.0) pg MCHC (32.0-37.0) g/dL MPV (9.5-12.2) fL Absolute Nucleated RBC (0.00-0.00) X 10*3/uL NRBC/100 WBC Diff (0.0-0.0) /100 WBCS Sodium (137-145) mmol/L Creatinine (0.66-1.25) mg/dL Glucose (74-99) mg/dL POC Glucose (mg/dL) 161 H 218 H 163 H (70-110) mg/dL Calcium (8.4-10.2) mg/dL 09/07/22 09/07/22 09/07/22 Range/Units 06:12 06:57 06:57 WBC 3.53 L (4.50-10.00) X 10*3/uL RBC 2.95 L (4.40-5.60) X 10*6/uL Hgb 7.6 L (13.0-17.0) g/dL Hct 25.1 L (39.6-50.0) % MCH 25.8 L (27.0-32.0) pg MCHC 30.3 L (32.0-37.0) g/dL MPV 8.9 L (9.5-12.2) fL Absolute Nucleated RBC 0.02 H (0.00-0.00) X 10*3/uL NRBC/100 WBC Diff 0.6 H (0.0-0.0) /100 WBCS Sodium 132 L (137-145) mmol/L Creatinine 0.60 L (0.66-1.25) mg/dL Glucose 149 H (74-99) mg/dL POC Glucose (mg/dL) 182 H (70-110) mg/dL Calcium 7.4 L (8.4-10.2) mg/dL 09/07/22 Range/Units 12:07 WBC (4.50-10.00) X 10*3/uL RBC (4.40-5.60) X 10*6/uL Hgb (13.0-17.0) g/dL Hct (39.6-50.0) % MCH (27.0-32.0) pg MCHC (32.0-37.0) g/dL MPV (9.5-12.2) fL Absolute Nucleated RBC (0.00-0.00) X 10*3/uL NRBC/100 WBC Diff (0.0-0.0) /100 WBCS Sodium (137-145) mmol/L Creatinine (0.66-1.25) mg/dL Glucose (74-99) mg/dL POC Glucose (mg/dL) 178 H (70-110) mg/dL Calcium (8.4-10.2) mg/dL
[2022-09-07 13:29] LABS: Basophils # (A) 0 X 10*3/uL (0.00-0.10); Basophils % (A) 0 %; Eosinophils # (A) 0 X 10*3/uL (0.04-0.35); Eosinophils % (A) 0 %; Immature Grans, Automated 1.7 %; Lymphocytes # (A) 0.28 X 10*3/uL (0.90-5.00); Lymphocytes % (A) 7.9 %; Monocytes # (A) 0.37 X 10*3/uL (0.20-1.00); Monocytes % (A) 10.5 %; Neutrophils # (A) 2.82 X 10*3/uL (1.80-7.70); Neutrophils % (A) 79.9 %
[2022-09-07 13:30] LABS: RBC Morphology NORMAL
[2022-09-07] MEDS: DICYCLOMINE 10 MG CAP PO SCH ×3 (13:35→21:11)
[2022-09-07] MEDS: SIMETHICONE 40 MG/0.6 ML DROPS 2,000 MG/30 ML BOTTLE PO SCH ×3 (13:36→21:11)
[2022-09-07 16:36] LABS: Glucose,Whole Blood 202 mg/dL (70-110)
[2022-09-07] MEDS: SODIUM CHLORIDE 0.9% 1,000 ML IV SCH (17:31)
--- NOTE | 2022-09-07 19:07 | P.PN ---
Subjective Progress Note Date: 09/07/22 This 52-year-old male who presented to the emergency department with feeling of dizziness and lightheadedness with hypotension during office visit with GI Dr. Ocampo who sent him here to the emergency department for evaluation and symptomatic treatment recommending transfer to [facility] for further GI specialist and evaluation. Family and patient felt they were not stable enough to go by private vehicle. ER initiated the transfer process although there is await for 4-10 days for a bed to be available at [facility] and they have accepted the patient recommending inpatient admission here for symptomatic treatment and pain management. Patient was agreeable with this and started on IV dose steroids and his home medications have been resumed. Patient also with pain management in the form of morphine. Will also add [place]. Patient with very little oral intake and decreased appetite due to his abdominal pain and cramping. Recommend clear liquids and IV hydration. Patient is also currently active and receiving Remicade treatments and has received 3 thus far with no real significant improvement of symptoms. Dr. Ocampo GI consulted and following. Patient with repeat abdomen CT showing interval development of gaseous dilatation of the colon and small bowel with similar nodular appearance of the mucosa in the sigmoid colon and rectum with findings likely representing ileus and also interval decrease in the size of the spleen now within normal limits from previous imaging. Patient was admitted with ulcerative colitis and symptomatic treatment with possible transfer to [facility] for further GI services. Patient was accepted by Dr. Garcia and currently awaiting a bed assignment at [facility]. Reviewed with no white count and hemoglobin is stable at 11.2. Sodium slightly low at 129 most likely poor solute intake with some dehydration and also some elevated kidney functions. Lactic acid was elevated on admission and improved with IV hydration. Will continue IV hydration. 09/05/2022 Patient is seen in follow-up this morning continued on IV steroids with GI following. Continue gentle IV hydration along with pain management. Patient is continued on clear liquids and will continue and also continue with symptomatic treatment. Patient is also continued on IV steroids and have been increased to 40 mg every 8 and will continue. Continue with pain management and symptomatic treatment. Patient did have a drop in hemoglobin from 11.2-8.3 and will continue to monitor closely. Sodium is improved. A PICC line is being scheduled as patient is given the be started on TPN per GI for bowel rest. General surgery services also consulted as patient is a hold for transfer to [facility] for gastroenterology and colorectal specialist although no beds available as we will have no GI services after tomorrow. Patient is afebrile and continues with sharp abdominal pains especially in the left lower quadrant. Patient denies bloody bowel movements today although had many episodes last night. Patient denies chest pain or shortness of breath. 09/06/2022 Patient is seen in follow-up today hemoglobin is currently 7.9. Will transfuse if 7 or less. Patient reports he has not had a bowel movement since previous day. Patient is continued on clear liquids per GI and surgery and is receiving TPN. Sodium is slightly low and will monitor closely. Patient is afebrile and denies chest pain or shortness of breath. Patient with weakness and will have PT evaluate the patient. Encouraged increased activity as tolerated. Will obtain chest xray as well. Recommend monitoring cbc daily. 09/07/2022 Patient seen today and awaiting transfer to [facility] GI and colorectal specialist. Patient with ulcerative colitis and having bloody bowel movements. Hemoglobin is 7.6 today and will monitor closely. Patient is on full liquid along with TPN and blood sugars are elevated. Will add sliding scale and accuchecks achs. Encouraged increased activity as tolerated. General surgery following as we have no GI service available at this time. Afebrile and no reports of chest pain or shortness of breath. Abdominal discomfort with cramping persists. Review of systems: Constitutional: No reports of fatigue, fever, or chills Cardiovascular: No reports of chest pain or palpitations Respiratory: No reports of shortness of breath or cough GI: reports of intermittent nausea, with no vomiting, or diarrhea today : No reports of dysuria or retention Neurovascular: reports of generalized weakness All medications have been reviewed PHYSICAL EXAMINATION: GENERAL: The patient is alert and oriented x4, Well developed, well nourished. HEENT: Pupils are round and equally reacting to light. EOMI. no scleral icterus. No conjunctival pallor. Normocephalic, atraumatic. No pharyngeal erythema. No thyromegaly. CARDIOVASCULAR: S1 and S2 muffled PULMONARY: diminished breath sounds bilaterally with no wheezing or rhonchi noted. ABDOMEN: soft. tenderness in palpation of the left mid quadrant on exam. non- distended, normoactive bowel sounds. No palpable organomegaly. MUSCULOSKELETAL: No joint swelling or deformity. EXTREMITIES: No cyanosis, clubbing, or pedal edema. NEUROLOGICAL: Gross neurological examination did not reveal any focal deficits. SKIN: No rashes. Assessment: Ulcerative colitis failure of outpatient treatment Abdominal pain most likely secondary to above Dehydration secondary to poor oral intake and continued diarrhea Ileus as noted on CT Acute kidney injury, likely prerenal secondary to dehydration and tachycardia along with hypotension Lactic acidosis, secondary to dehydration, sepsis ruled out Anxiety GI prophylaxis DVT prophylaxis Full code Plan: Recommend to continue with current medications and management with general surgery following. Awaiting transfer to tertiary treatment [facility] and has been accepted with no bed available at this time. Needs advanced GI evaluation along with colorectal specialist as patient has had multiple hospitalizations for ulcerative colitis and has been started on outpatient therapy treatments with no significant improvement and continues to be hospitali zed over 5 times in the last 2 months. Patient does follow with Dr. Ocampo outpatient. Patient has a picc line and receiving TPN per GI. Gen. surgery following as needed as we will no longer have GI services available after today. Continuing to wait for an update on a bed assignment at [facility]. Case management is following and checking on bed placement daily. Recommend pain management along with IV steroids per GI and continued symptomatic treatment. IV steroids have been increased to 40 mg every 8 hours per GI. blood sugars are rising and will add sliding scale and accuchecks achs. Hemoglobin is 7.6 today and will monitor closely. Patient has been accepted by [facility] although no bed available at this time. Recommend follow-up labs and monitor hemoglobin closely and will transfuse as needed if less than 7. Due to multiple complex medical issues, prognosis is guarded. The impression and plan of care has been dictated as a scribe by Mariana Turner, nurse practitioner as directed. Dr. Magdiel MD I have performed a history and examination and MDM of this patient, discussed the same with the dictator, and will be documented as a scribe. Based on total visit time, I have performed more than 50% of the visit. Any additional findings or plans will be noted. Objective - Vital Signs Vital signs: Vital Signs Temp 98.4 F 09/07/22 08:00 Pulse 62 09/07/22 08:00 Resp 18 09/07/22 08:00 BP 128/77 09/07/22 08:00 Pulse Ox 98 09/07/22 08:00 FiO2 Intake & Output 09/06/22 09/07/22 09/07/22 18:59 06:59 18:59 Intake Total 1130 Balance 1130 Weight 84 kg 84.5 kg Intake: Intake, IV Titration 410 Amount Amino Acid 5%-D20w+Lytes* 320 E* 1,000 ml @ 40 mls/hr IV .BY DURATION [facility] Rx#: [id number] Mvi, Adult No.4 with Vit 90 K 10 ml Trace (Conc-1Ml/ Dose) 1 ml In Amino Acid 5%-D20w+Lytes*E* 1,000 ml @ 30 mls/hr IV .Q24H [facility] Rx#:[id number] Oral 720 Other: # Voids 2 # Bowel Movements 1 - Labs CBC & Chem 7: 09/07/22 06:57 09/07/22 06:57 Labs: Abnormal Lab Results - Last 24 Hours (Table) 09/06/22 09/06/22 09/06/22 Range/Units 05:09 16:47 19:20 WBC 3.44 L (4.50-10.00) X 10*3/uL RBC 3.03 L (4.40-5.60) X 10*6/uL Hgb 7.9 L (13.0-17.0) g/dL Hct 26.1 L (39.6-50.0) % MCH 26.1 L (27.0-32.0) pg MCHC 30.3 L (32.0-37.0) g/dL MPV 9.0 L (9.5-12.2) fL ESR 32 H (0-15) mm/Hr Sodium (137-145) mmol/L Creatinine (0.66-1.25) mg/dL Glucose (74-99) mg/dL POC Glucose (mg/dL) 161 H 218 H (70-110) mg/dL Calcium (8.4-10.2) mg/dL 09/06/22 09/07/22 09/07/22 Range/Units 23:33 06:12 06:57 WBC (4.50-10.00) X 10*3/uL RBC (4.40-5.60) X 10*6/uL Hgb (13.0-17.0) g/dL Hct (39.6-50.0) % MCH (27.0-32.0) pg MCHC (32.0-37.0) g/dL MPV (9.5-12.2) fL ESR (0-15) mm/Hr Sodium 132 L (137-145) mmol/L Creatinine 0.60 L (0.66-1.25) mg/dL Glucose 149 H (74-99) mg/dL POC Glucose (mg/dL) 163 H 182 H (70-110) mg/dL Calcium 7.4 L (8.4-10.2) mg/dL
[2022-09-07 20:51] LABS: Glucose,Whole Blood 262 mg/dL (70-110)
[2022-09-08 00:24] LABS: Glucose,Whole Blood 141 mg/dL (70-110)
[2022-09-08] MEDS: 1: AMINO ACID 5%-D20W+LYTES*E* 1,000 ML 2: MVI, ADULT NO.4 WITH VIT K 10 ML, TRACE (CON IV SCH ×3 (00:53)
[2022-09-08] MEDS: methylPREDNISolone SOD SUCCI 40 MG/ML 1 ML VIAL IV SCH ×3 (00:56→18:19)
[2022-09-08] MEDS: MORPHINE SULFATE 4 MG/ML SYRINGE IV PRN ×4 (01:01→18:19)
[2022-09-08] MEDS: SODIUM CHLORIDE 0.9% 1,000 ML IV SCH ×2 (05:56→18:20)
[2022-09-08 06:21] LABS: Glucose,Whole Blood 180 mg/dL (70-110)
[2022-09-08] MEDS: INSULIN ASPART (NovoLOG) 100 UNIT/ML VIAL SQ SCH ×4 (06:58→21:25)
[2022-09-08 07:45] LABS: African American GFR (CKD) >90 (>60 ml/min/1.73 sqM); Anion Gap 4 mmol/L; Blood Urea Nitrogen 13 mg/dL (9-20); Calcium 7.9 mg/dL (8.4-10.2); Carbon Dioxide 31 mmol/L (22-30); Chloride 98 mmol/L (98-107); Glucose 157 mg/dL (74-99); Magnesium 2.2 mg/dL (1.6-2.3); Non-African American GFR(CKD) >90 (>60 ml/min/1.73 sqM); Phosphorus 3.1 mg/dL (2.5-4.5); Potassium 4.2 mmol/L (3.5-5.1); Sodium 133 mmol/L (137-145)
[2022-09-08] MEDS: TAMSULOSIN 0.4 MG CAP.ER.24H PO SCH (08:40)
[2022-09-08] MEDS: FAMOTIDINE 20 MG TAB PO SCH ×2 (08:40→21:25)
[2022-09-08] MEDS: SIMETHICONE 40 MG/0.6 ML DROPS 2,000 MG/30 ML BOTTLE PO SCH ×4 (08:40→21:25)
[2022-09-08] MEDS: DICYCLOMINE 10 MG CAP PO SCH ×4 (08:40→21:25)
[2022-09-08] MEDS: HEPARIN SODIUM,PORCINE/PF 5,000 UNIT/0.5 ML SYRINGE SQ SCH ×2 (08:40→21:24)
[2022-09-08 10:30] LABS: HCT 29.1 % (39.6-50.0); HGB 8.9 g/dL (13.0-17.0); MCH 26.2 pg (27.0-32.0); MCHC 30.6 g/dL (32.0-37.0); MCV 85.6 fL (80.0-97.0); Mean Platelet Volume 9.1 fL (9.5-12.2); NRBC Per 100 WBC 0.9 /100 WBCS (0.0-0.0); Platelet Count 267 X 10*3/uL (140-440); RDW 13.3 % (11.5-14.5); WBC 4.34 X 10*3/uL (4.50-10.00)
[2022-09-08 11:39] LABS: Glucose,Whole Blood 225 mg/dL (70-110)
[2022-09-08 12:44] LABS: Basophils # (A) 0.02 X 10*3/uL (0.00-0.10); Basophils % (A) 0.5 %; Eosinophils # (A) 0 X 10*3/uL (0.04-0.35); Eosinophils % (A) 0 %; Immature Grans, Automated 4.4 %; Lymphocytes # (A) 0.35 X 10*3/uL (0.90-5.00); Lymphocytes % (A) 8.1 %; Monocytes # (A) 0.24 X 10*3/uL (0.20-1.00); Monocytes % (A) 5.5 %; Neutrophils # (A) 3.54 X 10*3/uL (1.80-7.70); Neutrophils % (A) 81.5 %; RBC Morphology NORMAL
--- NOTE | 2022-09-08 13:01 | P.PN ---
Subjective Progress Note Date: 09/08/22 This 52-year-old male who presented to the emergency department with feeling of dizziness and lightheadedness with hypotension during office visit with GI Dr. Ocampo who sent him here to the emergency department for evaluation and symptomatic treatment recommending transfer to [facility] for further GI specialist and evaluation. Family and patient felt they were not stable enough to go by private vehicle. ER initiated the transfer process although there is await for 4-10 days for a bed to be available at [facility] and they have accepted the patient recommending inpatient admission here for symptomatic treatment and pain management. Patient was agreeable with this and started on IV dose steroids and his home medications have been resumed. Patient also with pain management in the form of morphine. Will also add [place]. Patient with very little oral intake and decreased appetite due to his abdominal pain and cramping. Recommend clear liquids and IV hydration. Patient is also currently active and receiving Remicade treatments and has received 3 thus far with no real significant improvement of symptoms. Dr. Ocampo GI consulted and following. Patient with repeat abdomen CT showing interval development of gaseous dilatation of the colon and small bowel with similar nodular appearance of the mucosa in the sigmoid colon and rectum with findings likely representing ileus and also interval decrease in the size of the spleen now within normal limits from previous imaging. Patient was admitted with ulcerative colitis and symptomatic treatment with possible transfer to [facility] for further GI services. Patient was accepted by Dr. Garcia and currently awaiting a bed assignment at [facility]. Reviewed with no white count and hemoglobin is stable at 11.2. Sodium slightly low at 129 most likely poor solute intake with some dehydration and also some elevated kidney functions. Lactic acid was elevated on admission and improved with IV hydration. Will continue IV hydration. 09/05/2022 Patient is seen in follow-up this morning continued on IV steroids with GI following. Continue gentle IV hydration along with pain management. Patient is continued on clear liquids and will continue and also continue with symptomatic treatment. Patient is also continued on IV steroids and have been increased to 40 mg every 8 and will continue. Continue with pain management and symptomatic treatment. Patient did have a drop in hemoglobin from 11.2-8.3 and will continue to monitor closely. Sodium is improved. A PICC line is being scheduled as patient is given the be started on TPN per GI for bowel rest. General surgery services also consulted as patient is a hold for transfer to [facility] for gastroenterology and colorectal specialist although no beds available as we will have no GI services after tomorrow. Patient is afebrile and continues with sharp abdominal pains especially in the left lower quadrant. Patient denies bloody bowel movements today although had many episodes last night. Patient denies chest pain or shortness of breath. 09/06/2022 Patient is seen in follow-up today hemoglobin is currently 7.9. Will transfuse if 7 or less. Patient reports he has not had a bowel movement since previous day. Patient is continued on clear liquids per GI and surgery and is receiving TPN. Sodium is slightly low and will monitor closely. Patient is afebrile and denies chest pain or shortness of breath. Patient with weakness and will have PT evaluate the patient. Encouraged increased activity as tolerated. Will obtain chest xray as well. Recommend monitoring cbc daily. 09/07/2022 Patient seen today and awaiting transfer to [facility] for GI and colorectal specialist. Patient with ulcerative colitis and having bloody bowel movements. Hemoglobin is 7.6 today and will monitor closely. Patient is on full liquid along with TPN and blood sugars are elevated. Will add sliding scale and accuchecks achs. Encouraged increased activity as tolerated. General surgery following as we have no GI service available at this time. Afebrile and no reports of chest pain or shortness of breath. Abdominal discomfort with cramping persists. 09/08/2022 Patient is seen today and continues with abdominal pain and reports to having loose stools. Hemoglobin is 8.9 today and no active bleeding noted. Patient is on 40 IV q 8 steroids and will continue accuchecks and sliding scale. Full liquid diet. Patient is afebrile and denies chest pain or shortness of breath. Encouraged increased activity as tolerated. Awaiting a bed at [facility] for GI and colorectal specialist evaluation. Review of systems: Constitutional: No reports of fatigue, fever, or chills Cardiovascular: No reports of chest pain or palpitations Respiratory: No reports of shortness of breath or cough GI: reports of intermittent nausea, with no vomiting, reports brown diarrhea today : No reports of dysuria or retention Neurovascular: reports of generalized weakness All medications have been reviewed PHYSICAL EXAMINATION: GENERAL: The patient is alert and oriented x4, Well developed, well nourished. HEENT: Pupils are round and equally reacting to light. EOMI. no scleral icterus. No conjunctival pallor. Normocephalic, atraumatic. No pharyngeal erythema. No thyromegaly. CARDIOVASCULAR: S1 and S2 muffled PULMONARY: diminished breath sounds bilaterally with no wheezing or rhonchi noted. ABDOMEN: soft. tenderness in palpation of the left mid quadrant on exam. non- distended, normoactive bowel sounds. No palpable organomegaly. MUSCULOSKELETAL: No joint swelling or deformity. EXTREMITIES: No cyanosis, clubbing, or pedal edema. NEUROLOGICAL: Gross neurological examination did not reveal any focal deficits. diffuse weakness SKIN: No rashes. Assessment: Ulcerative colitis failure of outpatient treatment Abdominal pain most likely secondary to above Dehydration secondary to poor oral intake and continued diarrhea Ileus as noted on CT Acute kidney injury, likely prerenal secondary to dehydration and tachycardia along with hypotension Lactic acidosis, secondary to dehydration, sepsis ruled out Anxiety GI prophylaxis DVT prophylaxis Full code Plan: Recommend to continue with current medications and management with general berger rgery following. Awaiting transfer to tertiary treatment [facility] and has been accepted with no bed available at this time. Needs advanced GI evaluation along with colorectal specialist as patient has had multiple hospitalizations for ulcerative colitis and has been started on outpatient th erapy treatments with no significant improvement and continues to be hospitalized over 5 times in the last 2 months. Case management is following and will follow up about bed placement daily. Recommend pain management along with IV steroids per GI and continued symptomatic treatment. IV steroids have been increased to 40 mg every 8 hours per GI. blood sugars are rising and will add sliding scale and accuchecks achs. Hemoglobin is 8.9 today and will monitor closely. Recommend follow-up labs and monitor hemoglobin closely and will transfuse as needed if less than 7. Due to multiple complex medical issues, prognosis is guarded. The impression and plan of care has been dictated as a scribe by Mariana Turner nurse practitioner as directed. Dr. Magdiel MD I have performed a history and examination and MDM of this patient, discussed the same with the dictator, and will be documented as a scribe. Based on total visit time, I have performed more than 50% of the visit. Any additional findings or plans will be noted. Objective - Vital Signs Vital signs: Vital Signs Temp 98.1 F 09/08/22 08:00 Pulse 67 09/08/22 08:00 Resp 18 09/08/22 08:00 BP 103/68 09/08/22 08:00 Pulse Ox 100 09/08/22 08:00 FiO2 Intake & Output 09/07/22 09/08/22 09/08/22 18:59 06:59 18:59 Intake Total 1000 Balance 1000 Weight 84.5 kg 82.2 kg Intake: Intake, IV Titration 1000 Amount Amino Acid 5%-D20w+Lytes* 1000 E* 1,000 ml @ 40 mls/hr IV .BY DURATION [facility] Rx#: [id number] Other: Voiding Method Toilet Toilet - Labs CBC & Chem 7: 09/08/22 07:08 09/08/22 07:08 Labs: Abnormal Lab Results - Last 24 Hours (Table) 09/07/22 09/07/22 09/07/22 Range/Units 06:57 12:07 16:35 WBC 3.53 L (4.50-10.00) X 10*3/uL RBC 2.95 L (4.40-5.60) X 10*6/uL Hgb 7.6 L (13.0-17.0) g/dL Hct 25.1 L (39.6-50.0) % MCH 25.8 L (27.0-32.0) pg MCHC 30.3 L (32.0-37.0) g/dL MPV 8.9 L (9.5-12.2) fL Absolute Nucleated RBC 0.02 H (0.00-0.00) X 10*3/uL Immature Gran # 0.06 H (0.00-0.04) X 10*3/uL Lymphocytes # 0.28 L (0.90-5.00) X 10*3/uL Eosinophils # 0 L (0.04-0.35) X 10*3/uL NRBC/100 WBC Diff 0.6 H (0.0-0.0) /100 WBCS Sodium (137-145) mmol/L Carbon Dioxide (22-30) mmol/L Creatinine (0.66-1.25) mg/dL Glucose (74-99) mg/dL POC Glucose (mg/dL) 178 H 202 H (70-110) mg/dL Calcium (8.4-10.2) mg/dL 09/07/22 09/08/22 09/08/22 Range/Units 20:50 00:23 06:19 WBC (4.50-10.00) X 10*3/uL RBC (4.40-5.60) X 10*6/uL Hgb (13.0-17.0) g/dL Hct (39.6-50.0) % MCH (27.0-32.0) pg MCHC (32.0-37.0) g/dL MPV (9.5-12.2) fL Absolute Nucleated RBC (0.00-0.00) X 10*3/uL Immature Gran # (0.00-0.04) X 10*3/uL Lymphocytes # (0.90-5.00) X 10*3/uL Eosinophils # (0.04-0.35) X 10*3/uL NRBC/100 WBC Diff (0.0-0.0) /100 WBCS Sodium (137-145) mmol/L Carbon Dioxide (22-30) mmol/L Creatinine (0.66-1.25) mg/dL Glucose (74-99) mg/dL POC Glucose (mg/dL) 262 H 141 H 180 H (70-110) mg/dL Calcium (8.4-10.2) mg/dL 09/08/22 Range/Units 07:08 WBC (4.50-10.00) X 10*3/uL RBC (4.40-5.60) X 10*6/uL Hgb (13.0-17.0) g/dL Hct (39.6-50.0) % MCH (27.0-32.0) pg MCHC (32.0-37.0) g/dL MPV (9.5-12.2) fL Absolute Nucleated RBC (0.00-0.00) X 10*3/uL Immature Gran # (0.00-0.04) X 10*3/uL Lymphocytes # (0.90-5.00) X 10*3/uL Eosinophils # (0.04-0.35) X 10*3/uL NRBC/100 WBC Diff (0.0-0.0) /100 WBCS Sodium 133 L (137-145) mmol/L Carbon Dioxide 31 H (22-30) mmol/L Creatinine 0.55 L (0.66-1.25) mg/dL Glucose 157 H (74-99) mg/dL POC Glucose (mg/dL) (70-110) mg/dL Calcium 7.9 L (8.4-10.2) mg/dL
--- NOTE | 2022-09-08 13:43 | P.PN ---
Subjective Progress Note Date: 09/08/22 Patient ingesting pleasure foods. On TPN. No increased abdominal pain. Pending transfer to [facility] where colorectal surgeon assessment. Objective - Vital Signs Vital signs: Vital Signs Temp 97.6 F 09/08/22 13:37 Pulse 82 09/08/22 13:37 Resp 18 09/08/22 13:37 BP 111/73 09/08/22 13:37 Pulse Ox 96 09/08/22 13:37 FiO2 Intake & Output 09/07/22 09/08/22 09/08/22 18:59 06:59 18:59 Intake Total 1000 Balance 1000 Weight 84.5 kg 82.2 kg Intake: Intake, IV Titration 1000 Amount Amino Acid 5%-D20w+Lytes* 1000 E* 1,000 ml @ 40 mls/hr IV .BY DURATION [facility] Rx#: [id number] Other: Voiding Method Toilet Toilet Toilet - Labs CBC & Chem 7: 09/08/22 07:08 09/08/22 07:08 Labs: Abnormal Lab Results - Last 24 Hours (Table) 09/07/22 09/07/22 09/08/22 Range/Units 16:35 20:50 00:23 WBC (4.50-10.00) X 10*3/uL RBC (4.40-5.60) X 10*6/uL Hgb (13.0-17.0) g/dL Hct (39.6-50.0) % MCH (27.0-32.0) pg MCHC (32.0-37.0) g/dL MPV (9.5-12.2) fL Absolute Nucleated RBC (0.00-0.00) X 10*3/uL Immature Gran # (0.00-0.04) X 10*3/uL Lymphocytes # (0.90-5.00) X 10*3/uL Eosinophils # (0.04-0.35) X 10*3/uL NRBC/100 WBC Diff (0.0-0.0) /100 WBCS Sodium (137-145) mmol/L Carbon Dioxide (22-30) mmol/L Creatinine (0.66-1.25) mg/dL Glucose (74-99) mg/dL POC Glucose (mg/dL) 202 H 262 H 141 H (70-110) mg/dL Calcium (8.4-10.2) mg/dL 09/08/22 09/08/22 09/08/22 Range/Units 06:19 07:08 07:08 WBC 4.34 L (4.50-10.00) X 10*3/uL RBC 3.40 L (4.40-5.60) X 10*6/uL Hgb 8.9 L (13.0-17.0) g/dL Hct 29.1 L (39.6-50.0) % MCH 26.2 L (27.0-32.0) pg MCHC 30.6 L (32.0-37.0) g/dL MPV 9.1 L (9.5-12.2) fL Absolute Nucleated RBC 0.04 H (0.00-0.00) X 10*3/uL Immature Gran # 0.19 H (0.00-0.04) X 10*3/uL Lymphocytes # 0.35 L (0.90-5.00) X 10*3/uL Eosinophils # 0 L (0.04-0.35) X 10*3/uL NRBC/100 WBC Diff 0.9 H (0.0-0.0) /100 WBCS Sodium 133 L (137-145) mmol/L Carbon Dioxide 31 H (22-30) mmol/L Creatinine 0.55 L (0.66-1.25) mg/dL Glucose 157 H (74-99) mg/dL POC Glucose (mg/dL) 180 H (70-110) mg/dL Calcium 7.9 L (8.4-10.2) mg/dL 09/08/22 Range/Units 11:37 WBC (4.50-10.00) X 10*3/uL RBC (4.40-5.60) X 10*6/uL Hgb (13.0-17.0) g/dL Hct (39.6-50.0) % MCH (27.0-32.0) pg MCHC (32.0-37.0) g/dL MPV (9.5-12.2) fL Absolute Nucleated RBC (0.00-0.00) X 10*3/uL Immature Gran # (0.00-0.04) X 10*3/uL Lymphocytes # (0.90-5.00) X 10*3/uL Eosinophils # (0.04-0.35) X 10*3/uL NRBC/100 WBC Diff (0.0-0.0) /100 WBCS Sodium (137-145) mmol/L Carbon Dioxide (22-30) mmol/L Creatinine (0.66-1.25) mg/dL Glucose (74-99) mg/dL POC Glucose (mg/dL) 225 H (70-110) mg/dL Calcium (8.4-10.2) mg/dL
[2022-09-08 18:08] LABS: Glucose,Whole Blood 235 mg/dL (70-110)
[2022-09-08 20:44] LABS: Glucose,Whole Blood 251 mg/dL (70-110)
[2022-09-09] MEDS: 1: AMINO ACID 5%-D20W+LYTES*E* 1,000 ML 2: MVI, ADULT NO.4 WITH VIT K 10 ML, TRACE (CON IV SCH ×3 (00:34)
[2022-09-09] MEDS: methylPREDNISolone SOD SUCCI 40 MG/ML 1 ML VIAL IV SCH ×3 (00:35→17:25)
[2022-09-09] MEDS: MORPHINE SULFATE 4 MG/ML SYRINGE IV PRN ×5 (00:52→22:11)
[2022-09-09 06:30] LABS: Glucose,Whole Blood 218 mg/dL (70-110)
[2022-09-09] MEDS: INSULIN ASPART (NovoLOG) 100 UNIT/ML VIAL SQ SCH ×4 (06:37→22:07)
[2022-09-09] MEDS: FAMOTIDINE 20 MG TAB PO SCH ×2 (08:07→22:06)
[2022-09-09] MEDS: DICYCLOMINE 10 MG CAP PO SCH ×4 (08:07→22:06)
[2022-09-09] MEDS: HEPARIN SODIUM,PORCINE/PF 5,000 UNIT/0.5 ML SYRINGE SQ SCH ×2 (08:07→22:07)
[2022-09-09] MEDS: TAMSULOSIN 0.4 MG CAP.ER.24H PO SCH (08:07)
[2022-09-09] MEDS: SIMETHICONE 40 MG/0.6 ML DROPS 2,000 MG/30 ML BOTTLE PO SCH ×4 (09:46→22:08)
[2022-09-09 10:00] LABS: African American GFR (CKD) >90 (>60 ml/min/1.73 sqM); Anion Gap 4 mmol/L; Blood Urea Nitrogen 20 mg/dL (9-20); Calcium 7.7 mg/dL (8.4-10.2); Carbon Dioxide 31 mmol/L (22-30); Chloride 97 mmol/L (98-107); Glucose 198 mg/dL (74-99); Magnesium 2.1 mg/dL (1.6-2.3); Non-African American GFR(CKD) >90 (>60 ml/min/1.73 sqM); Phosphorus 3.3 mg/dL (2.5-4.5); Potassium 3.8 mmol/L (3.5-5.1); Sodium 132 mmol/L (137-145)
[2022-09-09 10:09] LABS: Basophils % (A) 0 %; Eosinophils % (A) 0 %; HCT 26.7 % (39.0-53.0); HGB 8.2 gm/dL (13.0-17.5); Hypochromasia Marked; Lymphocytes # (A) 0.3 k/uL (1.0-4.8); Lymphocytes % (A) 7 %; MCH 26.1 pg (25.0-35.0); MCHC 30.6 g/dL (31.0-37.0); MCV 85.2 fL (80.0-100.0); Mean Platelet Volume 7.7; Monocytes # (A) 0.2 k/uL (0-1.0); Monocytes % (A) 5 %; Neutrophils # (A) 3.6 k/uL (1.3-7.7); Neutrophils % (A) 85 %; Platelet Count 225 k/uL (150-450); RBC 3.13 m/uL (4.30-5.90); RDW 13.4 % (11.5-15.5); WBC 4.2 k/uL (3.8-10.6)
[2022-09-09 11:22] LABS: Glucose,Whole Blood 270 mg/dL (70-110)
[2022-09-09 11:59] LABS: Glucose,Whole Blood 255 mg/dL (70-110)
--- NOTE | 2022-09-09 12:14 | P.PN ---
Subjective Progress Note Date: 09/09/22 CHIEF COMPLAINT: Ulcerative colitis exacerbation HISTORY OF PRESENT ILLNESS: Patient continues to have left lower quadrant abdominal pain. He denies any nausea or vomiting. Patient reports her stools are loose few solid consistent particles. He reports minimal occasional bleeding. Pain is about the same. His pain has not worsened. He is still awaiting bed availability at [facility]. Afebrile. WBC 4.2 Hgb 8.2 units to 25 sodium 132 creatinine 0.62 PHYSICAL EXAM: VITAL SIGNS: Reviewed. GENERAL: Well-developed in no acute distress. HEENT: No sclera icterus. Extraocular movements grossly intact. Moist buccal mucosa. Head is atraumatic, normocephalic. ABDOMEN: Soft. Nondistended. Tender left lower quadrant NEUROLOGIC: Alert and oriented. Cranial nerves II through XII grossly intact. ASSESSMENT: 1. Ulcerative colitis exacerbation 2. Ileus 3. Abdominal pain PLAN: -Continue supportive care -Continue IV steroids per GI service -Patient awaiting transfer to [facility] when bed available to be evaluated by colorectal surgery and advanced GI evaluation -Continue IV fluids -Continue TPN for nutrition support -Continue clear liquids -Will continue to follow Physician M[employer] Steamer Operator note has been reviewed by physician. Signing provider agrees with the documented findings, assessment, and plan of care. I have personally seen and examined the patient, reviewed the TELEMETRY MONITOR /PAs history, exam and MDM and agree with the assessment and plan as written. Based on total visit time, I have performed more than 50% of the visit. As above: Patient says his pain is somewhat worse today than it was over the weekend but thinks is related to more moving around. He is passing stools that are still loose but nonbloody. He is passing a large amount of flatus. Denies nausea or vomiting. On exam the patient's tenderness is mild in its in the left lower quadrant. There is no distention or tympany present. Continue antibiotics and supportive measures. Objective - Vital Signs Vital signs: Vital Signs Temp 98.3 F 09/09/22 07:57 Pulse 73 09/09/22 07:57 Resp 18 09/09/22 07:57 BP 111/73 09/09/22 07:57 Pulse Ox 99 09/09/22 07:57 FiO2 Intake & Output 12/04/22 12/05/22 12/05/22 18:59 06:59 18:59 Intake Total 955.333 Balance 955.333 Weight 81.6 kg Intake: Intake, IV Titration 955.333 Amount Mvi, Adult No.4 with Vit 955.333 K 10 ml Trace (Conc-1Ml/ Dose) 1 ml In Amino Acid 5%-D20w+Lytes*E* 1,000 ml @ 40 mls/hr IV .BY DURATION [facility] Rx#: [id number] Other: Voiding Method Toilet Toilet Toilet # Voids 2 - Labs CBC & Chem 7: 09/09/22 08:46 09/09/22 08:46 Labs: Abnormal Lab Results - Last 24 Hours (Table) 09/08/22 09/08/22 09/08/22 Range/Units 07:08 18:07 20:43 RBC (4.30-5.90) m/uL Hgb (13.0-17.5) gm/dL Hct (39.0-53.0) % MCHC (31.0-37.0) g/dL Immature Gran # 0.19 H (0.00-0.04) X 10*3/uL Lymphocytes # 0.35 L (0.90-5.00) X 10*3/uL Eosinophils # 0 L (0.04-0.35) X 10*3/uL Sodium (137-145) mmol/L Chloride (98-107) mmol/L Carbon Dioxide (22-30) mmol/L Creatinine (0.66-1.25) mg/dL Glucose (74-99) mg/dL POC Glucose (mg/dL) 235 H 251 H (70-110) mg/dL Calcium (8.4-10.2) mg/dL 09/09/22 09/09/22 09/09/22 Range/Units 06:28 08:46 08:46 RBC 3.13 L (4.30-5.90) m/uL Hgb 8.2 L (13.0-17.5) gm/dL Hct 26.7 L (39.0-53.0) % MCHC 30.6 L (31.0-37.0) g/dL Immature Gran # (0.00-0.04) X 10*3/uL Lymphocytes # 0.3 L (0.90-5.00) X 10*3/uL Eosinophils # (0.04-0.35) X 10*3/uL Sodium 132 L (137-145) mmol/L Chloride 97 L (98-107) mmol/L Carbon Dioxide 31 H (22-30) mmol/L Creatinine 0.62 L (0.66-1.25) mg/dL Glucose 198 H (74-99) mg/dL POC Glucose (mg/dL) 218 H (70-110) mg/dL Calcium 7.7 L (8.4-10.2) mg/dL 09/09/22 09/09/22 Range/Units 11:20 11:58 RBC (4.30-5.90) m/uL Hgb (13.0-17.5) gm/dL Hct (39.0-53.0) % MCHC (31.0-37.0) g/dL Immature Gran # (0.00-0.04) X 10*3/uL Lymphocytes # (0.90-5.00) X 10*3/uL Eosinophils # (0.04-0.35) X 10*3/uL Sodium (137-145) mmol/L Chloride (98-107) mmol/L Carbon Dioxide (22-30) mmol/L Creatinine (0.66-1.25) mg/dL Glucose (74-99) mg/dL POC Glucose (mg/dL) 270 H 255 H (70-110) mg/dL Calcium (8.4-10.2) mg/dL
[2022-09-09] MEDS: SODIUM CHLORIDE 0.9% 1,000 ML IV SCH (12:28)
[2022-09-09 16:47] LABS: Glucose,Whole Blood 258 mg/dL (70-110)
[2022-09-09 21:07] LABS: Glucose,Whole Blood 282 mg/dL (70-110)
[2022-09-09] MEDS: [UNRECOGNIZED DRUG - NUTRITION] IV SCH ×5 (22:40)
[2022-09-10] MEDS: methylPREDNISolone SOD SUCCI 40 MG/ML 1 ML VIAL IV SCH ×3 (01:01→15:46)
--- NOTE | 2022-09-10 04:37 | P.PN ---
Subjective Progress Note Date: 09/09/22 This 52-year-old male who presented to the emergency department with feeling of dizziness and lightheadedness with hypotension during office visit with GI Dr. Ocampo who sent him here to the emergency department for evaluation and symptomatic treatment recommending transfer to [facility] for further GI specialist and evaluation. Family and patient felt they were not stable enough to go by private vehicle. ER initiated the transfer process although there is await for 4-10 days for a bed to be available at [facility] and they have accepted the patient recommending inpatient admission here for symptomatic treatment and pain management. Patient was agreeable with this and started on IV dose steroids and his home medications have been resumed. Patient also with pain management in the form of morphine. Will also add [place]. Patient with very little oral intake and decreased appetite due to his abdominal pain and cramping. Recommend clear liquids and IV hydration. Patient is also currently active and receiving Remicade treatments and has received 3 thus far with no real significant improvement of symptoms. Dr. Ocampo GI consulted and following. Patient with repeat abdomen CT showing interval development of gaseous dilatation of the colon and small bowel with similar nodular appearance of the mucosa in the sigmoid colon and rectum with findings likely representing ileus and also interval decrease in the size of the spleen now within normal limits from previous imaging. Patient was admitted with ulcerative colitis and symptomatic treatment with possible transfer to [facility] for further GI services. Patient was accepted by Dr. Garcia and currently awaiting a bed assignment at [facility]. Reviewed with no white count and hemoglobin is stable at 11.2. Sodium slightly low at 129 most likely poor solute intake with some dehydration and also some elevated kidney functions. Lactic acid was elevated on admission and improved with IV hydration. Will continue IV hydration. 09/05/2022 Patient is seen in follow-up this morning continued on IV steroids with GI following. Continue gentle IV hydration along with pain management. Patient is continued on clear liquids and will continue and also continue with symptomatic treatment. Patient is also continued on IV steroids and have been increased to 40 mg every 8 and will continue. Continue with pain management and symptomatic treatment. Patient did have a drop in hemoglobin from 11.2-8.3 and will continue to monitor closely. Sodium is improved. A PICC line is being scheduled as patient is given the be started on TPN per GI for bowel rest. General surgery services also consulted as patient is a hold for transfer to [facility] for gastroenterology and colorectal specialist although no beds available as we will have no GI services after tomorrow. Patient is afebrile and continues with sharp abdominal pains especially in the left lower quadrant. Patient denies bloody bowel movements today although had many episodes last night. Patient denies chest pain or shortness of breath. 09/06/2022 Patient is seen in follow-up today hemoglobin is currently 7.9. Will transfuse if 7 or less. Patient reports he has not had a bowel movement since previous day. Patient is continued on clear liquids per GI and surgery and is receiving TPN. Sodium is slightly low and will monitor closely. Patient is afebrile and denies chest pain or shortness of breath. Patient with weakness and will have PT evaluate the patient. Encouraged increased activity as tolerated. Will obtain chest xray as well. Recommend monitoring cbc daily. 09/07/2022 Patient seen today and awaiting transfer to [facility] for GI and colorectal specialist. Patient with ulcerative colitis and having bloody bowel movements. Hemoglobin is 7.6 today and will monitor closely. Patient is on full liquid along with TPN and blood sugars are elevated. Will add sliding scale and accuchecks achs. Encouraged increased activity as tolerated. General surgery following as we have no GI service available at this time. Afebrile and no reports of chest pain or shortness of breath. Abdominal discomfort with cramping persists. 09/08/2022 Patient is seen today and continues with abdominal pain and reports to having loose stools. Hemoglobin is 8.9 today and no active bleeding noted. Patient is on 40 IV q 8 steroids and will continue accuchecks and sliding scale. Full liquid diet. Patient is afebrile and denies chest pain or shortness of breath. Encouraged increased activity as tolerated. Awaiting a bed at [facility] for GI and colorectal specialist evaluation. 09/09/2022 Patient is seen and evaluated in follow-up today and continued on TPN with IV steroids and full liquid diet. Awaiting transfer to [facility] with no bed available at this time. Case management following up on bed availability. Patient hemoglobin is stable and reports he is having diarrhea that is brown with no blood noted. Per GI, IV steroids being decreased to 20mg IV q8. Continue with pain management. Tolerating full liquid diet. Afebrile and denies chest pain or shortness of breath. Encouraged increased activity as tolerated. Review of systems: Constitutional: No reports of fatigue, fever, or chills Cardiovascular: No reports of chest pain or palpitations Respiratory: No reports of shortness of breath or cough GI: reports of intermittent nausea, with no vomiting, reports brown diarrhea today, reports continued cramping : No reports of dysuria or retention Neurovascular: reports of generalized weakness All medications have been reviewed PHYSICAL EXAMINATION: GENERAL: The patient is alert and oriented x4, Well developed, well nourished. HEENT: Pupils are round and equally reacting to light. EOMI. no scleral icterus. No conjunctival pallor. Normocephalic, atraumatic. No pharyngeal erythema. No thyromegaly. CARDIOVASCULAR: S1 and S2 muffled PULMONARY: diminished breath sounds bilaterally with no wheezing or rhonchi noted. ABDOMEN: soft. tenderness in palpation of the left mid quadrant on exam. wood crafter mping, non-distended, normoactive bowel sounds. No palpable organomegaly. MUSCULOSKELETAL: No joint swelling or deformity. EXTREMITIES: No cyanosis, clubbing, or pedal edema. NEUROLOGICAL: Gross neurological examination did not reveal any focal deficits. diffuse weakness SKIN: No rashes. Assessment: Ulcerative colitis failure of outpatient treatment Abdominal pain most likely secondary to above Dehydration secondary to poor oral intake and continued diarrhea Ileus as noted on CT Post picc line placement for TPN Acute kidney injury, likely prerenal secondary to dehydration and tachycardia along with hypotension, improved Lactic acidosis, secondary to dehydration, sepsis ruled out Anxiety GI prophylaxis DVT prophylaxis Full code Plan: Recommend to continue with current medications and management with general surgery following. Awaiting transfer to tertiary treatment [facility] and has been accepted with no bed available at this time. Needs advanced GI evaluation along with colorectal specialist as patient has had multiple hospitalizations for ulcerative colitis and has been started on outpatient therapy treatments with remicaid with no significant improvement and continues to be hospitalized over 5 times in the last 2 months. Case management is following and will follow up about bed placement daily. #6 on the list of possible transfers and awaiting a bed. Recommend pain management along with IV steroids per GI and continued symptomatic treatment. IV steroids have been decreased to 20 mg every 8 hours per GI. blood sugars are being monitored and will continued sliding scale and accuchecks achs. Hemoglobin is stable today and will monitor closely. Recommend follow-up labs and monitor hemoglobin closely and will transfuse as needed if less than 7. Due to multiple complex medical issues, prognosis is guarded. The impression and plan of care has been dictated by Mariana Turner, Nurse Practitioner as directed. Dr. Oliverio MD I have performed a history and examination and MDM of this patient, discussed the same with the dictator, and agree with the dictator's assessment and plan as written ,documented as a scribe. Based on total visit time, I have performed more than 50% of the visit. Objective - Vital Signs Vital signs: Vital Signs Temp 98.3 F 09/09/22 07:57 Pulse 73 09/09/22 07:57 Resp 18 09/09/22 07:57 BP 111/73 09/09/22 07:57 Pulse Ox 99 09/09/22 07:57 FiO2 Intake & Output 09/08/22 09/09/22 09/09/22 18:59 06:59 18:59 Intake Total 955.333 Balance 955.333 Weight 81.6 kg Intake: Intake, IV Titration 955.333 Amount Mvi, Adult No.4 with Vit 955.333 K 10 ml Trace (Conc-1Ml/ Dose) 1 ml In Amino Acid 5%-D20w+Lytes*E* 1,000 ml @ 40 mls/hr IV .BY DURATION [facility] Rx#: [id number] Other: Voiding Method Toilet Toilet Toilet # Voids 2 - Labs CBC & Chem 7: 09/09/22 08:46 09/09/22 08:46 Labs: Abnormal Lab Results - Last 24 Hours (Table) 09/08/22 09/08/22 09/08/22 Range/Units 07:08 11:37 18:07 WBC 4.34 L (4.50-10.00) X 10*3/uL RBC 3.40 L (4.40-5.60) X 10*6/uL Hgb 8.9 L (13.0-17.0) g/dL Hct 29.1 L (39.6-50.0) % MCH 26.2 L (27.0-32.0) pg MCHC 30.6 L (32.0-37.0) g/dL MPV 9.1 L (9.5-12.2) fL Absolute Nucleated RBC 0.04 H (0.00-0.00) X 10*3/uL Immature Gran # 0.19 H (0.00-0.04) X 10*3/uL Lymphocytes # 0.35 L (0.90-5.00) X 10*3/uL Eosinophils # 0 L (0.04-0.35) X 10*3/uL NRBC/100 WBC Diff 0.9 H (0.0-0.0) /100 WBCS Sodium (137-145) mmol/L Chloride (98-107) mmol/L Carbon Dioxide (22-30) mmol/L Creatinine (0.66-1.25) mg/dL Glucose (74-99) mg/dL POC Glucose (mg/dL) 225 H 235 H (70-110) mg/dL Calcium (8.4-10.2) mg/dL 09/08/22 09/09/22 09/09/22 Range/Units 20:43 06:28 08:46 WBC (4.50-10.00) X 10*3/uL RBC (4.40-5.60) X 10*6/uL Hgb (13.0-17.0) g/dL Hct (39.6-50.0) % MCH (27.0-32.0) pg MCHC (32.0-37.0) g/dL MPV (9.5-12.2) fL Absolute Nucleated RBC (0.00-0.00) X 10*3/uL Immature Gran # (0.00-0.04) X 10*3/uL Lymphocytes # (0.90-5.00) X 10*3/uL Eosinophils # (0.04-0.35) X 10*3/uL NRBC/100 WBC Diff (0.0-0.0) /100 WBCS Sodium 132 L (137-145) mmol/L Chloride 97 L (98-107) mmol/L Carbon Dioxide 31 H (22-30) mmol/L Creatinine 0.62 L (0.66-1.25) mg/dL Glucose 198 H (74-99) mg/dL POC Glucose (mg/dL) 251 H 218 H (70-110) mg/dL Calcium 7.7 L (8.4-10.2) mg/dL 09/09/22 Range/Units 08:46 WBC (4.50-10.00) X 10*3/uL RBC 3.13 L (4.40-5.60) X 10*6/uL Hgb 8.2 L (13.0-17.0) g/dL Hct 26.7 L (39.6-50.0) % MCH (27.0-32.0) pg MCHC 30.6 L (32.0-37.0) g/dL MPV (9.5-12.2) fL Absolute Nucleated RBC (0.00-0.00) X 10*3/uL Immature Gran # (0.00-0.04) X 10*3/uL Lymphocytes # 0.3 L (0.90-5.00) X 10*3/uL Eosinophils # (0.04-0.35) X 10*3/uL NRBC/100 WBC Diff (0.0-0.0) /100 WBCS Sodium (137-145) mmol/L Chloride (98-107) mmol/L Carbon Dioxide (22-30) mmol/L Creatinine (0.66-1.25) mg/dL Glucose (74-99) mg/dL POC Glucose (mg/dL) (70-110) mg/dL Calcium (8.4-10.2) mg/dL
[2022-09-10] MEDS: MORPHINE SULFATE 4 MG/ML SYRINGE IV PRN ×5 (05:32→22:12)
[2022-09-10 06:34] LABS: Glucose,Whole Blood 221 mg/dL (70-110)
[2022-09-10] MEDS: INSULIN ASPART (NovoLOG) 100 UNIT/ML VIAL SQ SCH ×4 (07:10→21:08)
[2022-09-10] MEDS: HEPARIN SODIUM,PORCINE/PF 5,000 UNIT/0.5 ML SYRINGE SQ SCH ×2 (08:42→21:08)
[2022-09-10] MEDS: SIMETHICONE 40 MG/0.6 ML DROPS 2,000 MG/30 ML BOTTLE PO SCH ×4 (08:42→21:09)
[2022-09-10] MEDS: TAMSULOSIN 0.4 MG CAP.ER.24H PO SCH (08:42)
[2022-09-10] MEDS: DICYCLOMINE 10 MG CAP PO SCH ×4 (08:42→21:08)
[2022-09-10] MEDS: FAMOTIDINE 20 MG TAB PO SCH ×2 (08:42→21:08)
[2022-09-10 09:42] LABS: African American GFR (CKD) 146.4 (60.0-200.0); Anion Gap 6.3 mmol/L (10.00-18.00); BUN/Creat Ratio 36.2 Ratio (12.00-20.00); Blood Urea Nitrogen 18.1 mg/dL (9.0-27.0); Calcium 8.3 mg/dL (8.7-10.3); Carbon Dioxide 32.7 mmol/L (20.0-27.5); Non-African American GFR(CKD) 126.4 (60.0-200.0); Potassium 4.3 mmol/L (3.5-5.5)
--- NOTE | 2022-09-10 10:48 | P.PN ---
Subjective Progress Note Date: 09/10/22 CHIEF COMPLAINT: Ulcerative colitis exacerbation HISTORY OF PRESENT ILLNESS: Patient reports that his pain is slightly decreased than yesterday. Still located in left lower quadrant. He did have a small bloody bowel movement this morning. Afebrile. Cr 0.5 PHYSICAL EXAM: VITAL SIGNS: Reviewed. GENERAL: Well-developed in no acute distress. HEENT: No sclera icterus. Extraocular movements grossly intact. Moist buccal mucosa. Head is atraumatic, normocephalic. ABDOMEN: Soft. Nondistended. Tender left lower quadrant NEUROLOGIC: Alert and oriented. Cranial nerves II through XII grossly intact. ASSESSMENT: 1. Ulcerative colitis exacerbation 2. Ileus 3. Abdominal pain PLAN: -Continue supportive care -Continue IV steroids per GI service -Patient awaiting transfer to [facility] when bed available to be evaluated by colorectal surgery and advanced GI evaluation -Continue TPN for nutrition support -Continue clear liquids Physician Nozzle Worker note has been reviewed by physician. Signing provider agrees with the documented findings, assessment, and plan of care. I have personally seen and examined the patient, reviewed the ENDING MACHINE OPERATOR /PAs history, exam and MDM and agree with the assessment and plan as written. Based on total visit time, I have performed more than 50% of the visit. As above: throughout the day the patient's pain has gotten slightly greater than it was yesterday. He thinks is related to his steroids being decreased. Mild tenderness left lower quadrant. Slightly more distended than yesterday. Denies nausea or vomiting. Would like to try to eat more. Will advance diet. Objective - Vital Signs Vital signs: Vital Signs Temp 98.1 F 09/10/22 07:33 Pulse 58 L 09/10/22 07:33 Resp 16 09/10/22 07:33 BP 111/72 09/10/22 07:33 Pulse Ox 98 09/10/22 07:33 FiO2 Intake & Output 09/09/22 09/10/22 09/10/22 18:59 06:59 18:59 Intake Total 1480 Balance 1480 Weight 82.1 kg Intake: Intake, IV Titration 1480 Amount Amino Acid 5%-D20w+Lytes* 1000 E* 1,000 ml @ 40 mls/hr IV .BY DURATION [facility] Rx#: [id number] Mvi, Adult No.4 with Vit 480 K 10 ml Trace (Conc-1Ml/ Dose) 1 ml Sodium Chloride 4Meq/ml Vial 21 meq Potassium Chloride 10 meq In Amino Acid 5%- D20w+Lytes*E* 1,000 ml @ 40 mls/hr IV .BY DURATION [facility] Rx#:[id number] Other: Voiding Method Toilet - Labs CBC & Chem 7: 09/09/22 08:46 09/10/22 06:28 Labs: Abnormal Lab Results - Last 24 Hours (Table) 09/09/22 09/09/22 09/09/22 Range/Units 11:20 11:58 16:45 Carbon Dioxide (20.0-27.5) mmol/L Anion Gap (10.00-18.00) mmol/L Creatinine (0.6-1.5) mg/dL BUN/Creatinine Ratio (12.00-20.00) Ratio Glucose (70-110) mg/dL POC Glucose (mg/dL) 270 H 255 H 258 H (70-110) mg/dL Calcium (8.7-10.3) mg/dL 09/09/22 09/10/22 09/10/22 Range/Units 21:05 06:28 06:32 Carbon Dioxide 32.7 H (20.0-27.5) mmol/L Anion Gap 6.30 L (10.00-18.00) mmol/L Creatinine 0.5 L (0.6-1.5) mg/dL BUN/Creatinine Ratio 36.20 H (12.00-20.00) Ratio Glucose 187 H (70-110) mg/dL POC Glucose (mg/dL) 282 H 221 H (70-110) mg/dL Calcium 8.3 L (8.7-10.3) mg/dL
[2022-09-10 11:15] LABS: Glucose,Whole Blood 238 mg/dL (70-110)
[2022-09-10 13:56] VITALS: BMI 25.9
[2022-09-10 16:02] LABS: Glucose,Whole Blood 264 mg/dL (70-110)
[2022-09-10 20:20] LABS: Glucose,Whole Blood 272 mg/dL (70-110)
[2022-09-10] MEDS: [UNRECOGNIZED DRUG - NUTRITION] IV SCH ×5 (22:56)
[2022-09-10 23:09] VITALS: BP 100/67; PULSE 76; RESP 15; TEMP 98
--- NOTE | 2022-09-11 03:22 | P.DS ---
Providers Date of admission: 09/03/22 21:19 Expected date of discharge: 09/10/22 Attending physician: Margarito Leonardo MD Consults: 09/03/22 21:17 Consult Physician Routine Consulting Provider: Tanika Ocampo Consult Reason/Comments: Your patient. Ulcerative colitis. Do you want consulting provider notified?: Yes 09/05/22 09:22 Consult Physician Routine Consulting Provider: Terrell Epps Consult Reason/Comments: ulcerative colitis, ileus, failed outpatient treatment Do you want consulting provider notified?: Yes Primary care physician: Yazan Mullen Hospital Course: Final Diagnosis Ulcerative colitis failure of outpatient treatment Abdominal pain most likely secondary to above Dehydration secondary to poor oral intake and continued diarrhea Ileus as noted on CT Post picc line placement for TPN Acute kidney injury, likely prerenal secondary to dehydration and tachycardia along with hypotension, improved Lactic acidosis, secondary to dehydration, sepsis ruled out Anxiety GI prophylaxis DVT prophylaxis Full code Discharge disposition Patient is being transferred in a stable condition with guarded prognosis to [facility] for colorectal specialist evaluation. Patient will follow-up with Dr. Mullen in the outpatient setting upon discharge. Patient is to also follow up outpatient with Remicaid infusions and GI dr. Ocampo. Total time taken is greater than 35 minutes. Hospital course This is a 52-year-old male who was recently admitted with ulcerative colitis and being closely monitored. Patient has been receiving remicaid treatments and is due for his 4th treatment this . GI saw the patient in office and not feeling well, hypotensive and feeling like he was too weak to drive down to [facility] and was sent here for further evaluation with transfer process initiated. There was a 4-10 day wait on a bed and patient and family aware. Transfer team called to receive an update on patient and that a bed was available. Spoke to accepting physician DR. Zee and report was given. Patient awaiting transport. Currently no reports of chest pain, shortness of breath, or palpitations. Patient is afebrile. No reports of nausea or vomiting and patient is tolerating diet. Patient with continued abdominal cramping. Patient is agreeable to the transfer. Guarded prognosis. High risk for readmissions. On exam vital signs are stable. Cardio S1, S2 are muffled. Respiratory system shows diminished breath sounds at the bases with no wheezing or rhonchi noted. Abdomen is soft and mildly tender on the left. Nervous system shows diffuse weakness. Please refer to medication reconciliation sheet for a list of medications. The impression and plan of care has been dictated by Mariana Turner, Nurse Practitioner as directed. Dr. Oliverio MD I have performed a history and examination and MDM of this patient, discussed the same with the dictator, and agree with the dictator's assessment and plan as written ,documented as a scribe. Based on total visit time, I have performed more than 50% of the visit. Patient Condition at Discharge: Fair Plan - Discharge Summary Discharge Rx Participant: No New Discharge Prescriptions: No Action predniSONE 40 mg PO DAILY Simethicone [Gas-X] 125 mg PO QID PRN PRN Reason: gas Ondansetron Odt [Zofran ODT] 4 mg PO Q8HR PRN #30 tab PRN Reason: Nausea Acetaminophen Tab [Tylenol] 650 mg PO Q6HR PRN tab PRN Reason: Fever Dicyclomine [Bentyl] 10 mg PO TID PRN #30 tab PRN Reason: Pain HYDROcodone/APAP 5-325MG [[place] 5-325] 1 tab PO Q6HR PRN #9 tab PRN Reason: Pain Tamsulosin [Flomax] 0.4 mg PO DAILY Discharge Medication List Ondansetron Odt [Zofran ODT] 4 mg PO Q8HR PRN #30 tab 07/30/22 [Rx] predniSONE 40 mg PO DAILY 08/08/22 [History] Acetaminophen Tab [Tylenol] 650 mg PO Q6HR PRN tab 08/14/22 [Rx] Dicyclomine [Bentyl] 10 mg PO TID PRN #30 tab 08/14/22 [Rx] HYDROcodone/APAP 5-325MG [[place] 5-325] 1 tab PO Q6HR PRN #9 tab 08/14/22 [Rx] Simethicone [Gas-X] 125 mg PO QID PRN 08/27/22 [History] Tamsulosin [Flomax] 0.4 mg PO DAILY 08/27/22 [History] Follow up Appointment(s)/Referral(s): Yazan Mullen MD [Primary Care Provider] - 1-2 days
--- NOTE | 2022-09-13 18:52 | CDI ---
Documentation Clarification Form Date: 09/13/2022 06:41:15 PM From: Lou Oscar Phone: Admit Date: 09/03/2022 09:19:00 PM Patient Name: Howard Austin Visit Number: [id number] Discharge Date: 09/10/2022 11:10:00 PM ATTENTION: The Clinical Documentation Specialists (CDI) and [facility] Coding Staff appreciate your assistance in clarifying documentation. Please respond to the clarification below the line at the bottom and electronically sign. The CDI & [facility] Coding staff will review the response and follow-up if needed. Please note: Queries are made part of the Legal Health Record. If you have any questions, please contact the author of this message via ITS. Dr. Flavia Veloz Unspecified anemia is documented per ED Note. Additional specificity regarding the type and acuity of anemia is requested. History/Risk Factors: 52yo M, ulcerative colitis, dehydration, Ileus, malnutrition PICC line for TPN, SHREE, tachycardia, hypotension, lactic acidosis, anxiety Clinical indicators: Hemoglobin: 11.2 09/03/22 8.3 09/05/22 7.6 09/08/22 Hematocrit: 35.6 09/03/22 25.7 09/05/22 25.1 09/08/22 Treatment: Recommend follow-up labs and monitor hemoglobin closely and will transfuse as needed if less than 7. Please clarify the type(s) and acuity (ies) of anemia: [ ] Acute blood loss anemia [ ] Acute on chronic blood loss anemia [ ] Chronic blood loss anemia [ ] Iron deficiency anemia [ ] Nutritional anemia [ ] Unable to determine [ ] Other, please specify (Template Last Revised: November 2020) Acute blood loss anemia MTDD
--- NOTE | 2022-09-13 19:02 | CDI ---
Documentation Clarification Form Date: 09/13/2022 06:41:00 PM From: Lou Oscar Phone: Admit Date: 09/03/2022 09:19:00 PM Patient Name: Howard Austin Visit Number: [id number] Discharge Date: 09/10/2022 11:10:00 PM ATTENTION: The Clinical Documentation Specialists (CDI) and [facility] Coding Staff appreciate your assistance in clarifying documentation. Please respond to the clarification below the line at the bottom and electronically sign. The CDI & [facility] Coding staff will review the response and follow-up if needed. Please note: Queries are made part of the Legal Health Record. If you have any questions, please contact the author of this message via ITS. Dr. Flavia Veloz Malnutrition is documented PICC insertion Note 09/05/22. Additional clarification regarding the severity of malnutrition is requested. History/Risk Factors: 52yo M, ulcerative colitis exacerbation w melena, dehydration, Ileus, malnutrition w PICC line for TPN, SHREE, tachycardia, hypotension, lactic acidosis, anxiety Clinical Indicators: Current BMI: 26.0 Weight Loss: No excessive weight gain or loss. Treatment: A PICC inserted for TPN per GI for bowel rest. PPN/TPN: PICC for TPN; Transfer to [facility] Please clarify the type of malnutrition, if known: [ ] Mild Protein-Calorie Malnutrition [ ] Moderate Protein-Calorie Malnutrition [ ] Other condition, please specify [ ] Unable to Determine (Template Last Revised: December 2020) Unable to Determine MTDD
== END 2022-09-10 23:10 | disposition short-term general hospital (02) | DRG 386 ==
LOC: EC 15:15 → 5NMEDONC 21:19 → 4SSUR 09-04 16:14
PROVIDERS: ADMIT Internal Medicine; ATTEND Internal Medicine
PROC: 02HV33Z Insertion of Infusion Device into Superior Vena Cava, Percutaneous Approach (ICD-10-PCS; 2022-09-05)
PROC: 3E0436Z Introduction of Nutritional Substance into Central Vein, Percutaneous Approach (ICD-10-PCS; principal; 2022-09-05 07:30)
DX: K51.911 Ulcerative colitis, unspecified with rectal bleeding (principal); D62 Acute posthemorrhagic anemia; E46 Unspecified protein-calorie malnutrition; N17.9 Acute kidney failure, unspecified; E87.20 Acidosis, unspecified; K56.7 Ileus, unspecified; I95.9 Hypotension, unspecified; E86.0 Dehydration; R00.0 Tachycardia, unspecified; F41.9 Anxiety disorder, unspecified; R73.9 Hyperglycemia, unspecified; Z79.899 Other long term (current) drug therapy; Z87.891 Personal history of nicotine dependence; Z68.26 Body mass index [BMI] 26.0-26.9, adult; Z75.1 Person awaiting admission to adequate facility elsewhere; Z86.16 Personal history of COVID-19; Z28.310 Unvaccinated for COVID-19
CPT/HCPCS: 36415; 36573; 71045; 74177; 80048; 80053; 82150; 82330; 83605; 83690; 83735; 84100; 84478; 85025; 85027; 85610; 85652; 86140; 93005; 96361; 96374; 96375; 96376

== ENCOUNTER → 2023-02-07 | Outpatient (CLI) | payer BC ==
[2023-02-07 18:19] LABS: ALT 34 U/L (4-49); AST 29 U/L (17-59); African American GFR (CKD) >90 (>60 ml/min/1.73 sqM); Albumin 4.5 g/dL (3.5-5.0); Albumin/Globulin Ratio 1.3; Alkaline Phosphatase 106 U/L (38-126); Anion Gap 11 mmol/L; Blood Urea Nitrogen 13 mg/dL (9-20); Calcium 9.3 mg/dL (8.4-10.2); Carbon Dioxide 28 mmol/L (22-30); Chloride 102 mmol/L (98-107); Globulin 3.4 g/dL; Glucose 100 mg/dL (74-99); Non-African American GFR(CKD) >90 (>60 ml/min/1.73 sqM); Potassium 3.9 mmol/L (3.5-5.1); Sodium 141 mmol/L (137-145); Total Bilirubin 0.4 mg/dL (0.2-1.3); Total Protein 7.9 g/dL (6.3-8.2)
[2023-02-08 01:40] LABS: Basophils # (A) 0.08 X 10*3/uL (0.00-0.10); Basophils % (A) 1.9 %; Eosinophils # (A) 0.36 X 10*3/uL (0.04-0.35); Eosinophils % (A) 8.4 %; HCT 35.2 % (39.6-50.0); HGB 9.7 g/dL (13.0-17.0); Immature Grans, Automated 0.5 %; Lymphocytes % (A) 25.8 %; MCH 20.8 pg (27.0-32.0); MCHC 27.6 g/dL (32.0-37.0); MCV 75.5 fL (80.0-97.0); Mean Platelet Volume 10.6 fL (9.5-12.2); Monocytes # (A) 0.43 X 10*3/uL (0.20-1.00); Monocytes % (A) 10.1 %; NRBC Per 100 WBC 0 /100 WBCS (0.0-0.0); Neutrophils # (A) 2.28 X 10*3/uL (1.80-7.70); Neutrophils % (A) 53.3 %; Platelet Count 211 X 10*3/uL (140-440); RBC 4.66 X 10*6/uL (4.40-5.60); RDW 15.2 % (11.5-14.5); Reticulocyte % 2.38 % (0.10-1.80); WBC 4.27 X 10*3/uL (4.50-10.00)
[2023-02-08 02:09] LABS: % Iron Saturation 4.13 (15.00-50.00); Ferritin 8.9 ng/mL (22.0-322.0); Iron 23 ug/dL (65-175); Total Iron Binding Capacity 552 ug/dL (228-460)
== END | disposition home or self-care (01) ==
LOC: LABWHC1 15:20
PROVIDERS: ATTEND Family Medicine
DX: D64.9 Anemia, unspecified (principal); R73.9 Hyperglycemia, unspecified
CPT/HCPCS: 36415; 80053; 82728; 83036; 83540; 83550; 85025; 85045

== ENCOUNTER → 2023-05-26 | Outpatient (CLI) | payer BC ==
--- NOTE | 2023-05-26 10:39 | XR ---
EXAMINATION TYPE: XR KUB DATE OF EXAM: 05/26/2023 COMPARISON: NONE HISTORY: Right-sided pain TECHNIQUE: One view abdominal series FINDINGS: The osseous structures are intact. The bowel gas pattern is nonspecific. Ostomy site is seen overlyi ng the right lower quadrant. No definite suspicious calcifications. Osteitis pubis condensans. IMPRESSION: 1. Nonspecific abdomen.
== END | disposition home or self-care (01) ==
LOC: RADXRMAIN 09:40
PROVIDERS: ATTEND Urology
DX: N20.0 Calculus of kidney (principal)
CPT/HCPCS: 74018

== ENCOUNTER 2023-05-28 07:03 | Emergency (ER) | payer BC ==
[2023-05-28 07:10] VITALS: RESP 18
[2023-05-28] MEDS ORDERED: KETOROLAC 15 MG/ML 1 ML VIAL IVP STA (07:45)
[2023-05-28] MEDS ORDERED: SODIUM CHLORIDE 0.9% 1,000 ML IV ONE (07:45)
[2023-05-28] MEDS ORDERED: MORPHINE SULFATE 4 MG/ML SYRINGE IVP STA (07:45)
[2023-05-28] MEDS ORDERED: ONDANSETRON 4 MG/2 ML VIAL IVP STA (07:45)
--- NOTE | 2023-05-28 07:47 | ED ---
General Adult HPI - General Chief complaint: Abdominal Pain Stated complaint: Kidney Stone Time Seen by Provider: 05/28/23 07:10 Source: patient, RN notes reviewed, old records reviewed Mode of arrival: ambulatory Limitations: no limitations - History of Present Illness Initial comments: This is a 53-year-old male who presents emergency Department complaining of right-sided CVA tenderness. Patient states it started on Friday and now is progressed onto the right lower abdomen. Patient states this is indicative of scabies times. Patient states she's had multiple kidney stones. Patient states he passes them on a regular basis. Patient has an appointment with Dr. Mcpherson tomorrow. Patient just comes in because he is nauseated with like something for pain. Patient denies any diarrhea. Patient denies any chest pain difficulty breathing. Patient does any back pain. Patient states this is the same pain he always gets when his kidney stone. - Related Data Home Medications Medication Instructions Recorded Confirmed predniSONE 40 mg PO DAILY 08/08/22 09/03/22 Simethicone [Gas-X] 125 mg PO QID PRN 08/27/22 09/03/22 Tamsulosin [Flomax] 0.4 mg PO DAILY 08/27/22 09/03/22 Previous Rx's Medication Instructions Recorded Ondansetron Odt [Zofran ODT] 4 mg PO Q8HR PRN #30 tab 07/30/22 Acetaminophen Tab [Tylenol] 650 mg PO Q6HR PRN tab 08/14/22 Dicyclomine [Bentyl] 10 mg PO TID PRN #30 tab 08/14/22 HYDROcodone/APAP 5-325MG [[place] 1 tab PO Q6HR PRN #9 tab 08/14/22 5-325] Allergies Allergy/AdvReac Type Severity Reaction Status Date / Time hydromorphone [From Dilaudid] Allergy Hallucinati Verified 05/28/23 07:11 ons Review of Systems ROS Statement: Those systems with pertinent positive or pertinent negative responses have been documented in the HPI. ROS Other: All systems not noted in ROS Statement are negative. Past Medical History Additional Past Medical History / Comment(s): kidney stones, covid February 2021, ULCERATIVE COLITIS History of Any Multi-Drug Resistant Organisms: None Reported Past Surgical History: No Surgical Hx Reported Past Anesthesia/Blood Transfusion Reactions: No Reported Reaction Past Psychological History: No Psychological Hx Reported Smoking Status: Former smoker Past Alcohol Use History: None Reported Past Drug Use History: None Reported - Past Family History Mother Family Medical History: No Reported History General Exam - General Exam Comments Initial Comments: GENERAL: Patient is well-developed and well-nourished. Patient is nontoxic and well- hydrated and is in moderate distress. ENT: Neck is soft and supple. No significant lymphadenopathy is noted. Oropharynx i s clear. Moist mucous membranes. Neck has full range of motion without eliciting any pain. EYES: The sclera were anicteric and conjunctiva were pink and moist. Extraocular movements were intact and pupils were equal round and reactive to light. Eyelids were unremarkable. PULMONARY: Unlabored respirations. Good breath sounds bilaterally. No audible rales rhonchi or wheezing was noted. CARDIOVASCULAR: There is a regular rate and rhythm without any murmurs gallops or rubs. ABDOMEN: Soft and nontender with normal bowel sounds. SKIN: Skin is clear with no lesions or rashes and otherwise unremarkable. NEUROLOGIC: Patient is alert and oriented x3. Cranial nerves II through XII are grossly intact. Motor and sensory are also intact. Normal speech, volume and content. Symmetrical smile. MUSCULOSKELETAL: Normal extremities with adequate strength and full range of motion. LYMPHATICS: No significant lymphadenopathy is noted PSYCHIATRIC: Normal psychiatric evaluation. Limitations: no limitations Course Vital Signs 05/28/23 07:08 Temperature 97.8 F Pulse Rate 84 Respiratory 18 Rate Blood Pressure 141/81 O2 Sat by Pulse 97 Oximetry Medical Decision Making - Medical Decision Making Was pt. sent in by a medical professional or institution (, PA, QUALITY CONTROL OPERATOR, urgent care, hospital, or halfway...) When possible be specific @ -[No] Did you speak to anyone other than the patient for history (EMS, parent, family, police, friend...)? What history was obtained from this source @ -[No] Did you review nursing and triage notes (agree or disagree)? Why? @ -[I reviewed and agree with nursing and triage notes] Were old charts reviewed (outside hosp., previous admission, EMS record, old EKG, old radiological studies, urgent care reports/EKG's, halfway records)? Report findings @ -I reviewed prior charts prior lab work prior radiological studies Differential Diagnosis (chest pain, altered mental status, abdominal pain women, abdominal pain men, vaginal bleeding, weakness, fever, dyspnea, syncope, headache, dizziness, GI bleed, back pain, seizure, CVA, palpatations, mental health, musculoskeletal)? @ -Differential Abdominal Pain Men: Appendicitis, cholecystitis, diverticulosis, ischemic bowel, pancreatitis, hepatitis, UTI, gastroenteritis, AAA, incarcerated hernia, bowel obstruction, constipation, inflammatory bowel, hepatitis, peptic ulcer disease, splenic infarction, perforated viscus, testicular torsion, this is not meant to be an all-inclusive list EKG interpreted by me (3pts min.). @ -[As above] X-rays interpreted by me (1pt min.). @ -[None done] CT interpreted by me (1pt min.). @ -[None done] U/S interpreted by me (1pt. min.). @ -[None done] What testing was considered but not performed or refused? (CT, X-rays, U/S, labs)? Why? @ -[None] What meds were considered but not given or refused? Why? @ -[None] Did you discuss the management of the patient with other professionals (professionals i.e. , PA, QUALITY CONTROL OPERATOR, lab, RT, psych nurse, social worker psychiatric, cement storage worker, teacher, neighborhood conservation officer, behavioral health case manager)? Give summary @ -[No] Was smoking cessation discussed for >3mins.? @ -[No] Was critical care preformed (if so, how long)? @ -[No] Were there social determinants of health that impacted care today? How? (Homelessness, low income, unemployed, alcoholism, drug addiction, transportation, low edu. Level, literacy, decrease access to med. care, shelter, rehab)? @ -[No] Was there de-escalation of care discussed even if they declined (Discuss DNR or withdrawal of care, Hospice)? DNR status @ -[No] What co-morbidities impacted this encounter? (DM, HTN, Smoking, COPD, CAD, Cancer, CVA, ARF, Chemo, Hep., AIDS, mental health diagnosis, sleep apnea, morbid obesity)? @ -[None] Was patient admitted / discharged? Hospital course, mention meds given and route, prescriptions, significant lab abnormalities, going to OR and other pertinent info. @ -Patient had just received a KUB on Friday so I did not repeat that. Patient states this is classic kidney stone pain that he has had many times before. Patient was given morphine and Zofran and Toradol and is almost reduced his pain to 0. At that point time he felt relaxed go to the bathroom he urinated and a large stone passed. Patient is no pain currently. Patient be discharged home to follow-up with Dr. Mcpherson. Undiagnosed new problem with uncertain prognosis? @ -[No] Drug Therapy requiring intensive monitoring for toxicity (Heparin, Nitro, Insulin, Cardizem)? @ -[No] Were any procedures done? @ -[No] Diagnosis/symptom? @ -Kidney stone Acute, or Chronic, or Acute on Chronic? @ -Acute Uncomplicated (without systemic symptoms) or Complicated (systemic symptoms)? @ -Complicated Side effects of treatment? @ -[No] Exacerbation, Progression, or Severe Exacerbation? @ -[No] Poses a threat to life or bodily function? How? (Chest pain, [place], [place], pneumonia, PE, COPD, DKA, ARF, appy, cholecystitis, CVA, Diverticulitis, Homicidal, Suicidal, threat to staff... and all critical care pts) @ -[No] - Lab Data Result diagrams: 05/28/23 07:52 05/28/23 07:52 Lab Results 05/28/23 05/28/23 05/28/23 Range/Units 07:52 07:52 07:52 WBC 8.2 (3.8-10.6) k/uL RBC 5.03 (4.30-5.90) m/uL Hgb 14.8 (13.0-17.5) gm/dL Hct 42.4 (39.0-53.0) % MCV 84.2 (80.0-100.0) fL MCH 29.4 (25.0-35.0) pg MCHC 34.9 (31.0-37.0) g/dL RDW 14.9 (11.5-15.5) % Plt Count 161 (150-450) k/uL MPV 7.9 Neutrophils % 81 % Lymphocytes % 9 % Monocytes % 7 % Eosinophils % 2 % Basophils % 0 % Neutrophils # 6.7 (1.3-7.7) k/uL Lymphocytes # 0.7 L (1.0-4.8) k/uL Monocytes # 0.6 (0-1.0) k/uL Eosinophils # 0.2 (0-0.7) k/uL Basophils # 0.0 (0-0.2) k/uL Sodium 137 (137-145) mmol/L Potassium 3.9 (3.5-5.1) mmol/L Chloride 98 (98-107) mmol/L Carbon Dioxide 28 (22-30) mmol/L Anion Gap 11 mmol/L BUN 23 H (9-20) mg/dL Creatinine 1.38 H (0.66-1.25) mg/dL Est GFR (CKD-EPI)AfAm 68 (>60 ml/min/1.73 sqM) Est GFR (CKD-EPI)NonAf 59 (>60 ml/min/1.73 sqM) Glucose 139 H (74-99) mg/dL Calcium 9.4 (8.4-10.2) mg/dL Total Bilirubin 0.6 (0.2-1.3) mg/dL AST 27 (17-59) U/L ALT 31 (4-49) U/L Alkaline Phosphatase 88 (38-126) U/L Total Protein 7.8 (6.3-8.2) g/dL Albumin 4.5 (3.5-5.0) g/dL Urine Color Yellow Urine Appearance Turbid (Clear) Urine pH 5.0 (5.0-8.0) Ur Specific [place] 1.023 (1.001-1.035) Urine Protein 1+ H (Negative) Urine Glucose (UA) Negative (Negative) Urine Ketones Negative (Negative) Urine Blood Large H (Negative) Urine Nitrite Negative (Negative) Urine Bilirubin Negative (Negative) Urine Urobilinogen <2.0 (<2.0) mg/dL Ur Leukocyte Esterase Negative (Negative) Urine RBC >182 H (0-5) /hpf Urine WBC 22 H (0-5) /hpf Amorphous Sediment Rare H (None) /hpf Urine Mucus Few H (None) /hpf Disposition Clinical Impression: Kidney stone on left side Disposition: HOME SELF-CARE Condition: Good Instructions (If sedation given, give patient instructions): Kidney Stones (ED) Is patient prescribed a controlled substance at d/c from ED?: No Referrals: Yazan Mullen MD [Primary Care Provider] - 1-2 days Time of Disposition: 08:56
[2023-05-28 08:33] LABS: Basophils % (A) 0 %; Eosinophils # (A) 0.2 k/uL (0-0.7); Eosinophils % (A) 2 %; HCT 42.4 % (39.0-53.0); HGB 14.8 gm/dL (13.0-17.5); Lymphocytes # (A) 0.7 k/uL (1.0-4.8); Lymphocytes % (A) 9 %; MCH 29.4 pg (25.0-35.0); MCHC 34.9 g/dL (31.0-37.0); MCV 84.2 fL (80.0-100.0); Mean Platelet Volume 7.9; Monocytes # (A) 0.6 k/uL (0-1.0); Monocytes % (A) 7 %; Neutrophils # (A) 6.7 k/uL (1.3-7.7); Neutrophils % (A) 81 %; Platelet Count 161 k/uL (150-450); RBC 5.03 m/uL (4.30-5.90); RDW 14.9 % (11.5-15.5); WBC 8.2 k/uL (3.8-10.6)
[2023-05-28 08:45] LABS: Amorphous Sediment,Urine Rare /hpf; Appearance,Urine Turbid (Clear); Bilirubin,Urine Negative (Negative); Blood,Urine Large (Negative); Glucose,Urine (UA) Negative (Negative); Ketones,Urine Negative (Negative); Leukocyte Esterase,Urine Negative (Negative); Mucus,Urine Few /hpf; Nitrite,Urine Negative (Negative); Protein,Urine 1+ (Negative); RBC,Urine >182 /hpf (0-5); Specific Gravity,Urine 1.023 (1.001-1.035); Urobilinogen,Urine <2.0 mg/dL (<2.0); WBC,Urine 22 /hpf (0-5)
[2023-05-28 08:49] LABS: ALT 31 U/L (4-49); AST 27 U/L (17-59); African American GFR (CKD) 68 (>60 ml/min/1.73 sqM); Albumin 4.5 g/dL (3.5-5.0); Alkaline Phosphatase 88 U/L (38-126); Anion Gap 11 mmol/L; Blood Urea Nitrogen 23 mg/dL (9-20); Calcium 9.4 mg/dL (8.4-10.2); Carbon Dioxide 28 mmol/L (22-30); Chloride 98 mmol/L (98-107); Color,Urine Yellow; Glucose 139 mg/dL (74-99); Non-African American GFR(CKD) 59 (>60 ml/min/1.73 sqM); Potassium 3.9 mmol/L (3.5-5.1); Sodium 137 mmol/L (137-145); Total Bilirubin 0.6 mg/dL (0.2-1.3); Total Protein 7.8 g/dL (6.3-8.2)
[2023-05-28 09:05] VITALS: BP 132/78; PULSE 88; TEMP 98.1
== END 2023-05-28 09:03 | disposition home or self-care (01) ==
LOC: EC 07:03
DX: N20.0 Calculus of kidney (principal); Z88.5 Allergy status to narcotic agent; Z87.891 Personal history of nicotine dependence; Z86.16 Personal history of COVID-19
CPT/HCPCS: 99284; 96374; 96375 ×2; 96361; 36415; 80053; 85025; 81001; J2270; J2405; J1885

== ENCOUNTER → 2023-06-12 | Outpatient (CLI) | payer BC ==
--- NOTE | 2023-06-12 21:04 | CT ---
EXAMINATION TYPE: CT abdomen pelvis wo con DATE OF EXAM: 06/12/2023 COMPARISON: 09/03/2022 INDICATION: Right sided flank pain. DLP: 1172 mGycm, Automated exposure control for dose reduction was used. CONTRAST: 0 mL of Isovue 300. Study performed without Oral Contrast TECHNIQUE: Axial images were obtained from above the diaphragm to the pubic rami in the axial plane a t 5 mm thick sections. Reconstructed images are reviewed on the computer in the coronal plane. FINDINGS: Limited CT sections are obtained the lung bases. The lung bases are clear. CT ABDOMEN: Liver: Normal Spleen: Normal Pancreas: Normal Adrenal glands: The adrenal glands are normal. Gallbladder: Normal Kidneys: No masses are evident. There is a mild hydronephrosis and hydroureter. At the proximal right ureter punctate 0.2 cm renal stone is present. No cysts are present. Punctate renal stone may be in the mid posterior right kidney. Aorta: Vascular calcification is within the aorta. Inferior vena cava: Normal. CT PELVIS: Ostomy is in the right lower quadrant. No dilated loops of bowel are evident. The study is without oral contrast limiting bowel evaluation. Appendix: Not identified Urinary bladder: Normal. Genitourinary structures: Prostate is prominent Osseous structures: No suspicious lytic or sclerotic lesions. Nose made of an intramuscular lipoma in the right quadriceps IMPRESSION: 1. 0.2 cm obstructing proximal right ureteral stone with mild right hydronephrosis and proximal uret er
== END | disposition home or self-care (01) ==
LOC: RADCTMAIN 07:58
PROVIDERS: ATTEND Urology
DX: N13.2 Hydronephrosis with renal and ureteral calculous obstruction (principal)
CPT/HCPCS: 74176

== ENCOUNTER 2023-08-29 17:20 | Emergency (ER) | payer BC ==
[2023-08-29 17:26] VITALS: TEMP 98.2
[2023-08-29] MEDS ORDERED: ONDANSETRON 4 MG/2 ML VIAL IVP STA (17:52)
[2023-08-29] MEDS ORDERED: SODIUM CHLORIDE 0.9% 1,000 ML IV ONE (17:52)
[2023-08-29] MEDS ORDERED: MORPHINE SULFATE 4 MG/ML SYRINGE IVP STA ×2 (17:52→18:36)
--- NOTE | 2023-08-29 17:55 | ED ---
General Adult HPI - General Chief complaint: Urogenital Stated complaint: blood in urine Time Seen by Provider: 08/29/23 17:46 Source: patient, RN notes reviewed, old records reviewed Mode of arrival: ambulatory Limitations: no limitations - History of Present Illness Initial comments: 53-year-old male history of recurrent kidney stones presenting for evaluation of right flank pain and abdominal pain. Pain is severe. He did have associated hematuria. He also had several episodes of vomiting secondary to pain. He has history of ileostomy status post colon resection for ulcerative colitis. No fever. - Related Data Home Medications Medication Instructions Recorded Confirmed predniSONE 40 mg PO DAILY 08/08/22 09/03/22 Simethicone [Gas-X] 125 mg PO QID PRN 08/27/22 09/03/22 Tamsulosin [Flomax] 0.4 mg PO DAILY 08/27/22 09/03/22 Previous Rx's Medication Instructions Recorded Ondansetron Odt [Zofran ODT] 4 mg PO Q8HR PRN #30 tab 07/30/22 Acetaminophen Tab [Tylenol] 650 mg PO Q6HR PRN tab 08/14/22 Dicyclomine [Bentyl] 10 mg PO TID PRN #30 tab 08/14/22 HYDROcodone/APAP 5-325MG [[place] 1 tab PO Q6HR PRN #9 tab 08/14/22 5-325] HYDROcodone/APAP 5-325MG [[place] 1 tab PO Q6HR PRN #12 tab 08/29/23 5-325] Ibuprofen [Motrin] 600 mg PO Q8HR PRN #24 tab 08/29/23 Allergies Allergy/AdvReac Type Severity Reaction Status Date / Time hydromorphone [From Dilaudid] Allergy Hallucinati Verified 08/29/23 17:24 ons Review of Systems ROS Statement: Those systems with pertinent positive or pertinent negative responses have been documented in the HPI. ROS Other: All systems not noted in ROS Statement are negative. Past Medical History Additional Past Medical History / Comment(s): kidney stones, covid February 2021, U LCERATIVE COLITIS History of Any Multi-Drug Resistant Organisms: None Reported Past Surgical History: No Surgical Hx Reported Past Anesthesia/Blood Transfusion Reactions: No Reported Reaction Past Psychological History: No Psychological Hx Reported Smoking Status: Former smoker Past Alcohol Use History: None Reported Past Drug Use History: None Reported - Past Family History Mother Family Medical History: No Reported History General Exam Limitations: no limitations General appearance: alert, in distress Head exam: Present: atraumatic Eye exam: Present: normal appearance Neck exam: Present: normal inspection. Absent: tenderness, meningismus Respiratory exam: Present: normal lung sounds bilaterally. Absent: respiratory distress, wheezes Cardiovascular Exam: Present: regular rate, normal rhythm GI/Abdominal exam: Present: distended, tenderness Extremities exam: Present: normal inspection Back exam: Present: CVA tenderness (R) Neurological exam: Present: alert, oriented X3, CN II-XII intact Skin exam: Present: warm Course Vital Signs 08/29/23 17:21 Temperature 98.2 F Pulse Rate 77 Respiratory 20 Rate Blood Pressure 175/92 O2 Sat by Pulse 95 Oximetry Medical Decision Making - Medical Decision Making Was pt. sent in by a medical professional or institution (, PA, MANUAL MACHINIST, urgent care, hospital, or senior living...) When possible be specific @ -No Did you speak to anyone other than the patient for history (EMS, parent, family, police, friend...)? What history was obtained from this source @ -No Did you review nursing and triage notes (agree or disagree)? Why? @ -I reviewed and agree with nursing and triage notes Were old charts reviewed (outside hosp., previous admission, EMS record, old EKG, old radiological studies, urgent care reports/EKG's, senior living records)? Report findings @ -No old charts were reviewed Differential Diagnosis (chest pain, altered mental status, abdominal pain women, abdominal pain men, vaginal bleeding, weakness, fever, dyspnea, syncope, headache, dizziness, GI bleed, back pain, seizure, CVA, palpatations, mental health, musculoskeletal)? @ -[Differential Abdominal Pain Men: Appendicitis, cholecystitis, diverticulosis, ischemic bowel, pancreatitis, hepatitis, UTI, gastroenteritis, AAA, incarcerated hernia, bowel obstruction, constipation, inflammatory bowel, hepatitis, peptic ulcer disease, splenic infarction, perforated viscus, testicular torsion, this is not meant to be an al l-inclusive list EKG interpreted by me (3pts min.). @ -As above X-rays interpreted by me (1pt min.). @ -None done CT interpreted by me (1pt min.). @ -[CT of the abdomen pelvis showing obstructive 2 mm stone in the right proximal ureter. U/S interpreted by me (1pt. min.). @ -None done What testing was considered but not performed or refused? (CT, X-rays, U/S, labs)? Why? @ -None What meds were considered but not given or refused? Why? @ -None Did you discuss the management of the patient with other professionals (professionals i.e. DrNico, PA, MANUAL MACHINIST, lab, RT, psych nurse, social insurance analyst, fluid jet cutter operator, teacher, product safety officer, case loader operator)? Give summary @ -No Was smoking cessation discussed for >3mins.? @ -No Was critical care preformed (if so, how long)? @ -No Were there social determinants of health that impacted care today? How? (Homelessness, low income, unemployed, alcoholism, drug addiction, transportation, low edu. Level, literacy, decrease access to med. care, [facility], rehab)? @ -No Was there de-escalation of care discussed even if they declined (Discuss DNR or withdrawal of care, Hospice)? DNR status @ -No What co-morbidities impacted this encounter? (DM, HTN, Smoking, COPD, CAD, Cancer, CVA, ARF, Chemo, Hep., AIDS, mental health diagnosis, sleep apnea, morbid obesity)? @ -[Recurrent renal stone Was patient admitted / discharged? Hospital course, mention meds given and route, prescriptions, significant lab abnormalities, going to OR and other pertinent info. @ -[53-year-old male with right flank pain, abdominal pain history of kidney stones per patient has a 2 mm obstructing stone with associated hydronephrosis and hydroureter on the right. This is a proximal stone. Patient has normal CBC, normal CMP, urinalysis is hemorrhagic without signs of infection Patient's pain is controlled in the emergency department. He is prescribed pain medication he states he has Flomax at home. He does have good follow-up with urology. Undiagnosed new problem with uncertain prognosis? @ -No Drug Therapy requiring intensive monitoring for toxicity (Heparin, Nitro, Insulin, Cardizem)? @ -No Were any procedures done? @ -No Diagnosis/symptom? @ Renal colic, obstructing kidney stone Acute, or Chronic, or Acute on Chronic? @ -[Acute on chronic Uncomplicated (without systemic symptoms) or Complicated (systemic symptoms)? @ -default Side effects of treatment? @ -No Exacerbation, Progression, or Severe Exacerbation? @ -No Poses a threat to life or bodily function? How? (Chest pain, [place], [place], pneumonia, PE, COPD, DKA, ARF, appy, cholecystitis, CVA, Diverticulitis, Homicidal, Suicidal, threat to staff... and all critical care pts) @ -[Low risk at this time - Lab Data Result diagrams: 08/29/23 17:33 08/29/23 17:33 Lab Results 08/29/23 08/29/23 08/29/23 Range/Units 17:33 17:33 17:33 WBC 9.6 (3.8-10.6) k/uL RBC 5.27 (4.30-5.90) m/uL Hgb 15.4 (13.0-17.5) gm/dL Hct 45.9 (39.0-53.0) % MCV 87.2 (80.0-100.0) fL MCH 29.3 (25.0-35.0) pg MCHC 33.6 (31.0-37.0) g/dL RDW 13.0 (11.5-15.5) % Plt Count 199 (150-450) k/uL MPV 8.0 Neutrophils % 85 % Lymphocytes % 8 % Monocytes % 6 % Eosinophils % 1 % Basophils % 0 % Neutrophils # 8.1 H (1.3-7.7) k/uL Lymphocytes # 0.7 L (1.0-4.8) k/uL Monocytes # 0.5 (0-1.0) k/uL Eosinophils # 0.1 (0-0.7) k/uL Basophils # 0.0 (0-0.2) k/uL Sodium 140 (137-145) mmol/L Potassium 3.8 (3.5-5.1) mmol/L Chloride 105 (98-107) mmol/L Carbon Dioxide 23 (22-30) mmol/L Anion Gap 12 mmol/L BUN 13 (9-20) mg/dL Creatinine 0.92 (0.66-1.25) mg/dL Est GFR (CKD-EPI)AfAm >90 (>60 ml/min/1.73 sqM) Est GFR (CKD-EPI)NonAf >90 (>60 ml/min/1.73 sqM) Glucose 140 H (74-99) mg/dL Calcium 9.4 (8.4-10.2) mg/dL Urine Color Light Red Urine Appearance Turbid (Clear) Urine pH 5.0 (5.0-8.0) Ur Specific [place] 1.019 (1.001-1.035) Urine Protein Trace H (Negative) Urine Glucose (UA) Negative (Negative) Urine Ketones 1+ H (Negative) Urine Blood Large H (Negative) Urine Nitrite Negative (Negative) Urine Bilirubin Negative (Negative) Urine Urobilinogen <2.0 (<2.0) mg/dL Ur Leukocyte Esterase Negative (Negative) Urine RBC >182 H (0-5) /hpf Urine WBC 1 (0-5) /hpf Ur Squamous Epith Cells <1 (0-4) /hpf Uric Acid Crystals Few H (None) /hpf Urine Mucus Moderate H (None) /hpf Disposition Clinical Impression: Renal colic on right side, Kidney stone on right side Disposition: HOME SELF-CARE Condition: Good Instructions (If sedation given, give patient instructions): Kidney Stones (ED), Flank Pain (ED) Prescriptions: Ibuprofen [Motrin] 600 mg PO Q8HR PRN #24 tab PRN Reason: Pain HYDROcodone/APAP 5-325MG [[place] 5-325] 1 tab PO Q6HR PRN #12 tab PRN Reason: Pain Is patient prescribed a controlled substance at d/c from ED?: No Referrals: Yazan Mullen MD [Primary Care Provider] - 1-2 days Rj Morataya MD [STAFF PHYSICIAN] - 1-2 days Time of Disposition: 20:53
[2023-08-29 17:57] LABS: Basophils % (A) 0 %; Eosinophils # (A) 0.1 k/uL (0-0.7); Eosinophils % (A) 1 %; HCT 45.9 % (39.0-53.0); HGB 15.4 gm/dL (13.0-17.5); Lymphocytes # (A) 0.7 k/uL (1.0-4.8); Lymphocytes % (A) 8 %; MCH 29.3 pg (25.0-35.0); MCHC 33.6 g/dL (31.0-37.0); MCV 87.2 fL (80.0-100.0); Monocytes # (A) 0.5 k/uL (0-1.0); Monocytes % (A) 6 %; Neutrophils # (A) 8.1 k/uL (1.3-7.7); Neutrophils % (A) 85 %; Platelet Count 199 k/uL (150-450); RBC 5.27 m/uL (4.30-5.90); WBC 9.6 k/uL (3.8-10.6)
[2023-08-29 18:22] LABS: African American GFR (CKD) >90 (>60 ml/min/1.73 sqM); Anion Gap 12 mmol/L; Blood Urea Nitrogen 13 mg/dL (9-20); Calcium 9.4 mg/dL (8.4-10.2); Carbon Dioxide 23 mmol/L (22-30); Chloride 105 mmol/L (98-107); Glucose 140 mg/dL (74-99); Non-African American GFR(CKD) >90 (>60 ml/min/1.73 sqM); Potassium 3.8 mmol/L (3.5-5.1); Sodium 140 mmol/L (137-145)
[2023-08-29] MEDS ORDERED: KETOROLAC 15 MG/ML 1 ML VIAL IVP STA (18:36)
--- NOTE | 2023-08-29 19:25 | CT ---
EXAMINATION TYPE: CT abdomen pelvis wo con DATE OF EXAM: 08/29/2023 COMPARISON: 06/12/2023 HISTORY: Rt side flank and abdominal pain. Ileostomy bag. CT DLP: 1085.4 mGycm Examination of the solid and hollow viscera is limited given the lack of contrast. FINDINGS: LUNG BASES: No evidence for nodule. No evidence for infiltrate. LIVER/GB: The gallbladder is unremarkable. No space-occupying hepatic lesion. PANCREAS: No pancreatic mass identified. No inflammatory process seen. SPLEEN: No evidence for splenomegaly. No intrasplenic lesions seen. ADRENALS: No adrenal nodules identified. No evidence for thickening. KIDNEYS: There is a 2 mm proximal right ureteral calculus just distal to the right UPJ resulting in m ild to moderate hydronephrosis and perinephric stranding. Right-sided renal edema noted. No additiona l calculi seen with certainty. Right-sided ostomy noted. Postoperative changes rectosigmoid region. BOWEL: Appendix has a normal appearance. No evidence of bowel obstruction. No inflammatory process. Lymph nodes: No evidence for adenopathy greater than 1 cm. Abdominal aorta: Atheromatous changes seen. No evidence for aneurysm. Genital organs: No significant abnormality. Other: Lipoma anterior right hip muscle group. IMPRESSION: There is a 2 mm proximal right ureteral calculus just distal to the right UPJ resulting in mild to mo derate hydronephrosis and perinephric stranding. Right-sided renal edema noted.
[2023-08-29 21:19] LABS: Appearance,Urine Turbid (Clear); Bilirubin,Urine Negative (Negative); Blood,Urine Large (Negative); Color,Urine Light Red; Glucose,Urine (UA) Negative (Negative); Ketones,Urine 1+ (Negative); Leukocyte Esterase,Urine Negative (Negative); Mucus,Urine Moderate /hpf; Nitrite,Urine Negative (Negative); Protein,Urine Trace (Negative); RBC,Urine >182 /hpf (0-5); Specific Gravity,Urine 1.019 (1.001-1.035); Squamous Epithelial Cell,Urine <1 /hpf (0-4); Uric Acid Crystals,Urine Few /hpf; Urobilinogen,Urine <2.0 mg/dL (<2.0); WBC,Urine 1 /hpf (0-5)
[2023-08-29 21:58] VITALS: BP 124/70; PULSE 63; RESP 19
== END 2023-08-29 21:53 | disposition home or self-care (01) ==
LOC: EC 17:20
DX: N13.2 Hydronephrosis with renal and ureteral calculous obstruction (principal); N23 Unspecified renal colic; Z87.891 Personal history of nicotine dependence; Z86.16 Personal history of COVID-19
CPT/HCPCS: 96375 ×3; 96376 ×2; 96361 ×2; 96374; 99284; 36415; 80048; 85025; 81001; 74176; J2270; J2405; J1885